=== PATIENT | male | born 1960 | race Caucasian/White ===

== ENCOUNTER 2017-04-22 18:32 | Inpatient (IN) | payer OTHER ==
[~2017-04-22] VITALS: Ht 170.2 cm; Wt 73.1 kg
[~2017-04-22 18:32] MED LIST: LORTA5 PO
[2017-04-22 18:34] VITALS: BP 228/113; PULSE 76; RESP 18; TEMP 97.9; O2SAT 98
[2017-04-22] MEDS ORDERED: ASPIRIN 325 MG TAB PO ONE (19:00)
[2017-04-22] MEDS ORDERED: NITROGLYCERIN 0.4 MG SL 25 TABS/BTL SL ONE (19:00)
[2017-04-22] MEDS ORDERED: MORPHINE SULFATE 4 MG/ML INJ IV PUSH ONE (19:00)
--- NOTE | 2017-04-22 19:55 | RADRPT ---
EXAM DATE/TIME: 04/22/2017 19:03 [facility] COMPARISON: No previous studies available for comparison. INDICATIONS : Chest pain. Short of breath. MEDICAL HISTORY : None. SURGICAL HISTORY : CABG. ENCOUNTER: Initial ACUITY: 2 months PAIN SCORE: 5/10 LOCATION: Bilateral chest FINDINGS: No infiltrate, effusion or pneumothorax. Heart size normal. Thoracic aorta is atherosclerotic. CONCLUSION: No evidence of acute cardiopulmonary disease. Nathan Dawkins MD on April 22, 2017 at 19:53 Board Certified Radiologist. This report was verified electronically.
[2017-04-22 20:06] LABS: AUTOMATED NEUTROPHIL # 4.6 TH/MM3 (1.8-7.7); BASOPHIL % 0.6 % (0.0-2.0); EOSINOPHIL # 0.1 TH/MM3 (0-0.4); EOSINOPHIL % 1.2 % (0.0-4.0); HEMATOCRIT 49.8 % (39.0-51.0); HEMO FLAGS DIFF FINAL; LYMPH % 24.8 % (9.0-44.0); LYMPHOCYTE # 1.7 TH/MM3 (1.0-4.8); MEAN CORPUSCULAR HEMOGLOBIN 30.6 PG (27.0-34.0); MEAN CORPUSCULAR HGB CONC 33.6 % (32.0-36.0); MONO % 7.9 % (0.0-8.0); NEUT % 65.5 % (16.0-70.0); PLATELET COUNT 152 TH/MM3 (150-450); RED BLOOD COUNT 5.47 MIL/MM3 (4.50-5.90); RED CELL DISTRIBUTION WIDTH 13.7 % (11.6-17.2); WHITE BLOOD COUNT 7.1 TH/MM3 (4.0-11.0)
[2017-04-22 20:11] LABS: APTT (PATIENT) 25.7 SEC (24.3-30.1); PROTHROMBIN TIME - PATIENT 11.2 SEC (9.8-11.6)
[2017-04-22 20:15] LABS: ALT (GPT) 37 U/L (12-78); ANION GAP 5 MEQ/L (5-15); AST (GOT) 24 U/L (15-37); BICARBONATE 27.1 MEQ/L (21.0-32.0); BLOOD UREA NITROGEN 13 MG/DL (7-18); CHLORIDE 107 MEQ/L (98-107); GLOMERULAR FILTRATION RATE 74 ML/MIN (>89); MAGNESIUM 1.9 MG/DL (1.5-2.5); POTASSIUM 4.7 MEQ/L (3.5-5.1); SODIUM (NA) 139 MEQ/L (136-145)
[2017-04-22] MEDS ORDERED: MORPHINE SULFATE 8 MG/ML INJ IV PUSH ONE (20:15)
[2017-04-22 20:25] LABS: ALKALINE PHOSPHATASE 58 U/L (45-117); TOTAL BILIRUBIN ADULT 0.4 MG/DL (0.2-1.0)
[2017-04-22 20:30] LABS: CREATINE KINASE 55 U/L (39-308)
--- NOTE | 2017-04-22 20:38 | RADRPT ---
EXAM DATE/TIME: 04/22/2017 20:25 [facility] COMPARISON: No previous studies available for comparison. INDICATIONS : Syncope two days ago. Dizziness and blurred vision. RADIATION DOSE: 35.65 CTDIvol (mGy) MEDICAL HISTORY : Cardiovascular disease. Hypertension. SURGICAL HISTORY : CABG ENCOUNTER: Initial ACUITY: 2 days PAIN SCALE: 2/10 LOCATION: cranial TECHNIQUE: Multiple contiguous axial images were obtained of the head. Using automated exposure control and adj ustment of the mA and/or kV according to patient size, radiation dose was kept as low as reasonably a chievable to obtain optimal diagnostic quality images. DICOM format image data is available electro nically for review and comparison. FINDINGS: CEREBRUM: The ventricles are normal for age. No evidence of midline shift, mass lesion, hemorrhage or acute in farction. No extra-axial fluid collections are seen. POSTERIOR FOSSA: The cerebellum and brainstem are intact. The 4th ventricle is midline. The cerebellopontine angle i s unremarkable. EXTRACRANIAL: The visualized portion of the orbits is intact. SKULL: The calvaria is intact. No evidence of skull fracture. CONCLUSION: Negative noncontrast head CT. Nathan Dawkins MD on April 22, 2017 at 20:36 Board Certified Radiologist. This report was verified electronically.
--- NOTE | 2017-04-22 20:50 | PD ---
HPI Chief Complaint: Syncope/Near-Syncope Time Seen by Provider: 20:43 Travel History International Travel<30 days: No Contact w/Intl Traveler<30days: No Traveled to known affect area: No History of Present Illness HPI 57-year-old male that presents to the ED for evaluation of syncopal episode 2 days ago. Per patient he has a history of cardiac disease including a cardiac bypass when he was in his 30s. Per patient she's been having on and off chest pain for a couple months and has not seen anybody for this. Per patient he wasn 't sure this is related to muscles or because of his previous stents. Per patient 2 days ago she was working inside and she lost consciousness. Per patient he did hit his head and does not remember what actually happened. Per patient he had no prodrome before this happened. Per patient he is never had anything this before. He does state that he continues to have the chest discomforts and have become more severe recently. He does not know this is related. He takes no medications but does tell me that he did took one Lortab today from a friend to help with the discomfort on the chest. Per patient he feels some numbness sensation in his right chest. He denies any back or neck pain. He denies any leg or arm pain. Per patient discomforts 5 out of 10. He has not seen anybody for this. Per patient this is worker's comp as this happened at work. PFSH Past Medical History Asthma: No Autoimmune Disease: No Blood Disorders: No Heart Rhythm Problems: Yes Cancer: No Cardiac Catheterization: Yes (1988) Cardiovascular Problems: Yes (DOUBLE BYPASS) High Cholesterol: No Chest Pain: Yes Congestive Heart Failure: No COPD: No Diminished Hearing: Yes (A LITTLE HARD OF HEARING AT TIMES) Genitourinary: No Hypertension: Yes Musculoskeletal: No Neurologic: No Psychiatric: No Reproductive: No Respiratory: No Myocardial Infarction: No Sleep Apnea: No Past Surgical History Abdominal Surgery: No Body Medical Devices: CARDIAC STENTS Cardiac Surgery: Yes (DOUBLE BYPASS DONE IN 1988) Coronary Artery Bypass Graft: Yes Coronary Stent: Yes Ear Surgery: No Endocrine Surgery: No Eye Surgery: No Genitourinary Surgery: No Gynecologic Surgery: No Oral Surgery: No Pacemaker: No Thoracic Surgery: No Other Surgery: Yes Social History Alcohol Use: Yes (OCCASSIONALLY) Tobacco Use: Yes (1/2 PPD) Substance Use: No Allergies-Medications (Allergen,Severity, Reaction): Coded Allergies: No Known Allergies (Verified Allergy, Severe, 04/29/08) Reported Meds & Prescriptions Reported Meds & Active Scripts Active No Active Prescriptions or Reported Medications Review of Systems Except as stated in HPI: all other systems reviewed are Neg Physical Exam Narrative GENERAL: SKIN: Warm and dry. Patient has a very superficial laceration to the right forehead HEAD: Atraumatic. Normocephalic. EYES: Pupils equal and round 4 mm reactive and accommodation. No scleral icterus. No injection or drainage. ENT: No nasal bleeding or discharge. Mucous membranes pink and moist. Tongue is midline. No uvula deviation. NECK: Trachea midline. No JVD. CARDIOVASCULAR: Regular rate and rhythm. No murmurs, S3, S4 patient does have a healing scar on the mid chest from previous bypass. RESPIRATORY: No accessory muscle use. Clear to auscultation. Breath sounds equal bilaterally. GASTROINTESTINAL: Abdomen soft, non-tender, nondistended. Hepatic and splenic margins not palpable. MUSCULOSKELETAL: Extremities without clubbing, cyanosis, or edema. No obvious deformities. Full range of motion of the upper and lower extremities bilaterally. 2+ pulses bilaterally. NEUROLOGICAL: Awake and alert. No obvious cranial nerve deficits. Motor grossly within normal limits. Five out of 5 muscle strength in the arms and legs. Normal speech. PSYCHIATRIC: Appropriate mood and affect; insight and judgment normal. Data Data Last Documented VS Vital Signs Date Time Temp Pulse Resp B/P Pulse Ox O2 Delivery O2 Flow Rate FiO2 04/22/17 20:17 88 99 Room Air 04/22/17 18:34 97.9 18 228/113 Orders Electrocardiogram (04/22/17 18:58) Complete Blood Count With Diff (04/22/17 18:58) Comprehensive Metabolic Panel (04/22/17 18:58) Ckmb (Isoenzyme) Profile (04/22/17 18:58) Troponin I (04/22/17 18:58) B-Type Natriuretic Peptide (04/22/17 18:58) Prothrombin Time / Inr (Pt) (04/22/17 18:58) Act Partial Throm Time (Ptt) (04/22/17 18:58) Lipase (04/22/17 18:58) Urinalysis - C+S If Indicated (04/22/17 18:58) Magnesium (Mg) (04/22/17 18:58) Thyroid Stimulating Hormone (04/22/17 18:58) Chest, Single Ap (04/22/17 18:58) Ct Brain W/O Iv Contrast(Rout) (04/22/17 18:58) Iv Access Insert/Monitor (04/22/17 18:58) Ecg Monitoring (04/22/17 18:58) Oximetry (04/22/17 18:58) Orthostatic Vital Signs (04/22/17 18:58) Aspirin (Aspirin) (04/22/17 19:00) Nitroglycerin Sl (Nitrostat Sl) (04/22/17 19:00) Morphine Inj (Morphine Inj) (04/22/17 19:00) Morphine Inj (Morphine Inj) (04/22/17 20:15) Admit Order (Ed Use Only) (04/22/17 20:57) Place In Observation (04/22/17 ) Vital Signs (Adult) Q4H (04/22/17 20:55) Activity Oob With Assistance (04/22/17 20:55) Shipping Track Supervisor / Telemetry .CONTINUOUS (04/22/17 20:55) Intake + Output SHANA.QSHIFT (04/22/17 20:55) Diet Heart Healthy (04/23/17 Breakfast) Sodium Chlor 0.9% 1000 Ml Inj (Ns 1000 M (04/22/17 20:55) Sodium Chloride 0.9% Flush (Ns Flush) (04/22/17 21:00) Sodium Chloride 0.9% Flush (Ns Flush) (04/22/17 21:00) Ondansetron Inj (Zofran Inj) (04/22/17 21:00) Comprehensive Metabolic Panel (04/23/17 06:00) Complete Blood Count With Diff (04/23/17 06:00) Troponin I (04/23/17 00:00) Troponin I (04/23/17 06:00) Labs Laboratory Tests Test 04/22/17 19:35 White Blood Count 7.1 TH/MM3 Red Blood Count 5.47 MIL/MM3 Hemoglobin 16.7 GM/DL Hematocrit 49.8 % Mean Corpuscular Volume 91.0 FL Mean Corpuscular Hemoglobin 30.6 PG Mean Corpuscular Hemoglobin 33.6 % Concent Red Cell Distribution Width 13.7 % Platelet Count 152 TH/MM3 Mean Platelet Volume 9.2 FL Neutrophils (%) (Auto) 65.5 % Lymphocytes (%) (Auto) 24.8 % Monocytes (%) (Auto) 7.9 % Eosinophils (%) (Auto) 1.2 % Basophils (%) (Auto) 0.6 % Neutrophils # (Auto) 4.6 TH/MM3 Lymphocytes # (Auto) 1.7 TH/MM3 Monocytes # (Auto) 0.6 TH/MM3 Eosinophils # (Auto) 0.1 TH/MM3 Basophils # (Auto) 0.0 TH/MM3 CBC Comment DIFF FINAL Differential Comment Prothrombin Time 11.2 SEC Prothromb Time International 1.0 RATIO Ratio Activated Partial 25.7 SEC Thromboplast Time Sodium Level 139 MEQ/L Potassium Level 4.7 MEQ/L Chloride Level 107 MEQ/L Carbon Dioxide Level 27.1 MEQ/L Anion Gap 5 MEQ/L Blood Urea Nitrogen 13 MG/DL Creatinine 1.03 MG/DL Estimat Glomerular Filtration 74 ML/MIN Rate Random Glucose 101 MG/DL Calcium Level 9.1 MG/DL Magnesium Level 1.9 MG/DL Total Bilirubin 0.4 MG/DL Aspartate Amino Transf 24 U/L (AST/SGOT) Alanine Aminotransferase 37 U/L (ALT/SGPT) Alkaline Phosphatase 58 U/L Total Creatine Kinase 55 U/L Troponin I LESS THAN 0.02 NG/ML B-Type Natriuretic Peptide 11 PG/ML Total Protein 7.6 GM/DL Albumin 3.9 GM/DL Lipase 157 U/L Thyroid Stimulating Hormone 1.130 uIU/ML 3rd Gen [facility] Medical Decision Making Medical Screen Exam Complete: Yes Emergency Medical Condition: Yes Medical Record Reviewed: Yes Interpretation(s) CBC & BMP Diagram 04/22/17 19:35 Last Impressions Chest X-Ray 04/22/17 [id number] Signed Impressions: Service Date/Time: Saturday, April 22, 2017 19:03 - CONCLUSION: No evidence of acute cardiopulmonary disease. Nathan Dawkins MD CT head negative EKG shows sinus rhythm with no sign of acute ischemia or arrhythmia read by me and attending. LFTS WNL coags WNL troponin and CKMB negative Differential Diagnosis Syncope versus a typical chest pain versus chest pain versus ACS versus head injury versus hypertensive urgency versus hypertensive emergency Narrative Course 57-year-old male that presents to the ED for evaluation of syncope and chest pain. Patient was properly examined and was found to have signs and symptoms of unclear etiology but definite concern for ACS as well as head injury. Labs and imaging were ordered. Patient was given aspirin as well as nitroglycerin and morphine. Patient did have some relief from this. Blood pressure was very high initially but has come down somewhat with the medications given. My attending Dr. Rasheed evaluated the patient with me and recommends admission for syncopal workup. Patient agrees with plan. Dr. Drake was contacted and agrees to admission. Procedures EKG Prior to Arrival: No Diagnosis Primary Impression: Syncope Qualified Code: R55 - Syncope, unspecified syncope type Additional Impression: Chest pain in adult Admitting Information Admitting Physician Requests: Observation Scripts No Active Prescriptions or Reported Meds Leandro Abrams Apr 22, 2017 20:50
[2017-04-22] MEDS ORDERED: MORPHINE SULFATE 4 MG/ML INJ IV PRN (21:00)
[2017-04-22] MEDS ORDERED: SODIUM CHLORIDE 0.9% FLUSH 10 ML FLUSH IV FLUSH PRN (21:00)
--- NOTE | 2017-04-22 21:01 | HHI.HP ---
[facility] Primary Care Physician Admission Diagnosis Syncope Diagnoses: (1) Syncope Diagnosis: Principal (2) Chest pain Diagnosis: Principal (3) HTN (hypertension) Diagnosis: Principal (4) Dehydration Diagnosis: Principal (5) Tobacco abuse Diagnosis: Principal Travel History International Travel<30 Days: No Contact w/Intl Traveler <30 Da: No Traveled to Known Affected Are: No History of Present Illness This is a 57-year-old male with a PMH of HTN, CAD s/p CABG and Tobacco Abuse who presented to the ER with complaints of chest pain and syncope 2 days ago. States he's had intermittent chest pain for the last 1-2 months, however has not sought medical attention until now. Reports being at work 2 days ago, had episode of dizziness and subsequent syncopal event, did not seek medical attention at that time. Denies fever, chills, cough, SOB or sick contacts. On arrival, BP 228/113, HR 76. Currently BP 170/78, HR 74. Chemistry essentially unremarkable except for GFR 74. Troponin negative. INR 1.0. CXR with no acute findings. CT Head negative. Review of Systems Except as stated in HPI: all other systems reviewed are Neg ROS: 14 point review of systems otherwise negative. Past Family Social History Past Medical History PMH: HTN, CAD s/p CABG and Tobacco Abuse Past Surgical History PAST SURGICAL HISTORY: CABG Allergies: Coded Allergies: No Known Allergies (Verified Allergy, Severe, 04/29/08) Family History PAST FAMILY HISTORY: Reviewed. No h/o DM or CAD Social History PAST SOCIAL HISTORY: Occasional alcohol. Smokes 1/2ppd. Negative for drugs. Physical Exam Vital Signs Vital Signs Date Time Temp Pulse Resp B/P Pulse Ox O2 Delivery O2 Flow Rate FiO2 04/22/17 20:17 88 99 Room Air 04/22/17 18:34 97.9 76 18 228/113 98 Room Air Physical Exam PE: GENERAL: Middle-aged white male in no acute distress. HEENT: PERRLA, EOMI. No scleral icterus or conjunctival pallor. No lid lag or facial droop. CARDIOVASCULAR: Regular rate and rhythm. No obvious murmurs to auscultation. No chest tenderness to palpation. RESPIRATORY: No obvious rhonchi or wheezing. Clear to auscultation. Breath sounds equal bilaterally. GASTROINTESTINAL: Abdomen soft, non-tender, nondistended. BS normal. MUSCULOSKELETAL: Extremities without clubbing, cyanosis, or edema. No obvious deformities. NEUROLOGICAL: Awake, alert and oriented x4. No focal neurologic deficits. Moving both upper and lower extremities spontaneously. Laboratory Laboratory Tests Test 04/22/17 19:35 White Blood Count 7.1 Red Blood Count 5.47 Hemoglobin 16.7 Hematocrit 49.8 Mean Corpuscular Volume 91.0 Mean Corpuscular Hemoglobin 30.6 Mean Corpuscular Hemoglobin 33.6 Concent Red Cell Distribution Width 13.7 Platelet Count 152 Mean Platelet Volume 9.2 Neutrophils (%) (Auto) 65.5 Lymphocytes (%) (Auto) 24.8 Monocytes (%) (Auto) 7.9 Eosinophils (%) (Auto) 1.2 Basophils (%) (Auto) 0.6 Neutrophils # (Auto) 4.6 Lymphocytes # (Auto) 1.7 Monocytes # (Auto) 0.6 Eosinophils # (Auto) 0.1 Basophils # (Auto) 0.0 CBC Comment DIFF FINAL Differential Comment Prothrombin Time 11.2 Prothromb Time International 1.0 Ratio Activated Partial 25.7 Thromboplast Time Sodium Level 139 Potassium Level 4.7 Chloride Level 107 Carbon Dioxide Level 27.1 Anion Gap 5 Blood Urea Nitrogen 13 Creatinine 1.03 Estimat Glomerular Filtration 74 Rate Random Glucose 101 Calcium Level 9.1 Magnesium Level 1.9 Total Bilirubin 0.4 Aspartate Amino Transf 24 (AST/SGOT) Alanine Aminotransferase 37 (ALT/SGPT) Alkaline Phosphatase 58 Total Creatine Kinase 55 Troponin I LESS THAN 0.02 B-Type Natriuretic Peptide 11 Total Protein 7.6 Albumin 3.9 Lipase 157 Thyroid Stimulating Hormone 1.130 3rd Gen Result Diagram: 04/22/17193404/22/171934 Assessment and Plan Problem List: (1) Syncope ICD Code: R55 Status: Acute (2) Chest pain ICD Code: R07.9 Status: Acute (3) Dehydration ICD Code: E86.0 Status: Acute (4) HTN (hypertension) ICD Code: I10 Status: Acute (5) Tobacco abuse ICD Code: Z72.0 Status: Acute Assessment and Plan A/P: 1. Syncope: acute episode of dizziness followed by syncopal event 2 days ago at work, no recurrence. CT Head w/ no acute findings, images reviewed by me. IVF for hydration, admit for Observation, check Echo, telemetry. 2. Chest Pain: h/o CAD s/p CABG at age 28yrs, initial trop negative, EKG w/ no acute ischemia, check serial cardiac enzymes. ASA, Statin, start B-Jovanni. Check Lipid Profile, Hgb A1c. 3. Dehydration: GFR 74, U/a negative, IVF for hydration, repeat labs in am. 4. HTN: Uncontrolled. BP 228/113, HR 76 on arrival, start Lopressor, BP currently 170/78, HR 74. Will monitor. 5. DVT Prophylaxis: SCD/Teds. 6. Social work for dc planning as needed. 7. Case discussed w/ ER physician at length Problem Qualifiers (1) Syncope: Qualified Code: R55 - Syncope, unspecified syncope type Mariana Drake MD Apr 22, 2017 21:01
--- NOTE | 2017-04-22 21:14 | PD ---
Physical Exam Narrative GENERAL: Well-nourished, well-developed patient. SKIN: Warm and dry. HEAD: Normocephalic and atraumatic. EYES: No injection or drainage. ENT: No nasal drainage noted. NECK: Supple, trachea midline. CARDIOVASCULAR: Regular rate and rhythm RESPIRATORY: Breath sounds equal bilaterally. No accessory muscle use. GASTROINTESTINAL: Abdomen soft, non-tender, nondistended. NEUROLOGICAL: Awake and alert. Motor and sensory grossly within normal limits. Normal speech. Data Data Last Documented VS Vital Signs Date Time Temp Pulse Resp B/P Pulse Ox O2 Delivery O2 Flow Rate FiO2 04/22/17 20:17 88 99 Room Air 04/22/17 18:34 97.9 18 228/113 Repeat blood pressure has improved on its own to a systolic in the 160s Orders Electrocardiogram (04/22/17 18:58) Complete Blood Count With Diff (04/22/17 18:58) Comprehensive Metabolic Panel (04/22/17 18:58) Ckmb (Isoenzyme) Profile (04/22/17 18:58) Troponin I (04/22/17 18:58) B-Type Natriuretic Peptide (04/22/17 18:58) Prothrombin Time / Inr (Pt) (04/22/17 18:58) Act Partial Throm Time (Ptt) (04/22/17 18:58) Lipase (04/22/17 18:58) Urinalysis - C+S If Indicated (04/22/17 18:58) Magnesium (Mg) (04/22/17 18:58) Thyroid Stimulating Hormone (04/22/17 18:58) Chest, Single Ap (04/22/17 18:58) Ct Brain W/O Iv Contrast(Rout) (04/22/17 18:58) Iv Access Insert/Monitor (04/22/17 18:58) Ecg Monitoring (04/22/17 18:58) Oximetry (04/22/17 18:58) Orthostatic Vital Signs (04/22/17 18:58) Aspirin (Aspirin) (04/22/17 19:00) Nitroglycerin Sl (Nitrostat Sl) (04/22/17 19:00) Morphine Inj (Morphine Inj) (04/22/17 19:00) Morphine Inj (Morphine Inj) (04/22/17 20:15) Admit Order (Ed Use Only) (04/22/17 20:57) Labs Laboratory Tests Test 04/22/17 19:35 White Blood Count 7.1 TH/MM3 Red Blood Count 5.47 MIL/MM3 Hemoglobin 16.7 GM/DL Hematocrit 49.8 % Mean Corpuscular Volume 91.0 FL Mean Corpuscular Hemoglobin 30.6 PG Mean Corpuscular Hemoglobin 33.6 % Concent Red Cell Distribution Width 13.7 % Platelet Count 152 TH/MM3 Mean Platelet Volume 9.2 FL Neutrophils (%) (Auto) 65.5 % Lymphocytes (%) (Auto) 24.8 % Monocytes (%) (Auto) 7.9 % Eosinophils (%) (Auto) 1.2 % Basophils (%) (Auto) 0.6 % Neutrophils # (Auto) 4.6 TH/MM3 Lymphocytes # (Auto) 1.7 TH/MM3 Monocytes # (Auto) 0.6 TH/MM3 Eosinophils # (Auto) 0.1 TH/MM3 Basophils # (Auto) 0.0 TH/MM3 CBC Comment DIFF FINAL Differential Comment Prothrombin Time 11.2 SEC Prothromb Time International 1.0 RATIO Ratio Activated Partial 25.7 SEC Thromboplast Time Sodium Level 139 MEQ/L Potassium Level 4.7 MEQ/L Chloride Level 107 MEQ/L Carbon Dioxide Level 27.1 MEQ/L Anion Gap 5 MEQ/L Blood Urea Nitrogen 13 MG/DL Creatinine 1.03 MG/DL Estimat Glomerular Filtration 74 ML/MIN Rate Random Glucose 101 MG/DL Calcium Level 9.1 MG/DL Magnesium Level 1.9 MG/DL Total Bilirubin 0.4 MG/DL Aspartate Amino Transf 24 U/L (AST/SGOT) Alanine Aminotransferase 37 U/L (ALT/SGPT) Alkaline Phosphatase 58 U/L Total Creatine Kinase 55 U/L Troponin I LESS THAN 0.02 NG/ML B-Type Natriuretic Peptide 11 PG/ML Total Protein 7.6 GM/DL Albumin 3.9 GM/DL Lipase 157 U/L Thyroid Stimulating Hormone 1.130 uIU/ML 3rd Gen MDM Supervised Visit with LALITA: Yes Interpretation(s) CBC & BMP Diagram 04/22/17 19:35 Last [address] 04/22/17 [id number] Signed Impressions: Service Date/Time: Saturday, April 22, 2017 20:25 - CONCLUSION: Negative noncontrast head CT. Nathan Dawkins MD Chest X-Ray 04/22/17 1858 Signed Impressions: Service Date/Time: Saturday, April 22, 2017 19:03 - CONCLUSION: No evidence of acute cardiopulmonary disease. Nathan Dawkins MD Narrative Course I, Dr. wagner, have reviewed the advance practice practitioner's documentation and am in agreement, met with the patient face to face, made the diagnosis, and the medical decision making was done by me. *My assessment and Findings: 57-year-old male presents after he had a syncopal event at work today. He has been having chest pain intermittently over the past couple months. Chest pain today resolved with nitroglycerin knee has a mild associated headache now from this. He denies any other concurrent complaints. He agrees to hospitalization for further workup Diagnosis Primary Impression: Syncope Qualified Code: R55 - Syncope, unspecified syncope type Additional Impression: Chest pain in adult Scripts No Active Prescriptions or Reported Meds Bertha Wagner MD Apr 22, 2017 21:14
[2017-04-22 21:15] VITALS: BP 176/74; PULSE 90; RESP 18; O2SAT 97
[2017-04-22] MEDS ORDERED: METOPROLOL TARTRATE 25 MG TAB PO SCH (22:00)
[2017-04-22] MEDS ORDERED: MAGNESIUM HYDROXIDE SUSP 30 ML CUP PO PRN (22:00)
[2017-04-22] MEDS ORDERED: BISACODYL 10 MG SUPP RECTAL PRN (22:00)
[2017-04-22] MEDS ORDERED: SENNOSIDES 8.6 MG TAB PO PRN (22:00)
[2017-04-22] MEDS ORDERED: LACTULOSE SYRUP 20 GM/30 ML CUP PO PRN (22:00)
[2017-04-22] MEDS ORDERED: ONDANSETRON HCL 4 MG/2 ML VIAL IVP PRN (22:00)
[2017-04-22] MEDS ORDERED: NITROGLYCERIN 2% OINT 1 GM PACKET TOPICAL PRN (22:00)
[2017-04-22] MEDS ORDERED: ACETAMINOPHEN 325 MG TAB PO PRN (22:00)
[2017-04-22 22:10] VITALS: BP 182/80; PULSE 82; RESP 14; O2SAT 100
[2017-04-22] MEDS: SODIUM CHLOR 0.9% 1000 ML INJ 1,000 ML IV SCH (22:16)
[2017-04-22] MEDS: SODIUM CHLORIDE 0.9% FLUSH 10 ML FLUSH IV FLUSH SCH (22:16)
[2017-04-22] MEDS: DOCUSATE SODIUM 50 MG/SENNA 8.6 MG TAB PO SCH (22:17)
[2017-04-22 23:00] VITALS: BP 174/82; PULSE 72; RESP 16; O2SAT 99
[2017-04-22 23:05] LABS: BLOOD, URINE NEG (NEG); COMMENT (UR) CULT NOT INDICATED; CULTURE IF INDICATED CULT NOT INDICATED; GLUCOSE,URINE NEG (NEG); HYALINE CAST, URINE 1 /lpf (RARE); KETONE, URINE NEG (NEG); MUCUS URINE MANY /lpf (OCC); NITRITE,URINE NEG (NEG); PH, URINE 5.5 (5.0-8.5); URINE COLOR YELLOW (YELLW/STRAW)
[2017-04-23] VITALS (14 sets, daily range): BP systolic 135–193; BP diastolic 66–88; PULSE 46–74; RESP 14–20; TEMP 97.8–98.8; O2SAT 93–100
[2017-04-23] MEDS: ACETAMINOPHEN/HYDROcodone 325 MG/5 MG TAB PO PRN ×2 (01:56→23:25)
[2017-04-23] MEDS: SODIUM CHLOR 0.9% 1000 ML INJ 1,000 ML IV SCH ×2 (06:30→21:38)
[2017-04-23] MEDS ORDERED: PILL SPLITTER OTHER PRN (07:45)
--- NOTE | 2017-04-23 08:02 | HHI.PR ---
Subjective Remarks Follow-up for chest pain and syncope. The patient has been having chest pain for the past few weeks. He denies any exacerbating factors including activity. The pain is usually relieved by rest. The pain is worse whenever he moves a certain way. He denies any chest trauma or recent excessive activity or heavy lifting. It is located on his anterior left chest and radiates up and down. The patient does have a history of CABG in 2007, but has not been on any medications or following with any doctors. He does continue to smoke. The patient states that he's been having multiple episodes of syncope lately. Syncope is not related to position changes or activity. He states that he is having episodes where he also and feels faint, loses consciousness for a few seconds, and then awakens with no issues. He has been having intermittent episodes of right-sided vision "like he is looking to a waterfall". Upon further questioning he is also been having intermittent episodes of right-sided numbness and weakness. He denies any right-sided symptoms at this time. Objective Vitals Vital Signs Date Time Temp Pulse Resp B/P Pulse Ox O2 Delivery O2 Flow Rate FiO2 04/23/17 03:51 46 04/23/17 03:26 98.5 48 18 160/72 94 04/23/17 01:43 98.5 52 18 193/88 97 04/23/17 01:14 72 18 168/74 100 Room Air 04/23/17 00:11 74 14 170/78 99 Room Air 04/22/17 23:00 72 16 174/82 99 Room Air 04/22/17 22:10 82 14 182/80 100 Room Air 04/22/17 21:15 90 18 176/74 97 Room Air 04/22/17 20:17 88 99 Room Air 04/22/17 18:34 97.9 76 18 228/113 98 Room Air I/O 04/22/17 04/22/17 04/22/17 04/23/17 04/23/17 04/23/17 07:00 15:00 23:00 07:00 15:00 23:00 Intake Total 725 ml Balance 725 ml Intake Oral 240 ml IV Total 485 ml # Voids 1 Result Diagram: 04/22/17193404/22/171934 Imaging Last Impressions Head CT 04/22/171857 Signed Impressions: Service Date/Time: Saturday, April 22, 2017 20:25 - CONCLUSION: Negative noncontrast head CT. Nathan Dawkins MD Chest X-Ray 04/22/171857 Signed Impressions: Service Date/Time: Saturday, April 22, 2017 19:03 - CONCLUSION: No evidence of acute cardiopulmonary disease. Nathan Dawkins MD Objective Remarks GENERAL: Well-developed well-nourished. In no acute distress. SKIN: Warm and dry. No lesions noted. HEENT: Normocephalic. Pupils equal and round. Mucous membranes pink and moist. CARDIOVASCULAR: Regular rate and rhythm. No murmur appreciated. Left anterior chest wall is tender to palpation. RESPIRATORY: No accessory muscle use. Clear to auscultation. Breath sounds equal bilaterally. GASTROINTESTINAL: Abdomen soft, non-tender, nondistended. Bowel sounds x4. MUSCULOSKELETAL: Pain with movement of the right shoulder and right hip. No clubbing or cyanosis. No edema. NEUROLOGICAL: Awake and alert. Moves upper and lower extremities spontaneously. Normal speech. Weakness on the right, although somewhat limited by musculoskeletal pain. However the patient has decreased sieve maker strength and dorsi/plantar flexion on the right. No facial asymmetry. PSYCHIATRIC: Appropriate mood and affect; insight and judgment normal. A/P Problem List: (1) Syncope ICD Code: R55 Status: Acute (2) Chest pain ICD Code: R07.9 Status: Acute (3) HTN (hypertension) ICD Code: I10 Status: Acute (4) Tobacco abuse ICD Code: Z72.0 Status: Chronic Assessment and Plan 57-year-old male with a PMH of HTN, CAD s/p CABG and Tobacco Abuse who presented to the ER with complaints of chest pain and syncope 2 days ago Atypical chest pain: Seems more musculoskeletal, likely from falls from syncope. Reviewed: EKG with occasional PACs, no ischemic changes. Troponin negative 2. -Rule out ACS per protocol -Plan for stress testing if ACS ruled out -Started on aspirin, statin, and Nitropaste Transient right-sided neurologic symptoms: Possible TIA/CVA Reviewed: Head CT negative. -Check brain MRI/MRA, carotid ultrasound -Permissive hypertension for now -IVF -Check lipid panel and hemoglobin A1c Syncope: Possibly secondary to cardiac or neurologic etiology as above. -Chest pain and TIA/CVA workup -Echocardiogram -PT eval -Monitor on telemetry Hypertension: Accelerated. Permissive hypertension for now. We'll start BP meds if CVA is ruled out. Tobacco abuse: Counseled on cessation. DVT prophylaxis: SCDs Discharge Planning Disposition pending results of above workup. Problem Qualifiers (1) Syncope: Qualified Code: R55 - Syncope, unspecified syncope type Kash Saenz Apr 23, 2017 08:02
[2017-04-23] MEDS: DOCUSATE SODIUM 50 MG/SENNA 8.6 MG TAB PO SCH ×2 (08:09→21:37)
[2017-04-23] MEDS: ASPIRIN EC 81 MG TABEC PO SCH (08:09)
[2017-04-23] MEDS: PRAVASTATIN SOD 40 MG TAB PO SCH (08:09)
[2017-04-23] MEDS: SODIUM CHLORIDE 0.9% FLUSH 10 ML FLUSH IV FLUSH SCH ×2 (08:10→21:37)
[2017-04-23 09:00] LABS: AUTOMATED NEUTROPHIL # 3.1 TH/MM3 (1.8-7.7); BASOPHIL % 0.7 % (0.0-2.0); EOSINOPHIL # 0.2 TH/MM3 (0-0.4); EOSINOPHIL % 3.5 % (0.0-4.0); HEMATOCRIT 47.1 % (39.0-51.0); HEMO FLAGS DIFF FINAL; LYMPH % 33.4 % (9.0-44.0); MEAN CELL VOLUME 90.5 FL (80.0-100.0); MEAN CORPUSCULAR HEMOGLOBIN 30.7 PG (27.0-34.0); MEAN CORPUSCULAR HGB CONC 33.9 % (32.0-36.0); MONO % 9.3 % (0.0-8.0); NEUT % 53.1 % (16.0-70.0); PLATELET COUNT 147 TH/MM3 (150-450); RED BLOOD COUNT 5.21 MIL/MM3 (4.50-5.90); RED CELL DISTRIBUTION WIDTH 13.7 % (11.6-17.2); WHITE BLOOD COUNT 5.9 TH/MM3 (4.0-11.0)
[2017-04-23] MEDS ORDERED: amLODIPine BESYLATE 5 MG TAB PO SCH (09:00)
[2017-04-23 09:33] LABS: ALT (GPT) 35 U/L (12-78); ANION GAP 7 MEQ/L (5-15); AST (GOT) 22 U/L (15-37); BICARBONATE 23.1 MEQ/L (21.0-32.0); BLOOD UREA NITROGEN 13 MG/DL (7-18); CHLORIDE 108 MEQ/L (98-107); GLOMERULAR FILTRATION RATE 91 ML/MIN (>89); SODIUM (NA) 138 MEQ/L (136-145)
[2017-04-23 09:37] LABS: ALKALINE PHOSPHATASE 55 U/L (45-117); HDL CHOLESTEROL 35.9 MG/DL (40.0-60.0); LDL CHOLESTEROL 163 MG/DL (0-99); TOTAL BILIRUBIN ADULT 0.6 MG/DL (0.2-1.0)
--- NOTE | 2017-04-23 11:32 | RADRPT ---
EXAM DATE/TIME: 04/23/2017 10:25 [facility] COMPARISON: MRI BRAIN W/O CONTRAST, April 23, 2017, 10:25. INDICATIONS : Right sided weakness. MEDICAL HISTORY : Hypertension. SURGICAL HISTORY : CABG Coronary artery stent. ENCOUNTER: Initial ACUITY: 1 day PAIN SCORE: 0/10 LOCATION: cranial Please note a normal MRA of the brain does not entirely exclude the possibility of a small aneurysm, nor the possibility of distal intracranial vessel disease. TECHNIQUE: 3D time of flight MRA was performed. Source images, multiplanar STS MIP, and 3D volume MIP reconstru ctions were reviewed. FINDINGS: There is excellent visualization of the major intracranial arteries out to the second-order branch ve ssels. Focal irregular narrowing is identified in the petrous segment of the left internal carotid artery. T he degree of stenosis is between 50 and 69%. Sagittal STS and source images suggest the presence of e ccentric filling defect. The middle cerebral artery circulation is otherwise well preserved and appea rs symmetric compared to the right. No additional filling defects or stenoses are noted. The right carotid siphon demonstrates mild irregularity but is otherwise widely patent. 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 Vertebral basilar circulation is unremarkable. CONCLUSION: 1. Irregular narrowing in the petrous segment of the left internal carotid artery which may be caused by eccentric thrombus. 2. 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 3. Mild luminal irregularity involving the right carotid siphon without significant stenosis. Baron Harrell MD on April 23, 2017 at 11:22 Board Certified Radiologist. This report was verified electronically.
--- NOTE | 2017-04-23 11:49 | RADRPT ---
EXAM DATE/TIME: 04/23/2017 10:25 [facility] COMPARISON: No previous studies available for comparison. INDICATIONS : Right sided weakness. MEDICAL HISTORY : Hypertension. SURGICAL HISTORY : CABG Coronary artery stent. ENCOUNTER: Initial ACUITY: 1 day PAIN SCORE: 0/10 LOCATION: cranial TECHNIQUE: Multiplanar, multisequence MRI of the brain was performed without contrast. FINDINGS: Small focal areas of restricted diffusion are noted. The most prominent is identified in the left fro ntoparietal deep white matter within the centrum semiovale. Very small focus of restricted diffusion is also seen in the right centrum semiovale. Mild cortical restricted diffusion is identified in the right posterior parietal lobe. Moderate T2 hyperintense changes are seen throughout the cerebral white matter. There are periventric ular, deep white matter and subcortical white matter hyperintensities. There is notice of mass effect, edema or acute hemorrhage. CONCLUSION: Bilateral foci of restricted diffusion consistent with acute infarcts. The largest is located in the left centrum semi-ovale. Bilaterality is suggestive of an embolic process. Moderate cerebral and matter disease characteristic of chronic microvascular ischemic changes. No evidence of acute hemorrhage, edema or significant mass effect. Baron Harrell MD on April 23, 2017 at 11:39 Board Certified Radiologist. This report was verified electronically.
--- NOTE | 2017-04-23 13:46 | RADRPT ---
EXAM DATE/TIME: 04/23/2017 13:03 [facility] COMPARISON: No previous studies available for comparison. INDICATIONS : Cerebrovascular accident. MEDICAL HISTORY : Hypertension. Hearing loss. Blood transfusion. SURGICAL HISTORY : Coronary artery stent. CABG. ENCOUNTER: Initial ACUITY: 1 day PAIN SCORE: 0/10 LOCATION: Bilateral neck PEAK SYSTOLIC VELOCITIES (cm/sec): ICA/CCA RATIO: Right: 1.3 Left: 5.5 ICA: Right: 108 Left: 438 CCA: Right: 82 Left: 79 ECA: Right: 134 Left: 118 VERTEBRAL: Right: 93 antegrade Left: 82 antegrade Elevated flow velocities and ICA/CCA ratios have been found to correlate with increased degrees of vessel stenosis, calculated as percentage of diameter relative to a normal segment of distal ICA/CCA FINDINGS: There is extensive atherosclerotic plaquing on the left and to a moderate degree on the right involvi ng the common carotid arteries and ICAs with significant stenosis on the left. CONCLUSION: High-grade stenosis involving the left ICA. Bennett Metcafl MD on April 23, 2017 at 13:43 Board Certified Radiologist. This report was verified electronically.
--- NOTE | 2017-04-23 13:47 | EKG ---
Date Performed: 04/23/2017 Time Performed: 01:07:44 PTAGE: 57 years EKG: SINUS BRADYCARDIA BORDERLINE ECG PREVIOUS TRACING : 04/22/2017 20.04 Since prior tracing, Sinus rhythm has slowed. DOCTOR: Ashutosh Corral Interpretating Date/Time 04/23/2017 13:46:34
--- NOTE | 2017-04-23 13:47 | EKG ---
Date Performed: 04/22/2017 Time Performed: 20:04:50 PTAGE: 57 years EKG: Sinus rhythm WITH OCCASIONAL SUPRAVENTRICULAR PREMATURE COMPLEXES BORDERLINE ECG PREVIOUS TRACING : 04/30/2008 01.22 No change from prior tracing. DOCTOR: Ashutosh Corral Interpretating Date/Time 04/23/2017 13:46:11
[2017-04-23] MEDS ORDERED: IOHEXOL 350 MG/ML 10 ML VIAL (for RAD DIAG) IV ONE (16:59)
[2017-04-23 17:22] LABS: AMPHETAMINE, URINE NEG (NEG); BARBITURATES, URINE NEG (NEG); COCAINE, URINE NEG (NEG)
--- NOTE | 2017-04-23 17:36 | RADRPT ---
EXAM DATE/TIME: 04/23/2017 16:43 [facility] COMPARISON: MRA BRAIN W/O CONTRAST, April 23, 2017, 10:25. MRI BRAIN W/O CONTRAST, April 23, 2017, 10:25. INDICATIONS : Syncope and right sided weakness. IV CONTRAST: 90 cc Omnipaque 350 (iohexol) IV ; Cumulative dose for multiple exams. RADIATION DOSE: 28.41 CTDIvol (mGy) ; Combined studies MEDICAL HISTORY : Hypertension. Cardiovascular disease SURGICAL HISTORY : CABG ENCOUNTER: Initial ACUITY: 1 day PAIN SCALE: 0/10 LOCATION: Bilateral head TECHNIQUE: Volumetric scanning was performed using a multi-row detector CT scanner. The data was post processed with a variety of visualization algorithms including full volume maximum intensity projection, multi -planar sliding thin slab reformation, curved planar reformation, and surface rendering techniques. Using automated exposure control and adjustment of the mA and/or kV according to patient size, radiat ion dose was kept as low as reasonably achievable to obtain optimal diagnostic quality images. DICO M format image data is available electronically for review and comparison. FINDINGS: Left A-1 is hypoplastic. There is approximate 50% stenosis involving the left ICA in the Jesus Manuel porti on with a separate area involving the carotid siphon on the left side is due to atherosclerotic disea se. There is no evidence for filling defects within the middle cerebral arteries on either side. The posterior circulation appears intact. There is no aneurysm or vascular malformation. CONCLUSION: Approximate 50% stenosis of the left ICA in the tedious portion and carotid siphon without evidence f or filling defects. Bennett Metcalf MD on April 23, 2017 at 17:29 Board Certified Radiologist. This report was verified electronically.
--- NOTE | 2017-04-23 18:08 | RADRPT ---
EXAM DATE/TIME: 04/23/2017 16:43 [facility] COMPARISON: No previous studies available for comparison. INDICATIONS : Syncope and right sided weakness. IV CONTRAST: 90 cc Omnipaque 350 (iohexol) IV RADIATION DOSE: 28.41 CTDIvol (mGy) ; Combined studies MEDICAL HISTORY : Hypertension. Cardiovascular disease SURGICAL HISTORY : CABG ENCOUNTER: Initial ACUITY: 1 day PAIN SCALE: 0/10 LOCATION: Bilateral neck Elevated flow velocities and ICA/CCA ratios have been found to correlate with increased degrees of vessel stenosis, calculated as percentage of diameter relative to a normal segment of distal ICA/CCA. TECHNIQUE: Volumetric scanning was performed using a multirow detector CT scanner. The data was post processed with a variety of visualization algorithms including full-volume maximum intensity projection, multip lanar sliding thin-slab reformation, curved-planar reformation, and surface-rendering techniques. Us ing automated exposure control and adjustment of the mA and/or kV according to patient size, radiatio n dose was kept as low as reasonably achievable to obtain optimal diagnostic quality images. DICOM f ormat image data is available electronically for review and comparison. FINDINGS: AORTIC ARCH: There is a three-vessel origin of the great vessels from the aorta. No evidence of ostial narrowing. RIGHT CAROTID: Eccentric calcified atherosclerotic plaque is seen involving the proximal ICA occurring approximately 1 cm cephalad to the origin. This generates a 40% stenosis utilizing NASCET criteria. No ulceration. The more cephalad portion of the extracranial ICA shows eccentric calcified plaque at the level of t he skull base without luminal narrowing. The ECA and CCA are patent. LEFT CAROTID: There is calcified and noncalcified atheromatous plaque involving the ICA origin and extending cephal ad for approximately 1.5 cm. This generates an 80% stenosis utilizing NASCET criteria within the most cephalad aspect of the plaque approximately 1.5 cm from the origin. No ulceration. The more cephalad portion of the extracranial ICA is patent. The ECA and CCA are patent. VERTEBRALS: Multiple moderate stenoses are seen scattered throughout the entire left vertebral artery including a calcified moderate to high grade stenosis involving the left vertebral artery at the level of the fo ramen magnum. The right vertebral artery shows a moderate stenosis at the level of the foramen magnum secondary to calcified plaque. Both contribute to the basilar artery. Calcified coronary artery atherosclerotic calcifications. There is a 1.4 x 1.3 cm soft tissue mass si tuated within the right lateral oropharynx approach in the area of the palatine tonsil. This does not generates obstruction. No adenopathy observed. CONCLUSION: 1. 80% stenosis of the left ICA and 40% stenosis of the right ICA. Details given above. 2. Multiple moderate stenoses scattered throughout the vertebral arteries more pronounced on the left . 3. 1.4 x 1.3 cm soft tissue mass associated with the right lateral oropharyngeal wall. Clinical corre lation is needed with direct visualization. Danish Truong Jr., MD on April 23, 2017 at 17:56 Board Certified Radiologist. This report was verified electronically.
[2017-04-23] MEDS ORDERED: DO NOT ADM ANY ANTICOAGULANT DRUGS OTHER PRN (18:30)
--- NOTE | 2017-04-23 19:07 | MB ---
cc: FRANCISCOBELLA DATE OF CONSULTATION 04/23/17 HISTORY OF PRESENT ILLNESS The patient is a 57-year-old right-handed man with a history of borderline diabetes, a CABG, a stent. He takes 325 aspirin a day and about 2 weeks he felt like he might pass out, sat down and did not and then of this week he was in his office without warning he suddenly passed out. He was out for about a minute or less. No incontinence or tongue biting, a little bit confused when he woke up but not severely. Realized where he was. No asymmetrical weakness or numbness but he noticed some clumsiness on the right arm and leg and stumbled over his right leg at one time. No vision change. For the last month he has had some mild headaches in the right side. He did hit his head on the right side when he passed out here. MRI has revealed bilateral infarcts just subcortically based, acute small. REVIEW OF SYSTEMS He denies any hypertension, hypercholesterolemia, known a-fib, Coumadin, renal, hepatic, pulmonary disease, thyroid disease, lupus, ulcer, cancer, seizure, stroke. Has not woken up and wet the bed. No odd smells, tastes or saravanan vu. SOCIAL HISTORY He still smokes half a pack a day and I have asked him to stop and he agrees to. He occasionally has a drink. Lives my himself. FAMILY HISTORY Negative for cancer, seizure, stroke. ALLERGIES NO KNOWN DRUG ALLERGIES. MEDICATIONS None except for he takes the aspirin everyday. PHYSICAL EXAMINATION VITAL SIGNS: On examination afebrile, 56, 18, 138/66. Been in sinus rhythm. NECK: No carotid bruits. HEART: Regular rhythm. I did not detect a murmur. NEURO: Pupils are equal. Visual lemus are full. Extraocular movements intact without nystagmus. Face is symmetric with normal station. Tongue was midline. There was no drift. He had normal strength in upper and lower extremities bilaterally. DTRs are 2/3 plus and symmetric throughout. Toes downgoing bilaterally. There is no ankle clonus. Tone is normal throughout. Pinprick is intact throughout. He is not ataxic on [id number]. Fast finger movements are normal as is rapid alternating movements of the hands. Speech is fluent. He is not aphasic. LABORATORY DATA CBC is normal. Urine drug screen positive for marijuana only. UA was negative. Basic metabolic profile normal. Troponin negative. LDL cholesterol 163, TSH normal. Lipase normal. CBC normal. IMAGING STUDIES He had a high-grade stenosis on the left internal carotid artery on ultrasound. MRI of the brain shows bilateral acute infarcts, a little more in the left than the right. No hemorrhages noted. MRA [place] possible left petrous carotid clot. He had a CTA of his neck and a CTA of the brain, 50% stenosis of the left ICA in the petrous portion and carotid siphon without evidence for filling defect. CTA of the neck is pending. RESULTS He does have some significant carotid stenosis on the left however. Although the right looks okay the left looks on the order of at least 80%, very tight. He has a lot of white matter changes bilaterally. Basilar artery looks fine on the CTA. His anterior cerebral arteries for the most part appear to fill mostly off of the right carotid system. IMPRESSION A left internal carotid artery stenosis but he has bilateral acute infarcts. He had a syncopal episode. I would be more worried at this point about possible intermittent a-fib or heart block. I would have cardiology see him and at this point I would recommend long-term anticoagulation with Coumadin with an outpatient loop recorder. As far as the left carotid goes that we will need to be fixed at some point and he is to be on a statin which has been started here. I am not sure I would fix the carotid right now as I am not sure he is symptomatic with the bilateral infarcts. We will see what the official report is on the CTA. Will get an echocardiogram and Holter, have cardiology see the patient. Check some additional blood work, also check a hyper coag screen on him. MD YUMI Kay/VANIA /6:17 PM /6:49 PM
[2017-04-23] MEDS ORDERED: MORPHINE SULFATE 8 MG/ML INJ IV PUSH PRN (19:15)
--- NOTE | 2017-04-23 20:13 | MG ---
cc: BELLA SINGH M.D. Lab No: [id number] Date: Age: Sex: M Race: HISTORY: A 57-year-old man with bilateral infarcts and syncope. HISTORY: A symmetric 9-10 Hz 60 microvolt posterior rhythm is noted. The recording overall is synchronous and symmetric. Some beta rhythms are noted diffusely. No hemisphere asymmetries are noted. No epileptiform or seizure activity is seen. Hyperventilation was performed without change in the background. Photic stimulation was performed without any posterior driving. IMPRESSION: A normal awake EEG. No evidence for a focal or diffuse abnormality. MD YUMI Kay/ZOFIA /7:56 PM /8:13 PM
[2017-04-23] MEDS: WARFARIN SOD 5 MG TAB PO SCH (20:21)
[2017-04-23] MEDS: HEPARIN SODIUM - SQ 10,000 UNITS/ML VIAL SQ SCH (21:37)
[2017-04-24] VITALS (9 sets, daily range): BP systolic 156–183; BP diastolic 65–90; PULSE 46–58; RESP 16–20; TEMP 97.8–98.4; O2SAT 92–97
--- NOTE | 2017-04-24 07:46 | PD.VS.CON ---
History of Present Illness Chief Complaint: possible stroke Consult Requested by: medical service History of Present Illness 57 yo male who had syncopal event at work - said he just "passed out". No recollection of event other than that. Denies head trauma. No prior such events. No personal history of CVA, TIA, or amaurosis Past/Family/Social History Past Medical History CAD s/p CABG at age 37 Tobacco abuse Past Surgical History CABG Social History smoker Family History NC Home Medications Discontinued Scripts Hydrocodone/Acetaminophen 5 mg/325 mg 1 Tab Tab1 Tab PO Q4 PRN (PAIN) #30 Prov:MANDY PEREZ M.D. 02/15/14 Coded Allergies: No Known Allergies (Verified Allergy, Severe, 04/29/08) Review of Systems Eyes: DENIES: Blurred vision, Vision loss Respiratory: COMPLAINS OF: Cough Cardiovascular: COMPLAINS OF: Syncope, DENIES: Chest pain Physical Exam Vitals/I&O Date Time Temp Pulse Resp B/P Pulse Ox O2 Delivery O2 Flow Rate FiO2 04/24/17 04:00 98.0 58 16 167/72 95 04/24/17 04:00 Room Air 04/24/17 00:00 98.4 53 18 183/81 97 04/24/17 00:00 Room Air 04/23/17 23:21 Room Air 04/23/17 22:22 52 04/23/17 22:10 98.3 50 18 191/84 97 04/23/17 20:12 18 04/23/17 19:48 97.8 63 17 169/77 94 04/23/17 15:18 98.7 56 18 138/66 96 04/23/17 12:59 98.8 53 18 135/68 96 04/23/17 12:00 52 04/23/17 09:21 93 21 04/23/17 08:05 46 04/23/17 07:45 98.4 48 20 168/74 94 Neuro: alert, oriented and no distress; no focal deficits HEENT: NC/AT; anicteric sclera Neck: no JVD Heart: reg rate, no M Lungs: clear B Abdomen: NT Vascular: palpable UE pulses Extremities: 5/5 strength Laboratory Tests Test 04/23/17 04/23/17 08:35 15:10 White Blood Count 5.9 Red Blood Count 5.21 Hemoglobin 16.0 Hematocrit 47.1 Mean Corpuscular Volume 90.5 Mean Corpuscular Hemoglobin 30.7 Mean Corpuscular Hemoglobin 33.9 Concent Red Cell Distribution Width 13.7 Platelet Count 147 Mean Platelet Volume 9.3 Neutrophils (%) (Auto) 53.1 Lymphocytes (%) (Auto) 33.4 Monocytes (%) (Auto) 9.3 Eosinophils (%) (Auto) 3.5 Basophils (%) (Auto) 0.7 Neutrophils # (Auto) 3.1 Lymphocytes # (Auto) 2.0 Monocytes # (Auto) 0.6 Eosinophils # (Auto) 0.2 Basophils # (Auto) 0.0 CBC Comment DIFF FINAL Differential Comment Sodium Level 138 Potassium Level 4.0 Chloride Level 108 Carbon Dioxide Level 23.1 Anion Gap 7 Blood Urea Nitrogen 13 Creatinine 0.86 Estimat Glomerular Filtration 91 Rate Random Glucose 90 Calcium Level 8.6 Total Bilirubin 0.6 Aspartate Amino Transf 22 (AST/SGOT) Alanine Aminotransferase 35 (ALT/SGPT) Alkaline Phosphatase 55 Troponin I LESS THAN 0.02 Total Protein 6.8 Albumin 3.4 Triglycerides Level 105 Cholesterol Level 220 LDL Cholesterol 163 HDL Cholesterol 35.9 Cholesterol/HDL Ratio 6.12 Urine Opiates Screen NEG Urine Barbiturates Screen NEG Urine Amphetamines Screen NEG Urine Benzodiazepines Screen NEG Urine Cocaine Screen NEG Urine Cannabinoids Screen POS Last 48 hours Impressions Neck CTA 04/23/17 1448 Signed Impressions: Service Date/Time: Sunday, April 23, 2017 16:43 - CONCLUSION: 1. 80%% stenosis of the left ICA and 40%% stenosis of the right ICA. Details given above. 2. Multiple moderate stenoses scattered throughout the vertebral arteries more pronounced on the left. 3. 1.4 x 1.3 cm soft tissue mass associated with the right lateral oropharyngeal wall. Clinical correlation is needed with direct visualization. Danish Truong Jr., MD Head CTA 04/23/17 1448 Signed Impressions: Service Date/Time: Sunday, April 23, 2017 16:43 - CONCLUSION: Approximate 50%% stenosis of the left ICA in the tedious portion and carotid siphon without evidence for filling defects. Bennett Metcalf MD Carotid Artery Ultrasound 04/23/17 1229 Signed Impressions: Service Date/Time: Sunday, April 23, 2017 13:03 - CONCLUSION: High-grade stenosis involving the left ICA. Bennett Metcalf MD Head Magnetic Resonance Angiography 04/23/17 0000 Signed Impressions: Service Date/Time: Sunday, April 23, 2017 10:25 - CONCLUSION: 1. Irregular narrowing in the petrous segment of the left internal carotid artery which may be caused by eccentric thrombus. 2. 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 3. Mild luminal irregularity involving the right carotid siphon without significant stenosis. Baron Harrell MD Brain MRI 04/23/17 0000 Signed Impressions: Service Date/Time: Sunday, April 23, 2017 10:25 - CONCLUSION: Bilateral foci of restricted diffusion consistent with acute infarcts. The largest is located in the left centrum semi-ovale. Bilaterality is suggestive of an embolic process. Moderate cerebral and matter disease characteristic of chronic microvascular ischemic changes. No evidence of acute hemorrhage, edema or significant mass effect. Baron Harrell MD Head CT 04/22/171857 Signed Impressions: Service Date/Time: Saturday, April 22, 2017 20:25 - CONCLUSION: Negative noncontrast head CT. Nathan Dawkins MD Chest X-Ray 04/22/171857 Signed Impressions: Service Date/Time: Saturday, April 22, 2017 19:03 - CONCLUSION: No evidence of acute cardiopulmonary disease. Nathan Dawkins MD Assessment and Plan Plan 1. Carotid stenosis. I think he is asymptomatic from MORGAN stand point as the syncopal event unlikely related to L ICA stenosis. Additionally, on MRI, he has bilateral findings. Given young age would be reasonable to offer elective CEA but needs medical optimization and more importantly, time to recover from syncopal event. I will arrange f/u in my clinic. 2. CV risk factor modification. I talked with the patient about the need for lifelong ASA and statin therapy. Additionally, I talked with him about smoking cessation. 3. Oral lesion - seen on CT. Certainly he has risk factors for H&N CA. Needs ENT c/s and likely endoscopy. Andrade Bertrand MD FACS VI bottom stainer [facility] - [facility] [phone] Discharge Planning per primary service Andrade Bertrand MD Apr 24, 2017 07:46
[2017-04-24] MEDS: ASPIRIN EC 81 MG TABEC PO SCH (09:24)
[2017-04-24] MEDS: HEPARIN SODIUM - SQ 10,000 UNITS/ML VIAL SQ SCH ×2 (09:24→21:31)
[2017-04-24] MEDS: DOCUSATE SODIUM 50 MG/SENNA 8.6 MG TAB PO SCH ×2 (09:24→21:31)
[2017-04-24] MEDS: PRAVASTATIN SOD 40 MG TAB PO SCH (09:24)
[2017-04-24] MEDS: SODIUM CHLORIDE 0.9% FLUSH 10 ML FLUSH IV FLUSH SCH ×2 (09:25→21:31)
[2017-04-24] MEDS ORDERED: PNEUMOCOCCAL POLYVALENT INJ 25 MCG/0.5 ML SYR IM ONE (10:00)
--- NOTE | 2017-04-24 10:49 | HHI.PR ---
Subjective Remarks sb 46 Objective Vital Signs Date Time Temp Pulse Resp B/P Pulse Ox O2 Delivery O2 Flow Rate FiO2 04/24/17 10:06 95 21 04/24/17 08:00 97.8 50 18 156/72 92 04/24/17 04:00 98.0 58 16 167/72 95 04/24/17 04:00 Room Air 04/24/17 00:00 98.4 53 18 183/81 97 04/24/17 00:00 Room Air 04/23/17 23:21 Room Air 04/23/17 22:22 52 04/23/17 22:10 98.3 50 18 191/84 97 04/23/17 20:12 18 04/23/17 19:48 97.8 63 17 169/77 94 04/23/17 15:18 98.7 56 18 138/66 96 04/23/17 12:59 98.8 53 18 135/68 96 04/23/17 12:00 52 I/O 04/23/17 04/23/17 04/23/17 04/24/17 04/24/17 04/24/17 07:00 15:00 23:00 07:00 15:00 23:00 Intake Total 725 ml 990 ml 200 ml 1599 ml Output Total 700 ml 400 ml Balance 725 ml 290 ml 200 ml 1199 ml Intake Oral 240 ml 480 ml 200 ml 240 ml IV Total 485 ml 510 ml 1359 ml Output Urine Total 700 ml 400 ml # Voids 1 1 # Bowel Movements 0 Result Diagram: 04/23/17 0835 04/23/17 0835 Objective Remarks awke alert moves all well no new co Assessment and Plan Assessment and Plan imp cta 80% left 50% r stable overnoc cards p[end echo and holter pend would like to get loop o/p inr pend vascular to fu o/p eeg nl on statin hyper labs pend on coumadin throat mass? defer to med team Abdoul Valentino MD Apr 24, 2017 10:49
[2017-04-24 10:55] LABS: PROTHROMBIN TIME - PATIENT 11.3 SEC (9.8-11.6)
[2017-04-24 11:50] LABS: FREE T4 1.41 NG/DL (0.76-1.46); HDL CHOLESTEROL 33.8 MG/DL (40.0-60.0)
[2017-04-24 12:34] LABS: HEMOGLOBIN A1a 1.3 %; HEMOGLOBIN A1b 1.6 %; HEMOGLOBIN Ao 85.4 %; HEMOGLOBIN LA1C 1.8 %; HEMOGLOBIN P3 3.6 %
[2017-04-24 12:52] LABS: HEMOGLOBIN A1a 1.3 %; HEMOGLOBIN A1b 1.6 %; HEMOGLOBIN Ao 85.6 %; HEMOGLOBIN LA1C 1.8 %; HEMOGLOBIN P3 3.5 %
--- NOTE | 2017-04-24 14:01 | HHI.PR ---
Subjective Remarks The patient said that he was still dizzy. He was experiencing numbness around his lips and around his fingertips. He complains of chest pain in the center of his chest that is stabbing in nature. He says it comes and goes. He was requesting pain medication for that. Objective Vitals Vital Signs Date Time Temp Pulse Resp B/P Pulse Ox O2 Delivery O2 Flow Rate FiO2 04/24/17 12:00 98.4 54 18 160/65 94 04/24/17 10:06 95 21 04/24/17 08:00 97.8 50 18 156/72 92 04/24/17 08:00 46 04/24/17 04:00 98.0 58 16 167/72 95 04/24/17 04:00 Room Air 04/24/17 00:00 98.4 53 18 183/81 97 04/24/17 00:00 Room Air 04/23/17 23:21 Room Air 04/23/17 22:22 52 04/23/17 22:10 98.3 50 18 191/84 97 04/23/17 20:12 18 04/23/17 19:48 97.8 63 17 169/77 94 04/23/17 15:18 98.7 56 18 138/66 96 I/O 04/23/17 04/23/17 04/23/17 04/24/17 04/24/17 04/24/17 06:59 14:59 22:59 06:59 14:59 22:59 Intake Total 725 ml 990 ml 200 ml 1599 ml Output Total 700 ml 400 ml Balance 725 ml 290 ml 200 ml 1199 ml Intake Oral 240 ml 480 ml 200 ml 240 ml IV Total 485 ml 510 ml 1359 ml Output Urine Total 700 ml 400 ml # Voids 1 1 # Bowel Movements 0 Result Diagram: 04/23/17 0835 04/23/17 0835 Imaging Last Impressions Neck CTA 04/23/17 1448 Signed Impressions: Service Date/Time: Sunday, April 23, 2017 16:43 - CONCLUSION: 1. 80%% stenosis of the left ICA and 40%% stenosis of the right ICA. Details given above. 2. Multiple moderate stenoses scattered throughout the vertebral arteries more pronounced on the left. 3. 1.4 x 1.3 cm soft tissue mass associated with the right lateral oropharyngeal wall. Clinical correlation is needed with direct visualization. Danish Truong Jr., MD Head CTA 04/23/17 1448 Signed Impressions: Service Date/Time: Sunday, April 23, 2017 16:43 - CONCLUSION: Approximate 50%% stenosis of the left ICA in the tedious portion and carotid siphon without evidence for filling defects. Bennett eMtcalf MD Carotid Artery Ultrasound 04/23/17 1229 Signed Impressions: Service Date/Time: Sunday, April 23, 2017 13:03 - CONCLUSION: High-grade stenosis involving the left ICA. Bennett Metcalf MD Head Magnetic Resonance Angiography 04/23/17 0000 Signed Impressions: Service Date/Time: Sunday, April 23, 2017 10:25 - CONCLUSION: 1. Irregular narrowing in the petrous segment of the left internal carotid artery which may be caused by eccentric thrombus. 2. 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 3. Mild luminal irregularity involving the right carotid siphon without significant stenosis. Baron Harrell MD Brain MRI 04/23/17 0000 Signed Impressions: Service Date/Time: Sunday, April 23, 2017 10:25 - CONCLUSION: Bilateral foci of restricted diffusion consistent with acute infarcts. The largest is located in the left centrum semi-ovale. Bilaterality is suggestive of an embolic process. Moderate cerebral and matter disease characteristic of chronic microvascular ischemic changes. No evidence of acute hemorrhage, edema or significant mass effect. Baron Harrell MD Head CT 04/22/171857 Signed Impressions: Service Date/Time: Saturday, April 22, 2017 20:25 - CONCLUSION: Negative noncontrast head CT. Nathan Dawkins MD Chest X-Ray 04/22/171857 Signed Impressions: Service Date/Time: Saturday, April 22, 2017 19:03 - CONCLUSION: No evidence of acute cardiopulmonary disease. Nathan Dawkins MD Objective Remarks GENERAL: Well-developed well-nourished. In no acute distress. SKIN: Warm and dry. No lesions noted. HEENT: Normocephalic. Pupils equal and round. Mucous membranes pink and moist. No mass appreciated in the oropharynx. CARDIOVASCULAR: Regular rate and rhythm. No murmur appreciated. Left anterior chest wall is tender to palpation. RESPIRATORY: No accessory muscle use. Clear to auscultation. Breath sounds equal bilaterally. GASTROINTESTINAL: Abdomen soft, non-tender, nondistended. Bowel sounds x4. MUSCULOSKELETAL: Pain with movement of the right shoulder and right hip. No clubbing or cyanosis. No edema. NEUROLOGICAL: Awake and alert. Moves upper and lower extremities spontaneously. Normal speech. 4 out of 5 strength in the lower extremities. 4 out of 5 strength in the right upper extremity. 5 out of 5 strength in the left upper extremity. PSYCHIATRIC: Appropriate mood and affect; insight and judgment normal. Medications and IVs Current Medications Medications (Trade) Dose Ordered Sig/Aria Route Start Time Stop Time Status Last Admin (NS 1000 ml Inj) 1,000 ml @ 70 mls/hr [id number] IV 04/22/17 20:55 04/23/17 21:38 (NS Flush) 2 ml UNSCH PRN IV FLUSH 04/22/17 21:00 (NS Flush) 2 ml BID IV FLUSH 04/22/17 21:00 04/24/17 09:25 (Zofran Inj) 4 mg Q6H PRN IVP 04/22/17 22:00 (Tylenol) 650 mg Q6H PRN PO 04/22/17 22:00 ([place] 5-325 Mg) 1 tab Q4H PRN PO 04/22/17 22:00 04/23/17 23:25 (Nadeen-Colace) 1 tab BID PO 04/22/17 22:00 04/24/17 09:24 (Milk Of Magnesia Liq) 30 ml Q12HR PRN PO 04/22/17 22:00 (Senokot) 17.2 mg Q12HR PRN PO 04/22/17 22:00 (Dulcolax Supp) 10 mg DAILY PRN RECTAL 04/22/17 22:00 (Lactulose Liq) 30 ml DAILY PRN PO 04/22/17 22:00 (Ecotrin Ec) 81 mg DAILY PO 04/23/17 09:00 04/24/17 09:24 (Pravachol) 40 mg DAILY PO 04/23/17 09:00 04/24/17 09:24 (Nitroglycerin 2% Oint) 0.5 inch Q6HR PRN TOPICAL 04/22/17 22:00 04/23/17 01:58 (Pill Splitter) 1 ea UNSCH PRN OTHER 04/23/17 07:45 (Vasotec Inj) 1.25 mg Q4H PRN IV 04/23/17 08:00 (Coumadin) 5 mg DAILY@1600 PO 04/23/17 18:17 04/23/17 20:21 (Heparin Inj) 5,000 units Q12HR SQ 04/23/17 21:00 04/24/17 09:24 Miscellaneous Information ALL NURSING DEPARTME... UNSCH PRN OTHER 04/23/17 18:30 04/24/17 18:29 (Morphine Inj) 2 mg Q3H PRN IV PUSH 04/23/17 19:15 04/23/17 19:11 A/P Problem List: (1) Syncope ICD Code: R55 Status: Acute (2) Chest pain ICD Code: R07.9 Status: Acute (3) HTN (hypertension) ICD Code: I10 Status: Acute (4) Tobacco abuse ICD Code: Z72.0 Status: Chronic Assessment and Plan Acute CVA Pt with transient right-sided neurologic symptoms. Reviewed: Head CT negative. MRI brain: Bilateral foci of restricted diffusion consistent with acute infarcts ; The largest is located in the left centrum semi-ovale; Bilaterality is suggestive of an embolic process. Imaging also revealed high grade carotid stenosis on the left. Neurology and vascular surgery consults appreciated. LDL elevated. A1c 5.9%. EEG normal. - Permissive hypertension for now. - IVFs. - PT/ OT/ ST. - follow up with neurology and vascular. Continue Coumadin. - Holter monitor. Atypical chest pain Seems more musculoskeletal, likely from falls from syncope. Reviewed: EKG with occasional PACs, no ischemic changes. Troponin negative. - Started on aspirin, statin, and Nitropaste. - cardiology consult pending. - Pain control with a bowel regimen. Syncope Possibly secondary to cardiac or neurologic etiology as above. - Chest pain and TIA/CVA workup. - Echocardiogram. - Monitor on telemetry. Hypertension Accelerated. - Permissive hypertension for now. Tobacco abuse He says smoking is the hardest thing to quit. - Counseled on cessation. Oropharyngeal mass Noted on CT. - ENT consult pending. DVT prophylaxis: SCDs Discharge Planning Awaiting further evaluation Problem Qualifiers (1) Syncope: Qualified Code: R55 - Syncope, unspecified syncope type Colton Alvares DO Apr 24, 2017 14:01
[2017-04-24] MEDS ORDERED: MORPHINE SULFATE 4 MG/ML INJ IV PUSH ONE (14:15)
[2017-04-24] MEDS: WARFARIN SOD 5 MG TAB PO SCH (15:10)
--- NOTE | 2017-04-24 17:11 | MB ---
cc: IDRIS LAGUERRE MD DATE OF CONSULTATION: 04/24/2017. REASON FOR CONSULTATION: Syncope, strokes, chest pain, coronary artery disease. 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 The patient says that over the last several months he has been having intermittent left chest discomfort. He also had an episode of syncope this past with an episode of near syncope about two weeks ago. He presented to the hospital and imaging studies found bilateral embolic CVAs so the concern was present for perhaps atrial fibrillation as a source of these symptoms. Currently the patient says he still has mild left-sided chest pain, which he says he has had essentially continuously over the last several months. No shortness of breath or current lightheadedness. PAST MEDICAL HISTORY: 1. Coronary artery disease status post CABG and stents. 2. Borderline diabetes. 3. Tobacco abuse. 4. Hypertension. CURRENT MEDICATIONS: 1. Subcutaneous heparin. 2. Warfarin. 3. Aspirin 81 milligrams daily. ALLERGIES: NO KNOWN DRUG ALLERGIES. PHYSICAL EXAMINATION: VITAL SIGNS: Afebrile, pulse 57, respiratory rate 20, blood pressure 159/90 and satting 97 on two liters. GENERAL: A pleasant gentleman in no distress. NECK: No jugular venous distention. LUNGS: Clear to auscultation bilaterally. CARDIOVASCULAR: Regular rate and rhythm. No murmurs appreciated. ABDOMEN: Benign. EXTREMITIES: No edema. LABORATORY DATA: Cardiac enzymes are negative. Sodium 138, potassium 4.0, chloride 108, bicarbonate 23.1, BUN 13, creatinine 0.86, glucose 90. Tox screen was positive for cannabinoids. INR is 1.0. White count 5.9, hematocrit is 47.1, platelets 147,000. RADIOLOGICAL STUDIES: Imaging studies are in the computer but most notable for: A brain MRI showing bilateral foci consistent with acute embolic infarcts. Neck CTA showing 80% left internal carotid artery stenosis and a 40% right internal carotid artery stenosis. Additionally there was a soft tissue mass noted on the right lateral oropharyngeal wall. IMPRESSION: 1. CVA. The patient had multiple embolic CVAs and atrial fibrillation would have to be high on the list of differential diagnoses. An echocardiogram is pending. He is already being anticoagulated. He is being monitored on telemetry and will require some form of outpatient monitor, perhaps even a loop recorder. In the short-term, since he is already going to be anticoagulated, presumptive heart rate control and anticoagulation will empirically treat any possible atrial fibrillation. For the moment, I will defer blood pressure control to his neurologist, but I would like him on a beta pepe or a calcium channel pepe prior to discharge. Additionally, he is on warfarin but not currently on IV heparin. I will defer anticoagulation decisions in the immediate term to his neurologist. I doubt his syncopal episode is due to his carotid disease, but more likely either orthostasis or an arrhythmia, which we will look for in the above studies as well. Thank you again for the opportunity to participate in this patient's care. MD KEENA Barraza/ZOFIA /4:58 PM /5:06 PM
--- NOTE | 2017-04-24 17:13 | MB ---
cc: IDRIS LAGUERRE MD DATE OF CONSULTATION: 04/24/2017. ADDENDUM ASSESSMENT: 2. Chest pain. The patient's chest pain is fairly atypical. His EKG is nonischemic and his troponins are negative. I will have him undergo a nuclear stress test tomorrow, presuming neurology clears him for this test. MD KEENA Barraza/ZOFIA /5:04 PM /5:16 PM
--- NOTE | 2017-04-24 18:51 | ECHRPT ---
Indication: Cardiomyopathy CONCLUSIONS Normal left ventricular size. Wall thickness is normal. The left ventricular systolic function is mildly reduced with an estimated ejection fraction in the range of 45- 50%. Mitral annular calcification is present. Trace mitral valve regurgitation. Trace aortic valve regurgitation. Aortic valve sclerosis is present. BP: 168 / 74 HR: 48 Rhythm: Sinus MEASUREMENTS (Male / Female) Normal Values Technical Quality:Good 2D ECHO LV Diastolic Diameter PLAX 5.3 cm 4.2 - 5.9 / 3.9 - 5.3 cm LV Systolic Diameter PLAX 4.2 cm IVS Diastolic Thickness 1.1 cm 0.6 - 1.0 / 0.6 - 0.9 cm LVPW Diastolic Thickness 0.8 cm 0.6 - 1.0 / 0.6 - 0.9 cm LV Relative Wall Thickness 0.4 LA Systolic Diameter LX 3.9 cm 3.0 - 4.0 / 2.7 - 3.8 cm M-MODE Aortic Root Diameter MM 3.0 cm AV Cusp Separation MM 2.1 cm DOPPLER AV Peak Velocity 166.0 cm/s AV Peak Gradient 11.0 mmHg LVOT Peak Velocity 95.3 cm/s LVOT Peak Gradient 3.6 mmHg Mitral E Point Velocity 64.2 cm/s Mitral A Point Velocity 59.7 cm/s Mitral E to A Ratio 1.1 TR Peak Velocity 121.0 cm/s TR Peak Gradient 5.9 mmHg FINDINGS LEFT VENTRICLE Normal left ventricular size. Wall thickness is normal. The left ventricular systolic function is mildly reduced with an estimated ejection fraction in the range of 45- 50%. RIGHT VENTRICLE Normal right ventricular size and systolic function. LEFT ATRIUM The left atrial size is normal. RIGHT ATRIUM The right atrial size is normal. ATRIAL SEPTUM Normal atrial septal thickness without atrial level shunting by limited color doppler interrogation. AORTA The aortic root and proximal ascending aorta are normal in size on limited imaging. MITRAL VALVE Mitral annular calcification is present. Trace mitral valve regurgitation. AORTIC VALVE Trace aortic valve regurgitation. Aortic valve sclerosis is present. TRICUSPID VALVE Structurally normal tricuspid valve. No tricuspid valve stenosis or regurgitation. PULMONARY VALVE The pulmonary valve is not well visualized. VESSELS The inferior vena cava is normal in size. PERICARDIUM No pericardial effusion. Ashutosh Corral MD (Electronically Signed) Final Date:24 April 2017 18:50
[2017-04-25] VITALS (7 sets, daily range): BP systolic 129–170; BP diastolic 61–81; PULSE 45–66; RESP 18–20; TEMP 97.9–98.5; O2SAT 95–98
--- NOTE | 2017-04-25 08:17 | MB ---
cc: HERNANDO CASTANO M.D. DATE OF CONSULTATION: 04/25/2017 CHIEF COMPLAINT Right oral cavity lesion. HISTORY OF PRESENT ILLNESS This is a 57-year-old male who was admitted with history of syncope. He is undergoing a workup for his cardiac status and neurologic status. In his evaluation he underwent a radiologic evaluation of the neck with a CTA that showed evidence of a 1.4 x 1.3 cm soft tissue mass associated with a right lateral oropharyngeal wall and clinical correlation was requested. The patient is completely asymptomatic in this area, has no complaints of pain, no complaints of bleeding and he was not aware of it. He does have a history of a tonsillectomy in the past. PAST MEDICAL HISTORY Past medical history for ENT is otherwise noncontributory. PHYSICAL EXAMINATION GENERAL: He is a well-developed, well-nourished male in no distress. HEENT: External ears are clear. The facial exam is symmetric. Facial nerve is intact. Nasal exam shows no anterior lesion, no bleeding. The lips, oral mucosa and oropharynx show no ulceration. There is evidence of slight asymmetry which appears to be more persistent tonsil tissue at the right oropharynx in the described area. There is no firm mass, no evidence of bleeding, no evidence of ulceration. The neck shows no other masses. ASSESSMENT Oral lesion appears to be more residual tonsil tissue or lymphoid type tissue, nothing to suggest malignancy on this mass. What I would recommend is followup as an outpatient for a full head and neck exam in the office setting with a fiberoptic evaluation. The patient was advised that the initial presentation appears to be benign, however, any changes would certainly need to be reevaluated. A malignant lesion can present small and very benign initially such that if he has growth, if he has pain, if he has bleeding, this could be a dangerous lesion. Most likely that is not the case, it appears benign and I would recommend he followup for a good head and neck exam in the office when he is discharged. MD EMILIANO An/KENZIE /7:43 AM /8:00 AM
--- NOTE | 2017-04-25 08:25 | HHI.PR ---
Subjective Remarks sb 46 sr Objective Vital Signs Date Time Temp Pulse Resp B/P Pulse Ox O2 Delivery O2 Flow Rate FiO2 04/25/17 04:00 98.1 50 18 129/61 98 04/25/17 04:00 Room Air 04/25/17 00:00 98.2 45 18 170/74 95 04/25/17 00:00 Room Air 04/24/17 20:23 48 04/24/17 20:00 98.0 46 20 169/78 96 04/24/17 20:00 Room Air 04/24/17 17:39 95 21 04/24/17 16:00 98.2 57 20 159/90 97 04/24/17 12:00 98.4 54 18 160/65 94 04/24/17 10:06 95 21 04/24/17 09:00 Room Air I/O 04/24/17 04/24/17 04/24/17 04/25/17 04/25/17 04/25/17 07:00 15:00 23:00 07:00 15:00 23:00 Intake Total 1599 ml 480 ml 784 ml 380 ml Output Total 400 ml 1000 ml 300 ml 400 ml Balance 1199 ml -520 ml 484 ml -20 ml Intake Oral 240 ml 480 ml IV Total 1359 ml 784 ml 380 ml Output Urine Total 400 ml 1000 ml 300 ml 400 ml # Bowel Movements 0 0 0 Result Diagram: 04/23/1735 04/23/17 0835 Objective Remarks awake alert moves all well no new co still Assessment and Plan Assessment and Plan imp cta 80% left 50% r stable overnoc cards on case for stress test and ?loop echo neg and holter pend would like to get loop o/p inr pend today vascular to fu o/p eeg nl on statin hyper labs pend on coumadin throat masscheck mri soft tissue Abdoul Valentino MD Apr 25, 2017 08:25
[2017-04-25 08:47] LABS: INTERNATIONAL NORMALIZED RATIO 1.2 RATIO; PROTHROMBIN TIME - PATIENT 12.9 SEC (9.8-11.6)
[2017-04-25] MEDS: HEPARIN SODIUM - SQ 10,000 UNITS/ML VIAL SQ SCH ×2 (08:59→22:01)
[2017-04-25] MEDS: ASPIRIN EC 81 MG TABEC PO SCH (08:59)
[2017-04-25] MEDS: DOCUSATE SODIUM 50 MG/SENNA 8.6 MG TAB PO SCH ×2 (08:59→22:01)
[2017-04-25] MEDS: PRAVASTATIN SOD 40 MG TAB PO SCH (08:59)
[2017-04-25] MEDS: SODIUM CHLORIDE 0.9% FLUSH 10 ML FLUSH IV FLUSH SCH ×2 (09:00→22:02)
--- NOTE | 2017-04-25 10:17 | PD.CARD.PN ---
Subjective Subjective Remarks Feeling well, no sx. Objective Medications Administered Medications Medications (Trade) Dose Ordered Sig/Aria Route PRN Reason Start Time Stop Time Status Last Admin Dose Admin Sodium Chloride (NS Flush) 2 ml BID IV FLUSH 04/22/17 21:00 04/24/17 21:31 Acetaminophen/ Hydrocodone Bitart ([place]ysart 5-325 Mg) 1 tab Q4H PRN PO PAIN SCALE 3 TO 5 04/22/17 22:00 04/23/17 23:25 Senna/Docusate Sodium (Nadeen-Colace) 1 tab BID PO 04/22/17 22:00 04/25/17 08:59 Aspirin (Ecotrin Ec) 81 mg DAILY PO 04/23/17 09:00 04/25/17 08:59 Pravastatin Sodium (Pravachol) 40 mg DAILY PO 04/23/17 09:00 04/25/17 08:59 Nitroglycerin (Nitroglycerin 2% Oint) 0.5 inch Q6HR PRN TOPICAL CHEST PAIN 04/22/17 22:00 04/23/17 01:58 Heparin Sodium (Porcine) (Heparin Inj) 5,000 units Q12HR SQ 04/23/17 21:00 04/25/17 08:59 Vital Signs / I&O Vital Signs Date Time Temp Pulse Resp B/P Pulse Ox O2 Delivery O2 Flow Rate FiO2 04/25/17 08:00 97.9 60 20 166/77 95 04/25/17 04:00 98.1 50 18 129/61 98 04/25/17 04:00 Room Air 04/25/17 00:00 98.2 45 18 170/74 95 04/25/17 00:00 Room Air 04/24/17 20:23 48 04/24/17 20:00 98.0 46 20 169/78 96 04/24/17 20:00 Room Air 04/24/17 17:39 95 21 04/24/17 16:00 98.2 57 20 159/90 97 04/24/17 12:00 98.4 54 18 160/65 94 I/O 04/24/17 04/24/17 04/24/17 04/25/17 04/25/17 04/25/17 07:00 15:00 23:00 07:00 15:00 23:00 Intake Total 1599 ml 480 ml 784 ml 380 ml Output Total 400 ml 1000 ml 300 ml 400 ml Balance 1199 ml -520 ml 484 ml -20 ml Intake Oral 240 ml 480 ml IV Total 1359 ml 784 ml 380 ml Output Urine Total 400 ml 1000 ml 300 ml 400 ml # Bowel Movements 0 0 0 Physical Exam GENERAL: This is a well-nourished, well-developed patient, in no apparent distress. CARDIOVASCULAR: Regular rate and rhythm without murmurs, gallops, or rubs. RESPIRATORY: Clear to auscultation. Breath sounds equal bilaterally. No wheezes , rales, or rhonchi. GASTROINTESTINAL: Abdomen soft, non-tender, nondistended. Normal active bowel sounds MUSCULOSKELETAL: Extremities without clubbing, cyanosis, or edema. NEURO: Alert & Oriented x4 to person, place, time, situation. Moves all ext x4 Laboratory Laboratory Tests Test 04/25/17 06:05 Prothrombin Time 12.9 SEC Prothromb Time International 1.2 RATIO Ratio Imaging Last Impressions Neck CTA 04/23/17 1448 Signed Impressions: Service Date/Time: Sunday, April 23, 2017 16:43 - CONCLUSION: 1. 80%% stenosis of the left ICA and 40%% stenosis of the right ICA. Details given above. 2. Multiple moderate stenoses scattered throughout the vertebral arteries more pronounced on the left. 3. 1.4 x 1.3 cm soft tissue mass associated with the right lateral oropharyngeal wall. Clinical correlation is needed with direct visualization. Danish Truong Jr., MD Head CTA 04/23/17 1448 Signed Impressions: Service Date/Time: Sunday, April 23, 2017 16:43 - CONCLUSION: Approximate 50%% stenosis of the left ICA in the tedious portion and carotid siphon without evidence for filling defects. Bennett Metcalf MD Carotid Artery Ultrasound 04/23/17 1229 Signed Impressions: Service Date/Time: Sunday, April 23, 2017 13:03 - CONCLUSION: High-grade stenosis involving the left ICA. Bennett Metcalf MD Head Magnetic Resonance Angiography 04/23/17 0000 Signed Impressions: Service Date/Time: Sunday, April 23, 2017 10:25 - CONCLUSION: 1. Irregular narrowing in the petrous segment of the left internal carotid artery which may be caused by eccentric thrombus. 2. 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 3. Mild luminal irregularity involving the right carotid siphon without significant stenosis. Baron Harrell MD Brain MRI 04/23/17 0000 Signed Impressions: Service Date/Time: Sunday, April 23, 2017 10:25 - CONCLUSION: Bilateral foci of restricted diffusion consistent with acute infarcts. The largest is located in the left centrum semi-ovale. Bilaterality is suggestive of an embolic process. Moderate cerebral and matter disease characteristic of chronic microvascular ischemic changes. No evidence of acute hemorrhage, edema or significant mass effect. Baron Harrell MD Head CT 04/22/171857 Signed Impressions: Service Date/Time: Saturday, April 22, 2017 20:25 - CONCLUSION: Negative noncontrast head CT. Nathan Dawkins MD Chest X-Ray 04/22/171857 Signed Impressions: Service Date/Time: Saturday, April 22, 2017 19:03 - CONCLUSION: No evidence of acute cardiopulmonary disease. Nathan Dawkins MD Assessment and Plan Problem List: (1) Cerebrovascular accident, embolic Assessment and Plan: will plan for MALIK to r/o PFO/ASD and loop recorder to r/o occult afib; NPO past midnight, will hold warfarin (2) Chest pain in adult Assessment and Plan: nuc stress today. Ashutosh Corral MD Apr 25, 2017 10:17
--- NOTE | 2017-04-25 10:32 | PD.VS.PN ---
Subjective Subjective/Hospital Course Pt in bed alert in NAD w/o complaints Objective Vitals/I&O Date Time Temp Pulse Resp B/P Pulse Ox O2 Delivery O2 Flow Rate FiO2 04/25/17 08:10 48 04/25/17 08:10 Room Air 04/25/17 08:00 97.9 60 20 166/77 95 04/25/17 04:00 98.1 50 18 129/61 98 04/25/17 04:00 Room Air 04/25/17 00:00 98.2 45 18 170/74 95 04/25/17 00:00 Room Air 04/24/17 20:23 48 04/24/17 20:00 98.0 46 20 169/78 96 04/24/17 20:00 Room Air 04/24/17 17:39 95 21 04/24/17 16:00 98.2 57 20 159/90 97 04/24/17 12:00 98.4 54 18 160/65 94 04/25/17 04/25/17 04/25/17 07:00 15:00 23:00 Intake Total 380 ml Output Total 400 ml Balance -20 ml Physical Exam GENERAL: A&OX3,NAD, GCS15 SKIN: Warm and dry. NECK: Supple, trachea midline. No JVD or lymphadenopathy. MUSCULOSKELETAL: No cyanosis, or edema. UE strength 5/5 LLE 5/5 RLE 4/5 Laboratory Laboratory Tests Test 04/25/17 06:05 Prothrombin Time 12.9 Prothromb Time International 1.2 Ratio Imaging Last 48 hours Impressions Neck CTA 04/23/17 1448 Signed Impressions: Service Date/Time: Sunday, April 23, 2017 16:43 - CONCLUSION: 1. 80%% stenosis of the left ICA and 40%% stenosis of the right ICA. Details given above. 2. Multiple moderate stenoses scattered throughout the vertebral arteries more pronounced on the left. 3. 1.4 x 1.3 cm soft tissue mass associated with the right lateral oropharyngeal wall. Clinical correlation is needed with direct visualization. Danish Truong Jr., MD Head CTA 04/23/17 9442 Signed Impressions: Service Date/Time: Sunday, April 23, 2017 16:43 - CONCLUSION: Approximate 50%% stenosis of the left ICA in the tedious portion and carotid siphon without evidence for filling defects. Bennett Metcalf MD Carotid Artery Ultrasound 7/15/17 1229 Signed Impressions: Service Date/Time: Sunday, April 23, 2017 13:03 - CONCLUSION: High-grade stenosis involving the left ICA. K. Jeb Metcalf MD Assessment and Plan Plan Plan Arranged for patient to follow up in 1M in our out patient clinic Appointment time and date was given to the patient Continue CV risk factor modification- ASA and statin therapy Nasrin SAUL [facility] [phone] Discharge Planning Arranged Out Patient Follow Up Nasrin Calles Apr 25, 2017 10:32
[2017-04-25 11:27] LABS: RAPID PLASMA REAGIN SCREEN NON-REACTIVE (NON-REACTVE)
[2017-04-25] MEDS ORDERED: REGADENOSON INJ 0.4 MG/5 ML SYR ONE (11:45)
--- NOTE | 2017-04-25 14:03 | RADRPT ---
EXAM DATE/TIME: 04/25/2017 11:20 [facility] COMPARISON: No previous studies available for comparison. INDICATIONS : Syncope and left sided chest pain without radiation. Angina. Coronary artery disease. DOSE: 27.2 mCi Tc99m Myoview at stress. 8.5 mCi Tc99m Myoview at rest. 0.4 mg Lexiscan STRESS SYMPTOMS: Dyspnea. EJECTION FRACTION: 43% MEDICAL HISTORY : Hypertension. SURGICAL HISTORY : CABG ENCOUNTER: Initial ACUITY: 2 weeks PAIN SCALE: 3/10 LOCATION: Left chest TECHNIQUE: The patient underwent pharmacologic stress with infusion of prescribed dose. Continuous ECG tracing was monitored during stress. Gated SPECT imaging was performed after stress and conventional SPECT i maging was performed at rest. The examination was performed on a SPECT/CT scanner, both attenuation and non-corrected datasets were reviewed. FINDINGS: DISTRIBUTION: The maximum perfused segment at stress is in the anterior septal> wall. PERFUSION STUDY: There is abnormal decreased perfusion to the lateral wall. It appears to be fixed at rest and stress . GATED STUDY: There is intact wall motion and thickening without dyskinetic segments. There is some septal hypokine sis possibly related to CABG CONCLUSION: Circumflex defect fixed at stress and rest suspicious for infarct. Decreased ejection fraction at 43% . RISK CATEGORY: Low (<1% Annual Mortality Rate) Erick Parmar MD on April 25, 2017 at 13:58 Board Certified Radiologist. This report was verified electronically.
[2017-04-25] MEDS ORDERED: GADODIAMIDE PF 287 MG/ML 5 ML VIAL (for RAD MRI) IV ONE (14:31)
[2017-04-25 14:46] LABS: ANA SCREEN NEG (NEG)
[2017-04-25] MEDS: ACETAMINOPHEN/HYDROcodone 325 MG/10 MG TAB PO PRN ×2 (15:01→22:02)
--- NOTE | 2017-04-25 15:07 | RADRPT ---
EXAM DATE/TIME: 04/25/2017 13:50 [facility] COMPARISON: No previous studies available for comparison. INDICATIONS : Mass, 1.4 x 1.3 cm soft tissue mass associated with the right lateral oropharyngeal wall CONTRAST: 14 cc Omniscan (gadodiamide) IV MEDICAL HISTORY : Hypertension. CVA SURGICAL HISTORY : CABG Coronary artery stent. ENCOUNTER: Initial ACUITY: 2 day PAIN SCORE: 4/10 LOCATION: Right neck region. TECHNIQUE: Multisequence, multiplanar MRI examination was performed. FINDINGS: NASOPHARYNX: The nasopharyngeal airway has a normal configuration. No mucosal thickening or mass is seen. OROPHARYX: The intrinsic muscles of the tongue are symmetric. The tonsillar pillars are intact. The prevertebr al soft tissues are not thickened. There some nodularity the soft tissues on the right side which cou ld be just an elongated uvula. LARYNX: The supraglottic, glottic, and infraglottic structures are intact. PARAPHARYNGEAL: The parapharyngeal space is intact. SALIVARY GLANDS: The parotid and submandibular glands are intact. LYMPH NODES: No enlarged or necrotic appearing nodes. THYROID: Homogeneous enhancement without evidence of nodule. BONES: Homogeneous signal in the marrow of the visualized osseous structures. POST CONTRAST: No abnormal areas of enhancement seen. CONCLUSION: Prominent sized uvula extending to the right of midline. I don't see any definite soft tissue polyp and there certainly no significant infiltrating mass. Direct visualization is recommended. Erick Parmar MD on April 25, 2017 at 15:03 Board Certified Radiologist. This report was verified electronically.
--- NOTE | 2017-04-25 15:18 | HHI.PR ---
Subjective Remarks Follow-up CVA. Patient complaining of sharp chest pain in the center of his chest that has been going on for the past 15 minutes. Nothing seems to make it better or worse. Objective Vitals Vital Signs Date Time Temp Pulse Resp B/P Pulse Ox O2 Delivery O2 Flow Rate FiO2 04/25/17 08:10 48 04/25/17 08:10 Room Air 04/25/17 08:00 97.9 60 20 166/77 95 04/25/17 04:00 98.1 50 18 129/61 98 04/25/17 04:00 Room Air 04/25/17 00:00 98.2 45 18 170/74 95 04/25/17 00:00 Room Air 04/24/17 20:23 48 04/24/17 20:00 98.0 46 20 169/78 96 04/24/17 20:00 Room Air 04/24/17 17:39 95 21 04/24/17 16:00 98.2 57 20 159/90 97 I/O 04/24/17 04/24/17 04/24/17 04/25/17 04/25/17 04/25/17 07:00 15:00 23:00 07:00 15:00 23:00 Intake Total 1599 ml 480 ml 784 ml 380 ml Output Total 400 ml 1000 ml 300 ml 400 ml Balance 1199 ml -520 ml 484 ml -20 ml Intake Oral 240 ml 480 ml IV Total 1359 ml 784 ml 380 ml Output Urine Total 400 ml 1000 ml 300 ml 400 ml # Bowel Movements 0 0 0 Result Diagram: 04/23/17 0835 04/23/17 0835 Imaging Last Impressions Myocardial Perfusion Scan Nuc Med 04/25/17 0000 Signed Impressions: Service Date/Time: Tuesday, April 25, 2017 11:20 - CONCLUSION: Circumflex defect fixed at stress and rest suspicious for infarct. Decreased ejection fraction at 43%%. RISK CATEGORY: Low (<1%% Annual Mortality Rate) Erick Parmar MD Neck CTA 04/23/17 1448 Signed Impressions: Service Date/Time: Sunday, April 23, 2017 16:43 - CONCLUSION: 1. 80%% stenosis of the left ICA and 40%% stenosis of the right ICA. Details given above. 2. Multiple moderate stenoses scattered throughout the vertebral arteries more pronounced on the left. 3. 1.4 x 1.3 cm soft tissue mass associated with the right lateral oropharyngeal wall. Clinical correlation is needed with direct visualization. Danish Truong Jr., MD Head CTA 04/23/17 1448 Signed Impressions: Service Date/Time: Sunday, April 23, 2017 16:43 - CONCLUSION: Approximate 50%% stenosis of the left ICA in the tedious portion and carotid siphon without evidence for filling defects. Bennett Metcalf MD Carotid Artery Ultrasound 04/23/17 1229 Signed Impressions: Service Date/Time: Sunday, April 23, 2017 13:03 - CONCLUSION: High-grade stenosis involving the left ICA. Bennett Metcalf MD Head Magnetic Resonance Angiography 04/23/17 0000 Signed Impressions: Service Date/Time: Sunday, April 23, 2017 10:25 - CONCLUSION: 1. Irregular narrowing in the petrous segment of the left internal carotid artery which may be caused by eccentric thrombus. 2. 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 3. Mild luminal irregularity involving the right carotid siphon without significant stenosis. Baron Harrell MD Brain MRI 04/23/17 0000 Signed Impressions: Service Date/Time: Sunday, April 23, 2017 10:25 - CONCLUSION: Bilateral foci of restricted diffusion consistent with acute infarcts. The largest is located in the left centrum semi-ovale. Bilaterality is suggestive of an embolic process. Moderate cerebral and matter disease characteristic of chronic microvascular ischemic changes. No evidence of acute hemorrhage, edema or significant mass effect. Baron Harrell MD Head CT 04/22/178 Signed Impressions: Service Date/Time: Saturday, April 22, 2017 20:25 - CONCLUSION: Negative noncontrast head CT. Nathan Dawkins MD Chest X-Ray 04/22/171857 Signed Impressions: Service Date/Time: Saturday, April 22, 2017 19:03 - CONCLUSION: No evidence of acute cardiopulmonary disease. Nathan Dawkins MD Objective Remarks General: No acute distress. Appears uncomfortable. Heart: Tachycardic. No murmur. Lungs: Clear to auscultation bilaterally. No wheezes, rales, or rhonchi. Breathing is nonlabored. Abdomen: Soft, nontender, nondistended. Extremities: No lower extremity edema. Psych: Alert and oriented. Urinary Catheter: No Vascular Central Line Catheter: No A/P Problem List: (1) Syncope ICD Code: R55 Status: Acute (2) Chest pain ICD Code: R07.9 Status: Acute (3) HTN (hypertension) ICD Code: I10 Status: Acute (4) Tobacco abuse ICD Code: Z72.0 Status: Chronic (5) Cerebrovascular accident, embolic ICD Code: I63.9 Status: Acute (6) Carotid stenosis ICD Code: I65.29 Status: Acute Assessment and Plan 1. Acute CVA: Patient had transient right-sided neurologic symptoms. Appreciate neurology recommendations. MRI shows acute infarcts. Continue permissive hypertension. PT/OT/ST. On Coumadin for anticoagulation, which is on hold for procedure. 2. Chest pain: Patient reporting acute sharp pain in the center of his chest this afternoon. Check stat cardiac enzymes and EKG. Notify cardiology. 3. Syncope: Possibly secondary to cardiac versus neurologic etiology. Appreciate cardiology recommendations. Echocardiogram with loop recorder insertion planned for tomorrow. Discussed with Dr. Corral. Continue telemetry monitoring. 4. Hypertension: Permissive hypertension at this time. 5. Tobacco abuse: Counseled quit smoking. 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 Follow-up as outpatient. 7. DVT prophylaxis: SCDs. Heparin. Problem Qualifiers (1) Syncope: Qualified Code: R55 - Syncope, unspecified syncope type Tiago Calderon MD Apr 25, 2017 15:18
[2017-04-25] MEDS: MORPHINE SULFATE 8 MG/ML INJ IV PUSH PRN (15:49)
[2017-04-25] MEDS ORDERED: WARFARIN SOD 7.5 MG TAB PO SCH (16:00)
[2017-04-25 17:00] LABS: CREATINE KINASE 52 U/L (39-308)
[2017-04-25 23:39] LABS: CREATINE KINASE 46 U/L (39-308)
[2017-04-26 01:02] VITALS: BP 148/70; PULSE 66; RESP 18; TEMP 97.9; O2SAT 96
[2017-04-26 05:00] VITALS: BP 167/72; PULSE 49; RESP 18; TEMP 98.2; O2SAT 97
[2017-04-26 06:59] LABS: INTERNATIONAL NORMALIZED RATIO 1.1 RATIO; PROTHROMBIN TIME - PATIENT 12.7 SEC (9.8-11.6)
[2017-04-26 07:18] LABS: CREATINE KINASE 44 U/L (39-308)
[2017-04-26 08:00] VITALS: BP 183/72; PULSE 45; RESP 20; TEMP 97.2; O2SAT 96
[2017-04-26] MEDS: SODIUM CHLORIDE 0.9% FLUSH 10 ML FLUSH IV FLUSH SCH ×2 (08:03→21:16)
[2017-04-26] MEDS: HEPARIN SODIUM - SQ 10,000 UNITS/ML VIAL SQ SCH ×2 (08:04→21:15)
[2017-04-26] MEDS: ASPIRIN EC 81 MG TABEC PO SCH (08:04)
[2017-04-26] MEDS: PRAVASTATIN SOD 40 MG TAB PO SCH (08:04)
[2017-04-26] MEDS: DOCUSATE SODIUM 50 MG/SENNA 8.6 MG TAB PO SCH ×2 (08:04→21:00)
[2017-04-26 11:21] VITALS: O2SAT 96
[2017-04-26] MEDS ORDERED: ceFAZolin INJ 1,000 MG VIAL ONE (11:36)
--- NOTE | 2017-04-26 12:38 | ECHRPT ---
Indication: CONCLUSIONS Technically difficult study, but no PFO seen by aggitated saline contrast. The left ventricular systolic function is grossly normal on limited imaging. BP: / HR: Rhythm: Technical Quality:Technically difficult study Medications Complications Proc. Components FINDINGS LEFT VENTRICLE The left ventricular systolic function is grossly normal on limited imaging. RIGHT VENTRICLE The right ventricle was not well visualized. LEFT ATRIUM No thrombus seen but not well visualized ATRIAL SEPTUM No atrial level shunt is observed with agitated saline contrast administration. MITRAL VALVE The mitral valve is not well visualized. AORTIC VALVE The aortic valve is not well visualized. TRICUSPID VALVE Not well visualized Ashutosh Corral MD (Electronically Signed) Final Date:26 April 2017 12:37
--- NOTE | 2017-04-26 12:45 | PD.CARD.PN ---
Subjective Subjective Remarks Doing well, no complaints. Tolerated MALIK/LOOP well Objective Medications Administered Medications Medications (Trade) Dose Ordered Sig/Aria Route PRN Reason Start Time Stop Time Status Last Admin Dose Admin Sodium Chloride (NS Flush) 2 ml BID IV FLUSH 04/22/17 21:00 04/25/17 22:02 Acetaminophen/ Hydrocodone Bitart ([place]ison 5-325 Mg) 1 tab Q4H PRN PO PAIN SCALE 3 TO 5 04/22/17 22:00 04/23/17 23:25 Senna/Docusate Sodium (Nadeen-Colace) 1 tab BID PO 04/22/17 22:00 04/25/17 22:01 Aspirin (Ecotrin Ec) 81 mg DAILY PO 04/23/17 09:00 04/25/17 08:59 Pravastatin Sodium (Pravachol) 40 mg DAILY PO 04/23/17 09:00 04/25/17 08:59 Nitroglycerin (Nitroglycerin 2% Oint) 0.5 inch Q6HR PRN TOPICAL CHEST PAIN 04/22/17 22:00 04/23/17 01:58 Heparin Sodium (Porcine) (Heparin Inj) 5,000 units Q12HR SQ 04/23/17 21:00 04/25/17 22:01 Morphine Sulfate (Morphine Inj) 2 mg Q4H PRN IV PUSH Breakthrough pain 04/24/17 17:15 04/25/17 15:49 Acetaminophen/ Hydrocodone Bitart ([place]ison 10-325 Mg) 1 tab Q4H PRN PO pain 6-10 04/24/17 14:15 04/25/17 22:02 Vital Signs / I&O Vital Signs Date Time Temp Pulse Resp B/P Pulse Ox O2 Delivery O2 Flow Rate FiO2 04/26/17 11:21 96 04/26/17 08:05 96 Room Air 04/26/17 08:00 97.2 45 20 183/72 96 04/26/17 05:00 98.2 49 18 167/72 97 04/26/17 04:00 Room Air 04/26/17 01:02 97.9 66 18 148/70 96 04/26/17 00:00 Room Air 04/25/17 20:28 98.5 62 18 154/64 96 04/25/17 20:00 Room Air 04/25/17 20:00 66 04/25/17 16:00 98.5 59 20 169/81 95 I/O 04/25/17 04/25/17 04/25/17 04/26/17 04/26/17 04/26/17 07:00 15:00 23:00 07:00 15:00 23:00 Intake Total 380 ml 0 ml 551 ml 859 ml Output Total 400 ml 700 ml 825 ml Balance -20 ml -700 ml 551 ml 34 ml Intake Oral 0 ml 480 ml IV Total 380 ml 551 ml 379 ml Output Urine Total 400 ml 700 ml 825 ml # Bowel Movements 0 1 Physical Exam GENERAL: This is a well-nourished, well-developed patient, in no apparent distress. CARDIOVASCULAR: Regular rate and rhythm without murmurs, gallops, or rubs. RESPIRATORY: Clear to auscultation. Breath sounds equal bilaterally. No wheezes , rales, or rhonchi. GASTROINTESTINAL: Abdomen soft, non-tender, nondistended. Normal active bowel sounds MUSCULOSKELETAL: Extremities without clubbing, cyanosis, or edema. NEURO: Alert & Oriented x4 to person, place, time, situation. Moves all ext x4 Laboratory Laboratory Tests Test 04/25/17 04/25/17 04/26/17 16:26 22:36 05:42 Total Creatine Kinase 52 U/L 46 U/L 44 U/L Troponin I LESS THAN 0.02 LESS THAN 0.02 LESS THAN 0.02 NG/ML NG/ML NG/ML Prothrombin Time 12.7 SEC Prothromb Time International 1.1 RATIO Ratio Imaging Last Impressions Soft Tissue MRI 04/25/17 0000 Signed Impressions: Service Date/Time: Tuesday, April 25, 2017 13:50 - CONCLUSION: Prominent sized uvula extending to the right of midline. I don't see any definite soft tissue polyp and there certainly no significant infiltrating mass. Direct visualization is recommended. Erick Parmar MD Myocardial Perfusion Scan Nuc Med 04/25/17 0000 Signed Impressions: Service Date/Time: Tuesday, April 25, 2017 11:20 - CONCLUSION: Circumflex defect fixed at stress and rest suspicious for infarct. Decreased ejection fraction at 43%%. RISK CATEGORY: Low (<1%% Annual Mortality Rate) Erick Parmar MD Neck CTA 04/23/17 1448 Signed Impressions: Service Date/Time: Sunday, April 23, 2017 16:43 - CONCLUSION: 1. 80%% stenosis of the left ICA and 40%% stenosis of the right ICA. Details given above. 2. Multiple moderate stenoses scattered throughout the vertebral arteries more pronounced on the left. 3. 1.4 x 1.3 cm soft tissue mass associated with the right lateral oropharyngeal wall. Clinical correlation is needed with direct visualization. Danish Truong Jr., MD Head CTA 04/23/17 1448 Signed Impressions: Service Date/Time: Sunday, April 23, 2017 16:43 - CONCLUSION: Approximate 50%% stenosis of the left ICA in the tedious portion and carotid siphon without evidence for filling defects. Bennett Metcalf MD Carotid Artery Ultrasound 04/23/17 1229 Signed Impressions: Service Date/Time: Sunday, April 23, 2017 13:03 - CONCLUSION: High-grade stenosis involving the left ICA. Bennett Metcalf MD Head Magnetic Resonance Angiography 04/23/17 0000 Signed Impressions: Service Date/Time: Sunday, April 23, 2017 10:25 - CONCLUSION: 1. Irregular narrowing in the petrous segment of the left internal carotid artery which may be caused by eccentric thrombus. 2. 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 3. Mild luminal irregularity involving the right carotid siphon without significant stenosis. Baron Harrell MD Brain MRI 04/23/17 0000 Signed Impressions: Service Date/Time: Sunday, April 23, 2017 10:25 - CONCLUSION: Bilateral foci of restricted diffusion consistent with acute infarcts. The largest is located in the left centrum semi-ovale. Bilaterality is suggestive of an embolic process. Moderate cerebral and matter disease characteristic of chronic microvascular ischemic changes. No evidence of acute hemorrhage, edema or significant mass effect. Baron Harrell MD Head CT 04/22/178 Signed Impressions: Service Date/Time: Saturday, April 22, 2017 20:25 - CONCLUSION: Negative noncontrast head CT. Nathan Dawkins MD Chest X-Ray 04/22/178 Signed Impressions: Service Date/Time: Saturday, April 22, 2017 19:03 - CONCLUSION: No evidence of acute cardiopulmonary disease. Nathan Dawkins MD Assessment and Plan Problem List: (1) Cerebrovascular accident, embolic Assessment and Plan: Loop in place to exclude afib; MALIK showed no PFO, will resume warfarin. (2) Chest pain in adult Assessment and Plan: Non-ischemic nuc stress Assessment and Plan will sign off and see him back in my office in 1-2 weeks. Ashutosh Corral MD Apr 26, 2017 12:45
--- NOTE | 2017-04-26 12:51 | MA ---
cc: ASHUTOSH CORRAL MD DATE 04/26/2017 PROCEDURE PERFORMED A loop recorder insertion. INDICATION CVA PERFORMING PHYSICIAN Ashutosh Corral MD PROCEDURE PERFORMED Loop recorder insertion. DESCRIPTION OF PROCEDURE The patient was brought to the DOC unit in the postabsorptive state. Following a transesophageal echocardiogram (see separate dictation). The patient remained sedated via anesthesia. His left chest was prepped and draped in the usual sterile fashion. Using the standard sterile technique, a Known LINQ loop recorder was inserted subcutaneously in the left chest. The patient tolerated the procedure well without any apparent complications. The initial R-wave was 0.72 millivolt. Tachybrady pause and atrial fibrillation detection was enabled. The serial number was [id number]. MD KEENA Barraza/ANNALISE /12:49 PM /12:51 PM
--- NOTE | 2017-04-26 13:55 | HM ---
Date Performed: 04/23/2017 Time Performed: 18:51:00 HOOKUP DATE: 04/23/17 06:51:00 PM Sat ANALYSIS START TIME: 04/23/2017 6:56:00 PM ANALYSIS END TIME: 04/24/2017 5:55:19 PM PATIENT AGE: 57 PATIENT HEIGHT PATIENT WEIGHT DRUG LIST PATIENT DIAGNOSIS TEST NARRATIVE: The patient's average heart rate was 53 BPM. No episodes of tachycardia wer e noted. Heart rates less than 50 BPM were noted 60% of the time. No pauses exceeding 2.0 second s were noted. 51 ventricular ectopics, which represented < 1% of the total beat count, were noted . The highest ventricular ectopic frequency occurred from 11:00 AM to 12:00 PM Sun. During this cassie e 9 VE(s) occurred. Ventricular ectopics were observed as 51 isolated beat(s) only. No couplets or runs were noted. 2264 supraventricular ectopics, which represented 3% of the total beat count, we re noted. The highest supraventricular ectopic frequency occurred from 11:00 AM to 12:00 PM Sun. Du ring this time 206 SVE(s) occurred. No episodes of ST depression (defined as -1.0 mm or more) wer e noted in channel 1. No episodes of ST depression (defined as -1.0 mm or more) were noted in channe l 2. No episodes of ST depression (defined as -1.0 mm or more) were noted in channel 3. TEST INTERPRETATION: Underlying rhythm is normal Sinus rhythm . There are occasional PACs and occasional PVCS. CONCLUSION: PACs and PVCs. No evidence of significa nt colin or tachy arrhythmia. Overall benign Holter. Signed by : Veronica Ward
[2017-04-26] MEDS: ACETAMINOPHEN/HYDROcodone 325 MG/5 MG TAB PO PRN (15:04)
[2017-04-26 16:00] VITALS: BP 161/70; PULSE 55; RESP 18; TEMP 98.3; O2SAT 96
[2017-04-26] MEDS ORDERED: WARFARIN SOD 7.5 MG TAB PO ONE (16:00)
--- NOTE | 2017-04-26 16:20 | HHI.PR ---
Subjective Remarks Follow up CVA, chest pain. Patient states that the chest pain he was having yesterday resolved. Now he has discomfort at the site of the loop recorder insertion. Denies dyspnea. Objective Vitals Vital Signs Date Time Temp Pulse Resp B/P Pulse Ox O2 Delivery O2 Flow Rate FiO2 04/26/17 11:21 96 04/26/17 08:05 96 Room Air 04/26/17 08:00 97.2 45 20 183/72 96 04/26/17 05:00 98.2 49 18 167/72 97 04/26/17 04:00 Room Air 04/26/17 01:02 97.9 66 18 148/70 96 04/26/17 00:00 Room Air 04/25/17 20:28 98.5 62 18 154/64 96 04/25/17 20:00 Room Air 04/25/17 20:00 66 I/O 04/25/17 04/25/17 04/25/17 04/26/17 04/26/17 04/26/17 07:00 15:00 23:00 07:00 15:00 23:00 Intake Total 380 ml 0 ml 551 ml 859 ml Output Total 400 ml 700 ml 825 ml Balance -20 ml -700 ml 551 ml 34 ml Intake Oral 0 ml 480 ml IV Total 380 ml 551 ml 379 ml Output Urine Total 400 ml 700 ml 825 ml # Bowel Movements 0 1 Result Diagram: 04/23/17 0835 04/23/17 0835 Imaging Last Impressions Soft Tissue MRI 04/25/17 0000 Signed Impressions: Service Date/Time: Tuesday, April 25, 2017 13:50 - CONCLUSION: Prominent sized uvula extending to the right of midline. I don't see any definite soft tissue polyp and there certainly no significant infiltrating mass. Direct visualization is recommended. Erick Parmar MD Myocardial Perfusion Scan Nuc Med 04/25/17 0000 Signed Impressions: Service Date/Time: Tuesday, April 25, 2017 11:20 - CONCLUSION: Circumflex defect fixed at stress and rest suspicious for infarct. Decreased ejection fraction at 43%%. RISK CATEGORY: Low (<1%% Annual Mortality Rate) Erick Parmar MD Neck CTA 04/23/17 1448 Signed Impressions: Service Date/Time: Saturday, April 23, 2017 16:43 - CONCLUSION: 1. 80%% stenosis of the left ICA and 40%% stenosis of the right ICA. Details given above. 2. Multiple moderate stenoses scattered throughout the vertebral arteries more pronounced on the left. 3. 1.4 x 1.3 cm soft tissue mass associated with the right lateral oropharyngeal wall. Clinical correlation is needed with direct visualization. Danish Truong Jr., MD Head CTA 04/23/17 1448 Signed Impressions: Service Date/Time: Sunday, April 23, 2017 16:43 - CONCLUSION: Approximate 50%% stenosis of the left ICA in the tedious portion and carotid siphon without evidence for filling defects. Bennett Metcalf MD Carotid Artery Ultrasound 04/23/17 1229 Signed Impressions: Service Date/Time: Sunday, April 23, 2017 13:03 - CONCLUSION: High-grade stenosis involving the left ICA. Bennett Metcalf MD Head Magnetic Resonance Angiography 04/23/17 0000 Signed Impressions: Service Date/Time: Sunday, April 23, 2017 10:25 - CONCLUSION: 1. Irregular narrowing in the petrous segment of the left internal carotid artery which may be caused by eccentric thrombus. 2. 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 3. Mild luminal irregularity involving the right carotid siphon without significant stenosis. Baron Harrell MD Brain MRI 04/23/17 0000 Signed Impressions: Service Date/Time: Sunday, April 23, 2017 10:25 - CONCLUSION: Bilateral foci of restricted diffusion consistent with acute infarcts. The largest is located in the left centrum semi-ovale. Bilaterality is suggestive of an embolic process. Moderate cerebral and matter disease characteristic of chronic microvascular ischemic changes. No evidence of acute hemorrhage, edema or significant mass effect. Baron Harrell MD Head CT 04/22/171857 Signed Impressions: Service Date/Time: Saturday, April 22, 2017 20:25 - CONCLUSION: Negative noncontrast head CT. Nathan Dawkins MD Chest X-Ray 04/22/171857 Signed Impressions: Service Date/Time: Saturday, April 22, 2017 19:03 - CONCLUSION: No evidence of acute cardiopulmonary disease. Nathan Dawkins MD Objective Remarks General: No acute distress. Heart: Tachycardic. No murmur. Lungs: Clear to auscultation bilaterally. No wheezes, rales, or rhonchi. Breathing is nonlabored. Abdomen: Soft, nontender, nondistended. Extremities: No lower extremity edema. Psych: Alert and oriented. Procedures 04/26/17 MALIK, cardiac loop recorder insertion Urinary Catheter: No Vascular Central Line Catheter: No A/P Problem List: (1) Syncope ICD Code: R55 Status: Acute (2) Chest pain ICD Code: R07.9 Status: Acute (3) HTN (hypertension) ICD Code: I10 Status: Acute (4) Tobacco abuse ICD Code: Z72.0 Status: Chronic (5) Cerebrovascular accident, embolic ICD Code: I63.9 Status: Acute (6) Carotid stenosis ICD Code: I65.29 Status: Acute Assessment and Plan 1. Acute CVA: Patient had transient right-sided neurologic symptoms. Appreciate neurology recommendations. MRI shows acute infarcts. Continue permissive hypertension. PT/OT/ST. Coumadin restarted. 2. Chest pain: Resolved. 3. Syncope: Possibly secondary to cardiac versus neurologic etiology. Appreciate cardiology recommendations. Status post MALIK with loop recorder insertion. Cardiology has signed off. 4. Hypertension: Permissive hypertension at this time. 5. Tobacco abuse: Counseled quit smoking. 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 Follow-up as outpatient. 7. DVT prophylaxis: SCDs. Heparin. Discharge Planning Possible discharge home next 1-2 days if cleared by neurology. Problem Qualifiers (1) Syncope: Qualified Code: R55 - Syncope, unspecified syncope type Tiago Calderon MD Apr 26, 2017 16:20
--- NOTE | 2017-04-26 18:32 | EKG ---
Date Performed: 04/26/2017 Time Performed: 03:00:08 PTAGE: 57 years EKG: Sinus bradycardia with PAC(s) Lateral T wave changes are nonspecific Borderline ECG PREVIOUS TRACING : 04/25/2017 21.15 Compared to prior tracing no significant change DOCTOR: Vinnie Curran Interpretating Date/Time 04/26/2017 18:32:19
--- NOTE | 2017-04-26 18:48 | EKG ---
Date Performed: 04/25/2017 Time Performed: 21:15:27 PTAGE: 57 years EKG: SINUS BRADYCARDIA WITH OCCASIONAL SUPRAVENTRICULAR PREMATURE COMPLEXES NONSPECIFIC T-WAVE A BNORMALITY BORDERLINE ECG PREVIOUS TRACING : 04/23/2017 01.07 Compared to prior tracing no significant change DOCTOR: Vinnie Curran Interpretating Date/Time 04/26/2017 18:47:35
[2017-04-26 20:00] VITALS: BP 158/96; PULSE 50; PULSE 51; RESP 18; TEMP 97.8; O2SAT 97
[2017-04-26] MEDS: ACETAMINOPHEN/HYDROcodone 325 MG/10 MG TAB PO PRN (21:16)
[2017-04-27] VITALS (11 sets, daily range): BP systolic 155–186; BP diastolic 66–82; PULSE 45–55; RESP 13–21; TEMP 97.8–98.5; O2SAT 93–98
[2017-04-27] MEDS: ACETAMINOPHEN/HYDROcodone 325 MG/10 MG TAB PO PRN (05:32)
[2017-04-27 07:02] LABS: INTERNATIONAL NORMALIZED RATIO 1.2 RATIO; PROTHROMBIN TIME - PATIENT 13.9 SEC (9.8-11.6)
[2017-04-27] MEDS: PRAVASTATIN SOD 40 MG TAB PO SCH (08:39)
[2017-04-27] MEDS: DOCUSATE SODIUM 50 MG/SENNA 8.6 MG TAB PO SCH ×2 (08:39→20:51)
[2017-04-27] MEDS: ASPIRIN EC 81 MG TABEC PO SCH ×2 (08:39→09:00)
[2017-04-27] MEDS: HEPARIN SODIUM - SQ 10,000 UNITS/ML VIAL SQ SCH ×3 (08:40→20:51)
[2017-04-27] MEDS: MORPHINE SULFATE 8 MG/ML INJ IV PUSH PRN (08:44)
[2017-04-27] MEDS: ENALAPRILAT 1.25 MG/ML VIAL IV PRN (09:25)
[2017-04-27 10:11] LABS: BLOOD GAS BASE EXCESS -0.4 mmol/L (-2-2); BLOOD GAS CARBOXYHEMOGLOBIN 1.1 % (0-4); BLOOD GAS HCO3 24 mmol/L (22-26); BLOOD GAS METHEMOGLOBIN 0.7 % (0-2); BLOOD GAS O2 HGB SATURATION 96 % (90-100); BLOOD GAS OXYGEN CONTENT 21.6 Vol % (12.0-20.0); BLOOD GAS PCO2 37 mmHg (38-42); BLOOD GAS PO2 108 mmHg (61-120); BLOOD GAS TOTAL HGB 15.9 G/DL (12.0-16.0); CRITICAL VALUE NO; DRAW SITE LT BRACHIAL; LITER FLOW 3 L/M; NUMBER OF ARTERIAL PUNCTURES 1; OXYGEN DEVICE NASAL CANNULA; STAT NO; TEMP CORR TO 98.6; ULNAR PULSE PRESENT
--- NOTE | 2017-04-27 10:16 | HHI.PR ---
Subjective Remarks I was called by the patient's nurse to inform me that patient was complaining of left arm pain which progressed to numbness. On my arrival to the floor, the patient denies chest pain or dyspnea. He does report numbness "all over". He states "I can't move". Objective Vitals Vital Signs Date Time Temp Pulse Resp B/P Pulse Ox O2 Delivery O2 Flow Rate FiO2 04/27/17 08:01 98.3 45 16 174/80 96 04/27/17 05:46 97.8 49 18 184/80 97 04/27/17 00:00 98.1 48 18 186/82 97 04/27/17 00:00 Room Air 04/26/17 20:00 97.8 51 18 158/96 97 04/26/17 20:00 Room Air 04/26/17 20:00 50 04/26/17 16:00 98.3 55 18 161/70 96 04/26/17 11:21 96 I/O 04/26/17 04/26/17 04/26/17 04/27/17 04/27/17 04/27/17 07:00 15:00 23:00 07:00 15:00 23:00 Intake Total 859 ml 480 ml 240 ml Output Total 825 ml 400 ml 400 ml Balance 34 ml 80 ml -160 ml Intake Oral 480 ml 480 ml 240 ml IV Total 379 ml Output Urine Total 825 ml 400 ml 400 ml # Voids 1 2 2 # Bowel Movements 2 1 1 Result Diagram: 04/23/17 0835 04/23/17 0835 Imaging Last Impressions Soft Tissue MRI 04/25/17 0000 Signed Impressions: Service Date/Time: Tuesday, April 25, 2017 13:50 - CONCLUSION: Prominent sized uvula extending to the right of midline. I don't see any definite soft tissue polyp and there certainly no significant infiltrating mass. Direct visualization is recommended. Erick Parmar MD Myocardial Perfusion Scan Nuc Med 04/25/17 0000 Signed Impressions: Service Date/Time: Tuesday, April 25, 2017 11:20 - CONCLUSION: Circumflex defect fixed at stress and rest suspicious for infarct. Decreased ejection fraction at 43%%. RISK CATEGORY: Low (<1%% Annual Mortality Rate) Erick Parmar MD Neck CTA 04/23/17 1448 Signed Impressions: Service Date/Time: Sunday, April 23, 2017 16:43 - CONCLUSION: 1. 80%% stenosis of the left ICA and 40%% stenosis of the right ICA. Details given above. 2. Multiple moderate stenoses scattered throughout the vertebral arteries more pronounced on the left. 3. 1.4 x 1.3 cm soft tissue mass associated with the right lateral oropharyngeal wall. Clinical correlation is needed with direct visualization. Danish Truong Jr., MD Head CTA 04/23/17 1448 Signed Impressions: Service Date/Time: Sunday, April 23, 2017 16:43 - CONCLUSION: Approximate 50%% stenosis of the left ICA in the tedious portion and carotid siphon without evidence for filling defects. Bennett Metcalf MD Carotid Artery Ultrasound 04/23/17 1229 Signed Impressions: Service Date/Time: Sunday, April 23, 2017 13:03 - CONCLUSION: High-grade stenosis involving the left ICA. Bennett Metcalf MD Head Magnetic Resonance Angiography 04/23/17 0000 Signed Impressions: Service Date/Time: Sunday, April 23, 2017 10:25 - CONCLUSION: 1. Irregular narrowing in the petrous segment of the left internal carotid artery which may be caused by eccentric thrombus. 2. 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 3. Mild luminal irregularity involving the right carotid siphon without significant stenosis. Baron Harrell MD Brain MRI 04/23/17 0000 Signed Impressions: Service Date/Time: Sunday, April 23, 2017 10:25 - CONCLUSION: Bilateral foci of restricted diffusion consistent with acute infarcts. The largest is located in the left centrum semi-ovale. Bilaterality is suggestive of an embolic process. Moderate cerebral and matter disease characteristic of chronic microvascular ischemic changes. No evidence of acute hemorrhage, edema or significant mass effect. Baron Harrell MD Head CT 04/22/171857 Signed Impressions: Service Date/Time: Saturday, April 22, 2017 20:25 - CONCLUSION: Negative noncontrast head CT. Nathan Dawkins MD Chest X-Ray 04/22/171857 Signed Impressions: Service Date/Time: Saturday, April 22, 2017 19:03 - CONCLUSION: No evidence of acute cardiopulmonary disease. Nathan Dawkins MD Objective Remarks General: The patient appears uncomfortable. Heart: Tachycardic. No murmur. Lungs: Clear to auscultation bilaterally. No wheezes, rales, or rhonchi. Breathing is nonlabored. Abdomen: Soft, nontender, nondistended. Extremities: No lower extremity edema. Psych: Alert and oriented. Neuro: Cranial nerves II through XII are grossly intact. Patient has weakness in all 4 extremities 3/5. Procedures 04/26/17 MALIK, cardiac loop recorder insertion Urinary Catheter: No Vascular Central Line Catheter: No A/P Problem List: (1) Syncope ICD Code: R55 Status: Acute (2) Chest pain ICD Code: R07.9 Status: Acute (3) HTN (hypertension) ICD Code: I10 Status: Acute (4) Tobacco abuse ICD Code: Z72.0 Status: Chronic (5) Cerebrovascular accident, embolic ICD Code: I63.9 Status: Acute (6) Carotid stenosis ICD Code: I65.29 Status: Acute Assessment and Plan 1. Acute CVA: Patient had transient right-sided neurologic symptoms. Appreciate neurology recommendations. MRI shows acute infarcts. Continue permissive hypertension. PT/OT/ST. Coumadin restarted. Continue aspirin. 2. Chest pain: Resolved. 3. Syncope: Possibly secondary to cardiac versus neurologic etiology. Appreciate cardiology recommendations. Status post MALIK with loop recorder insertion. Cardiology has signed off. 4. Hypertension: Permissive hypertension at this time. 5. Tobacco abuse: Counseled quit smoking. 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 Follow-up as outpatient. 7. DVT prophylaxis: SCDs. Heparin, Coumadin. The patient developed left arm pain, which progressed to numbness and weakness. He also reports weakness in all [address] Valentino, neurology, was contacted. Stroke alert was called. Stat CT of the head, MRI of the brain, and CTA of the ambler of [place] were ordered. Stat cardiac enzymes were ordered. EKG showed sinus bradycardia. The patient will be transferred to the intensive care unit. Critical care time 40 minutes. Discharge Planning Transfer to ICU. Problem Qualifiers (1) Syncope: Qualified Code: R55 - Syncope, unspecified syncope type Tiago Calderon MD Apr 27, 2017 10:16
[2017-04-27 10:30] LABS: BASOPHIL % 0.7 % (0.0-2.0); EOSINOPHIL # 0.3 TH/MM3 (0-0.4); HEMATOCRIT 46.7 % (39.0-51.0); HEMO FLAGS DIFF FINAL; LYMPH % 25.5 % (9.0-44.0); LYMPHOCYTE # 1.7 TH/MM3 (1.0-4.8); MEAN CELL VOLUME 91.1 FL (80.0-100.0); MEAN CORPUSCULAR HEMOGLOBIN 30.4 PG (27.0-34.0); MEAN CORPUSCULAR HGB CONC 33.3 % (32.0-36.0); MONO % 10.1 % (0.0-8.0); NEUT % 59.7 % (16.0-70.0); PLATELET COUNT 149 TH/MM3 (150-450); RED BLOOD COUNT 5.13 MIL/MM3 (4.50-5.90); RED CELL DISTRIBUTION WIDTH 13.6 % (11.6-17.2); WHITE BLOOD COUNT 6.7 TH/MM3 (4.0-11.0)
[2017-04-27] MEDS: SODIUM CHLOR 0.9% 1000 ML INJ 1,000 ML IV SCH ×2 (10:30→23:20)
--- NOTE | 2017-04-27 10:33 | RADRPT ---
EXAM DATE/TIME: 04/27/2017 10:18 [facility] COMPARISON: No previous studies available for comparison. INDICATIONS : Stroke alert, left side weakness. RADIATION DOSE: 56.35 CTDIvol (mGy) This report was called by <Agata> to Max at <1031am>> MEDICAL HISTORY : Non-responsive. SURGICAL HISTORY : Non-responsive. ENCOUNTER: Initial ACUITY: 1 day PAIN SCALE: Non-responsive LOCATION: cranial TECHNIQUE: Multiple contiguous axial images were obtained of the head. Using automated exposure control and adj ustment of the mA and/or kV according to patient size, radiation dose was kept as low as reasonably a chievable to obtain optimal diagnostic quality images. DICOM format image data is available electro nically for review and comparison. FINDINGS: CEREBRUM: The ventricles are normal for age. No evidence of midline shift, mass lesion, hemorrhage or acute in farction. No extra-axial fluid collections are seen. POSTERIOR FOSSA: The cerebellum and brainstem are intact. The 4th ventricle is midline. The cerebellopontine angle i s unremarkable. EXTRACRANIAL: The visualized portion of the orbits is intact. SKULL: The calvaria is intact. No evidence of skull fracture. CONCLUSION: Normal examination. Erick Parmar MD on April 27, 2017 at 10:31 Board Certified Radiologist. This report was verified electronically.
[2017-04-27 10:34] LABS: I-STAT POTASSIUM 6.3 MMOL/L (3.5-4.9); I-STAT SODIUM 138 MMOL/L (138-146)
[2017-04-27] MEDS ORDERED: IOHEXOL 350 MG/ML 10 ML VIAL (for RAD DIAG) IV ONE (10:37)
[2017-04-27 10:40] LABS: APTT (PATIENT) 28.1 SEC (24.3-30.1); INTERNATIONAL NORMALIZED RATIO 1.4 RATIO; PROTHROMBIN TIME - PATIENT 15.7 SEC (9.8-11.6)
--- NOTE | 2017-04-27 11:09 | EKG ---
Date Performed: 04/27/2017 Time Performed: 08:55:50 PTAGE: 57 years EKG: Sinus bradycardia. Lateral T wave changes are nonspecific Borderline ECG PREVIOUS TRACING : 04/26/2017 03.00 DOCTOR: Erick Iqbal Interpretating Date/Time 04/27/2017 11:08:59
[2017-04-27] MEDS: SODIUM CHLORIDE 0.9% FLUSH 10 ML FLUSH IV FLUSH SCH ×2 (11:15→21:00)
--- NOTE | 2017-04-27 12:01 | RADRPT ---
EXAM DATE/TIME: 04/27/2017 10:18 [facility] COMPARISON: No previous studies available for comparison. INDICATIONS : Stroke. IV CONTRAST: 65 cc Omnipaque 350 (iohexol) IV ; Cumulative dose for multiple exams. RADIATION DOSE: 15.38 CTDIvol (mGy) ; Combined studies MEDICAL HISTORY : Non-responsive. SURGICAL HISTORY : Non-responsive. ENCOUNTER: Initial ACUITY: 1 day PAIN SCALE: Non-responsive LOCATION: Cranial TECHNIQUE: Volumetric scanning was performed using a multi-row detector CT scanner. The data was post processed with a variety of visualization algorithms including full volume maximum intensity projection, multi -planar sliding thin slab reformation, curved planar reformation, and surface rendering techniques. Using automated exposure control and adjustment of the mA and/or kV according to patient size, radiat ion dose was kept as low as reasonably achievable to obtain optimal diagnostic quality images. DICO M format image data is available electronically for review and comparison. FINDINGS: CTA of the brain was performed. The intracavernous portion of the left internal carotid artery is na rrowed by at least 50-70%. Its bifurcation is unremarkable although the left A1 segment is small. T he left middle cerebral circulation is unremarkable. The basilar system is unremarkable. The right internal carotid bifurcation is unremarkable. The anterior and middle cerebral vessels on the right side are unremarkable. There has been no change since the previous study. CONCLUSION: Continued atherosclerotic disease of left internal carotid artery distally. There is also some narro wing at the left internal carotid artery which is quite significant. The right side which is the mor e concerning side based on the patient's symptoms is unremarkable and unchanged. Erick Parmar MD on April 27, 2017 at 11:49 Board Certified Radiologist. This report was verified electronically.
[2017-04-27 12:24] LABS: CREATINE KINASE 42 U/L (39-308)
--- NOTE | 2017-04-27 12:29 | RADRPT ---
EXAM DATE/TIME: 04/27/2017 11:50 [facility] COMPARISON: MRI BRAIN W/O CONTRAST, April 23, 2017, 10:25. INDICATIONS : CVA. Stroke alert. MEDICAL HISTORY : Stroke Hypertension. SURGICAL HISTORY : CABG Coronary artery stent. ENCOUNTER: Initial ACUITY: 1 day PAIN SCORE: 0/10 LOCATION: head TECHNIQUE: Multiplanar, multisequence MRI of the brain was performed without contrast. FINDINGS: CEREBRUM: The ventricles are normal for age. No evidence of midline shift, mass lesion, hemorrhage or acute in farction. No extraaxial fluid collections are seen. The pituitary gland and suprasellar cistern are normal in configuration. WHITE MATTER: Multifocal areas of high flair significant signal abnormalities are seen in the white matter. POSTERIOR FOSSA: Tiny lacune in right cerebellum could be old lacunar infarct. Old cerebellar are infarcts. The 4th ve ntricle is midline. The cerebellopontine angle is unremarkable. The cerebellar tonsils are normal in position. DIFFUSION IMAGING: Small areas of restricted diffusion are seen in the parietal lobes, unchanged. EXTRACRANIAL: The visualized portions of the orbits and paranasal sinuses are unremarkable. CONCLUSION: 1. Small acute infarcts seen in the parietal lobes on previous study are unchanged. No new areas are identified. 2. Prominent areas of chronic ischemic small vessel vasculopathy. 1. Caleb Healy MD on April 27, 2017 at 12:23 Board Certified Radiologist. This report was verified electronically.
--- NOTE | 2017-04-27 12:49 | RADRPT ---
EXAM DATE/TIME: 04/27/2017 10:18 [facility] COMPARISON: CTA CAROTID ARTERIES W 3D RECON, April 23, 2017, 16:43. INDICATIONS : Stroke alert, left side weakness. IV CONTRAST: 65 cc Omnipaque 350 (iohexol) IV ; Cumulative dose for multiple exams. RADIATION DOSE: 15.38 CTDIvol (mGy) ; Combined studies MEDICAL HISTORY : Non-responsive. SURGICAL HISTORY : Non-responsive. ENCOUNTER: Initial ACUITY: 1 day PAIN SCALE: Non-responsive LOCATION: neck Elevated flow velocities and ICA/CCA ratios have been found to correlate with increased degrees of vessel stenosis, calculated as percentage of diameter relative to a normal segment of distal ICA/CCA. TECHNIQUE: Volumetric scanning was performed using a multirow detector CT scanner. The data was post processed with a variety of visualization algorithms including full-volume maximum intensity projection, multip lanar sliding thin-slab reformation, curved-planar reformation, and surface-rendering techniques. Us ing automated exposure control and adjustment of the mA and/or kV according to patient size, radiatio n dose was kept as low as reasonably achievable to obtain optimal diagnostic quality images. DICOM f ormat image data is available electronically for review and comparison. FINDINGS: AORTIC ARCH: There is 3 vessel anatomy. The origin of the arch vessels are patent. RIGHT CAROTID: Common carotid artery is patent. Eccentric bulky calcified plaque extending from the right carotid to the origin of the internal carotid artery with resultant approximate 40-50% stenosis. Next artery is patent. LEFT CAROTID: Left common carotid artery is patent. Eccentric mixed plaque in the carotid bulb extending to the reg ion of the internal carotid artery. There is resultant severe, approximately 80% stenosis, utilizing NASCET criteria in the internal carotid artery origin. Most cephalad aspect of the stenosis is approx imately 1.5 cm above the origin. External carotid artery is patent. VERTEBRALS: Flow is demonstrated in both vertebral arteries which are fairly symmetrical. There are scattered nakia cified plaque throughout the left vertebral artery similar to prior exam with resultant cyds-vt-qtreu ate stenoses. The is likely moderate to severe stenosis of the left and right vertebral arteries dist ally at the level of the foramen magnum similar to prior exam. Redemonstration of a hypodense mass in the right lateral oropharynx near the pontine tonsil measuring 1.3 x 1.1 cm which appears slightly smaller in comparison to prior exam. No significant associated a denopathy in the cervical soft tissues. Subcentimeter left thyroid lobe nodule measuring approximatel y 4 mm. Visualized lung apices are clear. CONCLUSION: 1. Redemonstration of 80% left ICA stenosis and 40-50% right ICA stenosis, as above. 2. Redemonstration of bilateral vertebral artery stenoses, or prominent on the left. 3. Minimally smaller soft tissue mass associated with the right lateral oropharynx, as above. Clinica l correlation with direct visualization is recommended if previously not performed. Harjinder Luque MD on April 27, 2017 at 12:20 Board Certified Radiologist. This report was verified electronically.
[2017-04-27] MEDS ORDERED: WARFARIN SOD 7.5 MG TAB PO SCH (16:00)
[2017-04-27] MEDS ORDERED: WARFARIN SOD 5 MG TAB PO SCH (16:00)
--- NOTE | 2017-04-27 17:14 | HHI.PR ---
Subjective Remarks sb 44 sr still Objective Vital Signs Date Time Temp Pulse Resp B/P Pulse Ox O2 Delivery O2 Flow Rate FiO2 04/27/17 16:00 98.3 55 19 170/72 97 04/27/17 15:00 48 04/27/17 13:00 96 Nasal Cannula 2.00 04/27/17 12:00 98.1 52 21 169/71 98 04/27/17 11:00 96 Nasal Cannula 2.00 04/27/17 08:01 98.3 45 16 174/80 96 04/27/17 08:00 49 04/27/17 08:00 96 Room Air 21 04/27/17 05:46 97.8 49 18 184/80 97 04/27/17 00:00 98.1 48 18 186/82 97 04/27/17 00:00 Room Air 04/26/17 20:00 97.8 51 18 158/96 97 04/26/17 20:00 Room Air 04/26/17 20:00 50 I/O 04/26/17 04/26/17 04/26/17 04/27/17 04/27/17 04/27/17 07:00 15:00 23:00 07:00 15:00 23:00 Intake Total 859 ml 480 ml 240 ml 367 ml Output Total 825 ml 400 ml 400 ml 500 ml Balance 34 ml 80 ml -160 ml -133 ml Intake Oral 480 ml 480 ml 240 ml 0 ml IV Total 379 ml 367 ml Output Urine Total 825 ml 400 ml 400 ml 500 ml # Voids 1 2 2 0 # Bowel Movements 2 1 1 Result Diagram: 04/27/17 1005 04/23/17 0835 Objective Remarks awake alert moves all well face sym 5/5 bue and ble tricep finger ext ffm ip ta all nl callum no new co still vff pin nl all 4 ext and bilat face nl speech Assessment and Plan Assessment and Plan imp cta 80% left 50% r stable overnoc cards on case for stress test and ?loop echo neg and holter pend would like to get loop o/p inr pend today vascular to fu o/p eeg nl on statin hyper labs pend on coumadin throat masscheck mri soft tissue 04/27/17 he looks back to nl now cva alert called earlier and i suspect all this was a pain issue and not paralysis started with lue pain this am better now mri brain ctax2 no change check mr c spine iv hep and coumadin labs neg and some pend mireya neg Abdoul Valentino MD Apr 27, 2017 17:14
--- NOTE | 2017-04-27 19:06 | RADRPT ---
EXAM DATE/TIME: 04/27/2017 18:00 CORRECTION Corrected on: April 27, 2017; [facility] COMPARISON: MRI SOFT TISSUE NECK W & W/O CONTRAST, April 25, 2017, 13:50. MRI CERVICAL SPINE W/O CONTRAST, April 092016, 18:00. INDICATIONS : Myelopathy. Back pain. MEDICAL HISTORY : Hypertension. Cerebrovascular disease. SURGICAL HISTORY : CABG Loop recorder. ENCOUNTER: Subsequent ACUITY: 2 day PAIN SCORE: 0/10 LOCATION: back. TECHNIQUE: Multiplanar multisequence MRI of the thoracic spine was performed. FINDINGS: Normal alignment. Scattered Schmorl nodes. Diffuse disc desiccation and mild disc space narrowing wit h mild multilevel osteophyte formation. There is minimal discogenic edema along the endplates at T5 t hrough T11. The conus is unremarkable. Seen best on sagittal images 5 and 6 of series 6 is focal high signal within the spinal cord posterior to the T7 vertebral body, and focal concavity at the dorsal aspect of the cord at this level. The cord abuts the lower half of T7 at this level with no interveni ng CSF signal between the cord and vertebral body. Expansion of the dorsal subarachnoid space with no evidence of extradural mass or definite cyst identified. There is no spinal stenosis. An obvious mas s within the spinal canal posterior to the abnormal cord is not seen. There is pulsation artifact lorraine ntified posterior to this cord abnormality. T1-T2: Normal. T2-T3: The thecal sac has a normal diameter. No evidence of disc bulge or protrusion. T3-T4: The thecal sac has a normal diameter. No evidence of disc bulge or protrusion. T4-T5: The thecal sac has a normal diameter. No evidence of disc bulge or protrusion. T5-T6: The thecal sac has a normal diameter. No evidence of disc bulge or protrusion. T6-T7: The thecal sac has a normal diameter. No evidence of disc bulge or protrusion. T7-T8: The thecal sac has a normal diameter. No evidence of disc bulge or protrusion. T8-T9: The thecal sac has a normal diameter. No evidence of disc bulge or protrusion. T9-T10: The thecal sac has a normal diameter. No evidence of disc bulge or protrusion. T10-T11: The thecal sac has a normal diameter. No evidence of disc bulge or protrusion. T11-T12: The thecal sac has a normal diameter. No evidence of disc bulge or protrusion. T12-L1: The thecal sac has a normal diameter. No evidence of disc bulge or protrusion. CONCLUSION: 1. There is focal narrowing of the spinal cord diameter in the AP projection with associated increase d T2 signal posterior to the T7 vertebral body. An obvious mass in the spinal canal is not seen and there does appear to be pulsation artifact in the CSF posterior to the abnormal cord at this level. T herefore an arachnoid cyst or other T2 hyperintense mass at this level is felt considerably less like ly. More likely it is related to anterior herniation of the spinal cord at this level. 2. Mild degenerative changes of the spine. Michael Altamirano MD on April 27, 2017 at 18:52 Board Certified Radiologist. This report was verified electronically. Michael Altamirano MD on April 27, 2017 at 19:09 Board Certified Radiologist. This report was verified electronically.
--- NOTE | 2017-04-27 19:14 | RADRPT ---
EXAM DATE/TIME: 04/27/2017 18:00 [facility] COMPARISON: MRI THORACIC SPINE W/O CONTRAST, April 27, 2017, 18:00. INDICATIONS : Myelopathy. Neck pain. MEDICAL HISTORY : Hypertension. Cerebrovascular disease. SURGICAL HISTORY : CABG Loop recorder. ENCOUNTER: Subsequent ACUITY: 2 day PAIN SCORE: 0/10 LOCATION: pain. TECHNIQUE: Multiplanar, multisequence MRI examination of the cervical spine was performed. FINDINGS: VERTEBRAE: Normal vertebral body height. Homogeneous marrow signal. Mild anterior osteophyte formation is prese nt. There is moderate disc space narrowing at C3-4. ALIGNMENT: No evidence of subluxation. CORD: Normal configuration and signal. POST FOSSA: The cerebellar tonsils are normal in position. C2-C3: Broad-based protrusion greater centrally abuts the cord without significant canal or foraminal narrow ing. C3-C4: Broad-based protrusion and osteophytic ridging with mass effect on the cord and moderate canal stenos is. Uncovertebral hypertrophy and facet hypertrophy with severe bilateral foraminal narrowing suspect ed. C4-C5: Mild left foraminal narrowing secondary to facet and uncovertebral hypertrophy. Tiny central disc bul ge. C5-C6: The thecal sac has a normal configuration. There is no evidence of disc herniation or spinal canal s tenosis. The neural foramina are patent bilaterally. C6-C7: Diffuse disc osteophyte complex and facet hypertrophy without significant canal or foraminal narrowin g. C7-T1: Facet and uncovertebral hypertrophy with a left foraminal and lateral protrusion suspected with mass effect on the exiting nerve roots. CONCLUSION: Multilevel degenerative changes are noted as above. Michael Altamirano MD on April 27, 2017 at 19:10 Board Certified Radiologist. This report was verified electronically.
--- NOTE | 2017-04-27 19:17 | RADRPT ---
EXAM DATE/TIME: 04/27/2017 18:00 [facility] COMPARISON: MRI THORACIC SPINE W/O CONTRAST, April 27, 2017, 18:00. INDICATIONS : Myelopathy. Back pain. MEDICAL HISTORY : Cerebrovascular disease. Hypertension. SURGICAL HISTORY : CABG Loop recorder. ENCOUNTER: Subsequent ACUITY: 2 day PAIN SCORE: 0/10 LOCATION: back. TECHNIQUE: Multiplanar multisequence MRI of the lumbar spine was performed without contrast. FINDINGS: The most caudal appearing lumbar vertebra is numbered as L6 as measured from the top of the cervical spine. VERTEBRAE: Homogeneous signal. Normal alignment. CONUS: Normal level and configuration. T12-L1: The thecal sac has a normal diameter. No evidence of disc bulge or protrusion. The neural foramina are patent bilaterally. L1-L2: The thecal sac has a normal diameter. No evidence of disc bulge or protrusion. The neural foramina are patent bilaterally. L2-L3: The thecal sac has a normal diameter. No evidence of disc bulge or protrusion. The neural foramina are patent bilaterally. L3-L4: Minimal diffuse disc bulge with abutment of the L3 nerves no canal or foraminal narrowing. Mild facet and ligamentum flavum hypertrophy. L4-L5: A diffuse disc bulge with broad-based left foraminal protrusion abutting the L5 nerve roots but not d isplacing them. There is also mild mass effect on the left L4 exiting nerve. Mild facet and ligamentu m flavum hypertrophy. Mild left foraminal narrowing. The L5-L6: Mild diffuse disc bulge and mild facet hypertrophy. Abutment of the L5 exiting nerves. No canal or si gnificant foraminal narrowing. L6-S1: No canal or foraminal narrowing. CONCLUSION: 1. Degenerative changes are noted as above. There is no spinal stenosis. Michael Altamirano MD on April 27, 2017 at 19:13 Board Certified Radiologist. This report was verified electronically.
[2017-04-27 21:01] LABS: BICARBONATE 24.8 MEQ/L (21.0-32.0); POTASSIUM 3.9 MEQ/L (3.5-5.1)
[2017-04-28] VITALS (9 sets, daily range): BP systolic 136–176; BP diastolic 61–91; PULSE 44–68; RESP 16–27; TEMP 98.2–98.6; O2SAT 92–98
[2017-04-28 03:50] LABS: THROMBIN TIME FOR LA ND sec (13-19)
[2017-04-28 04:51] LABS: INTERNATIONAL NORMALIZED RATIO 1.8 RATIO; PROTHROMBIN TIME - PATIENT 20.8 SEC (9.8-11.6)
--- NOTE | 2017-04-28 07:59 | HHI.PR ---
Subjective Remarks sb 46 sr still Objective Vital Signs Date Time Temp Pulse Resp B/P Pulse Ox O2 Delivery O2 Flow Rate FiO2 04/28/17 04:00 98.3 44 16 172/74 94 04/28/17 00:00 98.5 48 16 154/66 95 04/27/17 23:00 55 04/27/17 20:00 98.5 52 13 155/66 94 04/27/17 19:49 93 21 04/27/17 19:00 94 04/27/17 16:00 98.3 55 19 170/72 97 04/27/17 15:00 48 04/27/17 13:00 96 Nasal Cannula 2.00 04/27/17 12:00 98.1 52 21 169/71 98 04/27/17 11:00 96 Nasal Cannula 2.00 04/27/17 08:01 98.3 45 16 174/80 96 04/27/17 08:00 49 04/27/17 08:00 96 Room Air 21 I/O 04/27/17 04/27/17 04/27/17 04/28/17 04/28/17 04/28/17 06:59 14:59 22:59 06:59 14:59 22:59 Intake Total 240 ml 367 ml 796 ml 856 ml Output Total 400 ml 500 ml 775 ml 750 ml Balance -160 ml -133 ml 21 ml 106 ml Intake Oral 240 ml 0 ml 350 ml 350 ml IV Total 367 ml 446 ml 506 ml Output Urine Total 400 ml 500 ml 775 ml 750 ml # Voids 2 0 # Bowel Movements 1 0 1 Result Diagram: 04/27/17 1005 04/27/172026 Objective Remarks nl speech 5/5 left ricep fing ext ip and ta Assessment and Plan Assessment and Plan imp cta 80% left 50% r stable overnoc cards on case for stress test and ?loop echo neg and holter pend would like to get loop o/p inr pend today vascular to fu o/p eeg nl on statin hyper labs pend on coumadin throat masscheck mri soft tissue 04/27/17 he looks back to nl now cva alert called earlier and i suspect all this was a pain issue and not paralysis started with lue pain this am better now mri brain ctax2 no change check mr c spine iv hep and coumadin labs neg and some pend mireya neg 04/28/17 no left weakness i think yest episode just a pain issue that was interpreted by staff as weakness no new cva 80% left ica vasc fu o/p mri c spine mild stenosis and t spine some odd appearance of cord and will have nusu weigh in inr 1.8 oob may be able dc soon ok by me to tele floor Abdoul Valentino MD Apr 28, 2017 07:59
[2017-04-28] MEDS: DOCUSATE SODIUM 50 MG/SENNA 8.6 MG TAB PO SCH ×2 (09:00→21:00)
[2017-04-28] MEDS: PRAVASTATIN SOD 40 MG TAB PO SCH (09:43)
[2017-04-28] MEDS: ASPIRIN EC 81 MG TABEC PO SCH (09:44)
[2017-04-28] MEDS: SODIUM CHLORIDE 0.9% FLUSH 10 ML FLUSH IV FLUSH SCH ×2 (09:51→21:26)
[2017-04-28] MEDS: HEPARIN SODIUM - SQ 10,000 UNITS/ML VIAL SQ SCH ×2 (09:51→21:26)
--- NOTE | 2017-04-28 09:59 | HHI.PR ---
Subjective Remarks Follow up weakness, extremity pain. Patient feels much better today. Denies pain currently. Still feels weak overall, but better than yesterday. Denies chest pain, dyspnea. Objective Vitals Vital Signs Date Time Temp Pulse Resp B/P Pulse Ox O2 Delivery O2 Flow Rate FiO2 04/28/17 09:44 98 04/28/17 08:00 50 04/28/17 07:00 Room Air 04/28/17 04:00 98.3 44 16 172/74 94 04/28/17 00:00 98.5 48 16 154/66 95 04/27/17 23:00 55 04/27/17 20:00 98.5 52 13 155/66 94 04/27/17 19:49 93 21 04/27/17 19:00 94 04/27/17 16:00 98.3 55 19 170/72 97 04/27/17 15:00 48 04/27/17 13:00 96 Nasal Cannula 2.00 04/27/17 12:00 98.1 52 21 169/71 98 04/27/17 11:00 96 Nasal Cannula 2.00 I/O 04/27/17 04/27/17 04/27/17 04/28/17 04/28/17 04/28/17 07:00 15:00 23:00 07:00 15:00 23:00 Intake Total 240 ml 367 ml 796 ml 856 ml Output Total 400 ml 500 ml 775 ml 750 ml Balance -160 ml -133 ml 21 ml 106 ml Intake Oral 240 ml 0 ml 350 ml 350 ml IV Total 367 ml 446 ml 506 ml Output Urine Total 400 ml 500 ml 775 ml 750 ml # Voids 2 0 # Bowel Movements 1 0 1 Result Diagram: 04/27/17 1005 04/27/172026 Imaging Last Impressions Neck CTA 04/27/17 1019 Signed Impressions: Service Date/Time: Thursday, April 27, 2017 10:18 - CONCLUSION: 1. Redemonstration of 80%% left ICA stenosis and 40-50%% right ICA stenosis, as above. 2. Redemonstration of bilateral vertebral artery stenoses, or prominent on the left. 3. Minimally smaller soft tissue mass associated with the right lateral oropharynx, as above. Clinical correlation with direct visualization is recommended if previously not performed. Harjinder Luque MD Brain MRI 04/27/17 0949 Signed Impressions: Service Date/Time: Thursday, April 27, 2017 11:50 - CONCLUSION: 1. Small acute infarcts seen in the parietal lobes on previous study are unchanged. No new areas are identified. 2. Prominent areas of chronic ischemic small vessel vasculopathy. 1. Caleb Healy MD Thoracic Spine MRI 04/27/17 Signed Impressions: Service Date/Time: Thursday, April 27, 2017 18:00 - CONCLUSION: 1. There is focal narrowing of the spinal cord diameter in the AP projection with associated increased T2 signal posterior to the T7 vertebral body. An obvious mass in the spinal canal is not seen and there does appear to be pulsation artifact in the CSF posterior to the abnormal cord at this level. Therefore an arachnoid cyst or other T2 hyperintense mass at this level is felt considerably less likely. More likely it is related to anterior herniation of the spinal cord at this level. 2. Mild degenerative changes of the spine. Michael Altamirano MD Lumbar Spine MRI 04/27/17 Signed Impressions: Service Date/Time: Thursday, April 27, 2017 18:00 - CONCLUSION: 1. Degenerative changes are noted as above. There is no spinal stenosis. Michael Altamirano MD Head CTA 04/27/17 Signed Impressions: Service Date/Time: Thursday, April 27, 2017 10:18 - CONCLUSION: Continued atherosclerotic disease of left internal carotid artery distally. There is also some narrowing at the left internal carotid artery which is quite significant. The right side which is the more concerning side based on the patient's symptoms is unremarkable and unchanged. Erick Parmar MD Head CT 04/27/17 Signed Impressions: Service Date/Time: Thursday, April 27, 2017 10:18 - CONCLUSION: Normal examination. Erick Parmar MD Cervical Spine MRI 04/27/17 Signed Impressions: Service Date/Time: Thursday, April 27, 2017 18:00 - CONCLUSION: Multilevel degenerative changes are noted as above. Michael Altamirano MD Soft Tissue MRI 04/25/17 0000 Signed Impressions: Service Date/Time: Tuesday, April 25, 2017 13:50 - CONCLUSION: Prominent sized uvula extending to the right of midline. I don't see any definite soft tissue polyp and there certainly no significant infiltrating mass. Direct visualization is recommended. Erick Parmar MD Myocardial Perfusion Scan Nuc Med 04/25/17 0000 Signed Impressions: Service Date/Time: Tuesday, April 25, 2017 11:20 - CONCLUSION: Circumflex defect fixed at stress and rest suspicious for infarct. Decreased ejection fraction at 43%%. RISK CATEGORY: Low (<1%% Annual Mortality Rate) Erick Parmar MD Carotid Artery Ultrasound 04/23/17 1229 Signed Impressions: Service Date/Time: Sunday, April 23, 2017 13:03 - CONCLUSION: High-grade stenosis involving the left ICA. KEliseo Metcalf MD Head Magnetic Resonance Angiography 04/23/17 0000 Signed Impressions: Service Date/Time: Sunday, April 23, 2017 10:25 - CONCLUSION: 1. Irregular narrowing in the petrous segment of the left internal carotid artery which may be caused by eccentric thrombus. 2. 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 3. Mild luminal irregularity involving the right carotid siphon without significant stenosis. Baron Harrell MD Chest X-Ray 04/22/17 1858 Signed Impressions: Service Date/Time: Saturday, April 22, 2017 19:03 - CONCLUSION: No evidence of acute cardiopulmonary disease. Nathan Dawkins MD Objective Remarks General: No acute distress. Heart: Regular rate and rhythm. No murmur. Lungs: Clear to auscultation bilaterally. No wheezes, rales, or rhonchi. Breathing is nonlabored. Abdomen: Soft, nontender, nondistended. Extremities: No lower extremity edema. Psych: Alert and oriented. Neuro: Cranial nerves II through XII are grossly intact. Strength improved in all 4 extremities. Procedures 04/26/17 MALIK, cardiac loop recorder insertion Urinary Catheter: No Vascular Central Line Catheter: No A/P Problem List: (1) Syncope ICD Code: R55 Status: Acute (2) Chest pain ICD Code: R07.9 Status: Acute (3) HTN (hypertension) ICD Code: I10 Status: Acute (4) Tobacco abuse ICD Code: Z72.0 Status: Chronic (5) Cerebrovascular accident, embolic ICD Code: I63.9 Status: Acute (6) Carotid stenosis ICD Code: I65.29 Status: Acute Assessment and Plan 1. Acute CVA: Patient had transient right-sided neurologic symptoms. Appreciate neurology recommendations. MRI shows acute infarcts. Continue permissive hypertension. PT/OT/ST. Coumadin restarted. Continue aspirin. 2. Chest pain: Resolved. 3. Syncope: Possibly secondary to cardiac versus neurologic etiology. Appreciate cardiology recommendations. Status post MALIK with loop recorder insertion. Cardiology has signed off. 4. Hypertension: Permissive hypertension at this time. 5. Tobacco abuse: Counseled quit smoking. 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 Follow-up as outpatient. 7. Carotid artery stenosis: Follow up as outpatient with vascular surgery. 8. DVT prophylaxis: SCDs. Heparin, Coumadin. INR 1.8. Discharge Planning Transfer to med/surg floor with telemetry. Problem Qualifiers (1) Syncope: Qualified Code: R55 - Syncope, unspecified syncope type Tiago Calderon MD Apr 28, 2017 09:59
[2017-04-28] MEDS: SODIUM CHLOR 0.9% 1000 ML INJ 1,000 ML IV SCH (12:33)
[2017-04-28] MEDS: ACETAMINOPHEN/HYDROcodone 325 MG/5 MG TAB PO PRN ×2 (15:48→21:27)
[2017-04-28] MEDS ORDERED: WARFARIN SOD 3 MG TAB PO SCH (16:00)
--- NOTE | 2017-04-28 22:52 | MB ---
cc: RAFAEL DICKINSON M.D., DAVID J. M.D. FEEZOR, ROBERT J. MD HORENSTEIN, JOSHUA A. 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 HISTORY OF PRESENT ILLNESS This is a 57-year-old gentleman who was admitted to the hospital on 04/22/2017 after he presented to the emergency room with syncopal episode 2 days prior to his presentation. He does have a history of coronary artery disease with coronary artery bypass grafting when he was in his 30s and has been experiencing intermittent chest pain for the last several months. He also complains of right-sided weakness more on the arm than the leg on presentation which has improved. He has undergone extensive workup by neurology and cardiology and also seen vascular surgery for his peripheral vascular disease as well as for his bilateral carotid stenosis and strokes along with a coronary artery disease and bradycardia. Myocardial perfusion scan reveals a decreased ejection fraction 43% with a circumflex fixed defect stress and very suspicious for infarct. He has also had a loop recorder insertion by cardiology. Workup by neurology included brain MRI scan which reveals bilateral foci of acute infarcts in the subcortical white matters, suggestive of embolic strokes. He has also undergone a complete spine MRI scan without contrast and on the cervical spine MRI scan from 04/27/2017. He has moderate C3-4 spinal stenosis with disk osteophyte complex. No Chiari malformation is noted or any syrinx. On the thoracic MRI scan he has a dorsal intradural cystic mass compressing on the spinal cord at the T7-T8 level that also extends up to the T6 and T9 levels with some myelomalacia, intrinsic cord changes at the T7 level. On the lumbar spine MRI scan the conus ends around the L2 level, although no filum terminale lipomas are seen. He is also found to have an 80% carotid artery stenosis in the left ICA and 40% stenosis on the right ICA along with moderate stenosis scattered in the vertebral arteries, more pronounced on the left side. There is also right lateral oropharyngeal mass noted. PAST MEDICAL HISTORY Diabetes mellitus, hypertension, coronary artery disease status post coronary bypass grafting as well as coronary stent placement, syncopal episodes, stroke, high grade left carotid artery stenosis and moderate right carotid artery stenosis. CURRENT MEDICATIONS Include: 1. Coumadin 3 milligram daily. 2. Morphine p.r.n. 3. Westhoff 10/325 p.r.n. 4. Heparin 5000 units q.12 hours, subcu. 5. Aspirin 81 milligrams daily. 6. Pravastatin 40 milligrams daily. 7. Nitroglycerin ointment topical ointment for chest pain p.r.n. ALLERGIES NO KNOWN DRUG ALLERGIES. SOCIAL HISTORY He is . He smokes half-a-pack of cigarettes a day. Admits to marijuana use and drinks alcohol on occasional basis. LABORATORY FINDINGS White blood cell count 6.7, hemoglobin 15.6, platelet count 149, PT 20.8, INR 1.8, sodium 138, potassium 3.9, BUN 10, creatinine 0.87, glucose is 176. PHYSICAL EXAMINATION VITAL SIGNS: Temperature 98.2, pulse is 50, respiratory rate 24, blood pressure 140/66, oxygen saturation 92% on room air. HEAD: Normocephalic, atraumatic. NECK: Supple. CHEST: Clear bilaterally. HEART: Bradycardia. Normal S1-S2. ABDOMEN: Soft, nontender. Positive bowel sounds. EXTREMITIES: No cyanosis or edema. NEUROLOGIC: He is awake, alert. Pupils are equal and reactive. Extraocular muscles intact. Face symmetric. He moves all four extremities with good strength. Negative Babinski. Negative Kev's, although, he does have two to three beat clonus bilaterally. He denies any incontinence and appreciates light touch sensation bilaterally in the upper and lower extremities. IMPRESSION 1. 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 His neurologic presentation is not consistent with this abnormality, although, he does appear to have a component of thoracic myelopathy. He also has C3-4 cervical spinal stenosis which is moderate. 2. Bilateral embolic strokes and current symptomatology, this is likely related to either a TIA or a stroke. 3. Bilateral carotid artery stenosis. 4. Coronary artery disease with a history of coronary artery bypass grafting and stenting. 5. Bradycardia. 6. Diabetes mellitus. 7. Hypertension. PLAN I have recommended an MRI scan with contrast of the thoracic spine to rule out any neoplasm. At this point, given his recent stroke along with extensive associated comorbidities and bradycardia I think these need to be addressed and medically stabilized before any consideration for this intradural cystic abnormality in the thoracic spine. Recommend increase activity and rehabilitation as tolerated. Will review the MRI scan of the thoracic spine with contrast once undertaken. I have discussed this with the patient who at this point also agrees with observation and conservative management. MD KELSEA Hinds/VANIA /5:49 PM /10:19 PM
[2017-04-29] VITALS (7 sets, daily range): BP systolic 119–198; BP diastolic 56–83; PULSE 49–58; RESP 18–20; TEMP 97–98.6; O2SAT 95–99
[2017-04-29] MEDS: MORPHINE SULFATE 8 MG/ML INJ IV PUSH PRN (00:05)
[2017-04-29] MEDS: SODIUM CHLOR 0.9% 1000 ML INJ 1,000 ML IV SCH ×2 (05:06→15:12)
[2017-04-29] MEDS: ACETAMINOPHEN/HYDROcodone 325 MG/10 MG TAB PO PRN ×4 (05:06→21:28)
[2017-04-29] MEDS: ENALAPRILAT 1.25 MG/ML VIAL IV PRN (05:06)
[2017-04-29 07:50] LABS: INTERNATIONAL NORMALIZED RATIO 1.8 RATIO; PROTHROMBIN TIME - PATIENT 20.4 SEC (9.8-11.6)
[2017-04-29 08:20] LABS: BICARBONATE 24.6 MEQ/L (21.0-32.0); POTASSIUM 3.7 MEQ/L (3.5-5.1)
[2017-04-29] MEDS: PRAVASTATIN SOD 40 MG TAB PO SCH (08:48)
[2017-04-29] MEDS: ASPIRIN EC 81 MG TABEC PO SCH (08:48)
[2017-04-29] MEDS: DOCUSATE SODIUM 50 MG/SENNA 8.6 MG TAB PO SCH ×2 (08:48→21:00)
[2017-04-29] MEDS: HEPARIN SODIUM - SQ 10,000 UNITS/ML VIAL SQ SCH (08:49)
[2017-04-29] MEDS: SODIUM CHLORIDE 0.9% FLUSH 10 ML FLUSH IV FLUSH SCH ×2 (08:58→21:27)
--- NOTE | 2017-04-29 09:08 | HHI.PR ---
Subjective Remarks sb 46 sr still Objective Vital Signs Date Time Temp Pulse Resp B/P Pulse Ox O2 Delivery O2 Flow Rate FiO2 04/29/17 08:00 97.9 52 20 170/72 97 04/29/17 06:40 98.6 53 18 198/ 95 04/29/17 00:00 98.5 51 18 169/83 96 04/28/17 20:00 50 04/28/17 20:00 96 Room Air 04/28/17 20:00 98.4 50 18 171/91 98 04/28/17 16:00 60 04/28/17 16:00 98.6 60 27 176/80 97 04/28/17 12:00 52 04/28/17 12:00 98.2 50 24 140/66 92 04/28/17 10:00 68 04/28/17 09:44 98 I/O 04/28/17 04/28/17 04/28/17 04/29/17 04/29/17 04/29/17 07:00 15:00 23:00 07:00 15:00 23:00 Intake Total 856 ml 948 ml Output Total 750 ml Balance 106 ml 948 ml Intake Oral 350 ml 350 ml IV Total 506 ml 598 ml Output Urine Total 750 ml # Voids 2 2 # Bowel Movements 1 1 Result Diagram: 04/27/17 1005 04/29/17 0645 Objective Remarks nl speech 5/5 left ricep fing ext ip and ta walks well he tells me Assessment and Plan Assessment and Plan imp cta 80% left 50% r stable overnoc cards on case for stress test and ?loop echo neg and holter pend would like to get loop o/p inr pend today vascular to fu o/p eeg nl on statin hyper labs pend on coumadin throat masscheck mri soft tissue 04/27/17 he looks back to nl now cva alert called earlier and i suspect all this was a pain issue and not paralysis started with lue pain this am better now mri brain ctax2 no change check mr c spine iv hep and coumadin labs neg and some pend mireya neg 04/28/17 no left weakness i think yest episode just a pain issue that was interpreted by staff as weakness no new cva 80% left ica vasc fu o/p mri c spine mild stenosis and t spine some odd appearance of cord and will have andie weigh in inr 1.8 oob may be able dc soon ok by me to tele floor 04/29/17 neuro arvizu doing well andie l;ooking into thoracic cord ab mri w contrast pend ionr 1.8 give 4 mg a day he could dc if cleared by andie and needs vacular surgery fu i would not give him narcotics Abdoul Valentino MD Apr 29, 2017 09:07
[2017-04-29] MEDS ORDERED: GADODIAMIDE PF 287 MG/ML 5 ML VIAL (for RAD MRI) IV ONE (13:37)
[2017-04-29] MEDS ORDERED: HYDR-3516 PO (13:38)
[2017-04-29] MEDS ORDERED: COUM4TAB PO (13:38)
[2017-04-29] MEDS ORDERED: ASPI-99 PO (13:38)
[2017-04-29] MEDS ORDERED: PRAV40TA PO (13:38)
--- NOTE | 2017-04-29 13:42 | HHI.PR ---
Subjective Remarks Follow up CVA, weakness. Patient states that he feels much better today. He is still having some low back pain and abdominal pain on the right. No chest pain or dyspnea. No nausea or vomiting. Objective Vitals Vital Signs Date Time Temp Pulse Resp B/P Pulse Ox O2 Delivery O2 Flow Rate FiO2 04/29/17 12:00 97.0 58 20 119/56 98 04/29/17 10:19 96 Room Air 04/29/17 10:17 49 04/29/17 08:00 97.9 52 20 170/72 97 04/29/17 06:40 98.6 53 18 198/ 95 04/29/17 00:00 98.5 51 18 169/83 96 04/28/17 20:00 50 04/28/17 20:00 96 Room Air 04/28/17 20:00 98.4 50 18 171/91 98 04/28/17 16:00 60 04/28/17 16:00 98.6 60 27 176/80 97 I/O 04/28/17 04/28/17 04/28/17 04/29/17 04/29/17 04/29/17 07:00 15:00 23:00 07:00 15:00 23:00 Intake Total 856 ml 948 ml Output Total 750 ml Balance 106 ml 948 ml Intake Oral 350 ml 350 ml IV Total 506 ml 598 ml Output Urine Total 750 ml # Voids 2 2 # Bowel Movements 1 1 Result Diagram: 04/27/17 1005 04/29/17 0645 Imaging Last Impressions Neck CTA 04/27/17 1019 Signed Impressions: Service Date/Time: Thursday, April 27, 2017 10:18 - CONCLUSION: 1. Redemonstration of 80%% left ICA stenosis and 40-50%% right ICA stenosis, as above. 2. Redemonstration of bilateral vertebral artery stenoses, or prominent on the left. 3. Minimally smaller soft tissue mass associated with the right lateral oropharynx, as above. Clinical correlation with direct visualization is recommended if previously not performed. Harjinder Luque MD Brain MRI 04/27/17 0949 Signed Impressions: Service Date/Time: Thursday, April 27, 2017 11:50 - CONCLUSION: 1. Small acute infarcts seen in the parietal lobes on previous study are unchanged. No new areas are identified. 2. Prominent areas of chronic ischemic small vessel vasculopathy. 1. Caleb Healy MD Thoracic Spine MRI 04/27/17 Signed Impressions: Service Date/Time: Thursday, April 27, 2017 18:00 - CONCLUSION: 1. There is focal narrowing of the spinal cord diameter in the AP projection with associated increased T2 signal posterior to the T7 vertebral body. An obvious mass in the spinal canal is not seen and there does appear to be pulsation artifact in the CSF posterior to the abnormal cord at this level. Therefore an arachnoid cyst or other T2 hyperintense mass at this level is felt considerably less likely. More likely it is related to anterior herniation of the spinal cord at this level. 2. Mild degenerative changes of the spine. Michael Altamirano MD Lumbar Spine MRI 04/27/17 Signed Impressions: Service Date/Time: Thursday, April 27, 2017 18:00 - CONCLUSION: 1. Degenerative changes are noted as above. There is no spinal stenosis. Michael Altamirano MD Head CTA 04/27/17 Signed Impressions: Service Date/Time: Thursday, April 27, 2017 10:18 - CONCLUSION: Continued atherosclerotic disease of left internal carotid artery distally. There is also some narrowing at the left internal carotid artery which is quite significant. The right side which is the more concerning side based on the patient's symptoms is unremarkable and unchanged. Erick Parmar MD Head CT 04/27/17 Signed Impressions: Service Date/Time: Thursday, April 27, 2017 10:18 - CONCLUSION: Normal examination. Erick Parmar MD Cervical Spine MRI 04/27/17 0000 Signed Impressions: Service Date/Time: Thursday, April 27, 2017 18:00 - CONCLUSION: Multilevel degenerative changes are noted as above. Michael Altamirano MD Soft Tissue MRI 04/25/17 0000 Signed Impressions: Service Date/Time: Tuesday, April 25, 2017 13:50 - CONCLUSION: Prominent sized uvula extending to the right of midline. I don't see any definite soft tissue polyp and there certainly no significant infiltrating mass. Direct visualization is recommended. Erick Parmar MD Myocardial Perfusion Scan Nuc Med 04/25/17 0000 Signed Impressions: Service Date/Time: Tuesday, April 25, 2017 11:20 - CONCLUSION: Circumflex defect fixed at stress and rest suspicious for infarct. Decreased ejection fraction at 43%%. RISK CATEGORY: Low (<1%% Annual Mortality Rate) Erick Parmar MD Carotid Artery Ultrasound 04/23/17 1229 Signed Impressions: Service Date/Time: Sunday, April 23, 2017 13:03 - CONCLUSION: High-grade stenosis involving the left ICA. Bennett Metcalf MD Head Magnetic Resonance Angiography 04/23/17 0000 Signed Impressions: Service Date/Time: Sunday, April 23, 2017 10:25 - CONCLUSION: 1. Irregular narrowing in the petrous segment of the left internal carotid artery which may be caused by eccentric thrombus. 2. 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 3. Mild luminal irregularity involving the right carotid siphon without significant stenosis. Baron Harrell MD Chest X-Ray 04/22/17 1858 Signed Impressions: Service Date/Time: Saturday, April 22, 2017 19:03 - CONCLUSION: No evidence of acute cardiopulmonary disease. Nathan Dawkins MD Objective Remarks General: No acute distress. Sitting up in a chair. Heart: Regular rate and rhythm. No murmur. Lungs: Clear to auscultation bilaterally. No wheezes, rales, or rhonchi. Breathing is nonlabored. Abdomen: Soft, nontender, nondistended. Extremities: No lower extremity edema. Psych: Alert and oriented. Neuro: Strength improved in all 4 extremities. Procedures 04/26/17 MALIK, cardiac loop recorder insertion Urinary Catheter: No Vascular Central Line Catheter: No A/P Problem List: (1) Syncope ICD Code: R55 Status: Acute (2) Chest pain ICD Code: R07.9 Status: Acute (3) HTN (hypertension) ICD Code: I10 Status: Acute (4) Tobacco abuse ICD Code: Z72.0 Status: Chronic (5) Cerebrovascular accident, embolic ICD Code: I63.9 Status: Acute (6) Carotid stenosis ICD Code: I65.29 Status: Acute Assessment and Plan 1. Acute CVA: Patient had transient right-sided neurologic symptoms. Appreciate neurology recommendations. MRI shows acute infarcts. Continue permissive hypertension. PT/OT/ST. Coumadin restarted. Continue aspirin. Cleared for discharge home by neurology. 2. Chest pain: Resolved. 3. Syncope: Possibly secondary to cardiac versus neurologic etiology. Appreciate cardiology recommendations. Status post MALIK with loop recorder insertion. Cardiology has signed off. 4. Hypertension: Permissive hypertension at this time. 5. Tobacco abuse: Counseled quit smoking. 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 Follow-up as outpatient. 7. Carotid artery stenosis: Follow up as outpatient with vascular surgery. 8. DVT prophylaxis: SCDs. Heparin, Coumadin. INR 1.8. 9. Abnormal thoracic spine MRI: Neurosurgery consultation appreciated. Repeat MRI of the thoracic spine with contrast is pending. Discharge Planning Possible discharge home later today or tomorrow pending thoracic spine MRI results and clearance from neurosurgery. Problem Qualifiers (1) Syncope: Qualified Code: R55 - Syncope, unspecified syncope type Tiago Calderon MD Apr 29, 2017 13:41
--- NOTE | 2017-04-29 14:04 | RADRPT ---
EXAM DATE/TIME: 04/29/2017 11:39 [facility] COMPARISON: MRI THORACIC SPINE W/O CONTRAST, April 27, 2017, 18:00. INDICATIONS : Mass. CONTRAST: 15 cc Omniscan (gadodiamide) IV MEDICAL HISTORY : Stroke Hypertension. SURGICAL HISTORY : CABG Coronary artery stent. ENCOUNTER: Initial ACUITY: 3 day PAIN SCORE: 4/10 LOCATION: back TECHNIQUE: Multiplanar multisequence MRI of the thoracic spine was performed. FINDINGS: Since the recent previous noncontrast MRI study of April 27, there has been substantial interval progr ession of abnormal signal within the substance of the thoracic cord at the T6-7 disc space level and dorsal to the T7 vertebral body level. There is substantial abnormal T2 signal within the substance o f the cord centrally in a fusiform configuration, however not having the appearance of a central cord syrinx. There is persistence of anterior displacement and flattening of the cord at the low T7 and T 7-8 disc space level. Some signal heterogeneity in the posterior CSF space without evidence of any ab normal cord enhancement or extra medullary enhancement to specifically suggest presence of a neoplasm or vascular malformation. The remainder of the thoracic cord and the remainder of the study and gene ral are otherwise stable. CONCLUSION: Progressive abnormal signal change within the substance of the cord associated with anterior displace ment and flattening of the cord as described. The appearance is again felt most likely to reflect jon tral cord herniation with signal changes indicating either vascular compromise or mechanical injury. Expanding dorsal arachnoid cyst or arachnoid webs felt to be additional less likely diagnostic possib ilities. I have a call in to Dr. Perdue at the time of the dictation Nathan Almeida MD on April 29, 2017 at 13:36 Board Certified Radiologist. This report was verified electronically.
--- NOTE | 2017-04-29 18:02 | HHI.NSPN ---
(Caleb Person) History Chief Complaint: low back pain. (Caleb Person) Interval History This is a 57-year-old gentleman who was admitted to the hospital on 04/22/2017 after he presented to the emergency room with syncopal episode 2 days prior to his presentation. He does have a history of coronary artery disease with coronary artery bypass grafting when he was in his 30s and has been experiencing intermittent chest pain for the last several months. He also complains of right-sided weakness more on the arm than the leg on presentation which has improved. He has undergone extensive workup by neurology and cardiology and also seen vascular surgery for his peripheral vascular disease as well as for his bilateral carotid stenosis and strokes along with a coronary artery disease and bradycardia. Myocardial perfusion scan reveals a decreased ejection fraction 43% with a circumflex fixed defect stress and very suspicious for infarct. He has also had a loop recorder insertion by cardiology. Workup by neurology included brain MRI scan which reveals bilateral foci of acute infarcts in the subcortical white matters, suggestive of embolic strokes. He has also undergone a complete spine MRI scan without contrast and on the cervical spine MRI scan from 04/27/2017. He has moderate C3-4 spinal stenosis with disk osteophyte complex. No Chiari malformation is noted or any syrinx. On the thoracic MRI scan he has a dorsal intradural cystic mass compressing on the spinal cord at the T7-T8 level that also extends up to the T6 and T9 levels with some myelomalacia, intrinsic cord changes at the T7 level. On the lumbar spine MRI scan the conus ends around the L2 level, although no filum terminale lipomas are seen. He is also found to have an 80% carotid artery stenosis in the left ICA and 40% stenosis on the right ICA along with moderate stenosis scattered in the vertebral arteries, more pronounced on the left side. There is also right lateral oropharyngeal mass noted. 04/29/17: Pt awake and alert. Mild low back pain currently resting in bed. He states he has ambulated. (Caleb Person) Review of Systems General: Negative for: fever, chills, insomnia Respiratory: Negative for: shortness of breath, cough, sputum Cardiovascular: Negative for: chest pain Gastrointestinal: Negative for: nausea, vomitting, diarrhea, constipation ( Caleb Person) Exam Results Vital Signs Date Time Temp Pulse Resp B/P Pulse Ox O2 Delivery O2 Flow Rate FiO2 04/29/17 16:00 98.5 58 20 145/65 97 04/29/17 10:19 Room Air 04/27/17 19:49 21 04/27/17 13:00 2.00 Intake and Output 04/28/17 04/28/17 04/29/17 08:00 16:00 00:00 Intake Total 856 ml 948 ml Output Total 750 ml Balance 106 ml 948 ml (Caleb Person) Physical Examination Resp: CTA bilaterally Heart: NSR no murmurs Abd: Soft positive bs skin: No cyanosis or erythema Muscle: Moves LEs with 5/5 strength in LEs. Pt states he is ambulating well. Neuro: Pt awake and alert. Speech clear and appropriate. Follows commands well. Positive clonus LEs. (Caleb Person) Lab, Micro, Other Results Last Impressions Thoracic Spine MRI 04/29/17 0600 Signed Impressions: Service Date/Time: Saturday, April 29, 2017 11:39 - CONCLUSION: Progressive abnormal signal change within the substance of the cord associated with anterior displacement and flattening of the cord as described. The appearance is again felt most likely to reflect ventral cord herniation with signal changes indicating either vascular compromise or mechanical injury. Expanding dorsal arachnoid cyst or arachnoid webs felt to be additional less likely diagnostic possibilities. I have a call in to Dr. Perdue at the time of the dictation Nathan Almeida MD Neck CTA 04/27/17 1019 Signed Impressions: Service Date/Time: Thursday, April 27, 2017 10:18 - CONCLUSION: 1. Redemonstration of 80%% left ICA stenosis and 40-50%% right ICA stenosis, as above. 2. Redemonstration of bilateral vertebral artery stenoses, or prominent on the left. 3. Minimally smaller soft tissue mass associated with the right lateral oropharynx, as above. Clinical correlation with direct visualization is recommended if previously not performed. Harjinder Luque MD Brain MRI 04/27/17 0949 Signed Impressions: Service Date/Time: Thursday, April 27, 2017 11:50 - CONCLUSION: 1. Small acute infarcts seen in the parietal lobes on previous study are unchanged. No new areas are identified. 2. Prominent areas of chronic ischemic small vessel vasculopathy. 1. Caleb Healy MD Lumbar Spine MRI 04/27/17 0000 Signed Impressions: Service Date/Time: Thursday, April 27, 2017 18:00 - CONCLUSION: 1. Degenerative changes are noted as above. There is no spinal stenosis. Michael Altamirano MD Head CTA 04/27/17 Signed Impressions: Service Date/Time: Thursday, April 27, 2017 10:18 - CONCLUSION: Continued atherosclerotic disease of left internal carotid artery distally. There is also some narrowing at the left internal carotid artery which is quite significant. The right side which is the more concerning side based on the patient's symptoms is unremarkable and unchanged. Erick Parmar MD Head CT 04/27/17 Signed Impressions: Service Date/Time: Thursday, April 27, 2017 10:18 - CONCLUSION: Normal examination. Erick Parmar MD Cervical Spine MRI 04/27/17 Signed Impressions: Service Date/Time: Thursday, April 27, 2017 18:00 - CONCLUSION: Multilevel degenerative changes are noted as above. Michael Altamirano MD Soft Tissue MRI 04/25/17 Signed Impressions: Service Date/Time: Tuesday, April 25, 2017 13:50 - CONCLUSION: Prominent sized uvula extending to the right of midline. I don't see any definite soft tissue polyp and there certainly no significant infiltrating mass. Direct visualization is recommended. Erick Parmar MD Myocardial Perfusion Scan Nuc Med 04/25/17 Signed Impressions: Service Date/Time: Tuesday, April 25, 2017 11:20 - CONCLUSION: Circumflex defect fixed at stress and rest suspicious for infarct. Decreased ejection fraction at 43%%. RISK CATEGORY: Low (<1%% Annual Mortality Rate) Erick Parmar MD Carotid Artery Ultrasound 04/23/17 1229 Signed Impressions: Service Date/Time: Sunday, April 23, 2017 13:03 - CONCLUSION: High-grade stenosis involving the left ICA. Bennett Metcalf MD Head Magnetic Resonance Angiography 04/23/17 0000 Signed Impressions: Service Date/Time: Sunday, April 23, 2017 10:25 - CONCLUSION: 1. Irregular narrowing in the petrous segment of the left internal carotid artery which may be caused by eccentric thrombus. 2. 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 3. Mild luminal irregularity involving the right carotid siphon without significant stenosis. Baron Harrell MD Chest X-Ray 04/22/17 0878 Signed Impressions: Service Date/Time: Saturday, April 22, 2017 19:03 - CONCLUSION: No evidence of acute cardiopulmonary disease. Nathan Dawkins MD Laboratory Tests Test 04/29/17 06:45 Prothrombin Time 20.4 SEC Prothromb Time International 1.8 RATIO Ratio Sodium Level 140 MEQ/L Potassium Level 3.7 MEQ/L Chloride Level 107 MEQ/L Carbon Dioxide Level 24.6 MEQ/L Anion Gap 8 MEQ/L Blood Urea Nitrogen 9 MG/DL Creatinine 0.81 MG/DL Estimat Glomerular Filtration 98 ML/MIN Rate Random Glucose 79 MG/DL Calcium Level 8.4 MG/DL 04/28/17 04/28/17 04/29/17 15:00 23:00 07:00 Intake Total 948 ml Balance 948 ml Intake Oral 350 ml IV Total 598 ml # Voids 2 2 # Bowel Movements 1 (Caleb Person) Medical Decision Making Impression and Plan 1. 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 His neurologic presentation is not consistent with this abnormality, although, he does appear to have a component of thoracic myelopathy. He also has C3-4 cervical spinal stenosis which is moderate. 2. Bilateral embolic strokes and current symptomatology, this is likely related to either a TIA or a stroke. 3. Bilateral carotid artery stenosis. 4. Coronary artery disease with a history of coronary artery bypass grafting and stenting. 5. Bradycardia. 6. Diabetes mellitus. 7. Hypertension. PLAN Pt evaluated in conjunction with Dr. Perdue. MRI thoracic spine reveals a cyst. Recommended pt follow up in 2 months once he has recuperated from his stroke and other medical conditions. If he develops weakness in the LEs or bowel or bladder incontinence he will inform us urgently or go to ER if we are not available. Pt is neurosurgically stable for discharge. Pt agrees with the treatment plan. (Caleb Person) Attending Statement The exam, history, and the medical decision-making described in the above note were completed with the assistance of the mid-level provider. I reviewed and agree with the findings presented. I attest that I had a [id number] encounter with the patient on the same day, and personally performed and documented my assessment and findings in the medical record. (Robin Perdue MD) Caleb Person Apr 29, 2017 18:02 Robin Perdue MD Apr 29, 2017 18:58
[2017-04-29] MEDS: WARFARIN SOD 4 MG TAB PO SCH (18:35)
[2017-04-30] VITALS: BP 178/77; PULSE 50; RESP 18; TEMP 98.6; O2SAT 99
[2017-04-30 04:00] VITALS: BP 159/66; PULSE 55; RESP 18; TEMP 99; O2SAT 97
[2017-04-30] MEDS: SODIUM CHLOR 0.9% 1000 ML INJ 1,000 ML IV SCH (06:00)
[2017-04-30] MEDS: ACETAMINOPHEN/HYDROcodone 325 MG/10 MG TAB PO PRN (06:02)
--- NOTE | 2017-04-30 07:49 | HHI.PR ---
Subjective Remarks Patient seen and examined this am. Vitals are stable and he is afebrile. Ambulatory without issues. Tolerating diet. Denies CP or SOB. Anxious to go home. Objective Vital Signs Date Time Temp Pulse Resp B/P Pulse Ox O2 Delivery O2 Flow Rate FiO2 04/30/17 04:00 99.0 55 18 159/66 97 04/30/17 00:00 98.6 50 18 178/77 99 04/29/17 20:00 52 04/29/17 20:00 97.7 52 18 151/62 99 04/29/17 19:00 99 Room Air 04/29/17 16:00 98.5 58 20 145/65 97 04/29/17 12:00 97.0 58 20 119/56 98 04/29/17 10:19 96 Room Air 04/29/17 10:17 49 04/29/17 08:00 97.9 52 20 170/72 97 I/O 04/29/17 04/29/17 04/29/17 04/30/17 04/30/17 04/30/17 07:00 15:00 23:00 07:00 15:00 23:00 Intake Total 600 ml 1984 ml Output Total 440 ml Balance 160 ml 1984 ml Intake Oral 600 ml 480 ml IV Total 1504 ml Output Urine Total 440 ml # Voids 2 3 3 Result Diagram: 04/27/17 1005 04/29/17 0645 Imaging Last Impressions Thoracic Spine MRI 04/29/17 0600 Signed Impressions: Service Date/Time: Saturday, April 29, 2017 11:39 - CONCLUSION: Progressive abnormal signal change within the substance of the cord associated with anterior displacement and flattening of the cord as described. The appearance is again felt most likely to reflect ventral cord herniation with signal changes indicating either vascular compromise or mechanical injury. Expanding dorsal arachnoid cyst or arachnoid webs felt to be additional less likely diagnostic possibilities. I have a call in to Dr. Perdue at the time of the dictation Nathan Almeida MD Neck CTA 04/27/17 1019 Signed Impressions: Service Date/Time: Thursday, April 27, 2017 10:18 - CONCLUSION: 1. Redemonstration of 80%% left ICA stenosis and 40-50%% right ICA stenosis, as above. 2. Redemonstration of bilateral vertebral artery stenoses, or prominent on the left. 3. Minimally smaller soft tissue mass associated with the right lateral oropharynx, as above. Clinical correlation with direct visualization is recommended if previously not performed. Harjinder Luque MD Brain MRI 04/27/17 0949 Signed Impressions: Service Date/Time: Thursday, April 27, 2017 11:50 - CONCLUSION: 1. Small acute infarcts seen in the parietal lobes on previous study are unchanged. No new areas are identified. 2. Prominent areas of chronic ischemic small vessel vasculopathy. 1. Caleb Healy MD Lumbar Spine MRI 04/27/17 Signed Impressions: Service Date/Time: Thursday, April 27, 2017 18:00 - CONCLUSION: 1. Degenerative changes are noted as above. There is no spinal stenosis. Michael Altamirano MD Head CTA 04/27/17 Signed Impressions: Service Date/Time: Thursday, April 27, 2017 10:18 - CONCLUSION: Continued atherosclerotic disease of left internal carotid artery distally. There is also some narrowing at the left internal carotid artery which is quite significant. The right side which is the more concerning side based on the patient's symptoms is unremarkable and unchanged. Erick Parmar MD Head CT 04/27/17 Signed Impressions: Service Date/Time: Thursday, April 27, 2017 10:18 - CONCLUSION: Normal examination. Erick Parmar MD Cervical Spine MRI 04/27/17 Signed Impressions: Service Date/Time: Thursday, April 27, 2017 18:00 - CONCLUSION: Multilevel degenerative changes are noted as above. Michael Altamirano MD Soft Tissue MRI 04/25/17 Signed Impressions: Service Date/Time: Tuesday, April 25, 2017 13:50 - CONCLUSION: Prominent sized uvula extending to the right of midline. I don't see any definite soft tissue polyp and there certainly no significant infiltrating mass. Direct visualization is recommended. Erick Parmar MD Myocardial Perfusion Scan Nuc Med 04/25/17 Signed Impressions: Service Date/Time: Tuesday, April 25, 2017 11:20 - CONCLUSION: Circumflex defect fixed at stress and rest suspicious for infarct. Decreased ejection fraction at 43%%. RISK CATEGORY: Low (<1%% Annual Mortality Rate) Erick Parmar MD Carotid Artery Ultrasound 04/23/17 1229 Signed Impressions: Service Date/Time: Sunday, April 23, 2017 13:03 - CONCLUSION: High-grade stenosis involving the left ICA. Bennett Metcalf MD Head Magnetic Resonance Angiography 04/23/17 0000 Signed Impressions: Service Date/Time: Tuesday, April 23, 2017 10:25 - CONCLUSION: 1. Irregular narrowing in the petrous segment of the left internal carotid artery which may be caused by eccentric thrombus. 2. 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 3. Mild luminal irregularity involving the right carotid siphon without significant stenosis. Baron Harrell MD Chest X-Ray 04/22/17 1858 Signed Impressions: Service Date/Time: Saturday, April 22, 2017 19:03 - CONCLUSION: No evidence of acute cardiopulmonary disease. Nathan Dawkins MD Objective Remarks General: No acute distress. Sitting in bed eating. Heart: Regular rate and rhythm. No murmur. Lungs: Clear to auscultation bilaterally. No wheezes, rales, or rhonchi. Breathing is nonlabored. Abdomen: Soft, nontender, nondistended. Extremities: No lower extremity edema. Psych: Alert and oriented. Neuro: Strength improved in all 4 extremities A/P Problem List: (1) Syncope ICD Code: R55 (2) Chest pain ICD Code: R07.9 (3) HTN (hypertension) ICD Code: I10 (4) Tobacco abuse ICD Code: Z72.0 (5) Cerebrovascular accident, embolic ICD Code: I63.9 Assessment and Plan 1. Acute CVA: Patient had transient right-sided neurologic symptoms. Appreciate neurology recommendations. MRI shows acute infarcts. Continue permissive hypertension. PT/OT/ST. Coumadin restarted. Continue aspirin. Cleared for discharge home by neurology. 2. Chest pain: Resolved. 3. Syncope: Possibly secondary to cardiac versus neurologic etiology. Appreciate cardiology recommendations. Status post MALIK with loop recorder insertion. Cardiology has signed off. 4. Hypertension: Permissive hypertension at this time. 5. Tobacco abuse: Counseled quit smoking. 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 Follow-up as outpatient. 7. Carotid artery stenosis: Follow up as outpatient with vascular surgery. 8. DVT prophylaxis: SCDs. Heparin, Coumadin. INR 1.8. 9. Abnormal thoracic spine MRI: Neurosurgery consultation appreciated. See repeat MRI above. Per Dr. Martinez recommended patient follow-up in 2 months after he is recuperated from his stroke. If he develops weakness in lower extremities , bowel or bladder incontinence, he is to inform them urgently or go to the ER. He's been cleared from a neurosurgical standpoint for discharge. Discharge Planning Cleared for discharge home today. Problem Qualifiers (1) Syncope: Qualified Code: R55 - Syncope, unspecified syncope type Lucia Brown MD Apr 30, 2017 07:49
[2017-04-30 08:00] VITALS: PULSE 73
[2017-04-30 08:32] LABS: INTERNATIONAL NORMALIZED RATIO 1.5 RATIO; PROTHROMBIN TIME - PATIENT 17.2 SEC (9.8-11.6)
[2017-04-30] MEDS: PRAVASTATIN SOD 40 MG TAB PO SCH (08:39)
[2017-04-30 08:40] VITALS: BP 157/74; PULSE 63; RESP 18; TEMP 98.6; O2SAT 97
[2017-04-30] MEDS: DOCUSATE SODIUM 50 MG/SENNA 8.6 MG TAB PO SCH (08:40)
[2017-04-30] MEDS: ASPIRIN EC 81 MG TABEC PO SCH (08:40)
[2017-04-30] MEDS: MORPHINE SULFATE 8 MG/ML INJ IV PUSH PRN (08:44)
[2017-04-30] MEDS: SODIUM CHLORIDE 0.9% FLUSH 10 ML FLUSH IV FLUSH SCH (09:00)
[2017-04-30 12:10] VITALS: BP 144/65; PULSE 56; RESP 17; TEMP 98; O2SAT 97
[2017-04-30 12:24] VITALS: O2SAT 95
--- NOTE | 2017-04-30 14:05 | HHI.DCPOC ---
Discharge Care Plan Diagnosis: (1) Syncope (2) HTN (hypertension) (3) Carotid stenosis (4) Cerebrovascular accident, embolic Goals to Promote Your Health * To prevent worsening of your condition and complications * To maintain your health at the optimal level Directions to Meet Your Goals Take your medications as prescribed Follow your dietary instruction Follow activity as directed Keep your appointments as scheduled Take your immunizations and boosters as scheduled If your symptoms worsen call your PCP, if no PCP go to Urgent Care Center or Emergency Room Smoking is Dangerous to Your Health. Avoid second hand smoke Call the 24-hour hour crisis hotline for domestic abuse at Lucia Brown MD Apr 30, 2017 14:05
[2017-04-30] MEDS: WARFARIN SOD 4 MG TAB PO SCH (15:05)
[2017-04-30] MEDS ORDERED: WARFARIN SOD 4 MG TAB PO ONE (16:00)
--- NOTE | 2017-04-30 17:24 | HHI.DS ---
Discharge Summary Admission Date Apr 23, 2017 at 12:09 Discharge Date: Apr 30, 2017 Admitting Diagnosis S[facility]ope [facility] Neuro Cardiology CBC/BMP: 04/27/17 1005 04/29/17 0645 Significant Findings Laboratory Tests Test 04/27/17 04/28/17 04/29/17 04/30/17 20:27 04:11 06:45 07:24 Random Glucose 176 MG/DL (74-106) Calcium Level 8.4 MG/DL 8.4 MG/DL (8.5-10.1) (8.5-10.1) Prothrombin Time 20.8 SEC 20.4 SEC 17.2 SEC (9.8-11.6) (9.8-11.6) (9.8-11.6) Imaging Last Impressions Thoracic Spine MRI 04/29/17 0600 Signed Impressions: Service Date/Time: Saturday, April 29, 2017 11:39 - CONCLUSION: Progressive abnormal signal change within the substance of the cord associated with anterior displacement and flattening of the cord as described. The appearance is again felt most likely to reflect ventral cord herniation with signal changes indicating either vascular compromise or mechanical injury. Expanding dorsal arachnoid cyst or arachnoid webs felt to be additional less likely diagnostic possibilities. I have a call in to Dr. Perdue at the time of the dictation Nathan Almeida MD Neck CTA 04/27/17 1019 Signed Impressions: Service Date/Time: Thursday, April 27, 2017 10:18 - CONCLUSION: 1. Redemonstration of 80%% left ICA stenosis and 40-50%% right ICA stenosis, as above. 2. Redemonstration of bilateral vertebral artery stenoses, or prominent on the left. 3. Minimally smaller soft tissue mass associated with the right lateral oropharynx, as above. Clinical correlation with direct visualization is recommended if previously not performed. Harjinder Luque MD Brain MRI 04/27/17 0949 Signed Impressions: Service Date/Time: Thursday, April 27, 2017 11:50 - CONCLUSION: 1. Small acute infarcts seen in the parietal lobes on previous study are unchanged. No new areas are identified. 2. Prominent areas of chronic ischemic small vessel vasculopathy. 1. Caleb Healy MD Lumbar Spine MRI 04/27/17 0000 Signed Impressions: Service Date/Time: Thursday, April 27, 2017 18:00 - CONCLUSION: 1. Degenerative changes are noted as above. There is no spinal stenosis. Michael Altamirano MD Head CTA 04/27/17 Signed Impressions: Service Date/Time: Thursday, April 27, 2017 10:18 - CONCLUSION: Continued atherosclerotic disease of left internal carotid artery distally. There is also some narrowing at the left internal carotid artery which is quite significant. The right side which is the more concerning side based on the patient's symptoms is unremarkable and unchanged. Erick Parmar MD Head CT 04/27/17 Signed Impressions: Service Date/Time: Thursday, April 27, 2017 10:18 - CONCLUSION: Normal examination. Erick Parmar MD Cervical Spine MRI 04/27/17 Signed Impressions: Service Date/Time: Thursday, April 27, 2017 18:00 - CONCLUSION: Multilevel degenerative changes are noted as above. Michael Altamirano MD Soft Tissue MRI 04/25/17 Signed Impressions: Service Date/Time: Tuesday, April 25, 2017 13:50 - CONCLUSION: Prominent sized uvula extending to the right of midline. I don't see any definite soft tissue polyp and there certainly no significant infiltrating mass. Direct visualization is recommended. Erick Parmar MD Myocardial Perfusion Scan Nuc Med 04/25/17 Signed Impressions: Service Date/Time: Tuesday, April 25, 2017 11:20 - CONCLUSION: Circumflex defect fixed at stress and rest suspicious for infarct. Decreased ejection fraction at 43%%. RISK CATEGORY: Low (<1%% Annual Mortality Rate) Erick Parmar MD Carotid Artery Ultrasound 04/23/17 1229 Signed Impressions: Service Date/Time: Sunday, April 23, 2017 13:03 - CONCLUSION: High-grade stenosis involving the left ICA. Bennett Metcalf MD Head Magnetic Resonance Angiography 04/23/17 Signed Impressions: Service Date/Time: Sunday, April 23, 2017 10:25 - CONCLUSION: 1. Irregular narrowing in the petrous segment of the left internal carotid artery which may be caused by eccentric thrombus. 2. 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 3. Mild luminal irregularity involving the right carotid siphon without significant stenosis. Baron Harrell MD Chest X-Ray 04/22/17 1858 Signed Impressions: Service Date/Time: Saturday, April 22, 2017 19:03 - CONCLUSION: No evidence of acute cardiopulmonary disease. Nathan Dawkins MD Hospital Course 1. Acute CVA: Patient had transient right-sided neurologic symptoms. Appreciate neurology recommendations. MRI shows acute infarcts. Continue permissive hypertension. PT/OT/ST. Coumadin restarted. Continue aspirin. Cleared for discharge home by neurology. 2. Chest pain: Resolved. 3. Syncope: Possibly secondary to cardiac versus neurologic etiology. Appreciate cardiology recommendations. Status post MALIK with loop recorder insertion. Cardiology has signed off. 4. Hypertension: Permissive hypertension at this time. 5. Tobacco abuse: Counseled quit smoking. 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 Follow-up as outpatient. 7. Carotid artery stenosis: Follow up as outpatient with vascular surgery. 8. DVT prophylaxis: SCDs. Heparin, Coumadin. INR 1.8. 9. Abnormal thoracic spine MRI: Neurosurgery consultation appreciated. See repeat MRI above. Per Dr. Martinez recommended patient follow-up in 2 months after he is recuperated from his stroke. If he develops weakness in lower extremities , bowel or bladder incontinence, he is to inform them urgently or go to the ER. He's been cleared from a neurosurgical standpoint for discharge. Pt Condition on Discharge: Stable Discharge Disposition: Discharge Home Discharge Instructions DIET: Follow Instructions for: Heart Healthy Diet Activities you can perform: Weight Bearing as [place] New Orders: PT/INR - Next Day New Medications: Aspirin DR (Adult Aspirin EC Low Strength) 81 Mg Tabec 81 MG PO DAILY Stroke Prevention #30 Ref 0 TAB Hydrocodone-Acetaminophen (Hydrocodone-Acetaminophen) 5-325 mg Tab 1 TAB PO Q4H PRN PAIN SCALE 1 TO 10 #20 Ref 0 TAB Pravastatin (Pravachol) 40 Mg Tab 40 MG PO DAILY Cholesterol Management #30 Ref 0 TAB Warfarin (Coumadin) 4 Mg Tab 4 MG PO DAILY@16 Stroke Prevention #30 Ref 0 TAB Lucia Brown MD Apr 30, 2017 17:24
== END 2017-04-30 16:56 | disposition home or self-care (01) | DRG 41 ==
LOC: NEPC 18:32 → NEDA 20:58 → NEPHCDU 04-23 01:29 → OBSVTOIN 04-23 12:09 → N04B 04-23 22:10 → N03A 04-27 10:34 → N05B 04-28 17:45
PROVIDERS: ADMIT Family Medicine; ATTEND Family Medicine
PROC: 0JH632Z Insertion of Monitoring Device into Chest Subcutaneous Tissue and Fascia, Percutaneous Approach (ICD-10-PCS; principal; 2017-04-26)
PROC: B246ZZ4 Ultrasonography of Right and Left Heart, Transesophageal (ICD-10-PCS; 2017-04-26)
DX: I63.40 Cerebral infarction due to embolism of unspecified cerebral artery (principal); G95.89 Other specified diseases of spinal cord; M48.02 Spinal stenosis, cervical region; G95.29 Other cord compression; G96.19 Other disorders of meninges, not elsewhere classified; I65.23 Occlusion and stenosis of bilateral carotid arteries; E86.0 Dehydration; I10 Essential (primary) hypertension; R00.1 Bradycardia, unspecified; I25.10 Atherosclerotic heart disease of native coronary artery without angina pectoris; F17.210 Nicotine dependence, cigarettes, uncomplicated; K13.70 Unspecified lesions of oral mucosa; I73.9 Peripheral vascular disease, unspecified; M25.78 Osteophyte, vertebrae; H91.90 Unspecified hearing loss, unspecified ear; R07.89 Other chest pain; R29.706 NIHSS score 6; Z23 Encounter for immunization; Z95.1 Presence of aortocoronary bypass graft; Z95.5 Presence of coronary angioplasty implant and graft
CPT/HCPCS: 33282; 36600; 70450; 70496; 70498; 70543; 70544; 70551; 71010; 72141; 72146; 72148; 72157; 78452; 80048; 80053; 80061; 80307; 81001; 81240; 81241; 82435; 82550; 82565; 82607; 82746; 82805; 82947; 83036; 83690; 83735; 83880; 83921; 84132; 84295; 84425; 84439; 84443; 84484; 84520; 85025; 85240; 85300; 85303; 85306; 85384; 85610; 85613; 85652; 85730; 86038; 86147; 86592; 86850; 86900; 86901; 90732; 93005; 93017; 93225; 93226; 93306; 93312; 93320; 93325; 93880; 95819; 96374; A9502; A9579; C1764; G0378; G8987-GP; G8988-GP; J0690; J1644; J2270; J2785; J7030; Q9967

== ENCOUNTER 2017-05-10 15:15 | Emergency (ER) | payer SELFPAY ==
[~2017-05-10] VITALS: Ht 170.2 cm; Wt 80.0 kg
[~2017-05-10 15:15] MED LIST changes: +ASPI-99 PO; +COUM4TAB PO; +HYDR-3516 PO; -LORTA5 PO; +PRAV40TA PO
[2017-05-10 15:16] VITALS: BP 182/97; PULSE 90; RESP 20; TEMP 98.3; O2SAT 98
[2017-05-10] MEDS ORDERED: SODIUM CHLORIDE 0.9% FLUSH 10 ML FLUSH IVF PRN (16:30)
[2017-05-10 16:39] VITALS: O2SAT 100
[2017-05-10] MEDS ORDERED: KETOROLAC TROMETHAMINE 30 MG/ML (IVP) VIAL IV PUSH ONE (16:45)
--- NOTE | 2017-05-10 16:57 | PD ---
HPI Chief Complaint: Syncope/Near-Syncope Time Seen by Provider: 16:16 Travel History International Travel<30 days: No Contact w/Intl Traveler<30days: No Traveled to known affect area: No History of Present Illness HPI Patient is a pleasant 57-year-old male with history of recent stroke on the left side of his brain presents emergency Department with multiple complaints. He states that he was going up the stairs to his apartment on the third floor was feeling weak and almost like he was going to pass out. He is concerned that if he passed out on the stairs he might hurt himself. Of note the patient was recently released from the hospital for staple episode and left-sided stroke. The patient states she's had some weakness on his right side of recent stroke happened. He states that if there were any concerns that he was instructed to come back to the emergency department. His concerns are mostly he is afraid that he might get hurt if he has a event on the staircase. Denies any chest pain denies any shortness of breath denies any new weakness. PFSH Past Medical History Asthma: No Autoimmune Disease: No Blood Disorders: No Heart Rhythm Problems: No Cancer: No Cardiac Catheterization: Yes (1988) Cardiovascular Problems: Yes High Cholesterol: No Chest Pain: Yes Congestive Heart Failure: No COPD: No Cerebrovascular Accident: Yes Diminished Hearing: Yes (A LITTLE HARD OF HEARING AT TIMES) Genitourinary: No Hypertension: Yes Immune Disorder: No Musculoskeletal: No Neurologic: Yes Psychiatric: No Reproductive: No Respiratory: No Myocardial Infarction: No Sleep Apnea: No Influenza Vaccination: Yes Past Surgical History Abdominal Surgery: No Body Medical Devices: Cardiac stents Cardiac Surgery: Yes (DOUBLE BYPASS DONE IN 1988) Coronary Artery Bypass Graft: Yes Coronary Stent: Yes Ear Surgery: No Endocrine Surgery: No Eye Surgery: No Genitourinary Surgery: No Gynecologic Surgery: No Oral Surgery: No Pacemaker: No Thoracic Surgery: No Other Surgery: Yes (CABG) Social History Alcohol Use: No Tobacco Use: Yes (/2 PPD) Substance Use: Yes (marijuana) Allergies-Medications (Allergen,Severity, Reaction): Coded Allergies: No Known Allergies (Verified Allergy, Severe, 04/29/08) Reported Meds & Prescriptions Reported Meds & Active Scripts Active Coumadin (Warfarin) 4 Mg Tab 4 Mg PO DAILY@16 Pravachol (Pravastatin) 40 Mg Tab 40 Mg PO DAILY Hydrocodone-Acetaminophen 5-325 mg Tab 1 Tab PO Q4H PRN Adult Aspirin EC Low Strength (Aspirin) 81 Mg Tabec 81 Mg PO DAILY Review of Systems Except as stated in HPI: all other systems reviewed are Neg Physical Exam Narrative GENERAL: Well-developed well-nourished no obvious distress. SKIN: Focused skin assessment warm/dry. HEAD: Atraumatic. Normocephalic. EYES: Pupils equal and round. No scleral icterus. No injection or drainage. ENT: No nasal bleeding or discharge. Mucous membranes pink and moist. NECK: Trachea midline. No JVD. CARDIOVASCULAR: Regular rate and rhythm. No murmur appreciated. 2+ bilateral equal pulses in all 4 extremity's. RESPIRATORY: No accessory muscle use. Clear to auscultation. Breath sounds equal bilaterally. GASTROINTESTINAL: Abdomen soft, non-tender, nondistended. Hepatic and splenic margins not palpable. MUSCULOSKELETAL: No obvious deformities. No clubbing. No cyanosis. No edema. NEUROLOGICAL: Awake and alert. Cranial nerves II through XII are grossly intact , 5 out of 5 strength in all 4 extremities for me. Cerebellar testing normal. PSYCHIATRIC: Appropriate mood and affect; insight and judgment normal. Data Data Last Documented VS Vital Signs Date Time Temp Pulse Resp B/P Pulse Ox O2 Delivery O2 Flow Rate FiO2 05/10/17 17:55 76 19 130/72 97 Nasal Cannula 2 05/10/17 15:16 98.3 Orders Electrocardiogram (05/10/17 16:16) B-Type Natriuretic Peptide (05/10/17 16:16) Ckmb (Isoenzyme) Profile (05/10/17 16:16) Complete Blood Count With Diff (05/10/17 16:16) Comprehensive Metabolic Panel (05/10/17 16:16) Magnesium (Mg) (05/10/17 16:16) Prothrombin Time / Inr (Pt) (05/10/17 16:16) Act Partial Throm Time (Ptt) (05/10/17 16:16) Troponin I (05/10/17 16:16) Chest, Single Ap (05/10/17 16:16) Ecg Monitoring (05/10/17 16:16) Iv Access Insert/Monitor (05/10/17 16:16) Oximetry (05/10/17 16:16) Oxygen Administration (05/10/17 16:16) Sodium Chloride 0.9% Flush (Ns Flush) (05/10/17 16:30) Ketorolac Inj (Toradol Inj) (05/10/17 16:45) Labs Laboratory Tests Test 05/10/17 16:33 White Blood Count 9.6 TH/MM3 Red Blood Count 5.26 MIL/MM3 Hemoglobin 16.2 GM/DL Hematocrit 46.0 % Mean Corpuscular Volume 87.5 FL Mean Corpuscular Hemoglobin 30.8 PG Mean Corpuscular Hemoglobin 35.2 % Concent Red Cell Distribution Width 13.4 % Platelet Count 174 TH/MM3 Mean Platelet Volume 9.9 FL Neutrophils (%) (Auto) 68.3 % Lymphocytes (%) (Auto) 20.6 % Monocytes (%) (Auto) 9.2 % Eosinophils (%) (Auto) 1.1 % Basophils (%) (Auto) 0.8 % Neutrophils # (Auto) 6.5 TH/MM3 Lymphocytes # (Auto) 2.0 TH/MM3 Monocytes # (Auto) 0.9 TH/MM3 Eosinophils # (Auto) 0.1 TH/MM3 Basophils # (Auto) 0.1 TH/MM3 CBC Comment DIFF FINAL Differential Comment Prothrombin Time 11.0 SEC Prothromb Time International 1.0 RATIO Ratio Activated Partial 26.6 SEC Thromboplast Time Sodium Level 137 MEQ/L Potassium Level 3.9 MEQ/L Chloride Level 103 MEQ/L Carbon Dioxide Level 22.3 MEQ/L Anion Gap 12 MEQ/L Blood Urea Nitrogen 13 MG/DL Creatinine 0.88 MG/DL Estimat Glomerular Filtration 89 ML/MIN Rate Random Glucose 103 MG/DL Calcium Level 9.4 MG/DL Magnesium Level 2.1 MG/DL Total Bilirubin 0.6 MG/DL Aspartate Amino Transf 17 U/L (AST/SGOT) Alanine Aminotransferase 31 U/L (ALT/SGPT) Alkaline Phosphatase 62 U/L Total Creatine Kinase 45 U/L Troponin I 0.03 NG/ML B-Type Natriuretic Peptide 13 PG/ML Total Protein 8.3 GM/DL Albumin 3.7 GM/DL [facility] Medical Decision Making Medical Screen Exam Complete: Yes Emergency Medical Condition: Yes Differential Diagnosis Presyncope, cardiogenic syncope, difficulty with ambulation, poor social circumstance. Narrative Course Patient with near syncopal episode today. He has been recently admitted and had complete cardio/cerebrovascular/neuro workup. Patient with some right side weakness ever since his stroke last month. No medical reason for readmission. I broached the subject of care home with him and he is not interested. He is stable for discharge to follow up with multiple consultants as discussed with him at last discharge. Diagnosis Primary Impression: Syncope Referrals: Daphney Guevara MD Disposition: 01 DISCHARGE HOME Condition: Stable Andrade Rodriguez MD May 10, 2017 16:56
--- NOTE | 2017-05-10 17:17 | RADRPT ---
EXAM DATE/TIME: 05/10/2017 16:42 [facility] COMPARISON: CHEST SINGLE AP, April 22, 2017, 19:03. INDICATIONS : Syncopal episode today. MEDICAL HISTORY : Stroke. Hypertension. SURGICAL HISTORY : CABG. Coronary artery stent. ENCOUNTER: Initial ACUITY: 1 day PAIN SCORE: 2/10 LOCATION: Bilateral chest FINDINGS: A single view of the chest demonstrates the lungs to be symmetrically aerated without evidence of mas s, infiltrate or effusion. The cardiomediastinal contours are unremarkable. Osseous structures are intact. CONCLUSION: 1. No acute cardiopulmonary disease. Harjinder Luque MD on May 10, 2017 at 17:15 Board Certified Radiologist. This report was verified electronically.
[2017-05-10 17:23] LABS: AUTOMATED NEUTROPHIL # 6.5 TH/MM3 (1.8-7.7); BASOPHIL # 0.1 TH/MM3 (0-0.2); BASOPHIL % 0.8 % (0.0-2.0); EOSINOPHIL # 0.1 TH/MM3 (0-0.4); EOSINOPHIL % 1.1 % (0.0-4.0); HEMO FLAGS DIFF FINAL; LYMPH % 20.6 % (9.0-44.0); MEAN CELL VOLUME 87.5 FL (80.0-100.0); MEAN CORPUSCULAR HEMOGLOBIN 30.8 PG (27.0-34.0); MEAN CORPUSCULAR HGB CONC 35.2 % (32.0-36.0); MONO % 9.2 % (0.0-8.0); NEUT % 68.3 % (16.0-70.0); PLATELET COUNT 174 TH/MM3 (150-450); RED BLOOD COUNT 5.26 MIL/MM3 (4.50-5.90); RED CELL DISTRIBUTION WIDTH 13.4 % (11.6-17.2); WHITE BLOOD COUNT 9.6 TH/MM3 (4.0-11.0)
[2017-05-10 17:35] LABS: APTT (PATIENT) 26.6 SEC (24.3-30.1)
[2017-05-10 17:44] LABS: ANION GAP 12 MEQ/L (5-15); AST (GOT) 17 U/L (15-37); BICARBONATE 22.3 MEQ/L (21.0-32.0); BLOOD UREA NITROGEN 13 MG/DL (7-18); CHLORIDE 103 MEQ/L (98-107); GLOMERULAR FILTRATION RATE 89 ML/MIN (>89); MAGNESIUM 2.1 MG/DL (1.5-2.5); POTASSIUM 3.9 MEQ/L (3.5-5.1); SODIUM (NA) 137 MEQ/L (136-145)
[2017-05-10 17:49] LABS: ALKALINE PHOSPHATASE 62 U/L (45-117); ALT (GPT) 31 U/L (12-78); TOTAL BILIRUBIN ADULT 0.6 MG/DL (0.2-1.0)
[2017-05-10 17:51] LABS: CREATINE KINASE 45 U/L (39-308)
[2017-05-10 17:55] VITALS: BP 130/72; PULSE 76; RESP 19; O2SAT 97
--- NOTE | 2017-05-11 10:44 | EKG ---
Date Performed: 05/10/2017 Time Performed: 15:49:44 PTAGE: 57 years EKG: Sinus rhythm WITH FREQUENT SUPRAVENTRICULAR PREMATURE COMPLEXES INDETERMINATE AXIS ABNORMAL RHYTHM ECG PREVIOUS TRACING : 04/27/2017 08.55 DOCTOR: Erick Iqbal Interpretating Date/Time 05/11/2017 10:42:36
== END 2017-05-10 19:03 | disposition home or self-care (01) ==
LOC: NEPC 15:15
DX: R55 Syncope and collapse (principal); I10 Essential (primary) hypertension; F17.200 Nicotine dependence, unspecified, uncomplicated; Z79.01 Long term (current) use of anticoagulants; Z95.1 Presence of aortocoronary bypass graft
CPT/HCPCS: 71010; 80053; 82550; 83735; 83880; 84484; 85025; 85610; 85730; 93005; 96374; 99285; J1885

== ENCOUNTER 2017-09-16 20:37 | Inpatient (IN) | payer SELFPAY ==
[~2017-09-16] VITALS: Ht 170.2 cm; Wt 79.2 kg
[2017-09-16 20:35] VITALS: O2SAT 99
[~2017-09-16 20:37] MED LIST changes: -ASPI-99 PO; +ASPI1TAB56 PO
[2017-09-16 20:40] VITALS: BP 147/72; PULSE 90; RESP 16; TEMP 98.6; O2SAT 99
[2017-09-16] MEDS ORDERED: SODIUM CHLORIDE 0.9% FLUSH 10 ML FLUSH IVF PRN (20:45)
[2017-09-16 20:51] VITALS: BP 147/72; PULSE 87; RESP 16; TEMP 98.6; O2SAT 98
[2017-09-16 20:58] LABS: I-STAT POTASSIUM 6.1 MMOL/L (3.5-4.9); I-STAT SODIUM 136 MMOL/L (138-146)
[2017-09-16 20:59] LABS: BASOPHIL # 0.1 TH/MM3 (0-0.2); BASOPHIL % 0.8 % (0.0-2.0); EOSINOPHIL # 0.1 TH/MM3 (0-0.4); EOSINOPHIL % 1.5 % (0.0-4.0); HEMATOCRIT 50.2 % (39.0-51.0); HEMO FLAGS DIFF FINAL; LYMPH % 22.8 % (9.0-44.0); LYMPHOCYTE # 2.1 TH/MM3 (1.0-4.8); MEAN CELL VOLUME 91.6 FL (80.0-100.0); MEAN CORPUSCULAR HGB CONC 33.8 % (32.0-36.0); MONO % 8.3 % (0.0-8.0); NEUT % 66.6 % (16.0-70.0); PLATELET COUNT 174 TH/MM3 (150-450); RED BLOOD COUNT 5.48 MIL/MM3 (4.50-5.90); RED CELL DISTRIBUTION WIDTH 14.2 % (11.6-17.2)
--- NOTE | 2017-09-16 21:01 | RADRPT ---
EXAM DATE/TIME: 09/16/2017 20:48 [facility] COMPARISON: CT BRAIN W/O CONTRAST, April 27, 2017, 10:18. INDICATIONS : Stroke alert; left sided weakness. RADIATION DOSE: 36.27 CTDIvol (mGy) This report was called by Dr. Milligan to Dr. Rutledge at 9 PM on 09/16/17. MEDICAL HISTORY : Non-responsive. SURGICAL HISTORY : Non-responsive. ENCOUNTER: Initial ACUITY: 1 day PAIN SCALE: Non-responsive LOCATION: cranial TECHNIQUE: Multiple contiguous axial images were obtained of the head. Using automated exposure control and adj ustment of the mA and/or kV according to patient size, radiation dose was kept as low as reasonably a chievable to obtain optimal diagnostic quality images. DICOM format image data is available electro nically for review and comparison. FINDINGS: CEREBRUM: The ventricles are normal for age. No evidence of midline shift, mass lesion, hemorrhage or acute in farction. No extra-axial fluid collections are seen. Minimal scattered periventricular and subcortic al white matter small vessel ischemic changes are noted bilaterally. POSTERIOR FOSSA: The cerebellum and brainstem are intact. The 4th ventricle is midline. The cerebellopontine angle i s unremarkable. EXTRACRANIAL: The visualized portion of the orbits is intact. SKULL: The calvaria is intact. No evidence of skull fracture. CONCLUSION: 1. No acute infarct, acute hemorrhage, mass effect or extra-axial fluid collections. 2. Minimal scattered periventricular and subcortical white matter small vessel ischemic changes karlos flanagan. Andrade Milligan MD on September 16, 2017 at 20:56 Board Certified Radiologist. This report was verified electronically.
[2017-09-16 21:11] LABS: APTT (PATIENT) 21.9 SEC (24.3-30.1); PROTHROMBIN TIME - PATIENT 10.6 SEC (9.8-11.6)
[2017-09-16 21:12] LABS: ALT (GPT) 39 U/L (12-78)
[2017-09-16 21:15] LABS: ALKALINE PHOSPHATASE 59 U/L (45-117); TOTAL BILIRUBIN ADULT 0.2 MG/DL (0.2-1.0)
[2017-09-16] MEDS ORDERED: ASPIRIN 325 MG TAB PO ONE (21:15)
[2017-09-16] MEDS ORDERED: SODIUM CHLOR 0.9% 1000 ML INJ 1,000 ML IV ONE (21:45)
--- NOTE | 2017-09-16 21:45 | PD ---
HPI Chief Complaint: Stroke Alert Time Seen by Provider: 20:44 Travel History International Travel<30 days: No Contact w/Intl Traveler<30days: No Traveled to known affect area: No History of Present Illness HPI Patient is a 57-year-old male who was out [place] his own yard and having a campfire apparently friends saw him suddenly fall weakness of the left arm left leg and paresthesias. Reports that he cannot feel his sensation in his left arm and his left leg he reports having had prior strokes in the past. Patient apparently was hypertensive at the scene 200 systolic according to paramedics patient on arrival to the ER has full strength in his arm and his leg mild symmetric immediate evaluation for a stroke alert I feel that his symptoms are resolving and he has full strength 5 out of 5 arm and leg and his sensation deficit is resolving as well. His eyes crossed midline and there equal reactive all muscle strength 5 out of 5 equal symmetric throughout the entire body. However he reports sensation decreases in the left arm and the left leg however when I pinch and solidly in the left tibial area he reacts and says I feel that. I call neurology CAT scan is ordered labs are sent stroke protocol however this is not a stroke notification due to his symptoms resolved. CT read by me appears to be normal with no signs of any ischemia or watershed areas. I am called by the radiologist Dr. Payne who agrees that CAT scan is appears normal without any prior old stroke signs. Patient is given aspirin admitted for TIA workup carotids echo [facility] Past Medical History Asthma: No Autoimmune Disease: No Blood Disorders: No Heart Rhythm Problems: No Cancer: No Cardiac Catheterization: Yes (1988) Cardiovascular Problems: Yes High Cholesterol: No Chest Pain: Yes Congestive Heart Failure: No COPD: No Cerebrovascular Accident: Yes Diminished Hearing: Yes (A LITTLE HARD OF HEARING AT TIMES) Genitourinary: No Hypertension: Yes Immune Disorder: No Implanted Vascular Access Dvce: Yes Musculoskeletal: No Neurologic: Yes Psychiatric: No Reproductive: No Respiratory: No Immunizations Current: No Myocardial Infarction: No Sleep Apnea: No Past Surgical History Abdominal Surgery: No Body Medical Devices: Cardiac stents Cardiac Surgery: Yes (DOUBLE BYPASS DONE IN 1988) Coronary Artery Bypass Graft: Yes Coronary Stent: Yes Ear Surgery: No Endocrine Surgery: No Eye Surgery: No Genitourinary Surgery: No Gynecologic Surgery: No Oral Surgery: No Pacemaker: No Thoracic Surgery: No Other Surgery: Yes (CABG) Social History Alcohol Use: No Tobacco Use: Yes (1/2 PPD) Substance Use: Yes (marijuana) Allergies-Medications (Allergen,Severity, Reaction): Coded Allergies: No Known Allergies (Verified Allergy, Severe, 04/29/08) Reported Meds & Prescriptions Reported Meds & Active Scripts Active Coumadin (Warfarin) 4 Mg Tab 4 Mg PO DAILY@16 Pravachol (Pravastatin) 40 Mg Tab 40 Mg PO DAILY Hydrocodone-Acetaminophen 5-325 mg Tab 1 Tab PO Q4H PRN Adult Aspirin EC Low Strength (Aspirin) 81 Mg Tabec 81 Mg PO DAILY Review of Systems Except as stated in HPI: all other systems reviewed are Neg Neurologic: Positive: Weakness, Paresthesia (arm weakness left leg weakness and sensation decrease left arm and left leg) Physical Exam Narrative GENERAL: Patient is awake alert talking in full sentences there is no sign of focal deficit or droop to the face smile symmetric awake alert able to talk pulses. SKIN: Warm and dry. HEAD: Atraumatic. Normocephalic. EYES: Pupils equal and round. No scleral icterus. No injection or drainage. Full range of motion crosses midline to the left and the right ENT: No nasal bleeding or discharge. Mucous membranes pink and moist. NECK: Trachea midline. No JVD. CARDIOVASCULAR: Regular rate and rhythm. Blood pressure is 150/70 RESPIRATORY: No accessory muscle use. Clear to auscultation. Breath sounds equal bilaterally. GASTROINTESTINAL: Abdomen soft, non-tender, nondistended. Hepatic and splenic margins not palpable. MUSCULOSKELETAL: Extremities extremities are 5 out of 5 strength in all of his arm and leg area her seizure and not able to feel touch on his left arm and his left leg however with a strong 10 she feels it on the left leg. Without clubbing, cyanosis, or edema. No obvious deformities. NEUROLOGICAL: Awake and alert. No obvious cranial nerve deficits. Motor grossly within normal limits. Five out of 5 muscle strength in the arms and legs. Normal speech. The only deficit would be sensory. Other areas there is no deficit PSYCHIATRIC: Appropriate mood and affect; insight and judgment normal. Data Data Last Documented VS Vital Signs Date Time Temp Pulse Resp B/P (MAP) Pulse Ox O2 Delivery O2 Flow Rate FiO2 09/16/17 20:51 98.6 87 16 147/72 (97) 98 Room Air 09/16/17 20:35 21 Orders Orders Prothrombin Time / Inr (Pt) (09/16/17 20:44) Act Partial Throm Time (Ptt) (09/16/17 20:44) Comprehensive Metabolic Panel (09/16/17 20:44) Urinalysis - C+S If Indicated (09/16/17 20:44) Ua Includes Microscopic (09/16/17 20:44) Ct Brain W/O Iv Contrast(Rout) (09/16/17 20:44) Ecg Monitoring (09/16/17 20:44) Iv Access Insert/Monitor (09/16/17 20:44) Oximetry (09/16/17 20:44) Sodium Chloride 0.9% Flush (Ns Flush) (09/16/17 20:45) Complete Blood Count With Diff (09/16/17 20:44) I-Stat Creatinine (09/16/17 20:44) I-Stat Profile (09/16/17 20:44) Aspirin (Aspirin) (09/16/17 21:15) Sodium Chlor 0.9% 1000 Ml Inj (Ns 1000 M (09/16/17 21:45) Admit Order (Ed Use Only) (09/16/17 21:57) Labs Laboratory Tests Test 09/16/17 20:40 09/16/17 21:50 White Blood Count 9.0 TH/MM3 Red Blood Count 5.48 MIL/MM3 Hemoglobin 17.0 GM/DL Hematocrit 50.2 % Mean Corpuscular Volume 91.6 FL Mean Corpuscular Hemoglobin 31.0 PG Mean Corpuscular Hemoglobin Concent 33.8 % Red Cell Distribution Width 14.2 % Platelet Count 174 TH/MM3 Mean Platelet Volume 10.4 FL Neutrophils (%) (Auto) 66.6 % Lymphocytes (%) (Auto) 22.8 % Monocytes (%) (Auto) 8.3 % Eosinophils (%) (Auto) 1.5 % Basophils (%) (Auto) 0.8 % Neutrophils # (Auto) 6.0 TH/MM3 Lymphocytes # (Auto) 2.1 TH/MM3 Monocytes # (Auto) 0.7 TH/MM3 Eosinophils # (Auto) 0.1 TH/MM3 Basophils # (Auto) 0.1 TH/MM3 CBC Comment DIFF FINAL Differential Comment Prothrombin Time 10.6 SEC Prothromb Time International Ratio 1.0 RATIO Activated Partial Thromboplast Time 21.9 SEC Bedside Hemoglobin 17.0 G/DL Bedside Hematocrit 50.0 % Bedside Sodium 136 MMOL/L Blood Urea Nitrogen 13 MG/DL Creatinine 0.93 MG/DL Random Glucose 103 MG/DL Total Protein 8.1 GM/DL Albumin 3.7 GM/DL Calcium Level 8.3 MG/DL Alkaline Phosphatase 59 U/L Aspartate Amino Transf (AST/SGOT) 24 U/L Alanine Aminotransferase (ALT/SGPT) 39 U/L Total Bilirubin 0.2 MG/DL Sodium Level 138 MEQ/L Potassium Level 3.5 MEQ/L Chloride Level 107 MEQ/L Carbon Dioxide Level 22.4 MEQ/L Bedside Potassium 6.1 MMOL/L Bedside Chloride 104 MMOL/L Anion Gap 9 MEQ/L Bedside Blood Urea Nitrogen 21 MG/DL Bedside Creatinine 1.1 MG/DL Estimat Glomerular Filtration Rate 83 ML/MIN Bedside Glucose 147 MG/DL MDM Medical Decision Making Medical Screen Exam Complete: Yes Emergency Medical Condition: Yes Medical Record Reviewed: Yes Interpretation(s) EKG Normal sinus rhythm rate of [address] head shows no acute infarct or old infarcts Differential Diagnosis TIA versus neurological deficit versus CVA patient has no symptoms at this time on arrival possibly Wellington's paralysis that resolved versus TIA versus chemical imbalance collectively imbalance Narrative Course Physical exam on arrival does not indicate there is any motor deficit that warrants TPA he has 5 out of 5 arm strength bilaterally on and lower legs he has full leg lift on the left side as well he has some paresthesias in the left arm but feels be pinching him on the left leg I called neurology I speak with the neurologist who says aspirin and then admit her today with ultrasound of his carotids as well as an echo patient is stable however during his time in the ER his pressure goes up to 218 systolic I give him 10 of labetalol which helped lower his pressure 90 give him 100 mg by mouth labetalol and admitted to [facility] Critical Care Narrative Stroke critical care rule out management of blood pressure hypertensive urgency. 30 minutes critical care time Diagnosis Primary Impression: Paresthesias Additional Impression: Hypertensive urgency Admitting Information Admitting Physician Requests: Observation Nilton Rutledge MD Sep 16, 2017 21:45
[2017-09-16] MEDS ORDERED: SODIUM CHLORIDE 0.9% FLUSH 10 ML FLUSH IV FLUSH PRN (22:15)
[2017-09-16] MEDS ORDERED: DEXTROSE 50% IN WATER 50 ML VIAL(D50) IV PUSH PRN (22:15)
[2017-09-16] MEDS ORDERED: GLUCAGON 1 MG/ML VIAL OTHER PRN (22:15)
[2017-09-16 22:38] LABS: ANION GAP 9 MEQ/L (5-15); AST (GOT) 24 U/L (15-37); BICARBONATE 22.4 MEQ/L (21.0-32.0); BLOOD UREA NITROGEN 13 MG/DL (7-18); CHLORIDE 107 MEQ/L (98-107); GLOMERULAR FILTRATION RATE 83 ML/MIN (>89); POTASSIUM 3.5 MEQ/L (3.5-5.1); SODIUM (NA) 138 MEQ/L (136-145)
[2017-09-16] MEDS: SODIUM CHLOR 0.9% 1000 ML INJ 1,000 ML IV SCH (22:53)
[2017-09-16] MEDS: HEPARIN SODIUM - SQ 10,000 UNITS/ML VIAL SQ SCH (22:54)
[2017-09-16] MEDS ORDERED: LABETALOL HCL 100 MG/20 ML VIAL IV PUSH ONE (23:45)
[2017-09-17] VITALS (10 sets, daily range): BP systolic 148–217; BP diastolic 69–108; PULSE 55–90; RESP 17–20; TEMP 97.4–100.1; O2SAT 94–97
[2017-09-17] MEDS ORDERED: LABETALOL HCL 100 MG TAB PO ONE
--- NOTE | 2017-09-17 02:57 | HHI.HP ---
[facility] Primary Care Physician Unknown Admission Diagnosis TIA Diagnoses: Travel History International Travel<30 Days: No Contact w/Intl Traveler <30 Da: No Traveled to Known Affected Are: No History of Present Illness 57-year-old male with a past medical history significant for hypertension, CAD status post CABG and CVA on 04/30/17 presents to the emergency department with acute onset of left sided numbness and weakness. Patient states he had sudden onset of heaviness, decreased motor coordination and tingling in his left upper and lower extremity and the bottom half of the left side of his face. He states his symptoms have improved but he has not returned to baseline. During his last hospitalization the patient was found to have 80% left ICA stenosis and 40-50% right ICA stenosis. He was instructed to follow-up with vascular surgery. He also had an abnormal thoracic spine MRI significant for progressive abnormal signal change within the substance of the cord associated with anterior displacement of flattening of the cord, reflecting central cord herniation. The patient was instructed to follow-up with neurosurgery in 2 months as an outpatient. At his last hospitalization, the patient was restarted on Coumadin which he is not currently taking. Head CT showed no acute intracranial abnormalities. Review of Systems Denies fever or chills Denies blurry vision, otorrhea, rhinorrhea Denies sore throat and cough No chest pain, palpitations, shortness of breath No abdominal pain Denies constipation/diarrhea/nausea/vomiting Denies muscle pain/ positive left sided weakness No rashes Past Family Social History Past Medical History Hypertension CAD status post CABG History of CVA 04/30/17 Past Surgical History CABG 2 at age 37 Reported Medications Reported Meds & Active Scripts Active Coumadin (Warfarin) 4 Mg Tab 4 Mg PO DAILY@16 Pravachol (Pravastatin) 40 Mg Tab 40 Mg PO DAILY Hydrocodone-Acetaminophen 5-325 mg Tab 1 Tab PO Q4H PRN Adult Aspirin EC Low Strength (Aspirin) 81 Mg Tabec 81 Mg PO DAILY Allergies: Coded Allergies: No Known Allergies (Verified Allergy, Severe, 04/29/08) Family History Both parents with coronary artery disease Social History Smokes a half a pack per day 20 years. Occasional alcohol. Marijuana 2 times per week. Denies other illicit drugs. Physical Exam Vital Signs Vital Signs Date Time Temp Pulse Resp B/P (MAP) Pulse Ox O2 Delivery O2 Flow Rate FiO2 09/17/17 02:29 98.2 64 17 148/69 (95) 97 09/17/17 00:19 65 16 163/74 (103) 97 09/16/17 20:51 98.6 87 16 147/72 (97) 98 Room Air 09/16/17 20:40 98.6 90 16 147/72 (97) 99 09/16/17 20:35 99 21 Physical Exam GENERAL: male lying in bed SKIN: No rashes, ecchymoses or lesions. Cool and dry. HEAD: Atraumatic. Normocephalic. No temporal or scalp tenderness. EYES: Pupils equal round and reactive. Extraocular motions intact. No scleral icterus. No injection or drainage. ENT: Nose without bleeding, purulent drainage or septal hematoma. Throat without erythema, tonsillar hypertrophy or exudate. Uvula midline. Airway patent. NECK: Trachea midline. No JVD or lymphadenopathy. Supple, nontender, no meningeal signs. CARDIOVASCULAR: Regular rate and rhythm without murmurs, gallops, or rubs. RESPIRATORY: Clear to auscultation. Breath sounds equal bilaterally. No wheezes , rales, or rhonchi. GASTROINTESTINAL: Abdomen soft, non-tender, nondistended. No hepato-splenomegaly , or palpable masses. No guarding. MUSCULOSKELETAL: Extremities without clubbing, cyanosis, or edema. No joint tenderness, effusion, or edema noted. No calf tenderness. Negative Homans sign bilaterally. NEUROLOGICAL: Awake and alert. Cranial nerves II through XII intact. Normal speech. 5/5 strength in the upper and lower extremities. 3/5 handgrip strength. No facial droop. Patient reports tingling in his left hand. Laboratory Laboratory Tests Test 09/16/17 20:40 09/16/17 21:50 White Blood Count 9.0 Red Blood Count 5.48 Hemoglobin 17.0 Hematocrit 50.2 Mean Corpuscular Volume 91.6 Mean Corpuscular Hemoglobin 31.0 Mean Corpuscular Hemoglobin Concent 33.8 Red Cell Distribution Width 14.2 Platelet Count 174 Mean Platelet Volume 10.4 Neutrophils (%) (Auto) 66.6 Lymphocytes (%) (Auto) 22.8 Monocytes (%) (Auto) 8.3 Eosinophils (%) (Auto) 1.5 Basophils (%) (Auto) 0.8 Neutrophils # (Auto) 6.0 Lymphocytes # (Auto) 2.1 Monocytes # (Auto) 0.7 Eosinophils # (Auto) 0.1 Basophils # (Auto) 0.1 CBC Comment DIFF FINAL Differential Comment Prothrombin Time 10.6 Prothromb Time International Ratio 1.0 Activated Partial Thromboplast Time 21.9 Bedside Hemoglobin 17.0 Bedside Hematocrit 50.0 Bedside Sodium 136 Blood Urea Nitrogen 13 Creatinine 0.93 Random Glucose 103 Total Protein 8.1 Albumin 3.7 Calcium Level 8.3 Alkaline Phosphatase 59 Aspartate Amino Transf (AST/SGOT) 24 Alanine Aminotransferase (ALT/SGPT) 39 Total Bilirubin 0.2 Sodium Level 138 Potassium Level 3.5 Chloride Level 107 Carbon Dioxide Level 22.4 Bedside Potassium 6.1 Bedside Chloride 104 Anion Gap 9 Bedside Blood Urea Nitrogen 21 Bedside Creatinine 1.1 Estimat Glomerular Filtration Rate 83 Bedside Glucose 147 Result Diagram: 09/16/17203909/16/172149 Caprini VTE Risk Assessment Caprini VTE Risk Assessment: Mod/High Risk (score >= 2) Caprini Risk Assessment Model Point Value = 1 Point Value = 2 Point Value = 3 Point Value = 5 Age 41-60 Minor surgery BMI > 25 kg/m2 Swollen legs Varicose veins or History of unexplained or recurrent spontaneous Oral contraceptives or hormone replacement Sepsis (< 1 month) Serious lung disease, including pneumonia (< 1 month) Abnormal pulmonary function Acute myocardial infarction Congestive heart failure (< 1 month) History of inflammatory bowel disease Medical patient at bed rest Age 61-74 Arthroscopic surgery Major open surgery (> 45 min) Laparoscopic surgery (> 45 min) Malignancy Confined to bed (> 72 hours) Immobilizing plaster cast Central venous access Age >= 75 History of VTE Family history of VTE Factor V Leiden Prothrombin [id number] Lupus anticoagulant Anticardiolipin antibodies Elevated serum homocysteine Heparin-induced thrombocytopenia Other congenital or acquired thrombophilia Stroke (< 1 month) Elective arthroplasty Hip, pelvis, or leg fracture Acute spinal cord injury (< 1 month) Prophylaxis Regimen Total Risk Factor Score Risk Level Prophylaxis Regimen 0-1 Low Early ambulation 2 Moderate Order ONE of the following: *Sequential Compression Device (SCD) *Heparin 5000 units SQ BID 3-4 Higher Order ONE of the following medications: *Heparin 5000 units SQ TID *Enoxaparin/Lovenox 40 mg SQ daily (WT < 150 kg, CrCl > 30 mL/min) *Enoxaparin/Lovenox 30 mg SQ daily (WT < 150 kg, CrCl > 10-29 mL/min) *Enoxaparin/Lovenox 30 mg SQ BID (WT < 150 kg, CrCl > 30 mL/min) AND/OR *Sequential Compression Device (SCD) 5 or more Highest Order ONE of the following medications: *Heparin 5000 units SQ TID (Preferred with Epidurals) *Enoxaparin/Lovenox 40 mg SQ daily (WT < 150 kg, CrCl > 30 mL/min) *Enoxaparin/Lovenox 30 mg SQ daily (WT < 150 kg, CrCl > 10-29 mL/min) *Enoxaparin/Lovenox 30 mg SQ BID (WT < 150 kg, CrCl > 30 mL/min) AND *Sequential Compression Device (SCD) Assessment and Plan Assessment and Plan Assessment/plan: 1. TIA/CVA Head CT with no acute intracranial abnormality MRA/MRI/carotid ultrasound pending Neurology consulted, appreciate recommendations Restarted patient's Coumadin and aspirin Case management consulted as patient will need assistance obtaining his prescriptions and with follow-up 2. 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 Carotid artery stenosis Neck CTA from 04/27/17 showed 80% left ICA stenosis and 40-50% right ICA stenosis with bilateral vertebral artery stenosis Patient will need to follow-up with vascular surgery as an outpatient 4. Hypertension Permissive hypertension at this time FEN NPO NS at 70 cc/hr Electrolytes: monitor and replete prn Heparin and Coumadin Case discussed with ER physician at length Funmilayo Disla MD Sep 17, 2017 02:57
[2017-09-17 06:09] LABS: AUTOMATED NEUTROPHIL # 3.8 TH/MM3 (1.8-7.7); BASOPHIL % 0.5 % (0.0-2.0); EOSINOPHIL # 0.2 TH/MM3 (0-0.4); EOSINOPHIL % 2.6 % (0.0-4.0); HEMATOCRIT 45.9 % (39.0-51.0); HEMO FLAGS DIFF FINAL; LYMPH % 32.7 % (9.0-44.0); LYMPHOCYTE # 2.2 TH/MM3 (1.0-4.8); MEAN CELL VOLUME 90.6 FL (80.0-100.0); MEAN CORPUSCULAR HGB CONC 34.2 % (32.0-36.0); MONO % 8.6 % (0.0-8.0); NEUT % 55.6 % (16.0-70.0); PLATELET COUNT 127 TH/MM3 (150-450); RED BLOOD COUNT 5.07 MIL/MM3 (4.50-5.90); RED CELL DISTRIBUTION WIDTH 13.8 % (11.6-17.2); WHITE BLOOD COUNT 6.8 TH/MM3 (4.0-11.0)
[2017-09-17 06:40] LABS: ANION GAP 7 MEQ/L (5-15); BICARBONATE 24.8 MEQ/L (21.0-32.0); BLOOD UREA NITROGEN 11 MG/DL (7-18); CHLORIDE 108 MEQ/L (98-107); GLOMERULAR FILTRATION RATE 94 ML/MIN (>89); POTASSIUM 4.1 MEQ/L (3.5-5.1); SODIUM (NA) 140 MEQ/L (136-145)
[2017-09-17 06:43] LABS: HDL CHOLESTEROL 39.9 MG/DL (40.0-60.0); LDL CHOLESTEROL 128 MG/DL (0-99)
[2017-09-17] MEDS: SODIUM CHLOR 0.9% 1000 ML INJ 1,000 ML IV SCH ×2 (07:00→13:45)
[2017-09-17] MEDS: INSULIN ASPART SUPPLEMENTAL SCALE SQ SCH ×4 (08:00→21:00)
[2017-09-17] MEDS: PRAVASTATIN SOD 40 MG TAB PO SCH (08:48)
[2017-09-17] MEDS: SODIUM CHLORIDE 0.9% FLUSH 10 ML FLUSH IV FLUSH SCH ×2 (08:49→21:28)
[2017-09-17] MEDS ORDERED: ASPIRIN EC 81 MG TABEC PO SCH (09:00)
[2017-09-17] MEDS ORDERED: PNEUMOCOCCAL POLYVALENT INJ 25 MCG/0.5 ML SYR IM ONE (09:00)
[2017-09-17] MEDS: HEPARIN SODIUM - SQ 10,000 UNITS/ML VIAL SQ SCH (10:46)
--- NOTE | 2017-09-17 11:54 | RADRPT ---
EXAM DATE/TIME: 09/17/2017 10:50 [facility] COMPARISON: US CAROTID ARTERIES, April 23, 2017, 13:03. INDICATIONS : Transient ischemic attack. MEDICAL HISTORY : Hypertension. Hearing loss. Syncope. Cerebrovascular accident. Measles. SURGICAL HISTORY : CABG. Coronary artery stent. ENCOUNTER: Initial ACUITY: 2 days PAIN SCORE: 5/10 LOCATION: Bilateral neck PEAK SYSTOLIC VELOCITIES (cm/sec): ICA/CCA RATIO: Right: 1.1 Left: 4.6 ICA: Right: 94 Left: 408 CCA: Right: 85 Left: 88 ECA: Right: 134 Left: 165 VERTEBRAL: Right: 80 antegrade Left: 93 antegrade Elevated flow velocities and ICA/CCA ratios have been found to correlate with increased degrees of vessel stenosis, calculated as percentage of diameter relative to a normal segment of distal ICA/CCA FINDINGS: RIGHT CAROTID: Calcified plaque in the carotid bulb with resultant mild, less than 50%, stenosis. The waveforms are within normal limits. LEFT CAROTID: Progression of calcified plaque in the bulb extending to the origin of the ICA with resultant moderat e stenosis on grayscale imaging. However, velocities are consistent with severe, greater than 70%, st enosis. VERTEBRAL ARTERIES: Antegrade flow is seen in both vertebral arteries. MISCELLANEOUS: None. CONCLUSION: 1. Interval progression of calcified plaque in the left carotid bulb extending to the origin of the I CA with resultant severe, greater than 70%, stenosis based on velocity criteria. Grayscale imaging is somewhat discordant and is more consistent with moderate, 50-69%, stenosis. Consider MRA examination for better evaluation as clinically warranted. Harjinder Luque MD on September 17, 2017 at 11:41 Board Certified Radiologist. This report was verified electronically.
--- NOTE | 2017-09-17 12:52 | RADRPT ---
EXAM DATE/TIME: 09/17/2017 11:57 [facility] COMPARISON: MRI BRAIN W/O CONTRAST, April 27, 2017, 11:50. INDICATIONS : TIA. MEDICAL HISTORY : Hypertension. Cardiovascular disease Cerebrovascular disease. SURGICAL HISTORY : CABG ENCOUNTER: Initial ACUITY: 1 day PAIN SCORE: 0/10 LOCATION: cranial TECHNIQUE: Multiplanar, multisequence MRI of the brain was performed without contrast. FINDINGS: CEREBRUM: The ventricles are normal for age. No evidence of midline shift, mass lesion, hemorrhage or acute in farction. No extraaxial fluid collections are seen. The pituitary gland and suprasellar cistern are normal in configuration. WHITE MATTER: Extensive periventricular and deep white matter T2 prolongation consistent with ischemic white matter demyelination. POSTERIOR FOSSA: Cerebellum is intact. There is likely a small old infarct in the left lacho. The 4th ventricle is midl ine. The cerebellopontine angle is unremarkable. The cerebellar tonsils are normal in position. DIFFUSION IMAGING: Small areas of restricted diffusion seen in the left parietal and medial occipital high convexities. More subtle areas of restricted diffusion in the right parietal high convexities as well as the right occipital mid convexities. EXTRACRANIAL: The visualized portions of the orbits and paranasal sinuses are unremarkable. CONCLUSION: 1. Multiple focal acute infarcts in the parietal and occipital lobes bilaterally. 2. Prominent areas of chronic ischemic small vessel vasculopathy, as above. Harjinder Luque MD on September 17, 2017 at 12:44 Board Certified Radiologist. This report was verified electronically.
--- NOTE | 2017-09-17 12:58 | RADRPT ---
EXAM DATE/TIME: 09/17/2017 11:57 [facility] COMPARISON: MRA BRAIN W/O CONTRAST, April 23, 2017, 10:25. INDICATIONS : TIA. MEDICAL HISTORY : Hypertension. Cardiovascular disease Cerebrovascular disease. SURGICAL HISTORY : CABG ENCOUNTER: Initial ACUITY: 1 day PAIN SCORE: 0/10 LOCATION: cranial Please note a normal MRA of the brain does not entirely exclude the possibility of a small aneurysm, nor the possibility of distal intracranial vessel disease. TECHNIQUE: 3D time of flight MRA was performed. Source images, multiplanar STS MIP, and 3D volume MIP reconstru ctions were reviewed. FINDINGS: Anterior circulation: Redemonstration of irregular mild narrowing in the Jesus Manuel segment of the left internal carotid artery which overall is minimally improved in comparison to prior exam. Redemonstration of mild irregularit y of the right carotid siphon. Left A1 segment is again not visualized and may be aplastic. There is no evidence for aneurysm, vessel truncation or stenosis, and no evidence for vascular malformation. Posterior circulation: Symmetric distal vertebral arteries with flow extending to basilar artery. There is no evidence for aneurysm, vessel truncation or stenosis, and no evidence for vascular malformation. CONCLUSION: 1. Redemonstration of irregular narrowing in the Jesus Manuel segment of the left internal carotid artery w ith findings suggestive of eccentric chronic thrombus. This is minimally improved since prior exam. 2. 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 3. No new focal flow-limiting stenosis or large vessel occlusion. Harjinder Luque MD on September 17, 2017 at 12:51 Board Certified Radiologist. This report was verified electronically.
[2017-09-17 13:12] LABS: HEMOGLOBIN A1a 1.2 %; HEMOGLOBIN A1b 1.7 %; HEMOGLOBIN Ao 85.5 %; HEMOGLOBIN P3 3.5 %
[2017-09-17] MEDS ORDERED: LABETALOL HCL 100 MG/20 ML VIAL IV PUSH PRN (14:00)
--- NOTE | 2017-09-17 14:09 | EKG ---
Date Performed: 09/16/2017 Time Performed: 20:58:14 PTAGE: 57 years EKG: Sinus rhythm WITH FREQUENT SUPRAVENTRICULAR PREMATURE COMPLEXES INDETERMINATE AXIS ABNORMAL RHYTHM ECG PREVIOUS TRACING : 05/10/2017 15.49 Since previous tracing, no significant change. DOCTOR: Clemente Valdivia Interpretating Date/Time 09/17/2017 14:07:52
--- NOTE | 2017-09-17 14:20 | RADRPT ---
EXAM DATE/TIME: 09/17/2017 13:47 [facility] COMPARISON: No previous studies available for comparison. INDICATIONS : Patient complains of left hand pain after a fall at home. Swelling to 4th PIPJ and 3rd MCPJ. MEDICAL HISTORY : None. SURGICAL HISTORY : None. ENCOUNTER: Initial ACUITY: 2 days PAIN SCORE: 5/10 LOCATION: Left Hand FINDINGS: Three view examination of the left hand demonstrates no soft tissue swelling, dislocation, or fractur e. The carpal bones appear intact. The interphalangeal and metacarpophalangeal joints are intact. Bony mineralization is normal. CONCLUSION: No acute fracture or joint dislocation. Alex Gregory MD on September 17, 2017 at 14:17 Board Certified Radiologist. This report was verified electronically.
--- NOTE | 2017-09-17 14:40 | ECHRPT ---
Indication: CVA/TIA CONCLUSIONS The left ventricular systolic function is low normal with an estimated ejection fraction in the rang e of 50- 55%. Normal left ventricular size. Wall thickness is measured at the upper limits of normal. No regional wall motion abnormalities are present. Trace mitral valve regurgitation. Pulmonary arterial systolic pressure could not be estimated due to an insufficient tricuspid valve regurgitation doppler jet for measurement. BP: / HR: Rhythm: Sinus MEASUREMENTS (Male / Female) Normal Values Technical Quality:Good 2D ECHO LV Diastolic Diameter PLAX 5.3 cm 4.2 - 5.9 / 3.9 - 5.3 cm LV Systolic Diameter PLAX 3.9 cm IVS Diastolic Thickness 1.2 cm 0.6 - 1.0 / 0.6 - 0.9 cm LVPW Diastolic Thickness 1.2 cm 0.6 - 1.0 / 0.6 - 0.9 cm LV Relative Wall Thickness 0.4 RV Internal Dim ED PLAX 2.9 cm LVOT Diameter 2.2 cm LA Systolic Diameter LX 3.9 cm 3.0 - 4.0 / 2.7 - 3.8 cm LV Ejection Fraction MOD 4C 50.8 % LV Ejection Fraction 4C AL 54.0 % M-MODE Aortic Root Diameter MM 3.1 cm AV Cusp Separation MM 1.7 cm DOPPLER AV Peak Velocity 194.0 cm/s AV Peak Gradient 15.1 mmHg LVOT Peak Velocity 116.0 cm/s LVOT Peak Gradient 5.4 mmHg AV Area Cont Eq pk 2.3 cm MV Peak Velocity 108.0 cm/s MV Peak Gradient 4.7 mmHg MV Mean Velocity 50.9 cm/s MV Mean Gradient 1.0 mmHg MV Area PHT 2.7 cm Mitral E Point Velocity 69.1 cm/s Mitral A Point Velocity 56.3 cm/s Mitral E to A Ratio 1.2 LV E' Lateral Velocity 9.4 cm/s Mitral E to LV E' Lateral Ratio 7.4 LV E' Septal Velocity 6.8 cm/s Mitral E to LV E' Septal Ratio 10.1 PV Peak Velocity 125.0 cm/s PV Peak Gradient 6.3 mmHg FINDINGS LEFT VENTRICLE The left ventricular systolic function is low normal with an estimated ejection fraction in the rang e of 50- 55%. Normal left ventricular size. Wall thickness is measured at the upper limits of normal. No regional wall motion abnormalities are present. RIGHT VENTRICLE Normal right ventricular size and systolic function. LEFT ATRIUM The left atrial size is normal. RIGHT ATRIUM The right atrial size is normal. ATRIAL SEPTUM Normal atrial septal thickness without atrial level shunting by limited color doppler interrogation. AORTA The aortic root and proximal ascending aorta are normal in size on limited imaging. MITRAL VALVE Structurally normal mitral valve. Trace mitral valve regurgitation. AORTIC VALVE Trileaflet aortic valve. No aortic valve stenosis or regurgitation. TRICUSPID VALVE Structurally normal tricuspid valve. No tricuspid valve stenosis or regurgitation. Pulmonary arterial systolic pressure could not be estimated due to an insufficient tricuspid valve regurgitation doppler jet for measurement. PULMONARY VALVE The pulmonary valve is not well visualized. VESSELS The inferior vena cava is normal in size. PERICARDIUM No pericardial effusion. Erick Iqbal MD, FACC (Electronically Signed) Final Date:17 September 2017 14:38
[2017-09-17 15:44] LABS: INTERNATIONAL NORMALIZED RATIO 1.1 RATIO
[2017-09-17] MEDS ORDERED: WARFARIN SOD 4 MG TAB PO SCH (16:00)
--- NOTE | 2017-09-17 16:49 | MB ---
cc: JANINE ANGULO MD DATE OF CONSULTATION 09/17/17 REASON FOR CONSULTATION Stroke alert HISTORY OF PRESENT ILLNESS Mr. Barajas is a 57-year-old male with a past medical history significant for hypertension, coronary artery disease status post coronary artery bypass graft, stroke in April 2017 and extensive bilateral carotid artery disease who was not on antiplatelets or anticoagulation because of insurance issues as he states and no surgical intervention has been done to the carotids due to insurance issues as he states as well. He was started on Coumadin after his April stroke, but he could not afford it as he states and did not follow with vascular surgery for the same reason. He presented to [facility] because of left upper and lower limb weakness that started while he was with his friends at a cookout. He felt numb and weak over the entire left side of his body with some weakness. Denies headache, double vision, blurred vision, speech difficulty, convulsions. He was transferred to the [facility] emergency room. Upon presentation, his vitals were within normal and his symptoms started to resolve. I discussed the case with the attending ER physician and head CT scan was unremarkable and, given his resolution of symptoms and a low NIH stroke scale below four, the patient was not deemed a candidate for IV TPA and he was admitted for TIA/stroke workup and received full dose of aspirin. Of note that after the stroke that he had in April where he has had bilateral infarct and subcortical infarct. There was no residual deficit. REVIEW OF SYSTEMS A 12-point review of systems is negative except for what is stated in the HPI. PAST MEDICAL HISTORY 1. Hypertension, 2. Coronary artery disease status post coronary artery bypass graft. 3. History of stroke April 2017, bilateral subcortical stroke. 4. Extensive bilateral artery stenosis. PAST SURGICAL HISTORY Coronary artery bypass graft twice at age 37. MEDICATIONS 1. Hydrocodone 2. Acetaminophen 3. Aspirin. 4. Coumadin. 4. Pravastatin. The last three medication, he is not taking as he states because of his insurance and he cannot of afford taking the antiplatelets and anticoagulation as per his own words. ALLERGIES No known allergies. FAMILY HISTORY Both parents have extensive coronary artery disease. SOCIAL HISTORY Still smokes half pack a day for 20 years. Occasional alcohol, marijuana twice per week. PHYSICAL EXAMINATION GENERAL: Awake, alert, disheveled, good historian. HEENT: Atraumatic, normocephalic. Intact hearing. Intact vision. NECK: Trachea in the midline. No signs of meningeal irritation. CARDIOVASCULAR: Regular rate and rhythm. RESPIRATORY: Clear to auscultation. No wheezes. GASTROINTESTINAL: Soft abdomen, nontender. MUSCULOSKELETAL: No clubbing, cyanosis or edema. NEUROLOGIC: Awake, alert, oriented, no dysarthria, no dysphasia. No facial asymmetry. No nystagmus. No ptosis. Pupils 3 mm bilateral equally reacting to light. Right upper and lower extremity 5/5. No abnormal movement, normal tone. Left upper extremity - inconsistent numbness, unable to accurately assess the muscle strength because of fracture on the left hand status post recent fall. Left lower extremity unable to accurately assess because of give- away due to pain and lack of cooperation. Reflexes 2+ bilateral symmetrical. Plantars bilaterally downgoing. PSYCHIATRIC: Cooperative, nrmal mood and behavior, no hallucinations LABORATORY DATA White blood cells nine, hemoglobin 17, platelet count 174. BUN 13, creatinine 0.93, sodium 136, protein 8.1, albumin 3.7, calcium 8.3. IMAGING STUDIES - Head CT scan without contrast was unremarkable. - MRI brain without contrast revealed multiple acute infarctions in the parietal and occipital lobes. - Carotid ultrasound revealed left ICA greater than 70% stenosis, right ICA greater than 50% stenosis. DIAGNOSTIC IMPRESSION 1. Acute ischemic stroke bilateral likely athero-thrombotic. 2. History of extensive carotid artery disease. 3. Hypertension. PLAN - Neuro checks q. four hourly - Allow permissive hypertension for 24 hours after the onset of symptoms and treat for blood pressure greater than 220/120. - Aspirin 325 mg daily. - Consult vascular surgery, recommendations are appreciated. - DVT prophylaxis. - PT OT recommendations are appreciated. - Speech therapy recommendations are appreciated. Thank you for the opportunity to participate in the care of the patient. MD NANDINI Tubbs/ /3:55 PM /4:28 PM [email or web address]
[2017-09-17] MEDS ORDERED: HEPARIN-D5W 25,000 U/250 ML 250 ML IV PRN (17:00)
[2017-09-17 17:25] LABS: APTT (PATIENT) 24.7 SEC (24.3-30.1)
[2017-09-17] MEDS ORDERED: ASPIRIN EC 81 MG TABEC PO ONE ×2 (17:45)
[2017-09-17] MEDS ORDERED: ASPIRIN 325 MG TAB PO ONE (17:45)
--- NOTE | 2017-09-17 18:03 | HHI.PR ---
Subjective Remarks Follow-up on patient with TIA/CVA. Patient seen and examined. Patient complaining of left hand pain and decreased range of motion. Patient states he fell on the left hand yesterday. Patient complains of headache. Patient with hx of CVA with transient right sided neuro sxs 04/2017. States he is not taking any of his medications since his discharge in April due to financial constraints. He has continued to smoke. He denies any alcohol since his discharge in April of this year. He has not had any follow-up since his discharge. He denies any difficulty swallowing. Reports weakness has improved in the left upper and lower extremity. Objective Vitals Vital Signs Date Time Temp Pulse Resp B/P (MAP) Pulse Ox O2 Delivery O2 Flow Rate FiO2 09/17/17 16:15 98.2 55 18 173/70 (104) 96 09/17/17 14:04 62 18 202/90 (127) 96 09/17/17 13:46 18 09/17/17 13:25 98.2 90 20 205/86 (125) 96 09/17/17 08:19 98.2 63 20 174/73 (106) 96 09/17/17 08:00 61 09/17/17 02:29 98.2 64 17 148/69 (95) 97 09/17/17 00:19 65 16 163/74 (103) 97 09/16/17 20:51 98.6 87 16 147/72 (97) 98 Room Air 09/16/17 20:40 98.6 90 16 147/72 (97) 99 09/16/17 20:35 99 21 I/O 09/16/17 09/16/17 09/16/17 09/17/17 09/17/17 09/17/17 07:00 15:00 23:00 07:00 15:00 23:00 Intake Total 2000 ml 455 ml Output Total 700 ml Balance 2000 ml -245 ml Intake IV Total 2000 ml 455 ml Output Urine Total 700 ml Result Diagram: 09/17/17 0515 09/17/17 0515 Imaging Last Impressions Head Magnetic Resonance Angiography 09/17/17 0000 Signed Impressions: Service Date/Time: Sunday, September 17, 2017 11:57 - CONCLUSION: 1. Redemonstration of irregular narrowing in the Jesus Manuel segment of the left internal carotid artery with findings suggestive of eccentric chronic thrombus. This is minimally improved since prior exam. 2. 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 3. No new focal flow-limiting stenosis or large vessel occlusion. Harjinder Luque MD Hand X-Ray 09/17/17 0000 Signed Impressions: Service Date/Time: Sunday, September 17, 2017 13:47 - CONCLUSION: No acute fracture or joint dislocation. Alex Gregory MD Carotid Artery Ultrasound 09/17/17 0000 Signed Impressions: Service Date/Time: Sunday, September 17, 2017 10:50 - CONCLUSION: 1. Interval progression of calcified plaque in the left carotid bulb extending to the origin of the ICA with resultant severe, greater than 70%%, stenosis based on velocity criteria. Grayscale imaging is somewhat discordant and is more consistent with moderate, 50-69%%, stenosis. Consider MRA examination for better evaluation as clinically warranted. Harjinder Luque MD Brain MRI 09/17/17 0000 Signed Impressions: Service Date/Time: Sunday, September 17, 2017 11:57 - CONCLUSION: 1. Multiple focal acute infarcts in the parietal and occipital lobes bilaterally. 2. Prominent areas of chronic ischemic small vessel vasculopathy, as above. Harjinder Luque MD Head CT [id number]/16/[id number] Signed Impressions: Service Date/Time: Saturday, September 16, 2017 20:48 - CONCLUSION: 1. No acute infarct, acute hemorrhage, mass effect or extra-axial fluid collections. 2. Minimal scattered periventricular and subcortical white matter small vessel ischemic changes bilaterally. Andrade Milligan MD Objective Remarks GENERAL: Well-developed well-nourished male, in no acute distress. Awake and alert. SKIN: Warm and dry. HEAD: Atraumatic. Slight left sided facial droop appreciated. EYES: Extraocular motions intact. No scleral icterus. No injection or drainage. ENT: Nose without bleeding or purulent drainage. Tongue midline. Airway patent. NECK: Trachea midline. Tenderness to palpation over left sided cervical paraspinous muscles. CARDIOVASCULAR: Regular rate and rhythm without murmurs, gallops, or rubs. RESPIRATORY: Coarse breath sounds throughout. GASTROINTESTINAL: Abdomen soft, non-tender, nondistended. No hepato-splenomegaly , or palpable masses. No guarding. MUSCULOSKELETAL: Extremities without clubbing, cyanosis, or edema. No calf tenderness. (+)obvious swelling over left MCPs. Tender to palpation. Decreased ROM left hand. NEUROLOGICAL: Awake and alert. Cranial nerves II through XII grossly intact. Normal speech. 5/5 strength in the upper and lower extremities. Unable to test left hand dental surgeon strength secondary to pain. Medications and IVs Current Medications Medications (Trade) Dose Ordered Sig/Aria Route Start Time Stop Time Status Last Admin (NS Flush) 2 ml BID IV FLUSH 09/17/17 09:00 09/17/17 08:49 (NS Flush) 2 ml UNSCH PRN IV FLUSH 09/16/17 22:15 Sodium Chloride 1,000 ml @ 70 mls/hr [id number] IV 09/16/17 22:02 09/17/17 07:00 (NovoLOG SUPPLEMENTAL SCALE) 1 ACHS SQ 09/17/17 08:00 (D50w (Vial) Inj) 50 ml UNSCH PRN IV PUSH 09/16/17 22:15 (Glucagon Inj) 1 mg UNSCH PRN OTHER 09/16/17 22:15 (Ecotrin Ec) 81 mg DAILY PO 09/17/17 09:00 09/17/17 08:48 (Pravachol) 40 mg DAILY PO 09/17/17 09:00 09/17/17 08:48 (Coumadin) 4 mg DAILY@16 PO 09/17/17 16:00 Pharmacy Profile Note 0 ml @ 0 mls/hr UNSCH OTHER 09/17/17 10:45 (Roxicodone) 5 mg Q4H PRN PO 09/17/17 12:15 09/17/17 12:46 (Trandate Inj) 10 mg Q2H PRN IV PUSH 09/17/17 14:00 Heparin Sodium/ Dextrose 250 ml @ 9 mls/hr TITRATE PRN IV 09/17/17 17:00 A/P Assessment and Plan 1. Acute ischemic CVA History of carotid artery disease, lost to follow-up Head CT with no acute intracranial abnormality MRI brain without contrast revealed multiple acute infarctions in the parietal and occipital lobes. Obtain echocardiogram. Interrogate loop recorder. Carotid ultrasound revealed left ICA greater than 70% stenosis, right ICA greater than 50% stenosis. Consult Vascular surgery, appreciate assistance. Neurology consulted, appreciate recommendations. ASA 325mg daily. Allow permissive hypertension 24 hours, treat for SBP greater than 220. IV Labetalol prn with parameters. HgbA1c 5.6, LDL 128. Pravastatin daily. Patient passed bedside swallow eval PT/OT/ST HOB flat Seizure precautions Rehab consult Continue on Coumadin. INR subtherapeutic,medication noncompliant. Continue to monitor INR. Consult pharmacy to dose. 2. Left hand pain s/p fall Xray left hand obtained revealing no acute fracture 3. 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 CAD s/p CABG Hypertension, not controlled secondary to medication noncompliance Patient has no cardiac complaints at present Permissive hypertension at this time ASA daily 5. Tobacco use Patient counseled on the importance of cessation. FEN NS at 70 cc/hr Electrolytes: monitor and replete prn Heparin and Coumadin Discussed with patient, nursing staff and Radha Britt Sep 17, 2017 18:03
[2017-09-18 00:16] VITALS: BP 200/89; PULSE 64; RESP 19; TEMP 101.9; O2SAT 95
[2017-09-18 01:09] LABS: APTT (PATIENT) 30.9 SEC (24.3-30.1)
[2017-09-18 05:21] VITALS: BP 163/56; PULSE 89; RESP 19; TEMP 101.3; O2SAT 92
[2017-09-18 08:00] VITALS: BP 166/74; PULSE 65; RESP 16; TEMP 99.8; O2SAT 93
[2017-09-18] MEDS: INSULIN ASPART SUPPLEMENTAL SCALE SQ SCH ×4 (08:00→22:55)
[2017-09-18] MEDS: SODIUM CHLORIDE 0.9% FLUSH 10 ML FLUSH IV FLUSH SCH ×2 (09:00→22:49)
[2017-09-18] MEDS ORDERED: ASPIRIN 325 MG TAB PO SCH (09:00)
[2017-09-18] MEDS: PRAVASTATIN SOD 40 MG TAB PO SCH (09:12)
--- NOTE | 2017-09-18 09:46 | HHI.PR ---
Subjective Remarks Follow-up on patient with TIA/CVA. Patient reports that he is not very comfortable. He complains of neck stiffness, headache. He also has fever. His fever ranged from 99.8 to 101.9F. Denies any chest pain, shortness of breath, cough. Denies any changes in bowel or bladder habits. Objective Vitals Vital Signs Date Time Temp Pulse Resp B/P (MAP) Pulse Ox O2 Delivery O2 Flow Rate FiO2 09/18/17 08:00 99.8 65 16 166/74 (104) 93 09/18/17 05:21 101.3 89 19 163/56 (91) 92 09/18/17 00:35 18 09/18/17 00:16 101.9 64 19 200/89 (126) 95 09/17/17 22:09 100.1 62 20 148/86 (106) 96 09/17/17 19:51 202/108 (139) 09/17/17 19:38 97.4 68 18 217/106 (143) 94 09/17/17 16:15 98.2 55 18 173/70 (104) 96 09/17/17 14:04 62 18 202/90 (127) 96 09/17/17 13:25 98.2 90 20 205/86 (125) 96 I/O 09/17/17 09/17/17 09/17/17 09/18/17 09/18/17 09/18/17 07:00 15:00 23:00 07:00 15:00 23:00 Intake Total 2000 ml 420 ml 599 ml 624 ml Output Total 700 ml 650 ml Balance 2000 ml -280 ml 599 ml -26 ml Intake Oral 240 ml IV Total 2000 ml 420 ml 359 ml 624 ml Output Urine Total 700 ml 650 ml Result Diagram: 09/17/17 0515 09/17/17 0515 Imaging Last Impressions Chest X-Ray 09/18/17 1238 Signed Impressions: Service Date/Time: Monday, September 18, 2017 12:46 - CONCLUSION: No evidence of acute cardiopulmonary disease. Nathan Dawkins MD Neck CTA 09/18/17 0000 Signed Impressions: Service Date/Time: Monday, September 18, 2017 11:26 - CONCLUSION: 1. There continues to be a focal high-grade stenosis involving the proximal segment of the left internal carotid artery of approximately 80-90%% 2. There continues to be some mild to moderate focal stenosis involving the proximal segment of the right internal carotid artery of approximately 40-50%%. 3. There is atherosclerotic plaquing at both carotid bifurcations. 4. Compared to the prior examination, no significant changes are demonstrated. Alex Gregory MD Head Magnetic Resonance Angiography 09/17/17 0000 Signed Impressions: Service Date/Time: Sunday, September 17, 2017 11:57 - CONCLUSION: 1. Redemonstration of irregular narrowing in the Jesus Manuel segment of the left internal carotid artery with findings suggestive of eccentric chronic thrombus. This is minimally improved since prior exam. 2. 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 3. No new focal flow-limiting stenosis or large vessel occlusion. Harjinder Luque MD Hand X-Ray 09/17/17 0000 Signed Impressions: Service Date/Time: Sunday, September 17, 2017 13:47 - CONCLUSION: No acute fracture or joint dislocation. Alex Gregory MD Carotid Artery Ultrasound 09/17/17 0000 Signed Impressions: Service Date/Time: Sunday, September 17, 2017 10:50 - CONCLUSION: 1. Interval progression of calcified plaque in the left carotid bulb extending to the origin of the ICA with resultant severe, greater than 70%%, stenosis based on velocity criteria. Grayscale imaging is somewhat discordant and is more consistent with moderate, 50-69%%, stenosis. Consider MRA examination for better evaluation as clinically warranted. Harjinder Luque MD Brain MRI 09/17/17 0000 Signed Impressions: Service Date/Time: Sunday, September 17, 2017 11:57 - CONCLUSION: 1. Multiple focal acute infarcts in the parietal and occipital lobes bilaterally. 2. Prominent areas of chronic ischemic small vessel vasculopathy, as above. Harjinder Luque MD Head CT 09/16/[id number] Signed Impressions: Service Date/Time: Saturday, September 16, 2017 20:48 - CONCLUSION: 1. No acute infarct, acute hemorrhage, mass effect or extra-axial fluid collections. 2. Minimal scattered periventricular and subcortical white matter small vessel ischemic changes bilaterally. Andrade Milligan MD Objective Remarks GENERAL: Alert, Appears uncomfortable, in mild distress due to neck stiffness. SKIN: Warm and dry. HEAD: Normocephalic. Pain on movement of his head. EYES: No scleral icterus. No injection or drainage. NECK: Trachea midline. No JVD or lymphadenopathy. Neck feels stiff on anterior- posterior movement as well as lateral movements. CARDIOVASCULAR: Regular rate and rhythm without murmurs, gallops, or rubs. RESPIRATORY: Breath sounds equal bilaterally. No accessory muscle use. GASTROINTESTINAL: Abdomen soft, non-tender, nondistended. MUSCULOSKELETAL: No cyanosis, or edema. BACK: Nontender without obvious deformity. No CVA tenderness. Procedures Echo 09/17/2017. The left ventricular systolic function is low normal with an estimated ejection fraction in the range of 50- 55%. Normal left ventricular size. Wall thickness is measured at the upper limits of normal. No regional wall motion abnormalities are present. Trace mitral valve regurgitation. Pulmonary arterial systolic pressure could not be estimated due to an insufficient tricuspid valve regurgitation doppler jet for measurement. A/P Problem List: (1) Carotid stenosis, bilateral ICD Code: I65.23 - Occlusion and stenosis of bilateral carotid arteries (2) Cerebrovascular accident, embolic ICD Code: I63.9 - Cerebral infarction, unspecified Status: Acute Assessment and Plan Mr. Barajas is a 57 year old male with a history of hypertension, coronary artery disease a status post CABG, stroke who presented to the emergency department due to left upper and lower extremity weakness. Neurology consulted. Patient did not receive TPA. Further workup including MRI shows bilateral infarctions, likely embolic in nature. - Probable Acute bacterial meningitis - Patient has headache, fever, neck stiffness. He also looks uncomfortable. - Patient's symptoms indicated possible bacterial meningitis. We would like to start empirical treatment. - Will start patient on 1) Dexamethasone 10mg Q6hrs 2) Rocephin 2g Q12hrs 3) Vancomycin 2g now and subsequent dosing per pharmacy. 4) Ampicillin 2g Q4hrs 5) Acyclovir 785mg. - Will get LP study. Hold warfarin. Continue Heparin - can be stopped prior to LP. - Discussed at length with ID. - Per ID, we will also get Hepatitis, HIV screening. - Acute bilateral stroke, likely embolic. - Neurology following. Patient is currently on Aspirin 325mg Qday. - Continue Pravastatin 40mg QHS. - Coronary artery disease s/p CABG. - Continue Aspirin, statin. Will consider switching Pravastatin to Lipitor. - Tobacco abuse - patient has been counselled on tobacco cessation. Full code. Heparin Drip. Discussed with RN, ID. Total critical care time spent more than 60 minutes. Dian Guerrero DO Sep 18, 2017 09:46
--- NOTE | 2017-09-18 10:01 | PD.VS.CON ---
History of Present Illness Chief Complaint: CVA Consult Requested by: Medical service History of Present Illness 57 yo male who was having a cook-out on Tuesday (2d ago) and the LEFT side of his body went weak. Lasted all day according to the patient. Slowly getting better but not normal at present. Also notes that his RIGHT side is now numb. He is also c/o headaches. He was hospitalized in April for "passing out" but was without focal deficit at that time and on imaging studies, was found then to have B hemispheric acute events. Carotid imaging at that time showed 80% LEFT and 50% RIGHT stenosis. Given bilaterality of his symptoms then, he was offered medical management and given a clinic appointment for May 27, but he never showed. MRI on this admission again shows bilateral hemispheric infarcts felt to be consistent with embolic events. Past/Family/Social History Past Medical History HTN CAD CVOD tobacco abuse Past Surgical History CABG at age 37 Social History + Tobacco Family History NC Home Medications Active Scripts Warfarin (Coumadin) 4 Mg Tab, 4 MG PO DAILY@16 for Stroke Prevention, #30 TAB 0 Refills Prov:Tiago Calderon MD 04/29/17 Pravastatin (Pravachol) 40 Mg Tab, 40 MG PO DAILY for Cholesterol Management, # 30 TAB 0 Refills Prov:Tiago Calderon MD 04/29/17 Hydrocodone-Acetaminophen (Hydrocodone-Acetaminophen) 5-325 mg Tab, 1 TAB PO Q4H Y for PAIN SCALE 1 TO 10, #20 TAB 0 Refills Prov:Tiago Calderon MD 04/29/[address] (Adult Aspirin EC Low Strength) 81 Mg Tabec, 81 MG PO DAILY for Stroke Prevention, #30 TAB 0 Refills Prov:Tiago Calderon MD 04/29/17 Coded Allergies: No Known Allergies (Verified Allergy, Severe, 04/29/08) Review of Systems Eyes: DENIES: Diplopia, Vision loss Cardiovascular: DENIES: Chest pain Neurologic: COMPLAINS OF: Headache, Localized weakness, Paresthesias Physical Exam Vitals/I&O Date Time Temp Pulse Resp B/P (MAP) Pulse Ox O2 Delivery O2 Flow Rate FiO2 09/18/17 08:00 99.8 65 16 166/74 (104) 93 09/18/17 05:21 101.3 89 19 163/56 (91) 92 09/18/17 00:35 18 09/18/17 00:16 101.9 64 19 200/89 (126) 95 09/17/17 22:09 100.1 62 20 148/86 (106) 96 09/17/17 19:51 202/108 (139) 09/17/17 19:38 97.4 68 18 217/106 (143) 94 09/17/17 16:15 98.2 55 18 173/70 (104) 96 09/17/17 14:04 62 18 202/90 (127) 96 09/17/17 13:25 98.2 90 20 205/86 (125) 96 09/18/17 09/18/17 09/18/17 07:00 15:00 23:00 Intake Total 624 ml Output Total 650 ml Balance -26 ml Neuro: no distress; LEFT side weaker than RIGHT UE and LE HEENT: NC/AT; anicteric sclera Neck: no JVD Heart: reg rate, no M; healed sternotomy Lungs: clear B Abdomen: NT Vascular: palpable UE pulses Extremities: 4+ L UE and L LE strength 5 R UE and R LE strength Laboratory Tests Test 09/17/17 15:25 09/18/17 00:50 Prothrombin Time 11.0 Prothromb Time International Ratio 1.1 Activated Partial Thromboplast Time 24.7 30.9 Last 48 hours Impressions Head Magnetic Resonance Angiography 09/17/17 0000 Signed Impressions: Service Date/Time: Sunday, September 17, 2017 11:57 - CONCLUSION: 1. Redemonstration of irregular narrowing in the Jesus Manuel segment of the left internal carotid artery with findings suggestive of eccentric chronic thrombus. This is minimally improved since prior exam. 2. 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 3. No new focal flow-limiting stenosis or large vessel occlusion. Harjinder Luque MD Hand X-Ray 09/17/17 0000 Signed Impressions: Service Date/Time: Sunday, September 17, 2017 13:47 - CONCLUSION: No acute fracture or joint dislocation. Alex Gregory MD Carotid Artery Ultrasound 09/17/17 0000 Signed Impressions: Service Date/Time: Sunday, September 17, 2017 10:50 - CONCLUSION: 1. Interval progression of calcified plaque in the left carotid bulb extending to the origin of the ICA with resultant severe, greater than 70%%, stenosis based on velocity criteria. Grayscale imaging is somewhat discordant and is more consistent with moderate, 50-69%%, stenosis. Consider MRA examination for better evaluation as clinically warranted. Harjinder Luque MD Brain MRI 09/17/17 0000 Signed Impressions: Service Date/Time: Sunday, September 17, 2017 11:57 - CONCLUSION: 1. Multiple focal acute infarcts in the parietal and occipital lobes bilaterally. 2. Prominent areas of chronic ischemic small vessel vasculopathy, as above. Harjinder Luque MD Head CT [id number] Signed Impressions: Service Date/Time: Saturday, September 16, 2017 20:48 - CONCLUSION: 1. No acute infarct, acute hemorrhage, mass effect or extra-axial fluid collections. 2. Minimal scattered periventricular and subcortical white matter small vessel ischemic changes bilaterally. Andrade Milligan MD Assessment and Plan Plan Pt with CVOD and bilateral potentially embolic events by MR but clearly RIGHT brain more affected clinically (LEFT body). 1. Certainly needs aggressive medical management including antiplatelet and statin. 2. Repeated neuro checks 3. CTA of the neck. 4. May benefit from carotid intervention but bilaterality confuses the picture. Previously the LEFT was 80%. Clinically, the RIGHT is more worrisome. 5. Smoking cessation. Will follow closely Andrade Bertrand MD FACS [employer] income tax preparer [facility] [phone] Andrade Bertrand MD Sep 18, 2017 10:01
[2017-09-18] MEDS ORDERED: Vancomycin Consult Pharmacy 1 EA OTHER SCH (10:30)
[2017-09-18 10:42] LABS: AUTOMATED NEUTROPHIL # 9.8 TH/MM3 (1.8-7.7); BASOPHIL % 0.3 % (0.0-2.0); EOSINOPHIL % 0.2 % (0.0-4.0); HEMATOCRIT 44.8 % (39.0-51.0); HEMO FLAGS DIFF FINAL; LYMPH % 12.2 % (9.0-44.0); LYMPHOCYTE # 1.5 TH/MM3 (1.0-4.8); MEAN CELL VOLUME 90.1 FL (80.0-100.0); MEAN CORPUSCULAR HEMOGLOBIN 31.1 PG (27.0-34.0); MEAN CORPUSCULAR HGB CONC 34.5 % (32.0-36.0); MONO % 9.6 % (0.0-8.0); NEUT % 77.7 % (16.0-70.0); PLATELET COUNT 115 TH/MM3 (150-450); RED BLOOD COUNT 4.97 MIL/MM3 (4.50-5.90); RED CELL DISTRIBUTION WIDTH 13.5 % (11.6-17.2); WHITE BLOOD COUNT 12.6 TH/MM3 (4.0-11.0)
[2017-09-18 10:46] LABS: INTERNATIONAL NORMALIZED RATIO 1.1 RATIO; PROTHROMBIN TIME - PATIENT 11.5 SEC (9.8-11.6)
[2017-09-18 10:48] LABS: APTT (PATIENT) 32.2 SEC (24.3-30.1)
[2017-09-18] MEDS: ACETAMINOPHEN 325 MG TAB PO PRN ×2 (10:48→14:06)
[2017-09-18] MEDS ORDERED: IOHEXOL 350 MG/ML 10 ML VIAL (for RAD DIAG) IVCONTRAST ONE (11:28)
[2017-09-18 12:00] VITALS: BP 156/73; PULSE 60; RESP 16; TEMP 98.3; O2SAT 93
[2017-09-18] MEDS ORDERED: VANCOMYCIN INJ 2,000 MG in SODIUM CHLORID 0.9% 500 ML INJ 500 ML IV ONE (12:00)
--- NOTE | 2017-09-18 12:07 | RADRPT ---
EXAM DATE/TIME: 09/18/2017 11:26 [facility] COMPARISON: CTA CAROTID ARTERIES W 3D RECON, April 27, 2017, 10:18. INDICATIONS : TIA, post stroke alert. IV CONTRAST: 86 cc Omnipaque 350 (iohexol) IV RADIATION DOSE: 28.52 CTDIvol (mGy) MEDICAL HISTORY : Cerebrovascular disease. Cardiovascular disease Hypertension.Diabetes. SURGICAL HISTORY : None. ENCOUNTER: Subsequent ACUITY: 2 days PAIN SCALE: 5/10 LOCATION: Left neck Elevated flow velocities and ICA/CCA ratios have been found to correlate with increased degrees of vessel stenosis, calculated as percentage of diameter relative to a normal segment of distal ICA/CCA. TECHNIQUE: Volumetric scanning was performed using a multirow detector CT scanner. The data was post processed with a variety of visualization algorithms including full-volume maximum intensity projection, multip lanar sliding thin-slab reformation, curved-planar reformation, and surface-rendering techniques. Us ing automated exposure control and adjustment of the mA and/or kV according to patient size, radiatio n dose was kept as low as reasonably achievable to obtain optimal diagnostic quality images. DICOM f ormat image data is available electronically for review and comparison. FINDINGS: AORTIC ARCH: There is a three-vessel origin of the great vessels from the aorta. No evidence of ostial narrowing. There is atherosclerotic plaquing on the thoracic aortic arch. No new or significant changes compare d to the prior examination. RIGHT CAROTID: The common carotid artery is intact. The carotid bifurcation is patent. There is a calcified plaque a long the proximal portion of the right internal carotid artery. This is causing approximately 40-50% narrowing. This is stable compared to the prior study.. The external carotid artery is intact. No si gnificant changes compared to the prior examination. LEFT CAROTID: The common carotid artery is intact. There continues to be atherosclerotic plaquing at involving the proximal segment of the left internal carotid artery. Approximately 1.5 cm above the origin there is a focal high-grade stenosis of approximately 80-90%. This is not significant change compared to the p rior examination. The external carotid artery remains patent and unchanged.. VERTEBRALS: The vertebral arteries are patent bilaterally. There is some atherosclerotic plaquing along both the vertebral arteries, left greater than right.. No new or significant changes are seen compared to the prior examination. There continues to be a soft tissue type mass in the oropharynx which may be associated with the uvul a. This mass continues to measure approximately 1.2 x 1.0 cm. CONCLUSION: 1. There continues to be a focal high-grade stenosis involving the proximal segment of the left inter nal carotid artery of approximately 80-90% 2. There continues to be some mild to moderate focal stenosis involving the proximal segment of the r ight internal carotid artery of approximately 40-50%. 3. There is atherosclerotic plaquing at both carotid bifurcations. 4. Compared to the prior examination, no significant changes are demonstrated. Alex Gregory MD on September 18, 2017 at 11:55 Board Certified Radiologist. This report was verified electronically.
[2017-09-18] MEDS ORDERED: ACYCLOVIR IV SCH (13:00)
[2017-09-18] MEDS ORDERED: SODIUM CHLORIDE 0.9% IV SCH (13:00)
[2017-09-18] MEDS ORDERED: VANCOMYCIN INJ 1,250 MG in SODIUM CHLOR 0.9% 250 ML INJ 250 ML IV ONE (13:00)
--- NOTE | 2017-09-18 13:03 | RADRPT ---
EXAM DATE/TIME: 09/18/2017 12:46 [facility] COMPARISON: CHEST SINGLE AP, May 10, 2017, 16:42. INDICATIONS : Fever since this morning. MEDICAL HISTORY : Hypertension. Hearing loss. Syncope. Cerebrovascular accident. Measles. SURGICAL HISTORY : CABG. Coronary artery stent. ENCOUNTER: Subsequent ACUITY: 2 days PAIN SCORE: 0/10 LOCATION: Bilateral chest FINDINGS: A single view of the chest demonstrates the lungs to be symmetrically aerated without evidence of mas s, infiltrate or effusion. The cardiomediastinal contours are unremarkable. Osseous structures are intact. CONCLUSION: No evidence of acute cardiopulmonary disease. Nathan Dawkins MD on September 18, 2017 at 13:01 Board Certified Radiologist. This report was verified electronically.
[2017-09-18] MEDS: cefTRIAXone INJ 2,000 MG in SODIUM CHLORIDE 0.9% INJ 100 ML IV SCH (13:33)
[2017-09-18] MEDS: DEXAMETHASONE SOD PHOS 20 MG/5 ML VIAL IV PUSH SCH ×3 (13:35→22:49)
--- NOTE | 2017-09-18 13:44 | PD.ID.CON ---
History of Present Illness Service ID Consult Requested By Reason for Consult Evaluation and Mment of fever in a patient with neurological symptoms ? meningoencephalitis. Primary Care Physician Unknown Diagnoses: History of Present Illness is a 57 y/o male with past medical history significant for hypertension, coronary artery disease status post coronary artery bypass, cerebrovascular accident in March 2017. Patient reports that he's had prior stroke or TIAs at least 2 times in the past. Patient now presents to the emergency department acute onset of left-sided numbness and weakness. Patient reports that he was at home with his friends partying when he suddenly noticed that his left side upper extremity was heavy, and he had to lift his arm and was unable to perform activities of the left side. He also noticed tingling in his left upper extremity as well as lower extremity as well as on the bottom half of his left face. He reports that his symptoms improved but he did not return to his baseline even today when I see him. During his last hospitalization he was found to have 80% left ICA stenosis and 40-50% right ICA stenosis. He was instructed to follow-up with vascular surgery. He also had an abnormal thoracic MRI. Patient was supposed to follow up with neurosurgery as outpatient. Patient was started on Coumadin during his last hospitalization but he has not been taking. Upon admission he had a stroke workup and was seen by Dr. Quiles and ruled in for stroke. Upon initial presentation patient did not have any fever or chills. There was no history of preceding fever chills or night sweats. There were no preceding symptoms of infection. Neuro imaging in the form of CT and MRI not diagnostic of any acute infectious etiology like encephalitis or abscess. Denies fever or chills Denies blurry vision, otorrhea, rhinorrhea Denies sore throat and cough No chest pain, palpitations, shortness of breath No abdominal pain Denies constipation/diarrhea/nausea/vomiting Denies muscle pain/ positive left sided weakness No rashes Patient started developing fever after admission and infectious disease is now consulted for fever in a patient with neurological symptoms to rule out meningoencephalitis. At the time of my evaluation patient is currently on the floor sitting up in bed he does report having fevers with sweats at the present time he also reports some neck pain as well as stiffness which is new since coming into the hospital he did not have this prior to his stroke symptoms. Review of Systems ROS Limitations: Poor Historian Past Family Social History Allergies: Coded Allergies: No Known Allergies (Verified Allergy, Severe, 04/29/08) Past Medical History Hypertension CAD status post CABG History of CVA 04/30/17 Past Surgical History CABG 2 at age 37 Reported Medications Reported Meds & Active Scripts Active Coumadin (Warfarin) 4 Mg Tab 4 Mg PO DAILY@16 Pravachol (Pravastatin) 40 Mg Tab 40 Mg PO DAILY Hydrocodone-Acetaminophen 5-325 mg Tab 1 Tab PO Q4H PRN Adult Aspirin EC Low Strength (Aspirin) 81 Mg Tabec 81 Mg PO DAILY Active Ordered Medications Current Medications Medications (Trade) Dose Ordered Sig/Aria Route Start Time Stop Time Status Last Admin (NS Flush) 2 ml BID IV FLUSH 09/17/17 09:00 09/18/17 09:00 (NS Flush) 2 ml UNSCH PRN IV FLUSH 09/16/17 22:15 Sodium Chloride 1,000 ml @ 70 mls/hr [id number] IV 09/16/17 22:02 09/17/17 07:00 (NovoLOG SUPPLEMENTAL SCALE) 1 ACHS SQ 09/17/17 08:00 (D50w (Vial) Inj) 50 ml UNSCH PRN IV PUSH 09/16/17 22:15 (Glucagon Inj) 1 mg UNSCH PRN OTHER 09/16/17 22:15 (Pravachol) 40 mg DAILY PO 09/17/17 09:00 09/18/17 09:12 (Coumadin) 4 mg DAILY@16 PO 09/17/17 16:00 Future Hold 09/17/17 17:34 Pharmacy Profile Note 0 ml @ 0 mls/hr UNSCH OTHER 09/17/17 10:45 (Roxicodone) 5 mg Q4H PRN PO 09/17/17 12:15 09/18/17 09:10 (Trandate Inj) 10 mg Q2H PRN IV PUSH 09/17/17 14:00 Heparin Sodium/ Dextrose 250 ml @ 9 mls/hr TITRATE PRN IV 09/17/17 17:00 09/17/17 17:41 (Aspirin) 325 mg DAILY PO 09/18/17 09:00 09/18/17 09:12 (Tylenol) 650 mg Q4H PRN PO 09/18/17 10:15 09/18/17 10:48 (Decadron Inj) 10 mg Q6H IV PUSH 09/18/17 11:00 09/22/17 05:01 Ceftriaxone Sodium 2000 mg/ Sodium Chloride 100 ml @ 200 mls/hr Q12H IV 09/18/17 12:00 Pharmacy Profile Note 0 ml @ 0 mls/hr UNSCH OTHER 09/18/17 10:30 Ampicillin Sodium 2000 mg/Sodium Chloride 100 ml @ 300 mls/hr Q4H IV 09/18/17 11:00 Vancomycin HCl 2000 mg/Sodium Chloride 520 ml @ 250 mls/hr ONCE ONCE IV 09/18/17 12:00 09/18/17 14:04 Miscellaneous Information SPECIFIC LAB TO BE DRAWN:VANCO DATE TO... ONCE ONCE .XX 09/20/17 03:45 09/20/17 03:46 Vancomycin HCl 1250 mg/Sodium Chloride 262.5 ml @ 250 mls/hr Q12H IV 09/19/17 04:00 Acyclovir Sodium 785 mg/Sodium Chloride 150 ml @ 150 mls/hr Q8H IV 09/18/17 14:00 Family History reviewed and NC to current ID problems. Social History reports smoking 1 ppd for many years. Wishes to quit hopefully soon. Denies alcohol. Denies IVDA but admits to cocaine. Single, lives alone. Physical Exam Vital Signs Vital Signs Date Time Temp Pulse Resp B/P (MAP) Pulse Ox O2 Delivery O2 Flow Rate FiO2 09/18/17 12:00 98.3 60 16 156/73 (100) 93 09/18/17 08:00 99.8 65 16 166/74 (104) 93 09/18/17 05:21 101.3 89 19 163/56 (91) 92 09/18/17 00:35 18 09/18/17 00:16 101.9 64 19 200/89 (126) 95 09/17/17 22:09 100.1 62 20 148/86 (106) 96 09/17/17 19:51 202/108 (139) 09/17/17 19:38 97.4 68 18 217/106 (143) 94 09/17/17 16:15 98.2 55 18 173/70 (104) 96 09/17/17 14:04 62 18 202/90 (127) 96 Physical Exam GENERAL: This is a well-nourished, well-developed patient, in no apparent distress. SKIN: No rashes, ecchymoses or lesions. Cool and dry. HEAD: Atraumatic. Normocephalic. No temporal or scalp tenderness. EYES: Pupils equal round and reactive. Extraocular motions intact. No scleral icterus. No injection or drainage. ENT: Nose without bleeding, purulent drainage or septal hematoma. Throat without erythema, tonsillar hypertrophy or exudate. Uvula midline. Airway patent. NECK: Trachea midline. Supple, nontender, no meningeal signs. CARDIOVASCULAR: HS audible. RESPIRATORY: Clear to auscultation. Breath sounds equal bilaterally. No wheezes , rales, or rhonchi. GASTROINTESTINAL: Abdomen soft, non-tender, nondistended. MUSCULOSKELETAL: Extremities without clubbing, cyanosis, or edema. Pain in left elbow, no s/o infection. NEUROLOGICAL: Awake and alert. Normal speech. Left side power 3+/5. Pain in left elbow unable to do coordination tests. LE power normal. Psych cooperative IV line sites with no e.o infection. Laboratory Laboratory Tests Test 09/17/17 15:25 09/18/17 00:50 09/18/17 08:24 Prothrombin Time 11.0 11.5 Prothromb Time International Ratio 1.1 1.1 Activated Partial Thromboplast Time 24.7 30.9 32.2 White Blood Count 12.6 Red Blood Count 4.97 Hemoglobin 15.4 Hematocrit 44.8 Mean Corpuscular Volume 90.1 Mean Corpuscular Hemoglobin 31.1 Mean Corpuscular Hemoglobin Concent 34.5 Red Cell Distribution Width 13.5 Platelet Count 115 Mean Platelet Volume 11.0 Neutrophils (%) (Auto) 77.7 Lymphocytes (%) (Auto) 12.2 Monocytes (%) (Auto) 9.6 Eosinophils (%) (Auto) 0.2 Basophils (%) (Auto) 0.3 Neutrophils # (Auto) 9.8 Lymphocytes # (Auto) 1.5 Monocytes # (Auto) 1.2 Eosinophils # (Auto) 0.0 Basophils # (Auto) 0.0 CBC Comment DIFF FINAL Differential Comment Date/Time Source Procedure Growth Status 09/18/17 12:24 Blood Peripheral Aerobic Blood Culture Pending Received 09/18/17 12:24 Blood Peripheral Anaerobic Blood Culture Pending Received Result Diagram: 09/18/17 0824 09/17/17 0515 Imaging Last Impressions Chest X-Ray 09/18/17 1238 Signed Impressions: Service Date/Time: Monday, September 18, 2017 12:46 - CONCLUSION: No evidence of acute cardiopulmonary disease. Nathan Dawkins MD Neck CTA 09/18/17 0000 Signed Impressions: Service Date/Time: Monday, September 18, 2017 11:26 - CONCLUSION: 1. There continues to be a focal high-grade stenosis involving the proximal segment of the left internal carotid artery of approximately 80-90%% 2. There continues to be some mild to moderate focal stenosis involving the proximal segment of the right internal carotid artery of approximately 40-50%%. 3. There is atherosclerotic plaquing at both carotid bifurcations. 4. Compared to the prior examination, no significant changes are demonstrated. Alex Gregory MD Head Magnetic Resonance Angiography 09/17/17 0000 Signed Impressions: Service Date/Time: Sunday, September 17, 2017 11:57 - CONCLUSION: 1. Redemonstration of irregular narrowing in the Jesus Manuel segment of the left internal carotid artery with findings suggestive of eccentric chronic thrombus. This is minimally improved since prior exam. 2. 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 3. No new focal flow-limiting stenosis or large vessel occlusion. Harjinder Luque MD Hand X-Ray 09/17/17 0000 Signed Impressions: Service Date/Time: Sunday, September 17, 2017 13:47 - CONCLUSION: No acute fracture or joint dislocation. Alex Gregory MD Carotid Artery Ultrasound 09/17/17 0000 Signed Impressions: Service Date/Time: Sunday, September 17, 2017 10:50 - CONCLUSION: 1. Interval progression of calcified plaque in the left carotid bulb extending to the origin of the ICA with resultant severe, greater than 70%%, stenosis based on velocity criteria. Grayscale imaging is somewhat discordant and is more consistent with moderate, 50-69%%, stenosis. Consider MRA examination for better evaluation as clinically warranted. Harjinder Luque MD Brain MRI 09/17/17 0000 Signed Impressions: Service Date/Time: Sunday, September 17, 2017 11:57 - CONCLUSION: 1. Multiple focal acute infarcts in the parietal and occipital lobes bilaterally. 2. Prominent areas of chronic ischemic small vessel vasculopathy, as above. Harjinder Luque MD Head CT [id number] Signed Impressions: Service Date/Time: Saturday, September 16, 2017 20:48 - CONCLUSION: 1. No acute infarct, acute hemorrhage, mass effect or extra-axial fluid collections. 2. Minimal scattered periventricular and subcortical white matter small vessel ischemic changes bilaterally. Andrade Milligan MD Assessment and Plan Assessment and Plan Fever in a neurological illness/stroke patient ? meningoencephalitis. Other DDx: new infection, Post stroke, underlying HIV etc. Stroke with left UE neuro deficit. ICA thrombus noted. ECHO no vegetations. Blood cultures pending. CAD s/p CABG x 3 Chronic smoker counseled 10 mins. Will think about it. Humaira Calderon: follow up visit with would like his input about need for LP. Hold coumadin for now. Start Ceftriaxone 2 gm IV 24hrs Start Vanco IV (target trough 15-20) Start Ampicillin (HIV status pending) Start Acyclovir. Follow blood cultures Follow CSF studies if done. RPR, GC and Chlamydia, HIV antibody screen, Hepatitis Panel to be checked. If RPR positive add CSF VDRL to tests. If HIV positive add CSF DANAY virus to tests. I will be OOT from 09/19/17 to 10/16/2017. Other ID MDs covering for me please ask Call center. Sara Eng MD Sep 18, 2017 13:44
[2017-09-18 14:12] LABS: BLOOD, URINE NEG (NEG); GLUCOSE,URINE NEG (NEG); KETONE, URINE NEG (NEG); NITRITE,URINE NEG (NEG); PH, URINE 6.5 (5.0-8.5); URINE COLOR YELLOW (YELLW/STRAW)
[2017-09-18 14:13] LABS: COMMENT (UR) CULT NOT INDICATED; CULTURE IF INDICATED CULT NOT INDICATED
[2017-09-18] MEDS: AMPICILLIN INJ 2,000 MG in SODIUM CHLORIDE 0.9% INJ 100 ML IV SCH ×4 (15:00→22:54)
[2017-09-18 16:00] VITALS: BP 182/78; PULSE 60; RESP 16; TEMP 98.3; O2SAT 96
[2017-09-18 16:31] LABS: CHLAMYDIA PCR NOT DETECTED (NOT DETECT); NEISSERIA PCR NOT DETECTED (NOT DETECT)
[2017-09-18] MEDS: SODIUM CHLOR 0.9% 1000 ML INJ 1,000 ML IV SCH (16:56)
[2017-09-18] MEDS: ACYCLOVIR IV SCH ×2 (19:40→22:48)
[2017-09-18] MEDS: SODIUM CHLORIDE 0.9% IV SCH ×2 (19:40→22:48)
[2017-09-18 21:19] LABS: APTT (PATIENT) 31.3 SEC (24.3-30.1)
[2017-09-19] VITALS (7 sets, daily range): BP systolic 159–205; BP diastolic 71–88; PULSE 54–79; RESP 18–20; TEMP 97.5–98.2; O2SAT 94–98
[2017-09-19] MEDS: cefTRIAXone INJ 2,000 MG in SODIUM CHLORIDE 0.9% INJ 100 ML IV SCH ×2 (00:35→11:59)
[2017-09-19] MEDS: AMPICILLIN INJ 2,000 MG in SODIUM CHLORIDE 0.9% INJ 100 ML IV SCH ×4 (02:54→15:00)
[2017-09-19] MEDS: VANCOMYCIN INJ 1,250 MG in SODIUM CHLOR 0.9% 250 ML INJ 250 ML IV SCH ×2 (03:33→17:10)
[2017-09-19] MEDS: SODIUM CHLORIDE 0.9% IV SCH ×3 (05:43→22:21)
[2017-09-19] MEDS: ACYCLOVIR IV SCH ×3 (05:43→22:21)
[2017-09-19] MEDS: DEXAMETHASONE SOD PHOS 20 MG/5 ML VIAL IV PUSH SCH ×4 (05:43→22:20)
[2017-09-19] MEDS: SODIUM CHLOR 0.9% 1000 ML INJ 1,000 ML IV SCH ×2 (06:26→21:32)
[2017-09-19 06:56] LABS: APTT (PATIENT) 41.4 SEC (24.3-30.1); INTERNATIONAL NORMALIZED RATIO 1.1 RATIO; PROTHROMBIN TIME - PATIENT 11.6 SEC (9.8-11.6)
--- NOTE | 2017-09-19 07:46 | HHI.PR ---
Subjective Remarks Follow-up on patient with TIA/CVA and possible bacterial meningitis. Patient is currently doing well. He feels more comfortable. He does, however, report persistent neck pain. He has been afebrile. Objective Vitals Vital Signs Date Time Temp Pulse Resp B/P (MAP) Pulse Ox O2 Delivery O2 Flow Rate FiO2 09/19/17 04:48 97.7 54 20 165/71 (102) 94 09/19/17 02:23 79 09/19/17 01:15 98.1 63 20 205/88 (127) 94 09/19/17 00:12 18 09/18/17 16:00 98.3 60 16 182/78 (112) 96 09/18/17 12:00 98.3 60 16 156/73 (100) 93 09/18/17 08:00 99.8 65 16 166/74 (104) 93 I/O 09/18/17 09/18/17 09/18/17 09/19/17 09/19/17 09/19/17 07:00 15:00 23:00 07:00 15:00 23:00 Intake Total 624 ml 1265 ml 1125 ml 389 ml 13 ml Output Total 650 ml 550 ml 1600 ml Balance -26 ml 1265 ml 575 ml -1211 ml 13 ml Intake Oral 480 ml IV Total 624 ml 1265 ml 645 ml 389 ml 13 ml Output Urine Total 650 ml 550 ml 1600 ml # Bowel Movements 0 Result Diagram: 09/18/17 0824 09/17/17 0515 Imaging Last Impressions Lumbar Puncture Fluoroscopy 09/19/17 0000 Signed Impressions: Service Date/Time: Tuesday, September 19, 2017 15:20 - CONCLUSION: Uncomplicated fluoroscopically guided lumbar puncture with pressures as above. Jorge Durbin MD Chest X-Ray 09/18/17 1238 Signed Impressions: Service Date/Time: Monday, September 18, 2017 12:46 - CONCLUSION: No evidence of acute cardiopulmonary disease. Nathan Dawkins MD Neck CTA 09/18/17 0000 Signed Impressions: Service Date/Time: Monday, September 18, 2017 11:26 - CONCLUSION: 1. There continues to be a focal high-grade stenosis involving the proximal segment of the left internal carotid artery of approximately 80-90%% 2. There continues to be some mild to moderate focal stenosis involving the proximal segment of the right internal carotid artery of approximately 40-50%%. 3. There is atherosclerotic plaquing at both carotid bifurcations. 4. Compared to the prior examination, no significant changes are demonstrated. Alex Gregory MD Head Magnetic Resonance Angiography 09/17/17 0000 Signed Impressions: Service Date/Time: Sunday, September 17, 2017 11:57 - CONCLUSION: 1. Redemonstration of irregular narrowing in the Jesus Manuel segment of the left internal carotid artery with findings suggestive of eccentric chronic thrombus. This is minimally improved since prior exam. 2. 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 3. No new focal flow-limiting stenosis or large vessel occlusion. Harjinder Luque MD Hand X-Ray 09/17/17 Signed Impressions: Service Date/Time: Sunday, September 17, 2017 13:47 - CONCLUSION: No acute fracture or joint dislocation. Alex Gregory MD Carotid Artery Ultrasound 09/17/17 Signed Impressions: Service Date/Time: Sunday, September 17, 2017 10:50 - CONCLUSION: 1. Interval progression of calcified plaque in the left carotid bulb extending to the origin of the ICA with resultant severe, greater than 70%%, stenosis based on velocity criteria. Grayscale imaging is somewhat discordant and is more consistent with moderate, 50-69%%, stenosis. Consider MRA examination for better evaluation as clinically warranted. Harjinder Luque MD Brain MRI 09/17/17 Signed Impressions: Service Date/Time: Sunday, September 17, 2017 11:57 - CONCLUSION: 1. Multiple focal acute infarcts in the parietal and occipital lobes bilaterally. 2. Prominent areas of chronic ischemic small vessel vasculopathy, as above. Harjinder Luque MD Head CT [id number] Signed Impressions: Service Date/Time: Saturday, September 16, 2017 20:48 - CONCLUSION: 1. No acute infarct, acute hemorrhage, mass effect or extra-axial fluid collections. 2. Minimal scattered periventricular and subcortical white matter small vessel ischemic changes bilaterally. Andrade Milligan MD Objective Remarks GENERAL: Alert, Appears uncomfortable, in mild distress due to neck stiffness. SKIN: Warm and dry. HEAD: Normocephalic. Pain on movement of his head. EYES: No scleral icterus. No injection or drainage. NECK: Trachea midline. No JVD or lymphadenopathy. Neck feels stiff on anterior- posterior movement as well as lateral movements. CARDIOVASCULAR: Regular rate and rhythm without murmurs, gallops, or rubs. RESPIRATORY: Breath sounds equal bilaterally. No accessory muscle use. GASTROINTESTINAL: Abdomen soft, non-tender, nondistended. MUSCULOSKELETAL: No cyanosis, or edema. BACK: Nontender without obvious deformity. No CVA tenderness. Procedures Echo 09/17/2017. The left ventricular systolic function is low normal with an estimated ejection fraction in the range of 50- 55%. Normal left ventricular size. Wall thickness is measured at the upper limits of normal. No regional wall motion abnormalities are present. Trace mitral valve regurgitation. Pulmonary arterial systolic pressure could not be estimated due to an insufficient tricuspid valve regurgitation doppler jet for measurement. A/P Problem List: (1) Carotid stenosis, bilateral ICD Code: I65.23 - Occlusion and stenosis of bilateral carotid arteries (2) Cerebrovascular accident, embolic ICD Code: I63.9 - Cerebral infarction, unspecified Status: Acute Assessment and Plan Mr. Barajas is a 57 year old male with a history of hypertension, coronary artery disease a status post CABG, stroke who presented to the emergency department due to left upper and lower extremity weakness. Neurology consulted. Patient did not receive TPA. Further workup including MRI shows bilateral infarctions, likely embolic in nature. - Probable Acute bacterial meningitis - Patient has headache, fever, neck stiffness. He also looks uncomfortable. - Patient's symptoms indicated possible bacterial meningitis. We started empiric treatments. - Continue patient on 1) Dexamethasone 10mg Q6hrs 2) Rocephin 2g Q12hrs 3) Vancomycin 2g now and subsequent dosing per pharmacy. 4) Ampicillin 2g Q4hrs 5) Acyclovir 785mg. - LP study pending. Hold warfarin. INR today 1.1 Continue Heparin - can be stopped prior to LP. - Chlamydia,N. Gonorrhoeae PCR negative. Hepatitic C reactive. - HIV negative. - Acute bilateral stroke, likely embolic. - Neurology following. Patient is currently on Aspirin 325mg Qday (on hold now) - Continue Pravastatin 40mg QHS. - Coronary artery disease s/p CABG. - Continue Aspirin, statin. Will consider switching Pravastatin to Lipitor. - Tobacco abuse - patient has been counselled on tobacco cessation. Full code. Hold Aspirin, warfarin, Heparin drip for 24 hours post LP procedure. Dian Guerrero DO Sep 19, 2017 07:46
[2017-09-19] MEDS: INSULIN ASPART SUPPLEMENTAL SCALE SQ SCH ×4 (08:00→22:20)
[2017-09-19] MEDS: PRAVASTATIN SOD 40 MG TAB PO SCH (08:53)
[2017-09-19] MEDS: SODIUM CHLORIDE 0.9% FLUSH 10 ML FLUSH IV FLUSH SCH ×2 (08:58→21:00)
--- NOTE | 2017-09-19 14:35 | PD.RAD ---
Post Procedure Progress Note Pre Procedure Diagnosis: (1) Syncope Post Procedure Diagnosis: (1) Syncope Procedure Date: Sep 19, 2017 Supervising Radiologist: Jorge Durbin Anesthesia: Local Plan of Activity Patient to Unit: Nursing Unit Patient Condition: Fair Additional Comments: LP completed without difficulty. opening pressure 17 19cc of clear csf removed. Full dictated report to follow. See PACS Report for procedural detail/treatment Jorge Durbin MD Sep 19, 2017 14:35
--- NOTE | 2017-09-19 15:33 | HHI.PR ---
Review/Management Diagnosis 1. Acute ischemic stroke bilateral parietal and occipital likely athero- thrombotic. 2. History of extensive carotid artery disease, left ICA 80-90%, right 40-50%. 3. Hypertension. Plan - Neuro checks q. 1 hourly - Goal BP 135-140/75-80 - Aspirin 81mg daily. - Plavix 75mg daily - DVT prophylaxis. - PT OT recommendations are appreciated. - GI prophylaxis - Discussed case with attending physician - Please call for questions Diagnosis/Plan: Subjective Subjective Comments Patient is seen s/p LP Reported fever Complains of generalized weakness, still some left sided weakness CTA neck with evidence of 80-90% left ICA stenosis, 40-50% right ICA Active Medications Current Medications Medications (Trade) Dose Ordered Sig/Aria Route Start Time Stop Time Status Last Admin (NS Flush) 2 ml BID IV FLUSH 09/17/17 09:00 09/19/17 08:58 (NS Flush) 2 ml UNSCH PRN IV FLUSH 09/16/17 22:15 Sodium Chloride 1,000 ml @ 70 mls/hr [id number] IV 09/16/17 22:02 09/19/17 06:26 (NovoLOG SUPPLEMENTAL SCALE) 1 ACHS SQ 09/17/17 08:00 09/18/17 22:55 (D50w (Vial) Inj) 50 ml UNSCH PRN IV PUSH 09/16/17 22:15 (Glucagon Inj) 1 mg UNSCH PRN OTHER 09/16/17 22:15 (Pravachol) 40 mg DAILY PO 09/17/17 09:00 09/19/17 08:53 (Coumadin) 4 mg DAILY@16 PO 09/17/17 16:00 Future Hold 09/17/17 17:34 Pharmacy Profile Note 0 ml @ 0 mls/hr UNSCH OTHER 09/17/17 10:45 (Roxicodone) 5 mg Q4H PRN PO 09/17/17 12:15 09/19/17 12:00 (Trandate Inj) 10 mg Q2H PRN IV PUSH 09/17/17 14:00 Heparin Sodium/ Dextrose 250 ml @ 9 mls/hr TITRATE PRN IV 09/17/17 17:00 Future Hold 09/17/17 17:41 (Aspirin) 325 mg DAILY PO 09/18/17 09:00 Future Hold 09/18/17 09:12 (Tylenol) 650 mg Q4H PRN PO 09/18/17 10:15 09/18/17 14:06 (Decadron Inj) 10 mg Q6H IV PUSH 09/18/17 11:00 09/22/17 05:01 09/19/17 11:56 Ceftriaxone Sodium 2000 mg/ Sodium Chloride 100 ml @ 200 mls/hr Q12H IV 09/18/17 12:00 09/19/17 11:59 Pharmacy Profile Note 0 ml @ 0 mls/hr UNSCH OTHER 09/18/17 10:30 Ampicillin Sodium 2000 mg/Sodium Chloride 100 ml @ 300 mls/hr Q4H IV 09/18/17 11:00 09/19/17 11:00 Miscellaneous Information SPECIFIC LAB TO BE DRAWN:[facility]ANCO DATE TO... ONCE ONCE .XX 09/20/17 03:45 09/20/17 03:46 Vancomycin HCl 1250 mg/Sodium Chloride 262.5 ml @ 250 mls/hr Q12H IV 09/19/17 04:00 09/19/17 03:33 Acyclovir Sodium 785 mg/Sodium Chloride 150 ml @ 150 mls/hr Q8H IV 09/18/17 14:00 09/19/17 05:43 Allergies Allergies Coded Allergies No Known Allergies (Verified Allergy, Severe, 04/29/08) Review of Systems All other ROS: ROS reviewed as documented in chart Exam I&O / VS 09/19/17 09/19/17 09/20/17 15:00 23:00 07:00 Intake Total 13 ml Balance 13 ml IV Total 13 ml Vital Signs Date Time Temp Pulse Resp B/P (MAP) Pulse Ox O2 Delivery O2 Flow Rate FiO2 09/19/17 12:00 98.2 73 18 187/80 (115) 96 09/19/17 08:00 97.5 55 18 182/80 (114) 97 09/19/17 04:48 97.7 54 20 165/71 (102) 94 09/19/17 02:23 79 09/19/17 01:15 98.1 63 20 205/88 (127) 94 09/19/17 00:12 18 09/18/17 16:00 98.3 60 16 182/78 (112) 96 Exam Comments GENERAL: Awake, alert, not in distress HEENT: Atraumatic, normocephalic. Intact hearing. Intact vision. NECK: Trachea in the midline. No signs of meningeal irritation. CARDIOVASCULAR: Regular rate and rhythm. RESPIRATORY: Clear to auscultation. No wheezes. GASTROINTESTINAL: Soft abdomen, nontender. MUSCULOSKELETAL: No clubbing, cyanosis or edema. NEUROLOGIC: Awake, alert, oriented, no dysarthria, no dysphasia. No facial asymmetry. No nystagmus. No ptosis. Pupils 3 mm bilateral equally reacting to light. Right upper and lower extremity 5/5. No abnormal movement, normal tone. Left upper extremity unable to accurately assess the muscle strength because of fracture on the left hand status post recent fall. Left lower extremity unable to accurately assess because of give-away due to pain and lack of cooperation. Reflexes 2+ bilateral symmetrical. Plantars bilaterally downgoing. PSYCHIATRIC: Cooperative, normal mood and behavior, no hallucinations Objective Radiology Results Last 72 hours Impressions Chest X-Ray 09/18/17 1238 Signed Impressions: Service Date/Time: Monday, September 18, 2017 12:46 - CONCLUSION: No evidence of acute cardiopulmonary disease. Nathan Dawkins MD Neck CTA 09/18/17 0000 Signed Impressions: Service Date/Time: Monday, September 18, 2017 11:26 - CONCLUSION: 1. There continues to be a focal high-grade stenosis involving the proximal segment of the left internal carotid artery of approximately 80-90%% 2. There continues to be some mild to moderate focal stenosis involving the proximal segment of the right internal carotid artery of approximately 40-50%%. 3. There is atherosclerotic plaquing at both carotid bifurcations. 4. Compared to the prior examination, no significant changes are demonstrated. Alex Gregory MD Head Magnetic Resonance Angiography 09/17/17 0000 Signed Impressions: Service Date/Time: Sunday, September 17, 2017 11:57 - CONCLUSION: 1. Redemonstration of irregular narrowing in the Jesus Manuel segment of the left internal carotid artery with findings suggestive of eccentric chronic thrombus. This is minimally improved since prior exam. 2. 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 3. No new focal flow-limiting stenosis or large vessel occlusion. Harjinder Luque MD Hand X-Ray 09/17/17 0000 Signed Impressions: Service Date/Time: Sunday, September 17, 2017 13:47 - CONCLUSION: No acute fracture or joint dislocation. Alex Gregory MD Carotid Artery Ultrasound 09/17/17 0000 Signed Impressions: Service Date/Time: Sunday, September 17, 2017 10:50 - CONCLUSION: 1. Interval progression of calcified plaque in the left carotid bulb extending to the origin of the ICA with resultant severe, greater than 70%%, stenosis based on velocity criteria. Grayscale imaging is somewhat discordant and is more consistent with moderate, 50-69%%, stenosis. Consider MRA examination for better evaluation as clinically warranted. Harjinder Luque MD Brain MRI 09/17/17 0000 Signed Impressions: Service Date/Time: Sunday, September 17, 2017 11:57 - CONCLUSION: 1. Multiple focal acute infarcts in the parietal and occipital lobes bilaterally. 2. Prominent areas of chronic ischemic small vessel vasculopathy, as above. Harjinder Luque MD Head CT [id number]/[id number] Signed Impressions: Service Date/Time: Saturday, September 16, 2017 20:48 - CONCLUSION: 1. No acute infarct, acute hemorrhage, mass effect or extra-axial fluid collections. 2. Minimal scattered periventricular and subcortical white matter small vessel ischemic changes bilaterally. Andrade Milligan MD Micro and Labs Laboratory Tests Test 09/18/17 20:08 09/19/17 06:27 09/19/17 14:25 Activated Partial Thromboplast Time 31.3 41.4 HIV (1&2) Antibody NEGATIVE Prothrombin Time 11.6 Prothromb Time International Ratio 1.1 CSF Glucose 81 CSF Total Protein 73.0 Date/Time Source Procedure Growth Status 09/18/17 12:24 Blood Peripheral Aerobic Blood Culture - Preliminary NO GROWTH IN 1 DAY Resulted 09/18/17 12:24 Blood Peripheral Anaerobic Blood Culture - Preliminary NO GROWTH IN 1 DAY Resulted 09/19/17 14:25 Cerebral Spinal Fluid Lumbar Puncture Gram Stain Pending Received 09/19/17 14:25 Cerebral Spinal Fluid Lumbar Puncture CSF Culture Pending Received Rolando Quiles MD Sep 19, 2017 15:33
[2017-09-19 16:11] LABS: CSF LYMPHOCYTES 82 %; CSF MONOCYTES 17 %; CSF NEUTROPHILS 1 %
[2017-09-19 16:12] LABS: GROSS BLOOD TUBE #1 0 (0); GROSS BLOOD TUBE #2 0 (0); GROSS BLOOD TUBE #3 0 (0); SUPERNATE COLOR TUBE #1 CLEAR (CLEAR); SUPERNATE COLOR TUBE #2 CLEAR (CLEAR); SUPERNATE COLOR TUBE #3 CLEAR (CLEAR); SUPERNATE COLOR TUBE #4 CLEAR (CLEAR); VOLUME TUBE # 3 4.5 ML; WBC TUBE #4 13 /MM3 (0-10)
--- NOTE | 2017-09-19 16:19 | RADRPT ---
EXAM DATE/TIME: 09/19/2017 15:20 [facility] COMPARISON: No previous studies available for comparison. INDICATIONS : Patient with a history of headaches needs lumbar puncture. MEDICAL HISTORY : HTN CAD CVA SURGICAL HISTORY : CABG ENCOUNTER: Initial ACUITY: 3 days PAIN SCORE: 5/10 LOCATION: neck LUMBAR PUNCTURE TIME: 1425 hours FLUORO TIME: 1.2 minutes 1 ACCESS LEVEL: L3-4 OPENING PRESSURE: 17 cm of water CLOSING PRESSURE: Not requested. FLUID: 19 cc of clear CSF was collected and sent to the laboratory for analysis. PROCEDURE : 1. Fluoroscopic guided lumbar puncture. 2. Recording of opening pressure. The risks, benefits and alternatives to the procedure were explained and verbal and written consent w as obtained. The site was prepped in sterile fashion. Full sterile technique was used, including ca p, mask, sterile gloves and gown and a large sterile sheet. Hand hygiene and 2% chlorhexidine and/or betadine/alcohol prep was utilized per protocol for cutaneous antisepsis. The skin and subcutaneous tissues were infiltrated with local anesthetic solution. With fluoroscopic guidance the lumbar thecal sac was punctured at the above level described above and the opening pressure was recorded. The above described fluid was removed without difficulty. The patient tolerated the procedure well and there were no complications. CONCLUSION: Uncomplicated fluoroscopically guided lumbar puncture with pressures as above. Jorge Durbin MD on September 19, 2017 at 16:17 Board Certified Radiologist. This report was verified electronically.
--- NOTE | 2017-09-19 17:53 | HHI.IDPN ---
Note Infectious Disease Note ID coverage Delayed entry. Patient seen at 11:00A is a 57 y/o male with past medical history significant for hypertension, coronary artery disease status post coronary artery bypass, cerebrovascular accident in March 2017. Patient reports that he's had prior stroke or TIAs at least 2 times in the past. Patient now presents to the emergency department acute onset of left-sided numbness and weakness. Patient reports that he was at home with his friends partying when he suddenly noticed that his left side upper extremity was heavy, and he had to lift his arm and was unable to perform activities of the left side. He also noticed tingling in his left upper extremity as well as lower extremity as well as on the bottom half of his left face. He reports that his symptoms improved but he did not return to his baseline even today when I see him. During his last hospitalization he was found to have 80% left ICA stenosis and 40-50% right ICA stenosis. He was instructed to follow-up with vascular surgery. He also had an abnormal thoracic MRI. Patient was supposed to follow up with neurosurgery as outpatient. Patient was started on Coumadin during his last hospitalization but he has not been taking. Upon admission he had a stroke workup and was seen by Dr. Quiles and ruled in for stroke. Upon initial presentation patient did not have any fever or chills. There was no history of preceding fever chills or night sweats. There were no preceding symptoms of infection. Neuro imaging in the form of CT and MRI not diagnostic of any acute infectious etiology like encephalitis or abscess. Patient awake and denied TONG, nausea, SOB. Afebrile. CSF = 13 WBC, 82% lymphocytes. Patient started developing fever after admission and infectious disease is now consulted for fever in a patient with neurological symptoms to rule out meningoencephalitis. Past Family Social History Allergies: Coded Allergies: No Known Allergies (Verified Allergy, Severe, 04/29/08) Past Medical History Hypertension CAD status post CABG History of CVA 04/30/17 Past Surgical History CABG 2 at age 37 Family History reviewed and NC to current ID problems. Social History reports smoking 1 ppd for many years. Wishes to quit hopefully soon. Denies alcohol. Denies IVDA but admits to cocaine. Single, lives alone. Physical Exam Physical Exam Vital Signs Date Time Temp Pulse Resp B/P (MAP) Pulse Ox O2 Delivery O2 Flow Rate FiO2 09/19/17 16:00 98.0 75 18 163/79 (107) 98 09/19/17 12:00 98.2 73 18 187/80 (115) 96 09/19/17 08:00 97.5 55 18 182/80 (114) 97 09/19/17 04:48 97.7 54 20 165/71 (102) 94 09/19/17 02:23 79 09/19/17 01:15 98.1 63 20 205/88 (127) 94 09/19/17 00:12 18 Laboratory Tests Test 09/18/17 08:24 White Blood Count 12.6 TH/MM3 Red Blood Count 4.97 MIL/MM3 Hemoglobin 15.4 GM/DL Hematocrit 44.8 % Mean Corpuscular Volume 90.1 FL Mean Corpuscular Hemoglobin 31.1 PG Mean Corpuscular Hemoglobin Concent 34.5 % Red Cell Distribution Width 13.5 % Platelet Count 115 TH/MM3 Mean Platelet Volume 11.0 FL Neutrophils (%) (Auto) 77.7 % Lymphocytes (%) (Auto) 12.2 % Monocytes (%) (Auto) 9.6 % Eosinophils (%) (Auto) 0.2 % Basophils (%) (Auto) 0.3 % Neutrophils # (Auto) 9.8 TH/MM3 Lymphocytes # (Auto) 1.5 TH/MM3 Monocytes # (Auto) 1.2 TH/MM3 Eosinophils # (Auto) 0.0 TH/MM3 Basophils # (Auto) 0.0 TH/MM3 CBC Comment DIFF FINAL Differential Comment Laboratory Tests Test 09/18/17 20:08 09/19/17 06:27 09/19/17 14:25 Activated Partial Thromboplast Time 31.3 SEC 41.4 SEC HIV (1&2) Antibody NEGATIVE Prothrombin Time 11.6 SEC Prothromb Time International Ratio 1.1 RATIO CSF Volume (Tube 1) 4.0 ML CSF Supernatant Color (tube 1) CLEAR CSF Gross Blood (Tube 1) 0 CSF Volume (Tube 2) 5.0 ML CSF Supernatant Color (tube 2) CLEAR CSF Gross Blood (Tube 2) 0 CSF Volume (Tube 3) 4.5 ML CSF Supernatant Color (tube 3) CLEAR CSF Gross Blood (Tube 3) 0 CSF Volume (Tube 4) 5.0 ML CSF Supernatant Color (tube 4) CLEAR CSF WBC (Tube 4) 13 /MM3 CSF RBC (Tube 4) 5 /MM3 CSF Neutrophils 1 % CSF Lymphocytes 82 % CSF Monocytes 17 % CSF Glucose 81 MG/DL CSF Total Protein 73.0 MG/DL IMAGING: Lumbar Puncture Fluoroscopy 09/19/17 0000 Signed Impressions: Service Date/Time: Tuesday, September 19, 2017 15:20 - CONCLUSION: Uncomplicated fluoroscopically guided lumbar puncture with pressures as above. Jorge Durbin MD Chest X-Ray 09/18/17 1238 Signed Impressions: Service Date/Time: Monday, September 18, 2017 12:46 - CONCLUSION: No evidence of acute cardiopulmonary disease. Nathan Dawkins MD Neck CTA 09/18/17 0000 Signed Impressions: Service Date/Time: Monday, September 18, 2017 11:26 - CONCLUSION: 1. There continues to be a focal high-grade stenosis involving the proximal segment of the left internal carotid artery of approximately 80-90%% 2. There continues to be some mild to moderate focal stenosis involving the proximal segment of the right internal carotid artery of approximately 40-50%%. 3. There is atherosclerotic plaquing at both carotid bifurcations. 4. Compared to the prior examination, no significant changes are demonstrated. Alex Gregory MD Head Magnetic Resonance Angiography 09/17/17 0000 Signed Impressions: Service Date/Time: Sunday, September 17, 2017 11:57 - CONCLUSION: 1. Redemonstration of irregular narrowing in the Jesus Manuel segment of the left internal carotid artery with findings suggestive of eccentric chronic thrombus. This is minimally improved since prior exam. 2. 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 3. No new focal flow-limiting stenosis or large vessel occlusion. Harjinder Luque MD Hand X-Ray 09/17/17 0000 Signed Impressions: Service Date/Time: Sunday, September 17, 2017 13:47 - CONCLUSION: No acute fracture or joint dislocation. Alex Gregory MD Carotid Artery Ultrasound 09/17/17 0000 Signed Impressions: Service Date/Time: Sunday, September 17, 2017 10:50 - CONCLUSION: 1. Interval progression of calcified plaque in the left carotid bulb extending to the origin of the ICA with resultant severe, greater than 70%%, stenosis based on velocity criteria. Grayscale imaging is somewhat discordant and is more consistent with moderate, 50-69%%, stenosis. Consider MRA examination for better evaluation as clinically warranted. Harjinder Luque MD Brain MRI 09/17/17 0000 Signed Impressions: Service Date/Time: Sunday, September 17, 2017 11:57 - CONCLUSION: 1. Multiple focal acute infarcts in the parietal and occipital lobes bilaterally. 2. Prominent areas of chronic ischemic small vessel vasculopathy, as above. Harjinder Luque MD Head CT 09/16/174 Signed Impressions: Service Date/Time: Saturday, September 16, 2017 20:48 - CONCLUSION: 1. No acute infarct, acute hemorrhage, mass effect or extra-axial fluid collections. 2. Minimal scattered periventricular and subcortical white matter small vessel ischemic changes bilaterally. Andrade Milligan MD Physical Exam GENERAL: Patient is in no acute distress. HEENT: Head atraumatic. EOMI, No icterus. NECK: Mild rigidity at the left neck. No adenopathy. LUNGS: Clear breath sounds. CARDIAC: Regular rate and rhythm, No murmurs. ABDOMEN: Soft, non tender, (+) BS. EXTREMITIES: No CCE. NEURO: Weakness at the left upper ext. SKIN: No rash. Assessment and Plan Assessment and Plan Fever in a neurosurgical patient ? meningoencephalitis. HIV negative. ? etiology. Probably stroke related. LP not remarkable for meningitis. Stroke with left UE neuro deficit. ICA thrombus noted. ECHO no vegetations. Blood cultures pending. CAD s/p CABG x 3 Recs Continue Ceftriaxone 2 gm IV 24hrs Stop Vanco IV (target trough 15-20) Stop Ampicillin. Continue Acyclovir. Follow blood cultures Follow CSF studies. Luc Douglass MD Sep 19, 2017 17:53
[2017-09-19] MEDS: ATORVASTATIN 40 MG TAB PO SCH (22:21)
[2017-09-20] MEDS: cefTRIAXone INJ 2,000 MG in SODIUM CHLORIDE 0.9% INJ 100 ML IV SCH ×2
[2017-09-20 01:18] VITALS: BP 167/77; PULSE 57; RESP 16; TEMP 97.4; O2SAT 97
[2017-09-20] MEDS ORDERED: PHARMACY ORDERED LAB ONE (03:45)
[2017-09-20 04:00] VITALS: BP 163/70; PULSE 63; RESP 18; TEMP 97.5; O2SAT 95
[2017-09-20] MEDS: DEXAMETHASONE SOD PHOS 20 MG/5 ML VIAL IV PUSH SCH (06:56)
[2017-09-20] MEDS: SODIUM CHLORIDE 0.9% IV SCH ×3 (06:56→23:16)
[2017-09-20] MEDS: ACYCLOVIR IV SCH ×3 (06:56→23:16)
[2017-09-20 08:00] VITALS: BP 162/78; PULSE 72; RESP 18; TEMP 97.4; O2SAT 97
[2017-09-20] MEDS: INSULIN ASPART SUPPLEMENTAL SCALE SQ SCH ×4 (08:00→19:29)
[2017-09-20] MEDS: SODIUM CHLORIDE 0.9% FLUSH 10 ML FLUSH IV FLUSH SCH ×2 (09:00→21:00)
--- NOTE | 2017-09-20 09:41 | HHI.PR ---
Subjective Remarks Follow-up on patient with TIA/CVA and possible bacterial meningitis. Patient is doing better. However he feels his left side is still weak. No fever or chills. Tolerating diet well. Objective Vitals Vital Signs Date Time Temp Pulse Resp B/P (MAP) Pulse Ox O2 Delivery O2 Flow Rate FiO2 09/20/17 08:00 97.4 72 18 162/78 (106) 97 09/20/17 04:00 97.5 63 18 163/70 (101) 95 09/20/17 01:18 97.4 57 16 167/77 (107) 97 09/19/17 20:00 98.2 73 18 159/72 (101) 95 09/19/17 16:00 98.0 75 18 163/79 (107) 98 09/19/17 12:00 98.2 73 18 187/80 (115) 96 I/O 09/19/17 09/19/17 09/19/17 09/20/17 09/20/17 09/20/17 07:00 15:00 23:00 07:00 15:00 23:00 Intake Total 389 ml 13 ml 2200 ml Output Total 1600 ml 0 ml 1450 ml Balance -1211 ml 13 ml 750 ml IV Total 389 ml 13 ml 2200 ml Output Urine Total 1600 ml 1450 ml Stool Total 0 ml # Voids 4 Result Diagram: 09/18/17 0824 09/17/17 0515 Imaging Last Impressions Lumbar Puncture Fluoroscopy 09/19/17 0000 Signed Impressions: Service Date/Time: Tuesday, September 19, 2017 15:20 - CONCLUSION: Uncomplicated fluoroscopically guided lumbar puncture with pressures as above. Jorge Durbin MD Chest X-Ray 09/18/17 1238 Signed Impressions: Service Date/Time: Monday, September 18, 2017 12:46 - CONCLUSION: No evidence of acute cardiopulmonary disease. Nathan Dawkins MD Neck CTA 09/18/17 0000 Signed Impressions: Service Date/Time: Monday, September 18, 2017 11:26 - CONCLUSION: 1. There continues to be a focal high-grade stenosis involving the proximal segment of the left internal carotid artery of approximately 80-90%% 2. There continues to be some mild to moderate focal stenosis involving the proximal segment of the right internal carotid artery of approximately 40-50%%. 3. There is atherosclerotic plaquing at both carotid bifurcations. 4. Compared to the prior examination, no significant changes are demonstrated. Alex Gregory MD Head Magnetic Resonance Angiography 09/17/17 Signed Impressions: Service Date/Time: Sunday, September 17, 2017 11:57 - CONCLUSION: 1. Redemonstration of irregular narrowing in the Jesus Manuel segment of the left internal carotid artery with findings suggestive of eccentric chronic thrombus. This is minimally improved since prior exam. 2. 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 3. No new focal flow-limiting stenosis or large vessel occlusion. Harjinder Luque MD Hand X-Ray 09/17/17 Signed Impressions: Service Date/Time: Sunday, September 17, 2017 13:47 - CONCLUSION: No acute fracture or joint dislocation. Alex Gregory MD Carotid Artery Ultrasound 09/17/17 Signed Impressions: Service Date/Time: Sunday, September 17, 2017 10:50 - CONCLUSION: 1. Interval progression of calcified plaque in the left carotid bulb extending to the origin of the ICA with resultant severe, greater than 70%%, stenosis based on velocity criteria. Grayscale imaging is somewhat discordant and is more consistent with moderate, 50-69%%, stenosis. Consider MRA examination for better evaluation as clinically warranted. Harjinder Luque MD Brain MRI 09/17/17 Signed Impressions: Service Date/Time: Sunday, September 17, 2017 11:57 - CONCLUSION: 1. Multiple focal acute infarcts in the parietal and occipital lobes bilaterally. 2. Prominent areas of chronic ischemic small vessel vasculopathy, as above. Harjinder Luque MD Head CT 09/16/[id number] Signed Impressions: Service Date/Time: Saturday, September 16, 2017 20:48 - CONCLUSION: 1. No acute infarct, acute hemorrhage, mass effect or extra-axial fluid collections. 2. Minimal scattered periventricular and subcortical white matter small vessel ischemic changes bilaterally. Andrade Milligan MD Objective Remarks GENERAL: Alert, Appears uncomfortable, in mild distress due to neck stiffness. SKIN: Warm and dry. HEAD: Normocephalic. Pain on movement of his head. EYES: No scleral icterus. No injection or drainage. NECK: Trachea midline. No JVD or lymphadenopathy. Neck feels stiff on anterior- posterior movement as well as lateral movements. CARDIOVASCULAR: Regular rate and rhythm without murmurs, gallops, or rubs. RESPIRATORY: Breath sounds equal bilaterally. No accessory muscle use. GASTROINTESTINAL: Abdomen soft, non-tender, nondistended. MUSCULOSKELETAL: No cyanosis, or edema. BACK: Nontender without obvious deformity. No CVA tenderness. Procedures Echo 09/17/2017. The left ventricular systolic function is low normal with an estimated ejection fraction in the range of 50- 55%. Normal left ventricular size. Wall thickness is measured at the upper limits of normal. No regional wall motion abnormalities are present. Trace mitral valve regurgitation. Pulmonary arterial systolic pressure could not be estimated due to an insufficient tricuspid valve regurgitation doppler jet for measurement. A/P Problem List: (1) Carotid stenosis, bilateral ICD Code: I65.23 - Occlusion and stenosis of bilateral carotid arteries (2) Cerebrovascular accident, embolic ICD Code: I63.9 - Cerebral infarction, unspecified Status: Acute Assessment and Plan Mr. Barajas is a 57 year old male with a history of hypertension, coronary artery disease a status post CABG, stroke who presented to the emergency department due to left upper and lower extremity weakness. Neurology consulted. Patient did not receive TPA. Further workup including MRI shows bilateral infarctions, likely embolic in nature. - Probable Acute bacterial meningitis - Patient has headache, fever, neck stiffness. He also looks uncomfortable. - Patient's symptoms indicated possible bacterial meningitis. We started empiric treatments. - patient was on 1) Dexamethasone 10mg Q6hrs 2) Rocephin 2g Q12hrs 3) Vancomycin 2g now and subsequent dosing per pharmacy. 4) Ampicillin 2g Q4hrs 5) Acyclovir 785mg. - LP study does not indicate bacterial meningitis. Infectious disease discontinued vancomycin and ampicillin. - Continue Rocephin 2 g every 24 hours and acyclovir. We'll discontinue dexamethasone as well. - Chlamydia,N. Gonorrhoeae PCR negative. Hepatitic C reactive. - HIV negative. - Acute bilateral stroke, likely embolic. - Bilateral carotid artery stenosis - Discussed at length with neurology and vascular surgery. We'll put patient on aspirin 81 mg and Plavix 75 mg daily. - No immediate plan to do any surgical intervention per vascular surgery. Vascular surgery will follow-up in the outpatient setting. - Continue Pravastatin 40mg QHS. - Coronary artery disease s/p CABG. - Continue Aspirin, Lipitor - Tobacco abuse - patient has been counselled on tobacco cessation. Full code. Lovenox. Discussed with neurology and has close surgery. Dian Guerrero DO Sep 20, 2017 9:40 am
[2017-09-20] MEDS ORDERED: ASPIRIN 81 MG CHEW TAB CHEW SCH (09:45)
[2017-09-20] MEDS ORDERED: CLOPIDOGREL 75 MG TAB PO SCH (09:45)
[2017-09-20] MEDS ORDERED: cefTRIAXone INJ 2,000 MG in SODIUM CHLORIDE 0.9% INJ 100 ML IV SCH (11:00)
--- NOTE | 2017-09-20 11:00 | HHI.IDPN ---
Note Infectious Disease Note ID coverage is a 57 y/o male with past medical history significant for hypertension, coronary artery disease status post coronary artery bypass, cerebrovascular accident in March 2017. Patient reports that he's had prior stroke or TIAs at least 2 times in the past. Patient now presents to the emergency department acute onset of left-sided numbness and weakness. Patient reports that he was at home with his friends partying when he suddenly noticed that his left side upper extremity was heavy, and he had to lift his arm and was unable to perform activities of the left side. He also noticed tingling in his left upper extremity as well as lower extremity as well as on the bottom half of his left face. He reports that his symptoms improved but he did not return to his baseline even today when I see him. During his last hospitalization he was found to have 80% left ICA stenosis and 40-50% right ICA stenosis. He was instructed to follow-up with vascular surgery. He also had an abnormal thoracic MRI. Patient was supposed to follow up with neurosurgery as outpatient. Patient was started on Coumadin during his last hospitalization but he has not been taking. Upon admission he had a stroke workup and was seen by Dr. Quiles and ruled in for stroke. Upon initial presentation patient did not have any fever or chills. There was no history of preceding fever chills or night sweats. There were no preceding symptoms of infection. Neuro imaging in the form of CT and MRI not diagnostic of any acute infectious etiology like encephalitis or abscess. Patient awake. Denies TONG, nausea, SOB. Sitting in bedside stretcher. Notes tremors at the hands. Notes mild pain at the left neck. Moving all extremities without difficulty. Afebrile. CSF = 13 WBC, 82% lymphocytes. CSF culture has no growth. Patient started developing fever after admission and infectious disease was consulted for fever in a patient with neurological symptoms to rule out meningoencephalitis. Past Family Social History Allergies: Coded Allergies: No Known Allergies (Verified Allergy, Severe, 04/29/08) Past Medical History Hypertension CAD status post CABG History of CVA 04/30/17 Past Surgical History CABG 2 at age 37 Family History reviewed and NC to current ID problems. Social History reports smoking 1 ppd for many years. Wishes to quit hopefully soon. Denies alcohol. Denies IVDA but admits to cocaine. Single, lives alone. Physical Exam Physical Exam Vital Signs Date Time Temp Pulse Resp B/P (MAP) Pulse Ox O2 Delivery O2 Flow Rate FiO2 09/19/17 16:00 98.0 75 18 163/79 (107) 98 09/19/17 12:00 98.2 73 18 187/80 (115) 96 09/19/17 08:00 97.5 55 18 182/80 (114) 97 09/19/17 04:48 97.7 54 20 165/71 (102) 94 09/19/17 02:23 79 09/19/17 01:15 98.1 63 20 205/88 (127) 94 09/19/17 00:12 18 Microbiology Date/Time Source Procedure Growth Status 09/18/17 12:24 Blood Peripheral Aerobic Blood Culture - Preliminary NO GROWTH IN 1 DAY Resulted 09/18/17 12:24 Blood Peripheral Anaerobic Blood Culture - Preliminary NO GROWTH IN 1 DAY Resulted 09/18/17 12:15 Blood Peripheral Aerobic Blood Culture - Preliminary NO GROWTH IN 1 DAY Resulted 09/18/17 12:15 Blood Peripheral Anaerobic Blood Culture - Preliminary NO GROWTH IN 1 DAY Resulted 09/19/17 14:25 Cerebral Spinal Fluid Lumbar Puncture Gram Stain - Final Resulted 09/19/17 14:25 Cerebral Spinal Fluid Lumbar Puncture CSF Culture - Preliminary NO GROWTH IN 24 HOURS. Resulted Laboratory Tests Test 09/18/17 20:08 09/19/17 06:27 09/19/17 14:25 Activated Partial Thromboplast Time 31.3 SEC 41.4 SEC HIV (1&2) Antibody NEGATIVE Prothrombin Time 11.6 SEC Prothromb Time International Ratio 1.1 RATIO CSF Volume (Tube 1) 4.0 ML CSF Supernatant Color (tube 1) CLEAR CSF Gross Blood (Tube 1) 0 CSF Volume (Tube 2) 5.0 ML CSF Supernatant Color (tube 2) CLEAR CSF Gross Blood (Tube 2) 0 CSF Volume (Tube 3) 4.5 ML CSF Supernatant Color (tube 3) CLEAR CSF Gross Blood (Tube 3) 0 CSF Volume (Tube 4) 5.0 ML CSF Supernatant Color (tube 4) CLEAR CSF WBC (Tube 4) 13 /MM3 CSF RBC (Tube 4) 5 /MM3 CSF Neutrophils 1 % CSF Lymphocytes 82 % CSF Monocytes 17 % CSF Glucose 81 MG/DL CSF Total Protein 73.0 MG/DL IMAGING: Lumbar Puncture Fluoroscopy 09/19/17 0000 Signed Impressions: Service Date/Time: Tuesday, September 19, 2017 15:20 - CONCLUSION: Uncomplicated fluoroscopically guided lumbar puncture with pressures as above. Jorge Durbin MD Chest X-Ray 09/18/17 1238 Signed Impressions: Service Date/Time: Monday, September 18, 2017 12:46 - CONCLUSION: No evidence of acute cardiopulmonary disease. Nathan Dawkins MD Neck CTA 09/18/17 0000 Signed Impressions: Service Date/Time: Monday, September 18, 2017 11:26 - CONCLUSION: 1. There continues to be a focal high-grade stenosis involving the proximal segment of the left internal carotid artery of approximately 80-90%% 2. There continues to be some mild to moderate focal stenosis involving the proximal segment of the right internal carotid artery of approximately 40-50%%. 3. There is atherosclerotic plaquing at both carotid bifurcations. 4. Compared to the prior examination, no significant changes are demonstrated. Alex Gregory MD Head Magnetic Resonance Angiography 09/17/17 0000 Signed Impressions: Service Date/Time: Sunday, September 17, 2017 11:57 - CONCLUSION: 1. Redemonstration of irregular narrowing in the Jesus Manuel segment of the left internal carotid artery with findings suggestive of eccentric chronic thrombus. This is minimally improved since prior exam. 2. 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 3. No new focal flow-limiting stenosis or large vessel occlusion. Harjinder Luque MD Hand X-Ray 09/17/17 0000 Signed Impressions: Service Date/Time: Sunday, September 17, 2017 13:47 - CONCLUSION: No acute fracture or joint dislocation. Alex Gregory MD Carotid Artery Ultrasound 09/17/17 0000 Signed Impressions: Service Date/Time: Sunday, September 17, 2017 10:50 - CONCLUSION: 1. Interval progression of calcified plaque in the left carotid bulb extending to the origin of the ICA with resultant severe, greater than 70%%, stenosis based on velocity criteria. Grayscale imaging is somewhat discordant and is more consistent with moderate, 50-69%%, stenosis. Consider MRA examination for better evaluation as clinically warranted. Harjinder Luque MD Brain MRI 09/17/17 0000 Signed Impressions: Service Date/Time: Sunday, September 17, 2017 11:57 - CONCLUSION: 1. Multiple focal acute infarcts in the parietal and occipital lobes bilaterally. 2. Prominent areas of chronic ischemic small vessel vasculopathy, as above. Harjinder Luque MD Head CT [id number] Signed Impressions: Service Date/Time: Saturday, September 16, 2017 20:48 - CONCLUSION: 1. No acute infarct, acute hemorrhage, mass effect or extra-axial fluid collections. 2. Minimal scattered periventricular and subcortical white matter small vessel ischemic changes bilaterally. Andrade Milligan MD Physical Exam GENERAL: Patient is in no acute distress. HEENT: Head atraumatic. EOMI, No icterus. NECK: Mild rigidity at the left neck. No adenopathy. LUNGS: Clear breath sounds. CARDIAC: Regular rate and rhythm, No murmurs. No rubs, no gallops. ABDOMEN: Soft, non tender, (+) BS. EXTREMITIES: No CCE. NEURO: Weakness at the left upper ext. SKIN: No rash. Assessment and Plan Assessment and Plan Fever. ? meningoencephalitis. HIV negative. ? etiology. Temp lower. Probably stroke related. LP not remarkable for meningitis. Culture - no growth 24 hours. Stroke with left UE neuro deficit. ICA thrombus noted. ECHO no vegetations. Blood cultures pending. Patient has carotid artery disease. CAD s/p CABG x 3 Recs Continue Ceftriaxone 2 gm IV 24hrs Continue Acyclovir. Added HSV to the CSF. It was not added to the studies. Follow blood cultures Follow CSF studies. Temperature was transient and has improved. Plan on stopping antibiotics if cultures are negative. Luc Douglass MD Sep 20, 2017 11:00
[2017-09-20 12:00] VITALS: BP 198/84; PULSE 62; RESP 18; TEMP 98.1; O2SAT 92
[2017-09-20] MEDS: ASPIRIN 81 MG CHEW TAB CHEW SCH (12:26)
[2017-09-20] MEDS: CLOPIDOGREL 75 MG TAB PO SCH (12:26)
[2017-09-20] MEDS ORDERED: CYCLOBENZAPRINE HCL 10 MG TAB PO PRN (13:00)
[2017-09-20] MEDS ORDERED: ENOXAPARIN SODIUM 40 MG/0.4 ML SYRINGE SQ SCH (14:00)
[2017-09-20] MEDS ORDERED: amLODIPine BESYLATE 5 MG TAB PO ONE (14:15)
[2017-09-20 16:00] VITALS: BP 156/70; PULSE 58; RESP 18; TEMP 97.5; O2SAT 96
[2017-09-20 16:19] LABS: HEMATOCRIT 41.3 % (39.0-51.0); MEAN CELL VOLUME 90.4 FL (80.0-100.0); MEAN CORPUSCULAR HEMOGLOBIN 30.8 PG (27.0-34.0); PLATELET COUNT 133 TH/MM3 (150-450); RED BLOOD COUNT 4.57 MIL/MM3 (4.50-5.90); RED CELL DISTRIBUTION WIDTH 13.5 % (11.6-17.2); REVIEW FLAG FINAL; WHITE BLOOD COUNT 12.9 TH/MM3 (4.0-11.0)
[2017-09-20 16:27] LABS: INTERNATIONAL NORMALIZED RATIO 1.1 RATIO; PROTHROMBIN TIME - PATIENT 10.9 SEC (9.8-11.6)
[2017-09-20 20:00] VITALS: BP 154/64; PULSE 55; RESP 18; TEMP 98.2; O2SAT 96
[2017-09-20] MEDS: ATORVASTATIN 40 MG TAB PO SCH (21:09)
[2017-09-21] VITALS: BP 147/63; PULSE 57; RESP 18; TEMP 98.1; O2SAT 97
[2017-09-21] MEDS ORDERED: diphenhydrAMINE HCL 25 MG CAP PO ONE (01:30)
[2017-09-21 04:00] VITALS: BP 134/61; PULSE 54; RESP 18; TEMP 98.1; O2SAT 99
[2017-09-21] MEDS: ACYCLOVIR IV SCH (07:06)
[2017-09-21] MEDS: SODIUM CHLORIDE 0.9% IV SCH (07:06)
[2017-09-21 08:00] VITALS: BP 137/73; PULSE 59; RESP 18; TEMP 97.4; O2SAT 98
[2017-09-21] MEDS ORDERED: amLODIPine BESYLATE 5 MG TAB PO SCH (09:00)
[2017-09-21] MEDS: CLOPIDOGREL 75 MG TAB PO SCH (09:34)
[2017-09-21] MEDS: ASPIRIN 81 MG CHEW TAB CHEW SCH (09:34)
[2017-09-21] MEDS ORDERED: AMLO5 PO (10:17)
[2017-09-21] MEDS ORDERED: PLAV75TA29 PO (10:17)
[2017-09-21] MEDS ORDERED: CYCL10TA PO (10:17)
[2017-09-21] MEDS ORDERED: AMOX875T2 PO (10:17)
[2017-09-21] MEDS ORDERED: ATOR40TA16 PO (10:17)
--- NOTE | 2017-09-21 10:19 | HHI.DS ---
Discharge Summary Admission Date Sep 17, 2017 at 1:47 pm Discharge Date: Sep 21, 2017 Admitting Diagnosis TIA (1) Carotid stenosis, bilateral ICD Code: I65.23 - Occlusion and stenosis of bilateral carotid arteries Diagnosis: Principal (2) Cerebrovascular accident, embolic ICD Code: I63.9 - Cerebral infarction, unspecified Diagnosis: Principal Status: Acute (3) Uvulitis ICD Code: K12.2 - Cellulitis and abscess of mouth Procedures Echo 09/17/2017. The left ventricular systolic function is low normal with an estimated ejection fraction in the range of 50- 55%. Normal left ventricular size. Wall thickness is measured at the upper limits of normal. No regional wall motion abnormalities are present. Trace mitral valve regurgitation. Pulmonary arterial systolic pressure could not be estimated due to an insufficient tricuspid valve regurgitation doppler jet for measurement. Brief History - From Admission 57-year-old male with a past medical history significant for hypertension, CAD status post CABG and CVA on 04/30/17 presents to the emergency department with acute onset of left sided numbness and weakness. Patient states he had sudden onset of heaviness, decreased motor coordination and tingling in his left upper and lower extremity and the bottom half of the left side of his face. He states his symptoms have improved but he has not returned to baseline. During his last hospitalization the patient was found to have 80% left ICA stenosis and 40-50% right ICA stenosis. He was instructed to follow-up with vascular surgery. He also had an abnormal thoracic spine MRI significant for progressive abnormal signal change within the substance of the cord associated with anterior displacement of flattening of the cord, reflecting central cord herniation. The patient was instructed to follow-up with neurosurgery in 2 months as an outpatient. At his last hospitalization, the patient was restarted on Coumadin which he is not currently taking. Head CT showed no acute intracranial abnormalities. CBC/BMP: 09/20/17 1524 09/17/17 0515 Significant Findings Laboratory Tests Test 09/18/17 14:00 09/18/17 15:17 09/18/17 20:08 09/19/17 06:27 Urine Specific [place] GREATER THAN 1.050 Hepatitis C Antibody REACTIVE (NEGATIVE) Activated Partial Thromboplast Time 31.3 SEC (24.3-30.1) 41.4 SEC (24.3-30.1) Test 09/19/17 14:25 09/20/17 15:24 CSF WBC (Tube 4) 13 /MM3 (0-10) CSF RBC (Tube 4) 5 /MM3 (NONE) CSF Glucose 81 MG/DL (40-80) CSF Total Protein 73.0 MG/DL (15.0-45.0) White Blood Count 12.9 TH/MM3 (4.0-11.0) Platelet Count 133 TH/MM3 (150-450) Mean Platelet Volume 11.2 FL (7.0-11.0) Imaging Last Impressions Lumbar Puncture Fluoroscopy 09/19/17 0000 Signed Impressions: Service Date/Time: Tuesday, September 19, 2017 15:20 - CONCLUSION: Uncomplicated fluoroscopically guided lumbar puncture with pressures as above. Jorge Durbin MD Chest X-Ray 09/18/17 1238 Signed Impressions: Service Date/Time: Monday, September 18, 2017 12:46 - CONCLUSION: No evidence of acute cardiopulmonary disease. Nathan Dawkins MD Neck CTA 09/18/17 0000 Signed Impressions: Service Date/Time: Monday, September 18, 2017 11:26 - CONCLUSION: 1. There continues to be a focal high-grade stenosis involving the proximal segment of the left internal carotid artery of approximately 80-90%% 2. There continues to be some mild to moderate focal stenosis involving the proximal segment of the right internal carotid artery of approximately 40-50%%. 3. There is atherosclerotic plaquing at both carotid bifurcations. 4. Compared to the prior examination, no significant changes are demonstrated. Alex Gregory MD Head Magnetic Resonance Angiography 09/17/17 0000 Signed Impressions: Service Date/Time: Sunday, September 17, 2017 11:57 - CONCLUSION: 1. Redemonstration of irregular narrowing in the Jesus Manuel segment of the left internal carotid artery with findings suggestive of eccentric chronic thrombus. This is minimally improved since prior exam. 2. 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 3. No new focal flow-limiting stenosis or large vessel occlusion. Harjinder Luque MD Hand X-Ray 09/17/17 0000 Signed Impressions: Service Date/Time: Sunday, September 17, 2017 13:47 - CONCLUSION: No acute fracture or joint dislocation. Alex Gregory MD Carotid Artery Ultrasound 09/17/17 0000 Signed Impressions: Service Date/Time: Sunday, September 17, 2017 10:50 - CONCLUSION: 1. Interval progression of calcified plaque in the left carotid bulb extending to the origin of the ICA with resultant severe, greater than 70%%, stenosis based on velocity criteria. Grayscale imaging is somewhat discordant and is more consistent with moderate, 50-69%%, stenosis. Consider MRA examination for better evaluation as clinically warranted. Harjinder Luque MD Brain MRI 09/17/17 0000 Signed Impressions: Service Date/Time: Sunday, September 17, 2017 11:57 - CONCLUSION: 1. Multiple focal acute infarcts in the parietal and occipital lobes bilaterally. 2. Prominent areas of chronic ischemic small vessel vasculopathy, as above. Harjinder Luque MD Head CT [id number] Signed Impressions: Service Date/Time: Saturday, September 16, 2017 20:48 - CONCLUSION: 1. No acute infarct, acute hemorrhage, mass effect or extra-axial fluid collections. 2. Minimal scattered periventricular and subcortical white matter small vessel ischemic changes bilaterally. Andrade Milligan MD PE at Discharge GENERAL: Alert, Appears uncomfortable, in mild distress due to neck stiffness. SKIN: Warm and dry. HEAD: Normocephalic. Pain on movement of his head. EYES: No scleral icterus. No injection or drainage. NECK: Trachea midline. No JVD or lymphadenopathy. Neck feels stiff on anterior- posterior movement as well as lateral movements. CARDIOVASCULAR: Regular rate and rhythm without murmurs, gallops, or rubs. RESPIRATORY: Breath sounds equal bilaterally. No accessory muscle use. GASTROINTESTINAL: Abdomen soft, non-tender, nondistended. MUSCULOSKELETAL: No cyanosis, or edema. BACK: Nontender without obvious deformity. No CVA tenderness. Pt update on day of discharge Patient is currently doing well. No acute concerns. Ambulating well. Denies any chest pain, shortness of breath, fever or chills. Hospital Course Mr. Barajas is a 57 year old male with a history of hypertension, coronary artery disease a status post CABG, stroke who presented to the emergency department due to left upper and lower extremity weakness. Neurology consulted. Patient did not receive TPA. Further workup including MRI shows bilateral infarctions, likely embolic in nature. - Probable Acute bacterial meningitis - Patient has headache, fever, neck stiffness. He also looks uncomfortable. - Patient's symptoms indicated possible bacterial meningitis. We started empiric treatments. - patient was on 1) Dexamethasone 10mg Q6hrs 2) Rocephin 2g Q12hrs 3) Vancomycin 2g now and subsequent dosing per pharmacy. 4) Ampicillin 2g Q4hrs 5) Acyclovir 785mg. - LP study does not indicate bacterial meningitis. Infectious disease discontinued vancomycin and ampicillin. - We continued Rocephin 2 g every 24 hours and acyclovir. We discontinued Acyclovir and Rocephin - After discussing with ID and ENT, we discharged patient on Augmentin and steroid dosepak. - Chlamydia,N. Gonorrhoeae PCR negative. Hepatitic C reactive. - HIV negative. - Probable Uvulitis - CTA neck shows 1.16 X 1.0 cm. We will treat this with Augmentin first. Also , a medrol dosepak given. - Patient is advised to follow up with PCP and possibly ENT as well. - If the mass still present, he would need a biopsy. - Acute bilateral stroke, likely embolic. - Bilateral carotid artery stenosis - Discussed at length with neurology and vascular surgery. We'll put patient on aspirin 81 mg and Plavix 75 mg daily. - No immediate plan to do any surgical intervention per vascular surgery. Vascular surgery will follow-up in the outpatient setting. - Continue Lipitor 40mg QHS. - Coronary artery disease s/p CABG. - Continue Aspirin, Lipitor - Tobacco abuse - patient has been counselled on tobacco cessation. Full code. Lovenox. Pt Condition on Discharge: Good Discharge Disposition: Discharge Home Discharge Time: > 30 minutes Discharge Instructions DIET: Follow Instructions for: Heart Healthy Diet Speech Therapy-Diet Recommends: Regular Activities you can perform: Regular-No Restrictions Follow up Referrals: Appointment for Follow Up Ear Nose Throat - 3 Weeks with Dar Enriquez MD Vascular Surgery @ Vascular Surgery with Andrade Bertrand MD Vascular Surgery New Medications: Methylprednisolone Dosepak (Medrol Dosepak) 4 Mg Dspk 4 MG PO DIRECTED, #1 DSPK 0 Refills Per Pharmacist direction Oxycodone (Oxycodone) 5 Mg Cap 5 MG PO Q6H PRN for PAIN, #20 CAP 0 Refills Walker with Front Wheels (Walker with Front Wheels) 1 Mis Mis EA .ROUTE DIRECTED, #1 0 Refills Amlodipine (Norvasc) 5 Mg Tab 5 MG PO DAILY for Blood Pressure Management, #90 TAB 3 Refills Amoxicillin-Clavulanate (Amoxicillin-Clavulanate) 875-125 mg Tab 875 MG PO Q12H for Infection, #28 TAB not for use in CrCl <30 mL/minute Atorvastatin (Atorvastatin) 40 Mg Tab 40 MG PO HS for Cholesterol Management, #90 TAB 3 Refills Clopidogrel (Plavix) 75 Mg Tab 75 MG PO DAILY for Blood Clot Prevention, #30 TAB 3 Refills Cyclobenzaprine (Flexeril) 10 Mg Tab 5 MG PO Q8H PRN for MUSCLE SPASM, #20 TAB Continued Medications: Aspirin DR (Adult Aspirin EC Low Strength) 81 Mg Tabec 81 MG PO DAILY for Stroke Prevention, #30 TAB 0 Refills Discontinued Medications: Hydrocodone-Acetaminophen (Hydrocodone-Acetaminophen) 5-325 mg Tab 1 TAB PO Q4H PRN for PAIN SCALE 1 TO 10, #20 TAB 0 Refills Pravastatin (Pravachol) 40 Mg Tab 40 MG PO DAILY for Cholesterol Management, #30 TAB 0 Refills Warfarin (Coumadin) 4 Mg Tab 4 MG PO DAILY@16 for Stroke Prevention, #30 TAB 0 Refills Dian Guerrero DO Sep 21, 2017 10:19 am
[2017-09-21] MEDS ORDERED: MEDR4PAK PO (10:31)
[2017-09-21] MEDS ORDERED: OXYC1CAP PO (10:31)
[2017-09-21 10:42] LABS: HSV 1,PCR Negative (Negative)
[2017-09-21] MEDS ORDERED: AMOXICILLIN/CLAVULANATE K 875 MG TAB PO SCH (11:00)
[2017-09-21] MEDS ORDERED: WALKER WHEELS/F1 MIS (11:05)
[2017-09-21 11:17] LABS: INTERNATIONAL NORMALIZED RATIO 1.1 RATIO
== END 2017-09-21 14:16 | disposition home or self-care (01) | DRG 65 ==
LOC: NEPE 20:37 → NEDA 21:59 → NEPFCDU 09-17 00:43 → OBSVTOIN 09-17 13:47 → N05A 09-17 21:49
PROVIDERS: ADMIT Hospitalist; ATTEND Hospitalist
PROC: 009U3ZX Drainage of Spinal Canal, Percutaneous Approach, Diagnostic (ICD-10-PCS; principal; 2017-09-19)
PROC: B01B1ZZ Fluoroscopy of Spinal Cord using Low Osmolar Contrast (ICD-10-PCS; 2017-09-19)
DX: I63.032 Cerebral infarction due to thrombosis of left carotid artery (principal); G95.20 Unspecified cord compression; M50.01 Cervical disc disorder with myelopathy, high cervical region; G81.94 Hemiplegia, unspecified affecting left nondominant side; I07.1 Rheumatic tricuspid insufficiency; I10 Essential (primary) hypertension; K12.2 Cellulitis and abscess of mouth; I16.0 Hypertensive urgency; I25.10 Atherosclerotic heart disease of native coronary artery without angina pectoris; M51.34 Other intervertebral disc degeneration, thoracic region; M79.642 Pain in left hand; H91.90 Unspecified hearing loss, unspecified ear; F10.10 Alcohol abuse, uncomplicated; F12.10 Cannabis abuse, uncomplicated; F17.210 Nicotine dependence, cigarettes, uncomplicated; Z23 Encounter for immunization; Z79.01 Long term (current) use of anticoagulants; Z82.49 Family history of ischemic heart disease and other diseases of the circulatory system; Z86.73 Personal history of transient ischemic attack (TIA), and cerebral infarction without residual deficits; Z91.14 Patient's other noncompliance with medication regimen; Z95.1 Presence of aortocoronary bypass graft
CPT/HCPCS: 62270; 70450; 70498; 70544; 70551; 71010; 73130; 77003; 80048; 80053; 80061; 80074; 81001; 82435; 82565; 82945; 82947; 82948; 83036; 84132; 84157; 84295; 84520; 85025; 85027; 85610; 85730; 86703; 87040; 87070; 87205; 87491; 87529; 87591; 89051; 90732; 93005; 93306; 93880; G8987-GP; G8988-GP; J0133; J0290; J0696; J1100; J1644; J1815; J3370; J7030; J7040; J7050; Q9967

== ENCOUNTER 2017-10-14 20:14 | Inpatient (IN) | payer SELFPAY ==
[2017-10-14] VITALS (9 sets, daily range): BP systolic 134–186; BP diastolic 67–86; PULSE 61–110; RESP 16–20; TEMP 97.8; O2SAT 98–100
[~2017-10-14 20:14] MED LIST changes: +AMLO5 PO; +AMOX875T2 PO; +ATOR40TA16 PO; -COUM4TAB PO; +CYCL10TA PO; -HYDR-3516 PO; +MEDR4PAK PO; +OXYC1CAP PO; +PLAV75TA29 PO; -PRAV40TA PO; +WALKER WHEELS/F1 MIS
--- NOTE | 2017-10-14 20:28 | PD ---
HPI Chief Complaint: Stroke Alert Time Seen by Provider: 20:22 Travel History International Travel<30 days: No Contact w/Intl Traveler<30days: No Traveled to known affect area: No History of Present Illness HPI Patient is a 57-year-old male who was outside with his friends suddenly fell to the ground paramedics were called .. He was found to have a left arm and left shoulder weakness however otherwise no focal findings , patient had recently been here with a similar finding was admitted had ultrasounds carotid stenosis 80% specific follow-up with vascular surgery which he did not follow through with.. he was supposed to be on Coumadin which he is not taking . and He is now back with the same symptoms which started 30 minutes [employer]BUR[employer] .. onset left hand 1 out of 5 otherwise neuro exam is normal.. he is not neglecting the left side his gaze crosses midline .. he can lift the left leg which 5/5 is normal and patient is awake and alert and conversant.. symmetrical smile ..Pt has a past medical history significant for hypertension, CAD status post CABG and CVA on 04/30/17 presents to the emergency department with acute onset of left arm weakness. Patient states he had sudden onset of heaviness, decreased motor coordination and tingling in his left upper . During his last hospitalization the patient was found to have 80% left ICA stenosis and 40-50% right ICA stenosis. He was instructed to follow-up with vascular surgery. He also had an abnormal thoracic spine MRI significant for progressive abnormal signal change within the substance of the cord associated with anterior displacement of flattening of the cord, reflecting central cord herniation. The patient was instructed to follow-up with neurosurgery in 2 months as an outpatient. At his last hospitalization, the patient was restarted on Coumadin which he is not currently taking. Head CT showed no acute intracranial abnormalities. MRI that was done sep 16 - had parietal bilateral old infarct areas. Pt main defecit is left deltoid to hand weakness 1/5 PFSH Past Medical History Arthritis: No Asthma: No Autoimmune Disease: No Blood Disorders: No Anxiety: No Depression: No Heart Rhythm Problems: No Cancer: No Cardiac Catheterization: Yes (1988) Cardiovascular Problems: Yes High Cholesterol: Yes Chemotherapy: No Chest Pain: Yes Congestive Heart Failure: No COPD: No Cerebrovascular Accident: Yes (July 2017) Diabetes: No (pt states strong family history) Diminished Hearing: Yes (A LITTLE HARD OF HEARING AT TIMES) Endocrine: No GERD: No Genitourinary: No Hiatal Hernia: No Hypertension: Yes Immune Disorder: No Implanted Vascular Access Dvce: Yes Kidney Stones: No Musculoskeletal: Yes (left arm post fall 09/16/17) Neurologic: Yes Psychiatric: No Reproductive: No Respiratory: No Immunizations Current: No Migraines: Yes (current) Myocardial Infarction: No Radiation Therapy: No Renal Failure: No Seizures: Yes (possibly prior to admission per pt.) Sickle Cell Disease: No Sleep Apnea: No Thyroid Disease: No Ulcer: No Past Surgical History Abdominal Surgery: No AICD: No Arteriovenous Shunt: No Body Medical Devices: Cardiac stents, pt states loop recorder but has no idea why Cardiac Surgery: Yes (double bypass in 1988, with vein strip to left arm) Coronary Artery Bypass Graft: Yes Coronary Stent: Yes Ear Surgery: No Endocrine Surgery: No Eye Surgery: No Genitourinary Surgery: No Gynecologic Surgery: No Insulin Pump: No Joint Replacement: No Oral Surgery: No Pacemaker: No Thoracic Surgery: No Other Surgery: Yes (CABG) Social History Alcohol Use: No Tobacco Use: Yes (1/2 PPD) Substance Use: Yes (marijuana) Allergies-Medications (Allergen,Severity, Reaction): Coded Allergies: No Known Allergies (Verified Allergy, Severe, 04/29/08) Reported Meds & Prescriptions Reported Meds & Active Scripts Active Walker with Front Wheels (Device) 1 Mis Mis Ea .ROUTE DIRECTED Medrol Dosepak (Methylprednisolone) 4 Mg Dspk 4 Mg PO DIRECTED Per Pharmacist direction Oxycodone (Oxycodone HCl) 5 Mg Cap 5 Mg PO Q6H PRN Norvasc (Amlodipine Besylate) 5 Mg Tab 5 Mg PO DAILY Atorvastatin (Atorvastatin Calcium) 40 Mg Tab 40 Mg PO HS Plavix (Clopidogrel Bisulfate) 75 Mg Tab 75 Mg PO DAILY Flexeril (Cyclobenzaprine HCl) 10 Mg Tab 5 Mg PO Q8H PRN Amoxicillin-Clavulanate 875-125 mg Tab 875 Mg PO Q12H not for use in CrCl <30 mL/minute Adult Aspirin EC Low Strength (Aspirin) 81 Mg Tabec 81 Mg PO DAILY Review of Systems Except as stated in HPI: all other systems reviewed are Neg Neurologic: Positive: Weakness (left arm and hand 0 out of 5) Physical Exam Narrative GENERAL: SKIN: Warm and dry. HEAD: Atraumatic. Normocephalic. EYES: Pupils equal and round. No scleral icterus. No injection or drainage. ENT: No nasal bleeding or discharge. Mucous membranes pink and moist. NECK: Trachea midline. No JVD. CARDIOVASCULAR: Regular rate and rhythm. RESPIRATORY: No accessory muscle use. Clear to auscultation. Breath sounds equal bilaterally. GASTROINTESTINAL: Abdomen soft, non-tender, nondistended. Hepatic and splenic margins not palpable. MUSCULOSKELETAL: Extremities without clubbing, cyanosis, or edema. No obvious deformities. NEUROLOGICAL: Awake and alert. EXTREMITY -- LEFT HAND 0/5 and LEFT arm 0/5 No obvious cranial nerve deficits. Data Data Last Documented VS Vital Signs Date Time Temp Pulse Resp B/P (MAP) Pulse Ox O2 Delivery O2 Flow Rate FiO2 10/14/17 21:38 62 16 167/72 (103) 99 Nasal Cannula 2.00 10/14/17 20:17 97.8 Orders Orders Electrocardiogram (10/14/17 20:25) Prothrombin Time / Inr (Pt) (10/14/17 20:25) Complete Blood Count With Diff (10/14/17 20:25) Comprehensive Metabolic Panel (10/14/17 20:25) Troponin I (10/14/17 20:25) Ct Brain W/O Iv Contrast(Rout) (10/14/17 20:25) Ecg Monitoring (10/14/17 20:25) Iv Access Insert/Monitor (10/14/17 20:25) Oximetry (10/14/17 20:25) Sodium Chloride 0.9% Flush (Ns Flush) (10/14/17 20:30) Fibrinogen (10/14/17 20:28) Chest, Single Ap (10/14/17 ) I-Stat Creatinine (10/14/17 20:25) I-Stat Profile (10/14/17 20:25) Labetalol Inj (Trandate Inj) (10/14/17 21:00) ^ Call Pharmacy (10/14/17 20:55) Nih Stroke Scale - Nihss .ONCE (10/14/17 20:55) Anticoagulant Alert (10/14/17 20:55) ^ Post Infusion Restrictions (10/14/17 20:55) ^ Medication Alert (10/14/17 20:55) Vital Signs (Adult) .As directed (10/14/17 20:55) Notify Dr: Blood Pressure (10/14/17 20:55) ^ Medication Alert (10/14/17 20:55) Alteplase Bolus (Activase Bolus) (10/14/17 21:00) Alteplase Drip (Activase Drip) (10/14/17 21:00) Sodium Chloride 0.9% Inj (Ns Inj) (10/14/17 21:00) Misc Nursing Information (10/14/17 21:00) Hydralazine Inj (Apresoline Inj) (10/14/17 21:15) Hydralazine Inj (Apresoline Inj) (10/14/17 21:09) Admit Order (Ed Use Only) (10/14/17 22:17) Labs Laboratory Tests Test 10/14/17 20:25 White Blood Count 7.7 TH/MM3 Red Blood Count 5.07 MIL/MM3 Hemoglobin 15.8 GM/DL Bedside Hemoglobin 17.3 G/DL Hematocrit 46.4 % Bedside Hematocrit 51.0 % Mean Corpuscular Volume 91.4 FL Mean Corpuscular Hemoglobin 31.2 PG Mean Corpuscular Hemoglobin Concent 34.2 % Red Cell Distribution Width 13.7 % Platelet Count 156 TH/MM3 Mean Platelet Volume 10.4 FL Neutrophils (%) (Auto) 63.8 % Lymphocytes (%) (Auto) 24.5 % Monocytes (%) (Auto) 9.5 % Eosinophils (%) (Auto) 1.6 % Basophils (%) (Auto) 0.6 % Neutrophils # (Auto) 4.9 TH/MM3 Lymphocytes # (Auto) 1.9 TH/MM3 Monocytes # (Auto) 0.7 TH/MM3 Eosinophils # (Auto) 0.1 TH/MM3 Basophils # (Auto) 0.0 TH/MM3 CBC Comment DIFF FINAL Differential Comment Prothrombin Time 10.3 SEC Prothromb Time International Ratio 1.0 RATIO Fibrinogen 449 mg/dL Bedside Sodium 140 MMOL/L Blood Urea Nitrogen 11 MG/DL Creatinine 0.87 MG/DL Random Glucose 120 MG/DL Total Protein 8.1 GM/DL Albumin 4.0 GM/DL Calcium Level 8.9 MG/DL Alkaline Phosphatase 67 U/L Aspartate Amino Transf (AST/SGOT) 14 U/L Alanine Aminotransferase (ALT/SGPT) 24 U/L Total Bilirubin 0.3 MG/DL Sodium Level 136 MEQ/L Potassium Level 3.6 MEQ/L Chloride Level 101 MEQ/L Carbon Dioxide Level 23.9 MEQ/L Bedside Potassium 3.8 MMOL/L Bedside Chloride 100 MMOL/L Anion Gap 11 MEQ/L Bedside Blood Urea Nitrogen 10 MG/DL Bedside Creatinine 0.8 MG/DL Estimat Glomerular Filtration Rate 90 ML/MIN Bedside Glucose 126 MG/DL Troponin I LESS THAN 0.02 NG/ML MDM Medical Decision Making Medical Screen Exam Complete: Yes Emergency Medical Condition: Yes Differential Diagnosis CVA ischemia vs CVA hemorrhagic vs [place] Paralysis, vs cardiogenic anoxia to brain, vs PML or parasitic infectious brain malfunction, Narrative Course Pt arrive 30 minutes after witnessed sudden onset of CVA like symptoms with Left arm paralysis and 0/5 geoint analyst. Pt has had similiar in the past a known vasculopath , CT negative for bleed and pt has never had prior head bleed. I Make patient a stroke alert and Dr Ferreira calls back and tPa is decided on from neurology recommendation. Pt is not on Coumadin so no need to wait for his INR, his BP was 188 SBP but controlled with Hydralazine 10 mg--> BP is now 167 and tPa bolus and infusion is begun, Admited to ICU Dr Olivia and pt symptoms fluctuate. 30 minutes into infusion his speech and left leg worsen and repeat CT done to assure no conversion to a bleed , Repeat CT show no change and He is admitted to Dr Olivia ICU Critical Care Narrative 45 mins Critical care as described above Diagnosis Primary Impression: Focal motor deficit Additional Impression: CVA (cerebral vascular accident) Qualified Codes: I63.9 - Cerebral infarction, unspecified Admitting Information Admitting Physician Requests: Admit Nilton Rutledge MD Oct 14, 2017 20:28
[2017-10-14] MEDS ORDERED: SODIUM CHLORIDE 0.9% FLUSH 10 ML FLUSH IVF PRN (20:30)
--- NOTE | 2017-10-14 20:48 | RADRPT ---
EXAM DATE/TIME: 10/14/2017 20:32 [facility] COMPARISON: CT BRAIN W/O CONTRAST, September 16, 2017, 20:48. INDICATIONS : Stroke alert, left sided numbness/weakness. RADIATION DOSE: 39.84 CTDIvol (mGy) This report was called by Dr. Rebolledo to MANOJ Sahni at 8: 45 PM MEDICAL HISTORY : Non-responsive. SURGICAL HISTORY : Non-responsive. ENCOUNTER: Initial ACUITY: 1 day PAIN SCALE: Non-responsive LOCATION: cranial TECHNIQUE: Multiple contiguous axial images were obtained of the head. Using automated exposure control and adj ustment of the mA and/or kV according to patient size, radiation dose was kept as low as reasonably a chievable to obtain optimal diagnostic quality images. DICOM format image data is available electro nically for review and comparison. FINDINGS: CEREBRUM: The ventricles are normal for age. No evidence of midline shift, mass lesion, hemorrhage or acute in farction. No extra-axial fluid collections are seen. POSTERIOR FOSSA: The cerebellum and brainstem are intact. The 4th ventricle is midline. The cerebellopontine angle i s unremarkable. EXTRACRANIAL: The visualized portion of the orbits is intact. SKULL: The calvaria is intact. No evidence of skull fracture. CONCLUSION: No acute intracranial abnormalities. Multifocal white matter ischemic changes noted with remote lacun ar infarct in left parietal lobe. Wilfredo Rebolledo MD on October 14, 2017 at 20:40 Board Certified Radiologist. This report was verified electronically.
[2017-10-14 20:51] LABS: AUTOMATED NEUTROPHIL # 4.9 TH/MM3 (1.8-7.7); BASOPHIL % 0.6 % (0.0-2.0); EOSINOPHIL # 0.1 TH/MM3 (0-0.4); EOSINOPHIL % 1.6 % (0.0-4.0); HEMATOCRIT 46.4 % (39.0-51.0); HEMOGLOBIN 15.8 GM/DL (13.0-17.0); LYMPH % 24.5 % (9.0-44.0); LYMPHOCYTE # 1.9 TH/MM3 (1.0-4.8); MEAN CELL VOLUME 91.4 FL (80.0-100.0); MEAN CORPUSCULAR HEMOGLOBIN 31.2 PG (27.0-34.0); MEAN CORPUSCULAR HGB CONC 34.2 % (32.0-36.0); MEAN PLATELET VOLUME 10.4 FL (7.0-11.0); MONO % 9.5 % (0.0-8.0); MONOCYTE # 0.7 TH/MM3 (0-0.9); NEUT % 63.8 % (16.0-70.0); PLATELET COUNT 156 TH/MM3 (150-450); RED BLOOD COUNT 5.07 MIL/MM3 (4.50-5.90); RED CELL DISTRIBUTION WIDTH 13.7 % (11.6-17.2); WHITE BLOOD COUNT 7.7 TH/MM3 (4.0-11.0)
[2017-10-14 21:00] LABS: ALT (GPT) 24 U/L (12-78); AST (GOT) 14 U/L (15-37); BICARBONATE 23.9 MEQ/L (21.0-32.0); BLOOD UREA NITROGEN 11 MG/DL (7-18); CALCIUM 8.9 MG/DL (8.5-10.1); CHLORIDE 101 MEQ/L (98-107); CREATININE 0.87 MG/DL (0.60-1.30); GLOMERULAR FILTRATION RATE 90 ML/MIN (>89); GLUCOSE,RANDOM 120 MG/DL (74-106); PROTHROMBIN TIME - PATIENT 10.3 SEC (9.8-11.6); SODIUM (NA) 136 MEQ/L (136-145)
[2017-10-14] MEDS ORDERED: LABETALOL HCL 100 MG/20 ML VIAL IV PUSH ONE (21:00)
[2017-10-14] MEDS ORDERED: ALTEPLASE BOLUS 9 MG/9 ML SYR IV ONE (21:00)
[2017-10-14] MEDS ORDERED: MISCELLANEOUS NURSING INFORMATION XX PRN (21:00)
[2017-10-14] MEDS ORDERED: ALTEPLASE DRIP IV ONE (21:00)
[2017-10-14] MEDS ORDERED: SODIUM CHLORIDE 0.9% 50 ML BAG IVF ONE (21:00)
[2017-10-14 21:04] LABS: ALKALINE PHOSPHATASE 67 U/L (45-117); TOTAL BILIRUBIN ADULT 0.3 MG/DL (0.2-1.0); TOTAL PROTEIN 8.1 GM/DL (6.4-8.2); TROPONIN I LESS THAN 0.02 NG/ML (0.02-0.05)
[2017-10-14] MEDS ORDERED: hydrALAZINE HCL 20 MG/ML VIAL ONE (21:09)
--- NOTE | 2017-10-14 21:13 | RADRPT ---
EXAM DATE/TIME: 10/14/2017 20:39 [facility] COMPARISON: No previous studies available for comparison. INDICATIONS : Stroke Alert. MEDICAL HISTORY : Hypertension. SURGICAL HISTORY : CABG. Coronary artery stent. ENCOUNTER: Initial ACUITY: 1 day PAIN SCORE: 0/10 LOCATION: Bilateral chest. FINDINGS: A single view of the chest demonstrates the lungs to be symmetrically aerated without evidence of mas s, infiltrate or effusion. Loop recorder present. The cardiomediastinal contours are unremarkable. O sseous structures are intact. CONCLUSION: 1. No active disease. Wilfredo Rebolledo MD on October 14, 2017 at 21:10 Board Certified Radiologist. This report was verified electronically.
[2017-10-14] MEDS ORDERED: hydrALAZINE HCL 20 MG/ML VIAL IV PUSH ONE (21:15)
[2017-10-14] MEDS ORDERED: ONDANSETRON HCL 4 MG/2 ML VIAL IV PUSH PRN (22:30)
[2017-10-14] MEDS ORDERED: RESP: ALBUTEROL 2.5 MG/3 ML NEB (PRN) INH (22:30)
[2017-10-14] MEDS ORDERED: MISCELLANEOUS NURSING INFORMATION XX SCH (22:30)
[2017-10-14] MEDS ORDERED: ACETAMINOPHEN/HYDROcodone 325 MG/5 MG TAB PO PRN (22:30)
[2017-10-14] MEDS ORDERED: LACTULOSE SYRUP 20 GM/30 ML CUP PO PRN (22:30)
[2017-10-14] MEDS ORDERED: SENNOSIDES 8.6 MG TAB PO PRN (22:30)
[2017-10-14] MEDS ORDERED: GLUCAGON 1 MG/ML VIAL OTHER PRN (22:30)
[2017-10-14] MEDS ORDERED: ACETAMINOPHEN 325 MG TAB PO PRN (22:30)
[2017-10-14] MEDS ORDERED: CHLORHEXIDINE GLUCONATE 2 % 1 PACK (2 CLOTHS) TOP PRN (22:30)
[2017-10-14] MEDS ORDERED: ENALAPRILAT 2.5 MG/2 ML VIAL IV PUSH PRN (22:30)
[2017-10-14] MEDS ORDERED: SODIUM CHLORIDE 0.9% FLUSH 10 ML FLUSH IV FLUSH PRN ×2 (22:30)
[2017-10-14] MEDS ORDERED: LABETALOL HCL 100 MG/20 ML VIAL IV PUSH PRN (22:30)
[2017-10-14] MEDS ORDERED: DEXTROSE 50% IN WATER 50 ML VIAL(D50) IV PUSH PRN (22:30)
[2017-10-14] MEDS ORDERED: BISACODYL 10 MG SUPP RECTAL PRN (22:30)
[2017-10-14] MEDS ORDERED: MAGNESIUM HYDROXIDE SUSP 30 ML CUP PO PRN (22:30)
--- NOTE | 2017-10-14 22:55 | HHI.HP ---
[facility] Service Critical Care Medicine Primary Care Physician No Primary Care Physician Admission Diagnosis CVA Diagnosis: (1) Carotid stenosis, bilateral Diagnosis: Principal (2) HTN (hypertension) Diagnosis: Principal (3) Chronic narcotic use Diagnosis: Secondary (4) tobaccoism Diagnosis: Secondary (5) cardiovascular occlusive disease Diagnosis: Secondary (6) Coronary artery disease Diagnosis: Secondary (7) CVA (cerebral vascular accident) Diagnosis: Principal Chief Complaint: Left upper extremity weakness Travel History International Travel<30 Days: No Contact w/Intl Traveler <30 Da: No Traveled to Known Affected Are: No History of Present Illness This is a 57-year-old male. Date of admission 10/14/2017. Past medical history includes coronary disease status post CABG at age 37, known left internal carotid occlusive disease 89%, right ICA 46%, COPD, ongoing tobaccoism and hypertension. Patient was seen in 04/25 and 09/25 with left and right upper extremity weakness respectively. Patient has a imaging his brain which reveals bilateral parietal occipital CVA and known left internal carotid artery 80-90 % occlusion/right internal carotid artery 40-50% occlusion patient presents to [facility] today after he was found status post following to the ground complaining of left arm/shoulder weakness. on Coumadin which she is not taking and she is now back with the same symptoms 30 minutes onset left hand 0 out of 5 otherwise neuro exam is normal CT brain revealed old left parietal CVA. Decision was given to provide alteplase per Dr. Ferreira. Received 7 mg bolus followed by 63 mg. Plan to admit the ICU with frequent neuro checks of vascular consultation. He received to notice hydralazine due to elevated blood pressure. Currently symptoms have not resolved with persistent left upper extremity weakness. We are asked with the patient. Review of Systems Constitutional: DENIES: Fatigue, Fever, Weight gain Endocrine: DENIES: Polydipsia, Polyuria Eyes: DENIES: Blurred vision, Double Vision Ears, nose, mouth, throat: DENIES: Tinnitus, Ear Pain Respiratory: DENIES: Hemoptysis Cardiovascular: DENIES: Chest pain, Dyspnea on Exertion Gastrointestinal: DENIES: Abdominal pain Genitourinary: DENIES: Sexual dysfunction Musculoskeletal: DENIES: Joint pain Integumentary: DENIES: Abnormal pigmentation Hematologic/lymphatic: DENIES: Bruising Immunologic/allergic: DENIES: Eczema Neurologic: COMPLAINS OF: Localized weakness, DENIES: Headache, Paresthesias, Seizures Psychiatric: COMPLAINS OF: Anxiety, DENIES: Confusion, Mood changes Past Family Social History Allergies: Coded Allergies: No Known Allergies (Verified Allergy, Severe, 04/29/08) Past Medical History Coronary artery disease Hypertension COPD CV OD Ongoing tobaccoism Dyslipidemia Chronic narcotic use Past Surgical History CABG 2 age 37 Reported Medications Walker with Front Wheels (Device) 1 Mis Mis Ea .ROUTE DIRECTED Medrol Dosepak (Methylprednisolone) 4 Mg Dspk 4 Mg PO DIRECTED Per Pharmacist direction Oxycodone (Oxycodone HCl) 5 Mg Cap 5 Mg PO Q6H PRN Norvasc (Amlodipine Besylate) 5 Mg Tab 5 Mg PO DAILY Atorvastatin (Atorvastatin Calcium) 40 Mg Tab 40 Mg PO HS Plavix (Clopidogrel Bisulfate) 75 Mg Tab 75 Mg PO DAILY Flexeril (Cyclobenzaprine HCl) 10 Mg Tab 5 Mg PO Q8H PRN Amoxicillin-Clavulanate 875-125 mg Tab 875 Mg PO Q12H not for use in CrCl <30 mL/minute Adult Aspirin EC Low Strength (Aspirin) 81 Mg Tabec 81 Mg PO DAILY Active Ordered Medications Reviewed in EMR Family History Family - coronary artery disease. Social History Occasional THC and alcohol use. Patient actually admits to drinking multiple times daily now. One pack per day tobacco 20 years. No IV drug use. Physical Exam Vital Signs Vital Signs Date Time Temp Pulse Resp B/P (MAP) Pulse Ox O2 Delivery O2 Flow Rate FiO2 10/14/17 22:21 61 18 154/67 (96) 99 Nasal Cannula 2.00 10/14/17 21:38 62 16 167/72 (103) 99 Nasal Cannula 2.00 10/14/17 21:19 67 16 172/73 (106) 98 Nasal Cannula 2.00 10/14/17 20:51 71 18 177/83 (114) 99 10/14/17 20:47 18 98 Nasal Cannula 1.00 10/14/17 20:17 97.8 79 16 186/86 (119) 100 Physical Exam GENERAL: This is a 57-year-old male currently resting in bed in no acute distress SKIN: Warm and dry. Multiple scars of the thorax from prior CABG HEAD: Atraumatic. Normocephalic. EYES: Pupils equal and round about 3 mm bilaterally and reactive. No scleral icterus. No injection or drainage. ENT: No nasal bleeding or discharge. Mucous membranes pink and moist. NECK: Trachea midline. No JVD. Positive left carotid bruit 2/ CARDIOVASCULAR: Regular rate and rhythm. S1, S2. No S4. Without murmur RESPIRATORY: No accessory muscle use. Clear to auscultation. Breath sounds equal bilaterally. GASTROINTESTINAL: Abdomen soft, non-tender, nondistended. Hepatic and splenic margins not palpable. MUSCULOSKELETAL: Extremities without significant peripheral edema. No obvious deformities. NEUROLOGICAL: Awake and alert. No obvious cranial nerve deficits. Strength left upper extremity 0/5. Decreased sensation light touch and pinprick. Left lower extremity strength 4-5. Right upper and lower extremity strength 5 out of 5 strength. Normal sensation. DTRs equal symmetric. Gait was not assessed. Laboratory Laboratory Tests Test 10/14/17 20:25 White Blood Count 7.7 Red Blood Count 5.07 Hemoglobin 15.8 Bedside Hemoglobin 17.3 Hematocrit 46.4 Bedside Hematocrit 51.0 Mean Corpuscular Volume 91.4 Mean Corpuscular Hemoglobin 31.2 Mean Corpuscular Hemoglobin Concent 34.2 Red Cell Distribution Width 13.7 Platelet Count 156 Mean Platelet Volume 10.4 Neutrophils (%) (Auto) 63.8 Lymphocytes (%) (Auto) 24.5 Monocytes (%) (Auto) 9.5 Eosinophils (%) (Auto) 1.6 Basophils (%) (Auto) 0.6 Neutrophils # (Auto) 4.9 Lymphocytes # (Auto) 1.9 Monocytes # (Auto) 0.7 Eosinophils # (Auto) 0.1 Basophils # (Auto) 0.0 CBC Comment DIFF FINAL Differential Comment Prothrombin Time 10.3 Prothromb Time International Ratio 1.0 Fibrinogen 449 Bedside Sodium 140 Blood Urea Nitrogen 11 Creatinine 0.87 Random Glucose 120 Total Protein 8.1 Albumin 4.0 Calcium Level 8.9 Alkaline Phosphatase 67 Aspartate Amino Transf (AST/SGOT) 14 Alanine Aminotransferase (ALT/SGPT) 24 Total Bilirubin 0.3 Sodium Level 136 Potassium Level 3.6 Chloride Level 101 Carbon Dioxide Level 23.9 Bedside Potassium 3.8 Bedside Chloride 100 Anion Gap 11 Bedside Blood Urea Nitrogen 10 Bedside Creatinine 0.8 Estimat Glomerular Filtration Rate 90 Bedside Glucose 126 Troponin I LESS THAN 0.02 Result Diagram: 10/14/17202410/14/172024 Imaging Last Impressions Head CT 10/14/172024 Signed Impressions: Service Date/Time: Saturday, October 14, 2017 20:32 - CONCLUSION: No acute intracranial abnormalities. Multifocal white matter ischemic changes noted with remote lacunar infarct in left parietal lobe. Wilfredo Rebolledo MD Chest X-Ray 10/14/17 Signed Impressions: Service Date/Time: Saturday, October 14, 2017 20:39 - CONCLUSION: 1. No active disease. Wilfredo Rebolledo MD Septic Shock Reassessment Septic shock perfusion: reassessment completed Caprini VTE Risk Assessment Caprini VTE Risk Assessment: Mod/High Risk (score >= 2) VTE Pharm Contraindication: High risk for bleeding Caprini Risk Assessment Model Point Value = 1 Point Value = 2 Point Value = 3 Point Value = 5 Age 41-60 Minor surgery BMI > 25 kg/m2 Swollen legs Varicose veins or History of unexplained or recurrent spontaneous Oral contraceptives or hormone replacement Sepsis (< 1 month) Serious lung disease, including pneumonia (< 1 month) Abnormal pulmonary function Acute myocardial infarction Congestive heart failure (< 1 month) History of inflammatory bowel disease Medical patient at bed rest Age 61-74 Arthroscopic surgery Major open surgery (> 45 min) Laparoscopic surgery (> 45 min) Malignancy Confined to bed (> 72 hours) Immobilizing plaster cast Central venous access Age >= 75 History of VTE Family history of VTE Factor V Leiden Prothrombin [id number] Lupus anticoagulant Anticardiolipin antibodies Elevated serum homocysteine Heparin-induced thrombocytopenia Other congenital or acquired thrombophilia Stroke (< 1 month) Elective arthroplasty Hip, pelvis, or leg fracture Acute spinal cord injury (< 1 month) Prophylaxis Regimen Total Risk Factor Score Risk Level Prophylaxis Regimen 0-1 Low Early ambulation 2 Moderate Order ONE of the following: *Sequential Compression Device (SCD) *Heparin 5000 units SQ BID 3-4 Higher Order ONE of the following medications: *Heparin 5000 units SQ TID *Enoxaparin/Lovenox 40 mg SQ daily (WT < 150 kg, CrCl > 30 mL/min) *Enoxaparin/Lovenox 30 mg SQ daily (WT < 150 kg, CrCl > 10-29 mL/min) *Enoxaparin/Lovenox 30 mg SQ BID (WT < 150 kg, CrCl > 30 mL/min) AND/OR *Sequential Compression Device (SCD) 5 or more Highest Order ONE of the following medications: *Heparin 5000 units SQ TID (Preferred with Epidurals) *Enoxaparin/Lovenox 40 mg SQ daily (WT < 150 kg, CrCl > 30 mL/min) *Enoxaparin/Lovenox 30 mg SQ daily (WT < 150 kg, CrCl > 10-29 mL/min) *Enoxaparin/Lovenox 30 mg SQ BID (WT < 150 kg, CrCl > 30 mL/min) AND *Sequential Compression Device (SCD) Assessment and Plan Assessment and Plan Neuro/Psych: CVA History of bilateral parietal/occipital CVA THC use EtOH CT brain 10/14 revealed a left parietal CVA Status post alteplase 7 mg 1 followed [place] [address] Ferreira neurology following Last echocardiogram 09/25 revealed EF 55-60%. No regional motion abnormality. MRI/A brain/carotid ultrasound pending 2-D echocardiogram pending Did not take prescribed warfarin CT brain 24 hours post alteplase MRI T spine ordered. Noted guiding/tethering anterior cord 04/25. Lost a neurosurgery follow-up. Holding cyclobenzaprine 10 mg 3 times a day and oxycodone 5 mill grams every 4 hours when necessary pain Acetaminophen for fever Hydrocodone/acetaminophen and morphine for pain management CIWA protocol initiated. Multivitamin, folate and thiamine daily currently with IV Seizure precautions CV: Left internal carotid artery stenosis 80% Right internal carotid artery stenosis 40-50% Coronary artery disease status post CABG and 2 at age 37 Hypertension Dyslipidemia Goal keep systolic blood pressure less than 185 diastolic blood pressure less than 110 Holding amlodipine 10 mg daily and atorvastatin 40 mg by mouth daily status post alteplase. Resume when clinically indicated Holding aspirin 81 mg daily and clopidogrel 75 mg by mouth daily. Vascular surgery consultation Lipid panel ordered As needed. Labetalol/enalaprilat/hydralazine/nicardipine drip to maintain systolic blood pressure less than 185, and also was less than 110 Resp: Ongoing tobaccoism Nasal cannula to maintain saturations greater than equal to 92% Incentive spirometry while awake As needed albuterol aerosols every 2 hours for dyspnea Tobacco cessation booklet will be given to patient for several evaluation. Cessation will be encouraged GI: Patient is currently nothing by mouth Famotidine for GI prophylaxis Docusate sodium/senna for bowel regimen : No indication for Rodríguez catheter Endo: Check hemoglobin A1c and TSH Renal: Creatinine currently within normal limits Currently on normal saline at 84 cc an hour Monitor urine output Accurate I's and O's Heme: Monitor CBC daily. Follow trends ID: Monitor for infection FEN: Replace electrolytes as clinically indicated MSK: PT/OT/ST evaluate and treat Access - Utilize peripheral IV. Central line if indicated Prophylaxis - GI famotidine - DVT - SCD/holding pharmacological prophylaxis status post alteplase Level II admission Code Status Full code Discussed Condition With Dr. Rutledge/ED physician. Patient. Care plan discussed and all questions answered Problem Qualifiers (1) HTN (hypertension): Qualified Codes: I10 - Essential (primary) hypertension (2) Coronary artery disease: Qualified Codes: I25.10 - Atherosclerotic heart disease of [place] coronary artery without angina pectoris (3) CVA (cerebral vascular accident): Qualified Codes: I63.9 - Cerebral infarction, unspecified Perry Olivia MD Oct 14, 2017 22:55
[2017-10-14] MEDS ORDERED: niCARdipine INJ 25 MG in SODIUM CHLOR 0.9% 250 ML INJ 240 ML IV PRN (23:00)
[2017-10-14] MEDS: SODIUM CHLOR 0.9% 1000 ML INJ 1,000 ML IV SCH (23:26)
--- NOTE | 2017-10-14 23:27 | RADRPT ---
EXAM DATE/TIME: 10/14/2017 23:02 [facility] COMPARISON: CT BRAIN W/O CONTRAST, October 14, 2017, 20:32. INDICATIONS : Change in mental status; follow up stroke. RADIATION DOSE: 56.35 CTDIvol (mGy) MEDICAL HISTORY : Cerebrovascular disease. Cardiovascular disease SURGICAL HISTORY : CABG ENCOUNTER: Subsequent ACUITY: 1 day PAIN SCALE: Non-responsive LOCATION: cranial TECHNIQUE: Multiple contiguous axial images were obtained of the head. Using automated exposure control and adj ustment of the mA and/or kV according to patient size, radiation dose was kept as low as reasonably a chievable to obtain optimal diagnostic quality images. DICOM format image data is available electro nically for review and comparison. FINDINGS: Chronic ischemic white matter changes are again identified. No evidence of acute intracranial hemorrh age or extra-axial fluid collection. No mass effect or midline shift. Ventricles within normal limits . No evidence of intracranial mass or acute infarction. CONCLUSION: No significant interval change. No acute intracranial findings. Angus Lyons MD on October 14, 2017 at 23:20 Board Certified Radiologist. This report was verified electronically.
[2017-10-15] VITALS (16 sets, daily range): BP systolic 100–223; BP diastolic 49–84; PULSE 41–107; RESP 16–26; TEMP 98.6–102; O2SAT 96–100
[2017-10-15] MEDS: hydrALAZINE HCL 20 MG/ML VIAL IV PUSH PRN (00:12)
[2017-10-15] MEDS ORDERED: LORazepam 1 MG TAB PO PRN (00:30)
[2017-10-15] MEDS ORDERED: FLUMAZENIL 0.5 MG/5 ML VIAL IV PUSH PRN (00:30)
[2017-10-15] MEDS ORDERED: LORazepam 2 MG/ML VIAL IV PUSH PRN ×3 (00:30)
[2017-10-15] MEDS ORDERED: LORazepam 2 MG TAB PO PRN (00:30)
[2017-10-15] MEDS: MORPHINE SULFATE 2 MG/ML INJ IV PUSH PRN (00:40)
[2017-10-15] MEDS: LORazepam 2 MG/ML VIAL IV PUSH PRN ×3 (01:08→02:55)
[2017-10-15] MEDS: MULTIVITAMIN INJ 10 ML, FOLIC ACID INJ 1 MG in SODIUM CHLORID 0.9% 500 ML INJ 500 ML IV SCH (01:09)
[2017-10-15] MEDS: THIAMINE INJ 100 MG in SODIUM CHLORIDE 0.9% INJ 100 ML IV SCH (01:09)
--- NOTE | 2017-10-15 03:41 | RADRPT ---
EXAM DATE/TIME: 10/15/2017 03:30 [facility] COMPARISON: CT BRAIN W/O CONTRAST, April 27, 2017, 10:18. CT BRAIN W/O CONTRAST, October 14, 2017, 23:02. INDICATIONS : Change in mental status; post stroke alert. RADIATION DOSE: 41.27 CTDIvol (mGy) MEDICAL HISTORY : Cerebrovascular disease. Hypertension. SURGICAL HISTORY : None. ENCOUNTER: Subsequent ACUITY: 1 day PAIN SCALE: 0/10 LOCATION: cranial TECHNIQUE: Multiple contiguous axial images were obtained of the head. Using automated exposure control and adj ustment of the mA and/or kV according to patient size, radiation dose was kept as low as reasonably a chievable to obtain optimal diagnostic quality images. DICOM format image data is available electro nically for review and comparison. FINDINGS: No changes seen to the prior study of 10/14/2017. No evidence of acute intracranial hemorrhage or extra -axial fluid collection. No mass effect or midline shift. [place] matter-white matter differentiation wi thin normal limits. Scattered white matter hypodensities are again seen and unchanged. CONCLUSION: No significant interval change. Scattered white matter hypodensities again seen. Angus Lyons MD on October 15, 2017 at 3:35 Board Certified Radiologist. This report was verified electronically.
[2017-10-15] MEDS: CHLORHEXIDINE GLUCONATE 2 % 1 PACK (2 CLOTHS) TOP SCH (04:00)
[2017-10-15] MEDS ORDERED: ETOMIDATE 40 MG/20 ML VIAL IV PUSH ONE (05:15)
[2017-10-15] MEDS ORDERED: ROCURONIUM INJ 100 MG/10 ML VIAL IV ONE (05:15)
--- NOTE | 2017-10-15 05:29 | PD.PROCEDR ---
Procedure Note Procedure DATE: 10/15/2017 PROCEDURE: Orotracheal intubation INDICATION: Respiratory failure/acute with altered mental status DETAILS OF PROCEDURE The patient was placed in optimal position and preoxygenated with 100% FiO2 via bag valve mask. At the start oxygen saturation was 100%. The patient was administered 20 milligrams etomidate IV and 50 milligrams rocuronium IV. I entered the oropharynx with a size 4 GVL glidescope laryngoscope blade and obtained a grade 2 view of the airway. On single attempt a size 8.0 cuffed endotracheal tube was passed through the vocal cords. Correct tube location was confirmed with end tidal CO2 detector and by auscultating over bilateral lung lemus. The endotracheal tube was secured with adhesive tape at a depth of 24 cm at the lips. The patient was connected to the ventilator. The patient tolerated the procedure well without any apparent complications. Oxygen saturations were maintained greater than 95% all times. STAT chest x-ray pending at time of dictation. Perry Olivia MD Oct 15, 2017 05:29
[2017-10-15] MEDS: PROPOFOL 1000 MG/100 ML INJ 100 ML IV PRN ×2 (05:53→08:15)
[2017-10-15] MEDS: ARTIFICIAL TEARS OPTH SOLN 15 ML BTL EACH EYE SCH (06:00)
--- NOTE | 2017-10-15 06:00 | RADRPT ---
EXAM DATE/TIME: 10/15/2017 05:40 [facility] COMPARISON: CHEST SINGLE AP, October 14, 2017, 20:39. INDICATIONS : Intubation. MEDICAL HISTORY : Hypertension. SURGICAL HISTORY : CABG. Coronary artery stent. ENCOUNTER: Initial ACUITY: 1 day PAIN SCORE: Non-responsive. LOCATION: Bilateral chest FINDINGS: Single AP view of the chest. Endotracheal tube is now in place with the tip 3-4 cm above the rigo. Nasogastric tube is in place with the tip in the proximal gastric body. Loop recorder again noted. Alexandra ngs are clear. Cardiomediastinal silhouette within normal limits. No evidence of pleural effusion or pneumothorax. CONCLUSION: No acute cardiopulmonary disease identified. Angus Lyons MD on October 15, 2017 at 5:55 Board Certified Radiologist. This report was verified electronically.
[2017-10-15] MEDS: CHLORHEXIDINE 0.12% (ORAL KIT) 15 ML CUP MT SCH ×2 (07:42→20:00)
[2017-10-15] MEDS: fentaNYL DRIP 250 ML IV PRN (07:42)
[2017-10-15] MEDS: DEXMEDETOMIDINE INJ 200 MCG in SODIUM CHLORIDE 0.9% INJ 50 ML IV PRN ×2 (07:42→11:57)
[2017-10-15] MEDS: INSULIN ASPART SUPPLEMENTAL SCALE SQ SCH ×4 (08:00→20:35)
[2017-10-15] MEDS: RESP: ALBUTEROL 2.5 MG/IPRATROPIUM 0.5 MG NEB (SCH) NEB ×3 (08:31→20:04)
[2017-10-15] MEDS: SODIUM CHLORIDE 0.9% FLUSH 10 ML FLUSH IV FLUSH SCH ×2 (09:00→21:00)
[2017-10-15] MEDS ORDERED: ARTIFICIAL TEARS OPTH SOLN 15 ML BTL EACH EYE SCH (09:00)
[2017-10-15] MEDS ORDERED: SODIUM CHLORIDE 0.9% FLUSH 10 ML FLUSH IV FLUSH SCH (09:00)
[2017-10-15] MEDS ORDERED: FAMOTIDINE 20 MG/2 ML VIAL IV PUSH SCH (09:00)
[2017-10-15] MEDS: DOCUSATE SODIUM 50 MG/SENNA 8.6 MG TAB PO SCH ×2 (09:16→20:05)
[2017-10-15] MEDS: LANSOPRAZOLE SOLUTAB 30 MG TAB NG SCH (09:16)
--- NOTE | 2017-10-15 10:02 | HHI.CCPN ---
Objective Vital Signs Date Time Temp Pulse Resp B/P (MAP) Pulse Ox O2 Delivery O2 Flow Rate FiO2 10/15/17 07:50 98 100 10/15/17 04:00 101 10/15/17 04:00 98.6 22 153/69 (97) 10/14/17 23:40 Nasal Cannula 2.00 Intake and Output 10/15/17 10/15/17 10/16/17 08:00 16:00 00:00 Output Total 1000 ml Balance -1000 ml Result Diagram: 10/14/17202410/14/172024 Other Results Laboratory Tests Test 10/15/17 07:50 Blood Gas Puncture Site RT RADIAL Blood Gas Patient Temperature 98.6 Blood Gas HCO3 23 mmol/L (22-26) Blood Gas Base Excess -1.3 mmol/L (-2-2) Blood Gas Oxygen Saturation 98 % (90-100) Arterial Blood pH 7.39 (7.380-7.420) Arterial Blood Partial Pressure CO2 39 mmHg (38-42) Arterial Blood Partial Pressure O2 453 mmHg (61-120) Arterial Blood Oxygen Content 21.7 Vol % (12.0-20.0) Arterial Blood Carboxyhemoglobin 1.1 % (0-4) Arterial Blood Methemoglobin 1.1 % (0-2) Blood Gas Hemoglobin 15.0 G/DL (12.0-16.0) Oxygen Delivery Device VENTILATOR Blood Gas Ventilator Setting PRVC/AC Blood Gas Inspired Oxygen 100 % Imaging Last Impressions Head CT 10/14/172024 Signed Impressions: Service Date/Time: Saturday, October 14, 2017 20:32 - CONCLUSION: No acute intracranial abnormalities. Multifocal white matter ischemic changes noted with remote lacunar infarct in left parietal lobe. Wilfredo Rebolledo MD Chest X-Ray 10/14/17 0000 Signed Impressions: Service Date/Time: Saturday, October 14, 2017 20:39 - CONCLUSION: 1. No active disease. Wilfredo Rebolledo MD Objective Remarks Nancy Evans MD Oct 15, 2017 10:02
--- NOTE | 2017-10-15 10:03 | PD.VS.CON ---
History of Present Illness Chief Complaint: stroke, carotid stenosis Consult Requested by: medical service History of Present Illness 57 yo male adm with L arm/shoulder weakness, thought to be a stroke, and he was administered lytics last night. At present he is intubated so history obtained from medical records. Of note, he had similar L somatic weakness in the summer and in [facility] but imaging of head most recently shows nothing acute but only suggestion of old L parietal infarct. CTA of his carotids previously has shown 40-50% R ICA stenosis and 80-90% stenosis of L ICA. When he was seen previously in [facility], I felt that his LEFT somatic symptoms were unrelated to his L ICA stenosis and recommended medical therapy. He was apparently on antiplatelet therapy on admission and still smoking. At present he is intubated and sedated. Past/Family/Social History Past Medical History CVOD ? CVA CAD HTN tobacco abuse tongue mass (seen on CT last admission and noted in records) Past Surgical History CABG at age 37 Social History + tobacco Family History NC Home Medications Active Scripts Walker with Front Wheels (Walker with Front Wheels) 1 Mis Mis, EA .ROUTE DIRECTED, #1 0 Refills Prov:Dian Guerrero 09/21/17 Methylprednisolone Dosepak (Medrol Dosepak) 4 Mg Dspk, 4 MG PO DIRECTED, #1 DSPK 0 Refills Per Pharmacist direction Prov:Dian Guerrero 09/21/17 Oxycodone (Oxycodone) 5 Mg Cap, 5 MG PO Q6H Y for PAIN, #20 CAP 0 Refills Prov:Dian Guerrero 09/21/17 Amlodipine (Norvasc) 5 Mg Tab, 5 MG PO DAILY for Blood Pressure Management, #90 TAB 3 Refills Prov:Dian Guerrero 09/21/17 Atorvastatin (Atorvastatin) 40 Mg Tab, 40 MG PO HS for Cholesterol Management, # 90 TAB 3 Refills Prov:Dian Guerrero DO 09/21/17 Clopidogrel (Plavix) 75 Mg Tab, 75 MG PO DAILY for Blood Clot Prevention, #30 TAB 3 Refills Prov:Dian Guerrero 09/21/17 Cyclobenzaprine (Flexeril) 10 Mg Tab, 5 MG PO Q8H Y for MUSCLE SPASM, #20 TAB Prov:Dian Guerrero 09/21/17 Amoxicillin-Clavulanate (Amoxicillin-Clavulanate) 875-125 mg Tab, 875 MG PO Q12H for Infection, #28 TAB not for use in CrCl <30 mL/minute Prov:Dian Guerrero DO 09/21/[address] (Adult Aspirin EC Low Strength) 81 Mg Tabec, 81 MG PO DAILY for Stroke Prevention, #30 TAB 0 Refills Prov:Tiago Calderon MD 04/29/17 Coded Allergies: No Known Allergies (Verified Allergy, Severe, 04/29/08) Review of Systems ROS Limitations: Intubated Physical Exam Vitals/I&O Date Time Temp Pulse Resp B/P (MAP) Pulse Ox O2 Delivery O2 Flow Rate FiO2 10/15/17 07:50 98 100 10/15/17 05:26 99 100 10/15/17 04:00 101 10/15/17 04:00 98.6 101 22 153/69 (97) 96 10/15/17 02:00 76 10/15/17 00:45 25 10/15/17 00:28 109 223/112 10/15/17 00:00 107 10/15/17 00:00 98.6 107 26 223/84 (130) 98 10/14/17 23:59 10/14/17 23:40 86 18 165/77 (106) 98 Nasal Cannula 2.00 10/14/17 23:20 102 16 134/75 (94) 99 Nasal Cannula 10/14/17 23:05 110 20 155/74 (101) 98 Nasal Cannula 2.00 10/14/17 22:21 61 18 154/67 (96) 99 Nasal Cannula 2.00 10/14/17 21:38 62 16 167/72 (103) 99 Nasal Cannula 2.00 10/14/17 21:19 67 16 172/73 (106) 98 Nasal Cannula 2.00 10/14/17 20:51 71 18 177/83 (114) 99 10/14/17 20:47 18 98 Nasal Cannula 1.00 10/14/17 20:17 97.8 79 16 186/86 (119) 100 10/15/17 10/15/17 10/15/17 07:00 15:00 23:00 Output Total 1000 ml Balance -1000 ml Neuro: intubated, sedated. Moving B LE but not hands HEENT: NC/AT Neck: no JVD Heart: reg rate Lungs: clear B Abdomen: NT, no masses Vascular: palpable UE pulses Laboratory Tests Test 10/14/17 20:25 10/15/17 07:50 White Blood Count 7.7 Red Blood Count 5.07 Hemoglobin 15.8 Bedside Hemoglobin 17.3 Hematocrit 46.4 Bedside Hematocrit 51.0 Mean Corpuscular Volume 91.4 Mean Corpuscular Hemoglobin 31.2 Mean Corpuscular Hemoglobin Concent 34.2 Red Cell Distribution Width 13.7 Platelet Count 156 Mean Platelet Volume 10.4 Neutrophils (%) (Auto) 63.8 Lymphocytes (%) (Auto) 24.5 Monocytes (%) (Auto) 9.5 Eosinophils (%) (Auto) 1.6 Basophils (%) (Auto) 0.6 Neutrophils # (Auto) 4.9 Lymphocytes # (Auto) 1.9 Monocytes # (Auto) 0.7 Eosinophils # (Auto) 0.1 Basophils # (Auto) 0.0 CBC Comment DIFF FINAL Differential Comment Prothrombin Time 10.3 Prothromb Time International Ratio 1.0 Fibrinogen 449 Bedside Sodium 140 Blood Urea Nitrogen 11 Creatinine 0.87 Random Glucose 120 Total Protein 8.1 Albumin 4.0 Calcium Level 8.9 Alkaline Phosphatase 67 Aspartate Amino Transf (AST/SGOT) 14 Alanine Aminotransferase (ALT/SGPT) 24 Total Bilirubin 0.3 Sodium Level 136 Potassium Level 3.6 Chloride Level 101 Carbon Dioxide Level 23.9 Bedside Potassium 3.8 Bedside Chloride 100 Anion Gap 11 Bedside Blood Urea Nitrogen 10 Bedside Creatinine 0.8 Estimat Glomerular Filtration Rate 90 Bedside Glucose 126 Troponin I LESS THAN 0.02 Blood Gas Puncture Site RT RADIAL Blood Gas Patient Temperature 98.6 Blood Gas HCO3 23 Blood Gas Base Excess -1.3 Blood Gas Oxygen Saturation 98 Arterial Blood pH 7.39 Arterial Blood Partial Pressure CO2 39 Arterial Blood Partial Pressure O2 453 Arterial Blood Oxygen Content 21.7 Arterial Blood Carboxyhemoglobin 1.1 Arterial Blood Methemoglobin 1.1 Blood Gas Hemoglobin 15.0 Oxygen Delivery Device VENTILATOR Blood Gas Ventilator Setting PRVC/AC Blood Gas Inspired Oxygen 100 Last [address] 10/15/17 0000 Signed Impressions: Service Date/Time: Sunday, October 15, 2017 03:30 - CONCLUSION: No significant interval change. Scattered white matter hypodensities again seen. Angus Lyons MD Chest X-Ray 10/15/17 0000 Signed Impressions: Service Date/Time: Sunday, October 15, 2017 05:40 - CONCLUSION: No acute cardiopulmonary disease identified. Angus Lyons MD Head CT 10/14/172024 Signed Impressions: Service Date/Time: Saturday, October 14, 2017 20:32 - CONCLUSION: No acute intracranial abnormalities. Multifocal white matter ischemic changes noted with remote lacunar infarct in left parietal lobe. Wilfredo Rebolledo MD Head CT 10/14/17 0000 Signed Impressions: Service Date/Time: Saturday, October 14, 2017 23:02 - CONCLUSION: No significant interval change. No acute intracranial findings. Angus Lyons MD Chest X-Ray 10/14/17 0000 Signed Impressions: Service Date/Time: Saturday, October 14, 2017 20:39 - CONCLUSION: 1. No active disease. Wilfredo Rebolledo MD Assessment and Plan Plan Unclear etiology of recent neurological event. His prior neck CTA showed LEFT carotid stenosis and minimal RIGHT carotid stenosis, which doesn't fit with LEFT arm weakness as causative etiology. Medical management for now and will follow. W/U of neck mass (ENT consult) Andrade Bertrand MD FACS RPVI stained glass glazier helper [facility] - Heart and Vascular Surgery at [facility] [phone] Andrade Bertrand MD Oct 15, 2017 10:03
--- NOTE | 2017-10-15 10:20 | MB ---
cc: DL SHEPHERD M.D. DATE OF CONSULTATION: 10/14/17 REASON FOR CONSULTATION Stroke alert. HISTORY OF PRESENT ILLNESS Mr. Barajas is a 57-year-old man who has a history of previous strokes as well as coronary artery disease. He presented to the ER today with acute onset of weakness involving the left arm and left leg which came around 07:30 p.m. The patient is supposed to be taking Coumadin but he states he has not been taking it because he cannot afford the medication. PAST MEDICAL HISTORY 1. History of strokes in the past. He had a stroke last month which recovered. 2. He has carotid artery stenosis on the left side at 80-90% stenosis by CTA of the neck which was obtained in September of 2017. That CT also showed 40-50% right carotid stenosis. 3. He has a history of CABG procedure. 4. Hypertension. ALLERGIES NONE KNOWN. MEDICATIONS 1. Oxycodone p.r.n. pain. 2. Norvasc 5 mg daily. 3. Atorvastatin 40 mg daily. 4. Plavix 75 mg daily. 5. Flexeril. 6. Amoxicillin. 7. Aspirin 81 mg daily. NEUROLOGIC EXAMINATION VITAL SIGNS: Blood pressure 172/73, pulse 67, respiratory rate is 16, temperature 97.8 degrees. Telemetry shows normal sinus rhythm. Higher cortical functions are normal. Cranial nerves intact. Motor exam: He has 3/5 in strength in the left arm, 4/5 strength left leg, normal strength in right arm and right leg. Reflexes are symmetric. IMAGING CT of the brain: Multifocal ischemic changes noted. No acute change present. No hemorrhage. LABORATORY DATA White count 7700, hemoglobin 15.8, hematocrit 46%, platelets 156,000. Sodium is 140, potassium 3.8, chloride 100, CO2 23.9, the BUN is 11, creatinine 0.87, GFR 90, glucose 126, AST 14, ALT is 24. His PT 10.3, INR 1. IMPRESSION Acute right MCA stroke. The patient is a candidate for IV TPA. His blood pressure has been controlled with hydralazine. Therefore, recommend proceeding with IV TPA per protocol with close neuro checks in the ICU. Withhold any antiplatelets or anticoagulants for 24 hours post TPA. We will obtain a 24-hour post TPA CT of the brain. MD DEACON Braga/RENETTA /9:24 PM /9:53 AM
--- NOTE | 2017-10-15 13:25 | RADRPT ---
EXAM DATE/TIME: 10/15/2017 08:16 [facility] COMPARISON: US CAROTID ARTERIES, September 17, 2017, 10:50. INDICATIONS : Evaluate for occlusion. MEDICAL HISTORY : Hypercholesterolemia. Hypertension. CVA. Cardiac disorders. SURGICAL HISTORY : CABG. Cardiac catheterization. Coronary stent. Orthopaedic surgery. ENCOUNTER: Subsequent ACUITY: 1 day PAIN SCORE: Nonresponsive. LOCATION: Bilateral neck PEAK SYSTOLIC VELOCITIES (cm/sec): ICA/CCA RATIO: Right: 0.6 Left: 3.3 ICA: Right: 40 Left: 321 CCA: Right: 72 Left: 96 ECA: Right: 268 Left: 194 VERTEBRAL: Right: 87 antegrade Left: 36 antegrade Elevated flow velocities and ICA/CCA ratios have been found to correlate with increased degrees of vessel stenosis, calculated as percentage of diameter relative to a normal segment of distal ICA/CCA FINDINGS: Ultrasound of the carotid arteries was performed bilaterally using real-time Doppler and color Dopple r imaging. Examination of the right carotid artery demonstrates mild fibrous plaque within the bifurcation. No w aveform abnormalities are identified and no spectral broadening is seen. Examination of the left carotid artery demonstrates extensive fibrous plaque within the bulb. There i s markedly elevated ratios and velocities on left side corresponding with 70% stenosis. CT angiograph y of the cervicobrachial arch and carotid arteries is recommended for further evaluation if clinicall y indicated. There is antegrade flow in both vertebral arteries. CONCLUSION: 1. High-grade stenosis on the left side greater than 70%. CT angiography of the cervicobrachial arch and carotid arteries is recommended for further evaluation if clinically indicated.8 Abdoul Quezada MD on October 15, 2017 at 13:20 Board Certified Radiologist. This report was verified electronically.
--- NOTE | 2017-10-15 13:28 | EKG ---
Date Performed: 10/14/2017 Time Performed: 20:58:31 PTAGE: 57 years EKG: Sinus rhythm WITH OCCASIONAL SUPRAVENTRICULAR PREMATURE COMPLEXES INDETERMINATE AXIS NONSPECIFIC T-WAVE ABNORMALI TY BORDERLINE ECG PREVIOUS TRACING : 09/16/2017 20.58 Compared to prior tracing no significant change DOCTOR: Clemente Valdivia Interpretating Date/Time 10/15/2017 13:26:01
--- NOTE | 2017-10-15 13:30 | RADRPT ---
EXAM DATE/TIME: 10/15/2017 12:26 [facility] COMPARISON: MRI THORACIC SPINE W/O CONTRAST, April 27, 2017, 18:00. INDICATIONS : Tethering MEDICAL HISTORY : Hypertension. SURGICAL HISTORY : CABG Loop recorder. ENCOUNTER: Initial ACUITY: 1 day PAIN SCORE: 0/10 LOCATION: Paraspinal TECHNIQUE: Multiplanar multisequence MRI of the thoracic spine was performed. FINDINGS: Sagittal images demonstrate normal vertebral body alignment and curvature. No focal area of marrow re placement are identified. The cord in this region abnormal signal intensity at T6 and T7 reservoir an d compared with the prior study. There is dorsal and taken on the cord at T7-T8 is seen on the prior study. There is the suggestion of a dorsal mass T2 hyperintense which could reflect an intradural kelin chnoid cyst which was present on the prior study. This does cause at least moderate spinal canal sten osis. Contrast was not administered which limits the evaluation. The conus terminates normally. Axial images were performed from T1-T2 through T12-L1. T1-T2: No significant abnormalities identified. T2-T3: No significant abnormalities identified. T3-T4: No significant abnormalities identified. T4-T5: No significant abnormalities identified. T5-T6: No significant abnormalities identified. T6-T7: No significant abnormalities identified. T7-T8: Large marked spinal canal stenosis secondary to dorsal impingement of the cord similar to the prior study. T8-T9: No significant abnormalities identified. T9-T10: No significant abnormalities identified. T10-T11: No significant abnormalities identified. T11-T12: No significant abnormalities identified. T12-L1: No significant abnormalities identified. CONCLUSION: There is worsening edema in the cord above the level of dorsal impingement related to kelin chnoid cyst or other T2 hyperintense abnormality. Contrast administration would be helpful. Note is m puneet of left basilar atelectasis versus pneumonia. Abdoul Quezada MD on October 15, 2017 at 13:23 Board Certified Radiologist. This report was verified electronically.
--- NOTE | 2017-10-15 13:33 | RADRPT ---
EXAM DATE/TIME: 10/15/2017 12:26 [facility] COMPARISON: CT BRAIN W/O CONTRAST, October 15, 2017, 3:30. CT BRAIN W/O CONTRAST, October 14, 2017, 23:02. MRI BRAIN W/O CONTRAST, September 17, 2017, 11:57. INDICATIONS : CVA. MEDICAL HISTORY : Hypertension. SURGICAL HISTORY : CABG Loop recorder ENCOUNTER: Initial ACUITY: 1 day PAIN SCORE: 0/10 LOCATION: cranial TECHNIQUE: Multiplanar, multisequence MRI of the brain was performed without contrast. FINDINGS: The craniocervical junction and midline structures are unremarkable. There is a large acute ischemic infarct involving the entire right middle cerebral artery distribution as well as the anterior cerebr al artery distributions bilaterally. There is occlusion of the cavernous carotid artery on the right side. There are no signs of herniation. Posterior fossa structures are unremarkable the exception of a small old area of lacunar infarct in the left side of the lacho.. CONCLUSION: 1. Extremely large ischemic infarct involving the entire right middle cerebral artery distribution an d both anterior cerebral artery distributions. Follow CT to evaluate for evolving cerebral edema is r ecommended. Abdoul Quezada MD on October 15, 2017 at 13:27 Board Certified Radiologist. This report was verified electronically.
--- NOTE | 2017-10-15 13:40 | HHI.CCPN ---
Subjective Remarks/Hospital Course This is a 57-year-old male. Date of admission 10/14/2017. Past medical history includes coronary disease status post CABG at age 37, known left internal carotid occlusive disease 89%, right ICA 46%, COPD, ongoing tobaccoism and hypertension. Patient was seen in 04/25 and 09/25 with left and right upper extremity weakness respectively. Patient has a imaging his brain which reveals bilateral parietal occipital CVA and known left internal carotid artery 80-90 % occlusion/right internal carotid artery 40-50% occlusion patient presents to [facility] today after he was found status post falling to the ground complaining of left arm/shoulder weakness. on Coumadin which he is not taking and he is now back with the same symptoms 30 minutes onset left hand 0 out of 5 otherwise neuro exam is normal. CT brain revealed old left parietal CVA. Decision was given to provide alteplase per Dr. Ferreira. Received 7 mg bolus followed by 63 mg. Plan to admit the ICU with frequent neuro checks of vascular consultation. He received hydralazine due to elevated blood pressure. Currently symptoms have not resolved with persistent left upper extremity weakness. We are asked with the patient. 10/15/17:Patient remains intubated heavily sedated. Very slight withdrawal of bilateral extremities on sedation. MRI brain today -Very large ischemic infarct involving the entire right middle cerebral artery distribution and both anterior cerebral artery distributions. MRI T spine- worsening edema in the cord above the level of dorsal impingement related to ?arachnoid cyst or other T2 hyperintense abnormality. Objective Vital Signs Date Time Temp Pulse Resp B/P (MAP) Pulse Ox O2 Delivery O2 Flow Rate FiO2 10/15/17 12:15 100 100 10/15/17 04:00 101 10/15/17 04:00 98.6 22 153/69 (97) 10/14/17 23:40 Nasal Cannula 2.00 Intake and Output 10/15/17 10/15/17 10/16/17 08:00 16:00 00:00 Intake Total 150 ml Output Total 1000 ml Balance -1000 ml 150 ml Result Diagram: 10/14/17202410/14/172024 Other Results Laboratory Tests Test 10/15/17 07:50 Blood Gas Puncture Site RT RADIAL Blood Gas Patient Temperature 98.6 Blood Gas HCO3 23 mmol/L (22-26) Blood Gas Base Excess -1.3 mmol/L (-2-2) Blood Gas Oxygen Saturation 98 % (90-100) Arterial Blood pH 7.39 (7.380-7.420) Arterial Blood Partial Pressure CO2 39 mmHg (38-42) Arterial Blood Partial Pressure O2 453 mmHg (61-120) Arterial Blood Oxygen Content 21.7 Vol % (12.0-20.0) Arterial Blood Carboxyhemoglobin 1.1 % (0-4) Arterial Blood Methemoglobin 1.1 % (0-2) Blood Gas Hemoglobin 15.0 G/DL (12.0-16.0) Oxygen Delivery Device VENTILATOR Blood Gas Ventilator Setting PRVC/AC Blood Gas Inspired Oxygen 100 % Imaging Last Impressions Head CT 10/14/172024 Signed Impressions: Service Date/Time: Saturday, October 14, 2017 20:32 - CONCLUSION: No acute intracranial abnormalities. Multifocal white matter ischemic changes noted with remote lacunar infarct in left parietal lobe. Wilfredo Rebolledo MD Chest X-Ray 10/14/17 0000 Signed Impressions: Service Date/Time: Saturday, October 14, 2017 20:39 - CONCLUSION: 1. No active disease. Wilfredo Rebolledo MD Objective Remarks GENERAL: This is a 57-year-old male currently intubated heavily sedated SKIN: Warm and dry. Scars of the thorax from prior CABG HEAD: Atraumatic. Normocephalic. EYES: Pupils equal and round about 3 mm bilaterally. No scleral icterus. No injection or drainage. ENT: No nasal bleeding or discharge. Orotracheally intubated NECK: Trachea midline. No JVD. Positive left carotid bruit 11/15 CARDIOVASCULAR: Regular rate and rhythm. S1, S2. No S4. Without murmur RESPIRATORY: No accessory muscle use. Clear to auscultation. Breath sounds equal bilaterally. GASTROINTESTINAL: Abdomen soft, non-tender, nondistended. MUSCULOSKELETAL: Extremities without significant peripheral edema. No obvious deformities. NEUROLOGICAL: Intubated heavily sedated. Moves bilateral lower extremities to pain on sedation. Pupils are equal A/P Assessment and Plan Neuro/Psych: Acute large right MCA, EQUIPMENT MAN and bilateral JENNIFER infarct Severe encephalopathy History of bilateral parietal/occipital CVA T2 spinal cord edema THC use EtOH MRI brain 10/15/17 -Very large ischemic infarct involving the entire right MCA, EQUIPMENT MAN distribution and both JENNIFER distributions. MRI T spine- worsening edema in the cord above the level of dorsal impingement related to ?arachnoid cyst or other T2 hyperintense abnormality. D/W Dr. Ferreira. Due to involvement of multiple vascular territories Dr. Jhon Cortes start IV Solu-Medrol pulse dose Also consult neurosurgery regarding spinal cord edema at T2 level CT brain 10/14 revealed a left parietal CVA Status post alteplase 7 mg 1 followed [place] [address] Ferreira neurology following-discussed with him Last echocardiogram 09/25 revealed EF 55-60%. No regional motion abnormality. MRA brain pending /carotid ultrasound high-grade stenosis left carotid 2-D echocardiogram pending Did not take prescribed warfarin CT brain 24 hours post alteplase, aspirin after CT if negative Propofol fentanyl for sedation and vent synchrony Acetaminophen for fever Multivitamin, folate and thiamine daily currently with IV Seizure precautions CV: Left internal carotid artery stenosis 80%, Right internal carotid artery stenosis 40-50% Coronary artery disease status post CABGx2 at age 37 Hypertension Dyslipidemia Goal keep systolic blood pressure less than 185 diastolic blood pressure less than 110 Holding amlodipine 10 mg daily and atorvastatin 40 mg by mouth daily status post alteplase. Resume atorvastatin at 80 mg daily Holding aspirin 81 mg daily and clopidogrel 75 mg by mouth daily. Vascular surgery consultation-Dr. freedman Lipid panel ordered As needed. Labetalol/enalaprilat/hydralazine/nicardipine drip to maintain systolic blood pressure less than 185, and also was less than 110 Resp: Acute respiratory failure Ongoing tobaccoism Intubated and placed on mechanical ventilation, ACV As needed albuterol aerosols every 2 hours for dyspnea Tobacco cessation will be encouraged No sedation vacation, or vent weaning until neuro status is improved GI: Patient is currently nothing by mouth Famotidine for GI prophylaxis Docusate sodium/senna for bowel regimen : No indication for Rodríguez catheter Endo: F/u hemoglobin A1c and TSH SSI while on steroids Renal: Creatinine currently within normal limits Currently on normal saline at 84 cc an hour Monitor urine output Accurate I's and O's Heme: Monitor CBC daily. Follow trends ID: Monitor for infection FEN: Replace electrolytes as clinically indicated MSK: PT/OT/ST evaluate and treat Access - Utilize peripheral IV. Central line if indicated Prophylaxis - GI famotidine - DVT - SCD/holding pharmacological prophylaxis status post alteplase CCT 45 min Patient remains extremely critically ill. Extremely large multi-territory right JENNIFER, MCA, EQUIPMENT MAN stroke and left JENNIFRE stroke. Multiple territories involved may be due to vasculitis hypercoagulable state or embolic. IV steroids per Dr. Ferreira. Prognosis guarded Nancy Evans MD Oct 15, 2017 13:40
[2017-10-15 14:29] LABS: AUTOMATED NEUTROPHIL # 8.6 TH/MM3 (1.8-7.7); BASOPHIL % 0.4 % (0.0-2.0); EOSINOPHIL % 0.2 % (0.0-4.0); HEMATOCRIT 43.6 % (39.0-51.0); HEMOGLOBIN 14.6 GM/DL (13.0-17.0); LYMPH % 10.2 % (9.0-44.0); LYMPHOCYTE # 1.1 TH/MM3 (1.0-4.8); MEAN CELL VOLUME 91.8 FL (80.0-100.0); MEAN CORPUSCULAR HEMOGLOBIN 30.8 PG (27.0-34.0); MEAN CORPUSCULAR HGB CONC 33.5 % (32.0-36.0); MONOCYTE # 0.9 TH/MM3 (0-0.9); NEUT % 81.2 % (16.0-70.0); PLATELET COUNT 151 TH/MM3 (150-450); RED BLOOD COUNT 4.75 MIL/MM3 (4.50-5.90); WHITE BLOOD COUNT 10.6 TH/MM3 (4.0-11.0)
[2017-10-15 14:55] LABS: CHOLESTEROL 144 MG/DL (120-200); PHOSPHORUS 2.3 MG/DL (2.5-4.9)
[2017-10-15] MEDS ORDERED: ACETAMINOPHEN 1000 MG/100 ML 100 ML IV PRN (15:00)
[2017-10-15 15:03] LABS: BANDS 9 % (0-6); LYMPHOCYTES 3 % (9-44); MONOCYTES 7 % (0-8); NEUTROPHIL # MANUAL DIFF 9.5 TH/MM3 (1.8-7.7); POLYS (SEG NEUTROPHILS) 81 % (16-70)
[2017-10-15 15:04] LABS: CHOLESTEROL/ HDL RATIO 3.98 RATIO; HDL CHOLESTEROL 36.1 MG/DL (40.0-60.0); LDL CHOLESTEROL 92 MG/DL (0-99); TRIGLYCERIDES 79 MG/DL (42-150)
[2017-10-15 15:07] LABS: ALBUMIN 3.5 GM/DL (3.4-5.0); ALKALINE PHOSPHATASE 58 U/L (45-117); ALT (GPT) 23 U/L (12-78); AST (GOT) 23 U/L (15-37); BICARBONATE 23.1 MEQ/L (21.0-32.0); BLOOD UREA NITROGEN 18 MG/DL (7-18); CALCIUM 8.3 MG/DL (8.5-10.1); CHLORIDE 111 MEQ/L (98-107); CREATININE 1.47 MG/DL (0.60-1.30); GLOMERULAR FILTRATION RATE 49 ML/MIN (>89); GLUCOSE,RANDOM 99 MG/DL (74-106); MAGNESIUM 1.6 MG/DL (1.5-2.5); SODIUM (NA) 141 MEQ/L (136-145); TOTAL BILIRUBIN ADULT 0.5 MG/DL (0.2-1.0); TOTAL PROTEIN 6.7 GM/DL (6.4-8.2)
--- NOTE | 2017-10-15 15:08 | HHI.PR ---
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 CT brain 24 hr post tpa --if no hemorrhage start asa 300 mg MS daily Diagnosis/Plan: Subjective Subjective Comments pt is intubated and sedated Active Medications Current Medications Medications (Trade) Dose Ordered Sig/Aria Route Start Time Stop Time Status Last Admin Miscellaneous Information No Heparin, Warfarin, Aspir... UNSCH PRN XX 10/14/17 21:00 10/15/17 20:59 Sodium Chloride 1,000 ml @ 84 mls/hr [id number] IV 10/14/17 22:18 10/14/17 23:26 (Tylenol) 650 mg Q6H PRN PO 10/14/17 22:30 ([place] 5-325 Mg) 1 tab Q4H PRN PO 10/14/17 22:30 (Morphine Inj) 2 mg Q2H PRN IV PUSH 10/14/17 22:30 10/15/17 00:40 (Tears Naturale Opth Soln) 1 drop TID EACH EYE 10/15/17 09:00 (Zofran Inj) 4 mg Q6H PRN IV PUSH 10/14/17 22:30 10/15/17 00:40 (Albuterol Neb) 2.5 mg Q2HR NEB PRN INH 10/14/17 22:30 Miscellaneous Information 1 [id number] XX 10/14/17 22:30 (Chlorhexidine 2% Cloth) 3 pack Taper DAILY@04 TOP 10/15/17 04:00 10/11/18 03:59 (Chlorhexidine 2% Cloth) 3 pack UNSCH PRN TOP 10/14/17 22:30 (Nadeen-Colace) 1 tab BID PO 10/15/17 09:00 10/15/17 09:16 (Milk Of Magnesia Liq) 30 ml Q12H PRN PO 10/14/17 22:30 (Senokot) 17.2 mg Q12H PRN PO 10/14/17 22:30 (Dulcolax Supp) 10 mg DAILY PRN RECTAL 10/14/17 22:30 (Lactulose Liq) 30 ml DAILY PRN PO 10/14/17 22:30 (NS Flush) 2 ml BID IV FLUSH 10/15/17 09:00 (NS Flush) 2 ml UNSCH PRN IV FLUSH 10/14/17 22:30 (Trandate Inj) 10 mg Q2H PRN IV PUSH 10/14/17 22:30 Nicardipine HCl 25 mg/Sodium Chloride 250 ml @ 50 mls/hr TITRATE PRN IV 10/14/17 23:00 10/15/17 00:28 (NovoLOG SUPPLEMENTAL SCALE) 1 ACHS SQ 10/15/17 08:00 (D50w (Vial) Inj) 50 ml UNSCH PRN IV PUSH 10/14/17 22:30 (Glucagon Inj) 1 mg UNSCH PRN OTHER 10/14/17 22:30 (Apresoline Inj) 10 mg Q1HR PRN IV PUSH 10/14/17 22:30 10/15/17 00:12 (Vasotec Inj) 2.5 mg Q6H PRN IV PUSH 10/14/17 22:30 Multivitamins 10 ml/Folic Acid 1 mg/Sodium Chloride 510.2 ml @ 125 mls/hr Q24H IV 10/15/17 02:00 10/20/17 01:59 10/15/17 01:09 Thiamine HCl 100 mg/Sodium Chloride 101 ml @ 100 mls/hr Q24H IV 10/15/17 02:00 10/18/17 01:59 10/15/17 01:09 (Romazicon Inj) 0.2 mg Q1M PRN IV PUSH 10/15/17 00:30 (Ativan) 1 mg Q4H PRN PO 10/15/17 00:30 (Ativan Inj) 1 mg Q4H PRN IV PUSH 10/15/17 00:30 (Ativan) 2 mg Q2H PRN PO 10/15/17 00:30 (Ativan Inj) 2 mg Q2H PRN IV PUSH 10/15/17 00:30 (Ativan Inj) 2 mg Q1H PRN IV PUSH 10/15/17 00:30 (Ativan Inj) 2 mg Q15M PRN IV PUSH 10/15/17 00:30 10/15/17 02:55 Dexmedetomidine HCl 200 mcg/ Sodium Chloride 52 ml @ 4.03 mls/hr TITRATE PRN IV 10/15/17 03:15 10/15/17 11:57 (Peridex 0.12% Liq) 15 ml BID@08,20 MT 10/15/17 08:00 10/15/17 07:42 Propofol 100 ml @ 2.325 mls/ hr TITRATE PRN IV 10/15/17 05:15 10/15/17 08:15 Fentanyl Citrate 250 ml @ 5 mls/hr TITRATE PRN IV 10/15/17 05:15 10/15/17 07:42 (Prevacid Odt) 30 mg DAILY NG 10/15/17 09:00 10/15/17 09:16 (Tears Naturale Opth Soln) 1 drop Q8HR EACH EYE 10/15/17 06:00 (Duoneb Neb) 1 ampule Q6HR NEB NEB 10/15/17 10:00 10/15/17 08:31 (Lipitor) 80 mg HS PO 10/15/17 21:00 Methylprednisolone Sodium Succinate 250 mg/Dextrose 100 ml @ 200 mls/hr Q6H IV 10/15/17 15:00 Acetaminophen 100 ml @ 400 mls/hr Q6HR PRN IV 10/15/17 15:00 Allergies Allergies Coded Allergies No Known Allergies (Verified Allergy, Severe, 04/29/08) Review of Systems All other ROS: ROS reviewed as documented in chart Exam I&O / VS 10/15/17 10/15/17 10/16/17 15:00 23:00 07:00 Intake Total 150 ml Balance 150 ml Intake IV Total 150 ml Vital Signs Date Time Temp Pulse Resp B/P (MAP) Pulse Ox O2 Delivery O2 Flow Rate FiO2 10/15/17 12:15 100 100 10/15/17 12:00 75 10/15/17 12:00 100.2 75 18 116/58 (77) 96 10/15/17 08:00 99.9 69 16 132/75 (94) 99 10/15/17 08:00 69 10/15/17 07:50 98 100 10/15/17 05:26 99 100 10/15/17 04:00 101 10/15/17 04:00 98.6 101 22 153/69 (97) 96 10/15/17 02:00 76 10/15/17 00:45 25 10/15/17 00:28 109 223/112 10/15/17 00:00 107 10/15/17 00:00 98.6 107 26 223/84 (130) 98 10/14/17 23:59 10/14/17 23:40 86 18 165/77 (106) 98 Nasal Cannula 2.00 10/14/17 23:20 102 16 134/75 (94) 99 Nasal Cannula 10/14/17 23:05 110 20 155/74 (101) 98 Nasal Cannula 2.00 10/14/17 22:21 61 18 154/67 (96) 99 Nasal Cannula 2.00 10/14/17 21:38 62 16 167/72 (103) 99 Nasal Cannula 2.00 10/14/17 21:19 67 16 172/73 (106) 98 Nasal Cannula 2.00 10/14/17 20:51 71 18 177/83 (114) 99 10/14/17 20:47 18 98 Nasal Cannula 1.00 10/14/17 20:17 97.8 79 16 186/86 (119) 100 Exam Comments sedated, nonresponsive Pupils 1 mm bilateral and sluggishly reactive EOM--limited to occulocephalics MOTOR--no withdrawal Objective Radiology Results MRI brain--acute cve entire right MCA and JENNIFER territory and left JENNIFER territory with right carotid occlusion MRA brain --pending MRI thoracic spine--area of myelomalacia with increased cord signal and possible arachoid cyst. Micro and Labs Laboratory Tests Test 10/14/17 20:25 10/15/17 07:50 10/15/17 14:05 White Blood Count 7.7 10.6 Red Blood Count 5.07 4.75 Hemoglobin 15.8 14.6 Bedside Hemoglobin 17.3 Hematocrit 46.4 43.6 Bedside Hematocrit 51.0 Mean Corpuscular Volume 91.4 91.8 Mean Corpuscular Hemoglobin 31.2 30.8 Mean Corpuscular Hemoglobin Concent 34.2 33.5 Red Cell Distribution Width 13.7 14.0 Platelet Count 156 151 Mean Platelet Volume 10.4 10.0 Neutrophils (%) (Auto) 63.8 81.2 Lymphocytes (%) (Auto) 24.5 10.2 Monocytes (%) (Auto) 9.5 8.0 Eosinophils (%) (Auto) 1.6 0.2 Basophils (%) (Auto) 0.6 0.4 Neutrophils # (Auto) 4.9 8.6 Lymphocytes # (Auto) 1.9 1.1 Monocytes # (Auto) 0.7 0.9 Eosinophils # (Auto) 0.1 0.0 Basophils # (Auto) 0.0 0.0 CBC Comment DIFF FINAL AUTO DIFF Differential Comment FINAL DIFF MANUAL Prothrombin Time 10.3 Prothromb Time International Ratio 1.0 Fibrinogen 449 Bedside Sodium 140 Blood Urea Nitrogen 11 Creatinine 0.87 Random Glucose 120 Total Protein 8.1 Albumin 4.0 Calcium Level 8.9 Alkaline Phosphatase 67 Aspartate Amino Transf (AST/SGOT) 14 Alanine Aminotransferase (ALT/SGPT) 24 Total Bilirubin 0.3 Sodium Level 136 Potassium Level 3.6 Chloride Level 101 Carbon Dioxide Level 23.9 Bedside Potassium 3.8 Bedside Chloride 100 Anion Gap 11 Bedside Blood Urea Nitrogen 10 Bedside Creatinine 0.8 Estimat Glomerular Filtration Rate 90 Bedside Glucose 126 Troponin I LESS THAN 0.02 Blood Gas Puncture Site RT RADIAL Blood Gas Patient Temperature 98.6 Blood Gas HCO3 23 Blood Gas Base Excess -1.3 Blood Gas Oxygen Saturation 98 Arterial Blood pH 7.39 Arterial Blood Partial Pressure CO2 39 Arterial Blood Partial Pressure O2 453 Arterial Blood Oxygen Content 21.7 Arterial Blood Carboxyhemoglobin 1.1 Arterial Blood Methemoglobin 1.1 Blood Gas Hemoglobin 15.0 Oxygen Delivery Device VENTILATOR Blood Gas Ventilator Setting PRVC/AC Blood Gas Inspired Oxygen 100 Differential Total Cells Counted 100 Neutrophils % (Manual) 81 Band Neutrophils % 9 Lymphocytes % 3 Monocytes % 7 Neutrophils # (Manual) 9.5 Erythrocyte Sedimentation Rate 3 Phosphorus Level 2.3 Cholesterol Level 144 Maxim Ferreira MD PhD Oct 15, 2017 15:08
[2017-10-15] MEDS: methylPREDNISolone SO SUCC INJ 250 MG in DEXTROSE 5% IN WATER 100ML INJ 100 ML IV SCH ×4 (16:20→20:34)
[2017-10-15] MEDS ORDERED: SODIUM CHLOR 0.9% 1000 ML INJ 2,000 ML IV SCH (16:30)
--- NOTE | 2017-10-15 17:16 | RADRPT ---
EXAM DATE/TIME: 10/15/2017 12:26 [facility] COMPARISON: MRA BRAIN W/O CONTRAST, September 17, 2017, 11:57. INDICATIONS : CVA. MEDICAL HISTORY : Hypertension. SURGICAL HISTORY : CABG Loop recorder. ENCOUNTER: Initial ACUITY: 1 day PAIN SCORE: 0/10 LOCATION: cranial Please note a normal MRA of the brain does not entirely exclude the possibility of a small aneurysm, nor the possibility of distal intracranial vessel disease. TECHNIQUE: 3D time of flight MRA was performed. Source images, multiplanar STS MIP, and 3D volume MIP reconstru ctions were reviewed. FINDINGS: There is complete occlusion of the right carotid system as well as both anterior to indicating arteri es. The left carotid artery and middle cervical artery are intact. Examination of posterior fossa also demonstrates no evidence of aneurysm or vascular malformation. Th e vertebral arteries are codominant. CONCLUSION: 1. Complete occlusion of the right carotid artery and both anterior cerebrals and right middle cerebr al artery Abdoul Quezada MD on October 15, 2017 at 17:12 Board Certified Radiologist. This report was verified electronically.
[2017-10-15] MEDS: MIDAZOLAM 100 MG/NS 100 ML DRIP Premix IV PRN (17:17)
[2017-10-15] MEDS ORDERED: TERBUTALINE INJ 1 MG/ML AMP SQ PRN (18:00)
[2017-10-15] MEDS ORDERED: DOPamine INJ PREMIX 500 ML ONE (18:12)
[2017-10-15] MEDS: DOPamine INJ 800 MG in DEXTROSE 5% IN WATER INJ 230 ML IV PRN ×4 (18:19→18:41)
[2017-10-15] MEDS: SODIUM CHLOR 0.9% 1000 ML INJ 1,000 ML IV SCH (18:20)
[2017-10-15] MEDS: PIPERACIL-TAZO 4.5 GM PREMIX 100 ML IV SCH (18:54)
[2017-10-15] MEDS: ATORVASTATIN 40 MG TAB PO SCH (20:05)
[2017-10-15] MEDS ORDERED: ATORVASTATIN 40 MG TAB PO SCH (21:00)
--- NOTE | 2017-10-15 22:06 | RADRPT ---
EXAM DATE/TIME: 10/15/2017 21:11 [facility] COMPARISON: CTA CAROTID ARTERIES W 3D RECON, September 18, 2017, 11:26. CT BRAIN W/O CONT RAST, October 14, 2017, 20:32. CT BRAIN W/O CONTRAST, October 14, 2017, 23:02. MRA BRAIN W/O CONTRA ST, October 15, 2017, 12:26. CT BRAIN W/O CONTRAST, October 15, 2017, 3:30. INDICATIONS : Follow up stroke; 24 hour post TPA. RADIATION DOSE: 56.35 CTDIvol (mGy) MEDICAL HISTORY : Cerebrovascular disease. ETOH abuse SURGICAL HISTORY : None. ENCOUNTER: Subsequent ACUITY: 2 days PAIN SCALE: Non-responsive LOCATION: cranial TECHNIQUE: Multiple contiguous axial images were obtained of the head. Using automated exposure control and adjustment of the mA and/or kV according to patient size, radiation dose was kept as low as reasonably achievable to obtain optimal diagnostic quality images. DICOM format image data is av ailable electronically for review and comparison. FINDINGS: CEREBRUM: Extensive hypodensity with loss of cortical and white matter differentiation has develo ped throughout the right cerebral hemisphere and along the parasagittal region of the left cerebral h emisphere. Significant mass effect with sulcal effacement is noted. There is no evidence of acute hem orrhage. There is developing subfalcine herniation. The right side of the suprasellar cistern is effa kobe. POSTERIOR FOSSA: The cerebellum and brainstem are intact. The 4th ventricle is midline. The cer ebellopontine angle is unremarkable. EXTRACRANIAL: The visualized portion of the orbits is intact. SKULL: The calvaria is intact. No evidence of skull fracture. CONCLUSION: 1. Acute infarct throughout the right cerebral hemisphere and parasagittal region the left frontal an d parietal lobes. 2. No evidence of acute hemorrhage. 3. Early subfalcine and left uncal herniation. Baron Harrell MD on October 15, 2017 at 21:54 Board Certified Radiologist. This report was verified electronically.
[2017-10-15] MEDS ORDERED: 3% SALINE INJ 500 ML IV SCH (23:30)
--- NOTE | 2017-10-15 23:58 | RADRPT ---
EXAM DATE/TIME: 10/15/2017 23:34 [facility] COMPARISON: CHEST SINGLE AP, October 15, 2017, 5:40. INDICATIONS : Right subclavian central line placement. MEDICAL HISTORY : Cerebrovascular disease. SURGICAL HISTORY : None. ENCOUNTER: Subsequent ACUITY: 2 days PAIN SCORE: Non-responsive. LOCATION: Right chest FINDINGS: Single AP view of the chest. Endotracheal tube and nasogastric tube remain in place. Right subclavian central venous catheter is now seen with the tip at the cavoatrial junction. No evidence of pneumoth orax. There is new left lower lung zone opacity likely worsening atelectasis. No evidence of pleural effusion. Cardiomediastinal silhouette unchanged. CONCLUSION: 1. Right subclavian central venous catheter in place with the tip at the cavoatrial junction. No evid ence of pneumothorax. 2. New medial left lower lobe opacity likely representing atelectasis. Angus Lyons MD on October 15, 2017 at 23:55 Board Certified Radiologist. This report was verified electronically.
--- NOTE | 2017-10-15 23:59 | PD.PROCEDR ---
Procedure Note Procedure Centerline placement A time-out was completed verifying correct patient, procedure, site, positioning , and special equipment if applicable. The patient was placed in a dependent position appropriate for central line placement based on the vein to be cannulated. The patients right shoulder was prepped and draped in sterile fashion. 1% Lidocaine was used to anesthetize the surrounding skin area. A triple lumen 9-Monegasque Cordis catheter was introduced into the the right subclavian vein using the Seldinger technique. The catheter was threaded smoothly over the guide wire and appropriate blood return was obtained. Each lumen of the catheter was evacuated of air and flushed with sterile saline. The catheter was then sutured in place to the skin and a sterile dressing applied. Perfusion to the extremity distal to the point of catheter insertion was checked and found to be adequate. Estimated Blood Loss: 1ml The patient tolerated the procedure well and there were no complications. Angel Rock MD Oct 15, 2017 23:59
[2017-10-16] VITALS (17 sets, daily range): BP systolic 107–151; BP diastolic 55–70; PULSE 43–113; RESP 16–18; TEMP 97.2–99.5; O2SAT 94–100
[2017-10-16] MEDS ORDERED: MANNITOL INJ 400 ML IV SCH
[2017-10-16] MEDS: MULTIVITAMIN INJ 10 ML, FOLIC ACID INJ 1 MG in SODIUM CHLORID 0.9% 500 ML INJ 500 ML IV SCH (00:55)
[2017-10-16] MEDS: THIAMINE INJ 100 MG in SODIUM CHLORIDE 0.9% INJ 100 ML IV SCH (00:55)
[2017-10-16] MEDS: PIPERACIL-TAZO 4.5 GM PREMIX 100 ML IV SCH ×4 (00:55→20:04)
[2017-10-16] MEDS: methylPREDNISolone SO SUCC INJ 250 MG in DEXTROSE 5% IN WATER 100ML INJ 100 ML IV SCH ×4 (03:54→08:32)
[2017-10-16] MEDS: CHLORHEXIDINE GLUCONATE 2 % 1 PACK (2 CLOTHS) TOP SCH (04:00)
[2017-10-16] MEDS: RESP: ALBUTEROL 2.5 MG/IPRATROPIUM 0.5 MG NEB (SCH) NEB ×4 (04:21→19:56)
[2017-10-16] MEDS ORDERED: niCARdipine INJ 25 MG in SODIUM CHLOR 0.9% 250 ML INJ 240 ML IV PRN (07:15)
[2017-10-16] MEDS ORDERED: ACETAMINOPHEN 650 MG/20.3 ML UDC NG PRN (07:15)
--- NOTE | 2017-10-16 07:19 | HHI.CCPN ---
Subjective Remarks/Hospital Course This is a 57-year-old male. Date of admission 10/14/2017. Past medical history includes coronary disease status post CABG at age 37, known left internal carotid occlusive disease 89%, right ICA 46%, COPD, ongoing tobaccoism and hypertension. Patient was seen in 04/25 and 09/25 with left and right upper extremity weakness respectively. Patient has a imaging his brain which reveals bilateral parietal occipital CVA and known left internal carotid artery 80-90 % occlusion/right internal carotid artery 40-50% occlusion patient presents to [facility] today after he was found status post falling to the ground complaining of left arm/shoulder weakness. on Coumadin which he is not taking and he is now back with the same symptoms 30 minutes onset left hand 0 out of 5 otherwise neuro exam is normal. CT brain revealed old left parietal CVA. Decision was given to provide alteplase per Dr. Ferreira. Received 7 mg bolus followed by 63 mg. Plan to admit the ICU with frequent neuro checks of vascular consultation. He received hydralazine due to elevated blood pressure. Currently symptoms have not resolved with persistent left upper extremity weakness. We are asked with the patient. 10/15/17:Patient remains intubated heavily sedated. Very slight withdrawal of bilateral extremities on sedation. MRI brain today -Very large ischemic infarct involving the entire right middle cerebral artery distribution and both anterior cerebral artery distributions. MRI T spine- worsening edema in the cord above the level of dorsal impingement related to ?arachnoid cyst or other T2 hyperintense abnormality. Subjective 10/16: Afebrile. Placed on dopamine overnight due to bradycardia. Currently at 3 mcg/kg per minute Patient currently withdrawing right upper and lower extremity left lower extremity. Right pupil 5 mm and sluggish. Left pupil 1 mm and minimally reactive. Positive cough. Noted CT brain revealed no edema right hemisphere/left frontal/parietal region along with impending subfalcine/ uncal herniation. Objective Vital Signs Date Time Temp Pulse Resp B/P (MAP) Pulse Ox O2 Delivery O2 Flow Rate FiO2 10/16/17 06:00 83 10/16/17 04:20 98 50 10/16/17 04:00 97.2 16 142/65 (90) 10/14/17 23:40 Nasal Cannula 2.00 Intake and Output 10/16/17 10/16/17 10/17/17 08:00 16:00 00:00 Intake Total 1110 ml Output Total 3200 ml Balance -2090 ml Result Diagram: 10/15/17 1405 10/15/17 1405 Other Results Microbiology Date/Time Source Procedure Growth Status 10/15/17 14:45 Blood Peripheral Aerobic Blood Culture Pending Received 10/15/17 14:45 Blood Peripheral Anaerobic Blood Culture Pending Received 10/15/17 14:42 Sputum Endotracheal Gram Stain Pending Received 10/15/17 14:42 Sputum Endotracheal Sputum Culture Pending Received 10/15/17 14:45 Urine Catheterized Urine Urine Culture Pending Received Imaging Last Impressions Head CT 10/15/17 2130 Signed Impressions: Service Date/Time: Sunday, October 15, 2017 21:11 - CONCLUSION: 1. Acute infarct throughout the right cerebral hemisphere and parasagittal region the left frontal and parietal lobes. 2. No evidence of acute hemorrhage. 3. Early subfalcine and left uncal herniation. Baron Harrell MD Thoracic Spine MRI 10/15/17 0900 Signed Impressions: Service Date/Time: Sunday, October 15, 2017 12:26 - CONCLUSION: There is worsening edema in the cord above the level of dorsal impingement related to arachnoid cyst or other T2 hyperintense abnormality. Contrast administration would be helpful. Note is made of left basilar atelectasis versus pneumonia. Abdoul Quezada MD Head Magnetic Resonance Angiography 10/15/17 0000 Signed Impressions: Service Date/Time: Sunday, October 15, 2017 12:26 - CONCLUSION: 1. Complete occlusion of the right carotid artery and both anterior cerebrals and right middle cerebral artery Abdoul Quezada MD Chest X-Ray 10/15/17 0000 Signed Impressions: Service Date/Time: Sunday, October 15, 2017 23:34 - CONCLUSION: 1. Right subclavian central venous catheter in place with the tip at the cavoatrial junction. No evidence of pneumothorax. 2. New medial left lower lobe opacity likely representing atelectasis. Angus Lyons MD Carotid Artery Ultrasound 10/15/17 0000 Signed Impressions: Service Date/Time: Sunday, October 15, 2017 08:16 - CONCLUSION: 1. High- grade stenosis on the left side greater than 70%%. CT angiography of the cervicobrachial arch and carotid arteries is recommended for further evaluation if clinically indicated.8 Abdoul Quezada MD Brain MRI 10/15/17 0000 Signed Impressions: Service Date/Time: Sunday, October 15, 2017 12:26 - CONCLUSION: 1. Extremely large ischemic infarct involving the entire right middle cerebral artery distribution and both anterior cerebral artery distributions. Follow CT to evaluate for evolving cerebral edema is recommended. Abdoul Quezada MD Objective Remarks GENERAL: This is a 57-year-old male currently intubated resting in bed in no acute distress SKIN: Warm and dry. Scars of the thorax from prior CABG HEAD: Atraumatic. Normocephalic. EYES: Right pupil 5 mm and sluggish. Left pupils 1 mm and minimally reactive. ENT: No nasal bleeding or discharge. Orotracheally intubated NECK: Trachea midline. No JVD. Positive left carotid bruit 11/15 CARDIOVASCULAR: Regular rate and rhythm. S1, S2. No S4. Without murmur RESPIRATORY: Few crackles appreciated in the left lower lobes. Symmetrical excursion. Breath sounds equal bilaterally. GASTROINTESTINAL: Abdomen soft, non-tender, nondistended. Hypoactive bowel sounds. MUSCULOSKELETAL: Extremities without significant peripheral edema. No obvious deformities. NEUROLOGICAL: Pupils as above. Positive cough/gag. Positive corneal reflex. Withdraws to pain right upper/lower left lower extremity. Upper extremities flaccid Urinary Catheter: Yes Assessment to: Continue Rodríguez insert reason: Prolonged Immobilization Vascular Central Line Catheter: Yes Assessment to: Continue Date of Insertion: Oct 15, 2017 Line: Central Venous Catheter Side: Right Location: Subclavian A/P Assessment and Plan Neuro/Psych: Acute large right MCA/ bilateral JENNIFER infarct Severe encephalopathy History of bilateral parietal/occipital CVA T 7/8 spinal cord edema/dorsal impingement THC use EtOH Midazolam currently at 3 g per minute and fentanyl drip at 100 mcg/h for sedation and vent synchrony Goal of RASS -2 Daily sedation vacation when okay with neurology MRI brain 10/15/17 -Very large ischemic infarct involving the entire right MCA, STERILE PROCESS TECH distribution and both JENNIFER distributions. MRI T spine- worsening edema in the cord above the level of dorsal impingement T7/8 related to ?arachnoid cyst or other T2 hyperintense abnormality. Dr. Evans discussed Dr. Ferreira. Due to involvement of multiple vascular territories Dr. Ferreira initiated's methylprednisolone 20 mg IV every 6 hours Also consult neurosurgery regarding spinal cord edema at T7/[address] brain 10/14 revealed old lacunar left parietal/lacho CVA Status post alteplase 7 mg 1 followed by [address] Ferreira neurology following- Last echocardiogram 09/25 revealed EF 55-60%. No regional motion abnormality. MRA brain revealed occlusion right carotid. Bilateral anterior cerebral arteries and right MCA distribution 2-D echocardiogram pending Did not take prescribed warfarin CT brain 24 hours post alteplase revealed diffuse edema in the right cerebral region, less cerebral in the parasagittal region as well as a left frontal and parietal regions. Developing subfalcine herniation/uncal herniation with right suprasellar cistern effaced Acetaminophen for fever Multivitamin, folate and thiamine daily currently with IV Seizure precautions *Methylprednisolone 250 mg every 6 hours for spinal cord edema CT brain 8 AM or earlier if clinically indicated follow up cerebral edema CV: Left internal carotid artery stenosis 80%, Right internal carotid artery stenosis 40-50% Coronary artery disease status post CABGx2 at age 37 Hypertension Dyslipidemia Sinus bradycardia Currently on dopamine at 3 g pertinent Per minute. Heart rate currently 90. We'll attempt to wean off. Goal keep systolic blood pressure less than 185 diastolic blood pressure less than 110 Holding amlodipine 10 mg daily and atorvastatin 40 mg by mouth daily status post alteplase. Resume atorvastatin at 80 mg daily Holding aspirin 81 mg daily and clopidogrel 75 mg by mouth daily. Recommended by neurology 20 mg when necessary aspirin however severe edema noted. Risk of bleeding. We'll discuss with neurology Vascular surgery consultation-Dr. Bertrand - medical management Lipid panel ordered revealed low HDL. Otherwise within normal limits As needed. Labetalol/enalaprilat/hydralazine/nicardipine drip to maintain systolic blood pressure less than 160, and also was less than 90 Again 2-D echocardiogram pending Resp: Acute respiratory failure Ongoing tobaccoism [facility] 16/10/14/39 Ventilator bundle Albuterol/ipratropium aerosols every 6 hours with albuterol aerosols every 2 hours. Dyspnea Tobacco cessation will be encouraged Spontaneous breathing trials when clinically indicated GI: Patient is currently nothing by mouth NGT to LIWS Lansoprazole for GI prophylaxis Docusate sodium/senna for bowel regimen : No indication for Rodríguez catheter Endo: TSH within normal limits. SSI with Novulog with Accu-Cheks every 6 hours to maintain euglycemia/low regimen Renal: Creatinine currently within normal limits Currently on normal saline at 84 cc an hour Monitor urine output Accurate I's and O's Heme: Monitor CBC daily. Follow trends Hypercoagulable workup currently pending. ESR 3 ID: Left lower lobe pneumonia Currently on piperacillin/tazobactam 4.5 g IV every 6 hours day #2 Pertinent cultures Blood cultures 2 - 10/15 - pending Urine culture - 10/15 - pending Sputum - / - pending FEN: Replace electrolytes as clinically indicated MSK: PT/OT/ST evaluate and treat Access Right subclavian CVL day [address] 10/15 Prophylaxis - GI - lansoprazole - DVT - SCD/holding pharmacological prophylaxis with high risk of bleeding due to cerebral edema Level III follow-up Perry Olivia MD Oct 16, 2017 07:19
[2017-10-16 07:33] LABS: AUTOMATED NEUTROPHIL # 11.5 TH/MM3 (1.8-7.7); BASOPHIL % 0.1 % (0.0-2.0); HEMATOCRIT 43.6 % (39.0-51.0); HEMOGLOBIN 14.5 GM/DL (13.0-17.0); LYMPHOCYTE # 0.5 TH/MM3 (1.0-4.8); MEAN CELL VOLUME 91.5 FL (80.0-100.0); MEAN CORPUSCULAR HEMOGLOBIN 30.5 PG (27.0-34.0); MEAN CORPUSCULAR HGB CONC 33.3 % (32.0-36.0); MEAN PLATELET VOLUME 10.2 FL (7.0-11.0); MONO % 2.7 % (0.0-8.0); MONOCYTE # 0.3 TH/MM3 (0-0.9); NEUT % 93.2 % (16.0-70.0); PLATELET COUNT 135 TH/MM3 (150-450); RED BLOOD COUNT 4.77 MIL/MM3 (4.50-5.90); RED CELL DISTRIBUTION WIDTH 14.3 % (11.6-17.2); WHITE BLOOD COUNT 12.3 TH/MM3 (4.0-11.0)
[2017-10-16] MEDS: SODIUM CHLOR 0.9% 1000 ML INJ 1,000 ML IV SCH ×2 (07:51→21:32)
[2017-10-16] MEDS: LANSOPRAZOLE SOLUTAB 30 MG TAB NG SCH (07:54)
[2017-10-16] MEDS: CHLORHEXIDINE 0.12% (ORAL KIT) 15 ML CUP MT SCH ×2 (07:54→20:04)
[2017-10-16] MEDS: DOCUSATE SODIUM 50 MG/SENNA 8.6 MG TAB PO SCH ×2 (07:54→20:03)
[2017-10-16] MEDS: MANNITOL 12.5 GM/50 ML VIAL IV SCH ×2 (08:00→16:00)
[2017-10-16 08:47] LABS: ALBUMIN 3.2 GM/DL (3.4-5.0); ALKALINE PHOSPHATASE 63 U/L (45-117); ALT (GPT) 28 U/L (12-78); AST (GOT) 80 U/L (15-37); BICARBONATE 22.3 MEQ/L (21.0-32.0); BLOOD UREA NITROGEN 14 MG/DL (7-18); CALCIUM 9.3 MG/DL (8.5-10.1); CHLORIDE 129 MEQ/L (98-107); CREATININE 1.31 MG/DL (0.60-1.30); GLOMERULAR FILTRATION RATE 56 ML/MIN (>89); GLUCOSE,RANDOM 159 MG/DL (74-106); MAGNESIUM 2.4 MG/DL (1.5-2.5); SODIUM (NA) 157 MEQ/L (136-145); TOTAL BILIRUBIN ADULT 0.3 MG/DL (0.2-1.0)
--- NOTE | 2017-10-16 09:51 | HHI.PR ---
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 Plan reduce solumedrol to 125 mg q 6 hr start aspirin rectal 300 mg daily mannitol for edema associated with cva and monitor serum osmolarity I discussed case with Dr Thomas, given the extensive nature of the strokes involving most of the right hemisphere and large area of left hemisphere, his prognosis is very poor . I do not feel that surgical therapy for the cerebral edema would be of benefit. Diagnosis/Plan: Subjective Subjective Comments No acute events reported Active Medications Current Medications Medications (Trade) Dose Ordered Sig/Aria Route Start Time Stop Time Status Last Admin Sodium Chloride 1,000 ml @ 84 mls/hr [id number] IV 10/14/17 22:18 10/16/17 07:51 (Breaks 5-325 Mg) 1 tab Q4H PRN PO 10/14/17 22:30 (Morphine Inj) 2 mg Q2H PRN IV PUSH 10/14/17 22:30 10/15/17 00:40 (Zofran Inj) 4 mg Q6H PRN IV PUSH 10/14/17 22:30 10/15/17 00:40 (Albuterol Neb) 2.5 mg Q2HR NEB PRN INH 10/14/17 22:30 Miscellaneous Information 1 [id number] XX 10/14/17 22:30 (Chlorhexidine 2% Cloth) 3 pack Taper DAILY@04 TOP 10/15/17 04:00 10/11/18 03:59 (Chlorhexidine 2% Cloth) 3 pack UNSCH PRN TOP 10/14/17 22:30 (Nadeen-Colace) 1 tab BID PO 10/15/17 09:00 10/16/17 07:54 (Milk Of Magnesia Liq) 30 ml Q12H PRN PO 10/14/17 22:30 (Senokot) 17.2 mg Q12H PRN PO 10/14/17 22:30 (Dulcolax Supp) 10 mg DAILY PRN RECTAL 10/14/17 22:30 (Lactulose Liq) 30 ml DAILY PRN PO 10/14/17 22:30 (NS Flush) 2 ml BID IV FLUSH 10/15/17 09:00 (NS Flush) 2 ml UNSCH PRN IV FLUSH 10/14/17 22:30 (Trandate Inj) 10 mg Q2H PRN IV PUSH 10/14/17 22:30 (D50w (Vial) Inj) 50 ml UNSCH PRN IV PUSH 10/14/17 22:30 (Glucagon Inj) 1 mg UNSCH PRN OTHER 10/14/17 22:30 (Apresoline Inj) 10 mg Q1HR PRN IV PUSH 10/14/17 22:30 10/15/17 00:12 (Vasotec Inj) 2.5 mg Q6H PRN IV PUSH 10/14/17 22:30 (Peridex 0.12% Liq) 15 ml BID@08,20 MT 10/15/17 08:00 10/16/17 07:54 Propofol 100 ml @ 2.325 mls/ hr TITRATE PRN IV 10/15/17 05:15 10/15/17 08:15 Fentanyl Citrate 250 ml @ 5 mls/hr TITRATE PRN IV 10/15/17 05:15 10/15/17 07:42 (Prevacid Odt) 30 mg DAILY NG 10/15/17 09:00 10/16/17 07:54 (Tears Naturale Opth Soln) 1 drop Q8HR EACH EYE 10/15/17 06:00 (Duoneb Neb) 1 ampule Q6HR NEB NEB 10/15/17 10:00 10/16/17 08:09 (Lipitor) 80 mg HS PO 10/15/17 21:00 10/15/17 20:05 Midazolam HCl 100 ml @ 2 mls/hr TITRATE PRN IV 10/15/17 17:00 10/15/17 17:17 Dopamine HCl 800 mg/Dextrose 250 ml @ 4.38 mls/hr TITRATE PRN IV 10/15/17 18:00 10/15/17 18:41 (Brethine Inj) 1 mg UNSCH PRN SQ 10/15/17 18:00 Piperacillin Sod/ Tazobactam Sod 100 ml @ 200 mls/hr Q6H IV 10/15/17 20:00 10/16/17 07:54 Sodium Chloride 500 ml @ 30 mls/hr Q16H IV 10/15/17 23:30 10/15/17 23:35 (Tylenol 650 Mg/ 20 ml Liq) 650 mg Q6H PRN NG 10/16/17 07:15 Nicardipine HCl 25 mg/Sodium Chloride 250 ml @ 50 mls/hr TITRATE PRN IV 10/16/17 07:15 (NovoLOG SUPPLEMENTAL SCALE) 1 Q6HR SQ 10/16/17 12:00 (Mannitol Inj) 12.5 gm Q8H IV 10/16/17 08:00 Potassium Phosphate 30 mmol/ Sodium Chloride 260 ml @ 43.333 mls/ hr ONCE ONCE IV 10/16/17 11:00 10/16/17 16:59 Methylprednisolone Sodium Succinate 125 mg/Dextrose 100 ml @ 200 mls/hr Q6H IV 10/16/17 15:00 UNV Allergies Allergies Coded Allergies No Known Allergies (Verified Allergy, Severe, 04/29/08) Review of Systems All other ROS: ROS reviewed as documented in chart Exam I&O / VS 10/16/17 10/16/17 10/17/17 15:00 23:00 07:00 Intake Total 1200 ml Balance 1200 ml Intake IV Total 1200 ml Vital Signs Date Time Temp Pulse Resp B/P (MAP) Pulse Ox O2 Delivery O2 Flow Rate FiO2 10/16/17 08:09 97 50 10/16/17 08:00 48 10/16/17 08:00 99.5 48 17 115/55 (75) 96 10/16/17 06:00 83 10/16/17 04:20 98 50 10/16/17 04:00 97.2 49 16 142/65 (90) 98 10/16/17 04:00 49 10/16/17 02:00 52 10/16/17 01:22 100 50 10/16/17 00:00 98.8 49 18 144/61 (88) 99 10/16/17 00:00 49 10/15/17 22:01 98 50 10/15/17 22:00 49 10/15/17 21:15 100 100 10/15/17 20:01 98 50 10/15/17 20:00 41 10/15/17 20:00 99.9 61 16 139/65 (89) 99 10/15/17 18:27 45 137/65 10/15/17 18:12 43 111/52 10/15/17 16:00 60 10/15/17 16:00 102.0 60 19 100/49 (66) 97 10/15/17 15:39 96 50 10/15/17 12:15 100 100 10/15/17 12:00 75 10/15/17 12:00 100.2 75 18 116/58 (77) 96 10/15/17 11:45 99 50 Exam Comments sedated, nonresponsive Pupils 1 mm bilateral and sluggishly reactive EOM--limited to occulocephalics MOTOR--no withdrawal Objective Radiology Results CT brain 24 hr post TPA--large right hemisphere cva and left para falcine cva with no hemorrhage. Early subfalcine and left uncal herniation Micro and Labs Laboratory Tests Test 10/15/17 14:05 10/15/17 14:45 10/16/17 07:12 White Blood Count 10.6 12.3 Red Blood Count 4.75 4.77 Hemoglobin 14.6 14.5 Hematocrit 43.6 43.6 Mean Corpuscular Volume 91.8 91.5 Mean Corpuscular Hemoglobin 30.8 30.5 Mean Corpuscular Hemoglobin Concent 33.5 33.3 Red Cell Distribution Width 14.0 14.3 Platelet Count 151 135 Mean Platelet Volume 10.0 10.2 Neutrophils (%) (Auto) 81.2 93.2 Lymphocytes (%) (Auto) 10.2 4.0 Monocytes (%) (Auto) 8.0 2.7 Eosinophils (%) (Auto) 0.2 0.0 Basophils (%) (Auto) 0.4 0.1 Neutrophils # (Auto) 8.6 11.5 Lymphocytes # (Auto) 1.1 0.5 Monocytes # (Auto) 0.9 0.3 Eosinophils # (Auto) 0.0 0.0 Basophils # (Auto) 0.0 0.0 CBC Comment AUTO DIFF DIFF FINAL Differential Total Cells Counted 100 Neutrophils % (Manual) 81 Band Neutrophils % 9 Lymphocytes % 3 Monocytes % 7 Neutrophils # (Manual) 9.5 Differential Comment FINAL DIFF MANUAL Erythrocyte Sedimentation Rate 3 Blood Urea Nitrogen 18 14 Creatinine 1.47 1.31 Random Glucose 99 159 Total Protein 6.7 7.0 Albumin 3.5 3.2 Calcium Level 8.3 9.3 Magnesium Level 1.6 2.4 Alkaline Phosphatase 58 63 Aspartate Amino Transf (AST/SGOT) 23 80 Alanine Aminotransferase (ALT/SGPT) 23 28 Total Bilirubin 0.5 0.3 Sodium Level 141 157 Potassium Level 3.9 3.9 Chloride Level 111 129 Carbon Dioxide Level 23.1 22.3 Anion Gap 7 6 Estimat Glomerular Filtration Rate 49 56 Phosphorus Level 2.3 1.0 Triglycerides Level 79 Cholesterol Level 144 LDL Cholesterol 92 HDL Cholesterol 36.1 Cholesterol/HDL Ratio 3.98 Thyroid Stimulating Hormone 3rd Gen 1.330 Date/Time Source Procedure Growth Status 10/15/17 14:45 Blood Peripheral Aerobic Blood Culture Pending Received 10/15/17 14:45 Blood Peripheral Anaerobic Blood Culture Pending Received 10/15/17 14:42 Sputum Endotracheal Gram Stain Pending Received 10/15/17 14:42 Sputum Endotracheal Sputum Culture Pending Received 10/15/17 14:45 Urine Catheterized Urine Urine Culture Pending Received Maxim Ferreira MD PhD Oct 16, 2017 09:51
--- NOTE | 2017-10-16 10:25 | RADRPT ---
EXAM DATE/TIME: 10/16/2017 10:08 [facility] COMPARISON: CT BRAIN W/O CONTRAST, October 14, 2017, 23:02. CT BRAIN W/O CONTRAST, October 15, 2017, 3:30. MRI BRAIN W/O CONTRAST, October 15, 2017, 12:26. CT BRAIN W/O CONTRAST, October 15, 2017, 21:11. INDICATIONS : Left dilated pupil. RADIATION DOSE: 49.43 CTDIvol (mGy) MEDICAL HISTORY : Cardiovascular disease. Stroke Hypertension. SURGICAL HISTORY : CABG ENCOUNTER: Initial ACUITY: 1 day PAIN SCALE: Non-responsive LOCATION: cranial TECHNIQUE: Multiple contiguous axial images were obtained of the head. Using automated exposure control and adj ustment of the mA and/or kV according to patient size, radiation dose was kept as low as reasonably a chievable to obtain optimal diagnostic quality images. DICOM format image data is available electro nically for review and comparison. FINDINGS: Extensive diffuse cerebral edema is again noted involving almost the entire right cerebral hemisphere as well as the medial aspect of the left cerebral hemisphere indicating infarctions of the right mid dle cerebral and bilateral anterior cerebral arteries. There is significant subfalcine herniation lef t measuring 12 mm which is worse than on the previous examination. No acute hemorrhage is noted. Oni a is also noted involving the left basal ganglia. CONCLUSION: Extensive diffuse cerebral edema involving almost the entire right cerebral hemispher e as well as the medial aspect of the left cerebral hemisphere indicating infarctions of the right mi ddle cerebral and bilateral anterior cerebral arteries with subfalcine herniation to the left measuri ng 12 mm which is worse than on the previous examination. Edema is also noted involving left basal ga nglia. No acute hemorrhage is noted. Andrade Milligan MD on October 16, 2017 at 10:17 Board Certified Radiologist. This report was verified electronically.
[2017-10-16 10:51] LABS: HEMOGLOBIN A1C 5.5 % (4.3-6.0)
--- NOTE | 2017-10-16 10:53 | PD.CONS ---
[facility] Service Neurosurgery Consult Requested By Dr Olivia Reason for Consult Thoracic syrinx Primary Care Physician No Primary Care Physician History of Present Illness This is a 57-year-old male with history of coronary disease status post CABG at age 37, known left internal carotid occlusive disease 89%, right ICA 46%, COPD, ongoing tobaccoism and arterial hypertension. He has a history of previous strokes. He was was seen in 04/25 and 09/25 with left and right upper extremity weakness respectively. Patient has a imaging his brain which reveals bilateral parietal occipital CVA and known left internal carotid artery 80-90 % occlusion/ right internal carotid artery 40-50% occlusion. He presented to [facility] emergency room and after he was found in the ground complaining of left arm/shoulder weakness. He was anticoagulated on Coumadin which he has not been taking. Apparently he was paralyzed in his left upper extremity His initial CT brain revealed old left parietal CVA. He was given to provide alteplase per Dr. Ferreira. Received 7 mg bolus followed by 63 mg. He was admitted to the ICU with frequent neuro checks, and a vascular consultation. He received hydralazine due to elevated blood pressure. His neurological condition deteriorated. His MRI of the thoracic spine show a large syrinx. He was intubated and mechanically ventilated. Neurosurgical consultation was requested Review of Systems Unobtainable due to the patient neurological condition Past Family Social History Allergies: Coded Allergies: No Known Allergies (Verified Allergy, Severe, 04/29/08) Past Medical History Coronary artery disease Hypertension COPD CV OD Ongoing tobaccoism Dyslipidemia Chronic narcotic use Past Surgical History CABG 2 age 37 Reported Medications Walker with Front Wheels (Device) 1 Mis Mis Ea .ROUTE DIRECTED Medrol Dosepak (Methylprednisolone) 4 Mg Dspk 4 Mg PO DIRECTED Per Pharmacist direction Oxycodone (Oxycodone HCl) 5 Mg Cap 5 Mg PO Q6H PRN Norvasc (Amlodipine Besylate) 5 Mg Tab 5 Mg PO DAILY Atorvastatin (Atorvastatin Calcium) 40 Mg Tab 40 Mg PO HS Plavix (Clopidogrel Bisulfate) 75 Mg Tab 75 Mg PO DAILY Flexeril (Cyclobenzaprine HCl) 10 Mg Tab 5 Mg PO Q8H PRN Amoxicillin-Clavulanate 875-125 mg Tab 875 Mg PO Q12H not for use in CrCl <30 mL/minute Adult Aspirin EC Low Strength (Aspirin) 81 Mg Tabec 81 Mg PO DAILY Active Ordered Medications Current Medications Sodium Chloride (NS Flush) 2 ml UNSCH PRN IVF FLUSH AFTER USING IV ACCESS; Start 10/14/17 at 20:30; Stop 10/14/17 at 22:26; Status DC Labetalol HCl (Trandate Inj) 10 mg ONCE ONCE IV PUSH ; Start 10/14/17 at 21:00; Stop 10/14/17 at 21:01; Status DC Alteplase, Recombinant (Activase Bolus) 7 mg ONCE ONCE IV Last administered on 10/14/17at 21:06; Start 10/14/17 at 21:00; Stop 10/14/17 at 21:01; Status DC Alteplase, Recombinant 63 mg/ Syringe / Bag 63 ml @ 63 mls/hr ONCE ONCE IV Last administered on 10/14/17at 21:07; Start 10/14/17 at 21:00; Stop 10/14/17 at 21: 59; Status DC Sodium Chloride (NS Inj) 30 ml ONCE ONCE IVF Last administered on 10/14/17at 22: 16; Start 10/14/17 at 21:00; Stop 10/14/17 at 21:01; Status DC Miscellaneous Information No Heparin, Warfarin, Aspir... UNSCH PRN XX SEE DOSE INSTRUCTIONS; Start 10/14/17 at 21:00; Stop 10/15/17 at 20:59; Status DC Hydralazine HCl (Apresoline Inj) 10 mg ONCE ONCE IV PUSH Last administered on 10/14/17at 21:35; Start 10/14/17 at 21:15; Stop 10/14/17 at 21:16; Status DC Hydralazine HCl (Apresoline Inj) 20 mg STK-MED ONCE .ROUTE ; Start 10/14/17 at 21 :09; Stop 10/14/17 at 21:10; Status DC Sodium Chloride 1,000 ml @ 84 mls/hr [id number] IV Last administered on 10/16/17at 07:51; Start 10/14/17 at 22:18 Sodium Chloride (NS Flush) 2 ml UNSCH PRN IV FLUSH FLUSH AFTER USING IV ACCESS ; Start 10/14/17 at 22:30; Stop 10/14/17 at 22:30; Status DC Sodium Chloride (NS Flush) 2 ml BID IV FLUSH ; Start 10/15/17 at 09:00; Stop 10/15 at 09:00; Status DC Acetaminophen (Tylenol) 650 mg Q6H PRN PO PAIN 1-10 AND/OR FEVER >101F; Start 10/14/17 at 22:30; Stop 10/16/17 at 07:07; Status DC Acetaminophen/ Hydrocodone Bitart ([place] 5-325 Mg) 1 tab Q4H PRN PO PAIN SCALE 1 TO 5; Start 10/14/17 at 22:30 Morphine Sulfate (Morphine Inj) 2 mg Q2H PRN IV PUSH PAIN SCALE 6-10 Last administered on 10/15/17at 00:40; Start 10/14/17 at 22:30 Famotidine (Pepcid Inj) 20 mg Q12HR IV PUSH ; Start 10/15/17 at 09:00; Stop at 09:00; Status DC Artificial Tears (Tears Naturale Opth Soln) 1 drop TID EACH EYE ; Start 10/15/17 at 09:00; Stop 10/16/17 at 07:07; Status DC Ondansetron HCl (Zofran Inj) 4 mg Q6H PRN IV PUSH NAUSEA OR VOMITING Last administered on 10/15/17at 00:40; Start 10/14/17 at 22:30 Albuterol Sulfate (Albuterol Neb) 2.5 mg Q2HR NEB PRN INH SOB/WHEEZING; Start 10/14/17 at 22:30 Miscellaneous Information 1 [id number] XX ; Start 10/14/17 at 22:30 Chlorhexidine Gluconate (Chlorhexidine 2% Cloth) 3 pack Taper DAILY@04 TOP ; Start 10/15/17 at 04:00; Stop 10/11/18 at 03:59 Chlorhexidine Gluconate (Chlorhexidine 2% Cloth) 3 pack UNSCH PRN TOP HYGIENIC CARE; Start 10/14/17 at 22:30 Senna/Docusate Sodium (Nadeen-Colace) 1 tab BID PO Last administered on 10/16/17at 07:54; Start 10/15/17 at 09:00 Magnesium Hydroxide (Milk Of Magnesia Liq) 30 ml Q12H PRN PO Mild constipation ; Start 10/14/17 at 22:30 Sennosides (Senokot) 17.2 mg Q12H PRN PO Moderate constipation; Start 10/14/17 at 22:30 Bisacodyl (Dulcolax Supp) 10 mg DAILY PRN RECTAL SEVERE CONSITIPATION; Start at 22:30 Lactulose (Lactulose Liq) 30 ml DAILY PRN PO SEVERE CONSITIPATION; Start at 22:30 Atorvastatin Calcium (Lipitor) 40 mg HS PO ; Start 10/15/17 at 21:00; Stop at 21:00; Status DC Sodium Chloride (NS Flush) 2 ml BID IV FLUSH ; Start 10/15/17 at 09:00 Sodium Chloride (NS Flush) 2 ml UNSCH PRN IV FLUSH FLUSH AFTER USING IV ACCESS ; Start 10/14/17 at 22:30 Labetalol HCl (Trandate Inj) 10 mg Q2H PRN IV PUSH SBP>160, DBP>90, HR>65; Start 10/14/17 at 22:30 Nicardipine HCl 25 mg/Sodium Chloride 250 ml @ 50 mls/hr TITRATE PRN IV Maintain BP goal Last administered on 10/15/17at 00:28; Start 10/14/17 at 23:00; Stop 10/16/17 at 07:10; Status DC Insulin Aspart (NovoLOG SUPPLEMENTAL SCALE) 1 ACHS SQ ; Start 10/15/17 at 08:00; Stop 10/16/17 at 07:10; Status DC Dextrose (D50w (Vial) Inj) 50 ml UNSCH PRN IV PUSH HYPOGLYCEMIA-SEE COMMENTS; Start 10/14/17 at 22:30 Glucagon (Glucagon Inj) 1 mg UNSCH PRN OTHER HYPOGLYCEMIA-SEE COMMENTS; Start 10/14/17 at 22:30 Hydralazine HCl (Apresoline Inj) 10 mg Q1HR PRN IV PUSH SBP> OR = 160, DBP> OR = 90 Last administered on 10/15/17at 00:12; Start 10/14/17 at 22:30 Enalaprilat (Vasotec Inj) 2.5 mg Q6H PRN IV PUSH SBP> OR = 160, DBP> OR = 90; Start 10/14/17 at 22:30 Multivitamins 10 ml/Folic Acid 1 mg/Sodium Chloride 510.2 ml @ 125 mls/hr Q24H IV Last administered on 10/16/17at 00:55; Start 10/15/17 at 02:00; Stop 10/16/17 at 07:07; Status DC Thiamine HCl 100 mg/Sodium Chloride 101 ml @ 100 mls/hr Q24H IV Last administered on 10/16/17at 00:55; Start 10/15/17 at 02:00; Stop 10/16/17 at 07:07; Status DC Flumazenil (Romazicon Inj) 0.2 mg Q1M PRN IV PUSH SEE LABEL COMMENTS; Start 10/15/17 at 00:30; Stop 10/16/17 at 07:07; Status DC Lorazepam (Ativan) 1 mg Q4H PRN PO CIWA 8 - 10; Start 10/15/17 at 00:30; Stop at 07:07; Status DC Lorazepam (Ativan Inj) 1 mg Q4H PRN IV PUSH CIWA 8 - 10; Start 10/15/17 at 00:30 ; Stop 10/16/17 at 07:07; Status DC Lorazepam (Ativan) 2 mg Q2H PRN PO CIWA 11-14; Start 10/15/17 at 00:30; Stop 10/16/17 at 07:07; Status DC Lorazepam (Ativan Inj) 2 mg Q2H PRN IV PUSH CIWA 11-14 Last administered on 10/15at 22:02; Start 10/15/17 at 00:30; Stop 10/16/17 at 07:07; Status DC Lorazepam (Ativan Inj) 2 mg Q1H PRN IV PUSH CIWA 15-20; Start 10/15/17 at 00:30 ; Stop 10/16/17 at 07:07; Status DC Lorazepam (Ativan Inj) 2 mg Q15M PRN IV PUSH CIWA > 20 Last administered on 10/15at 02:55; Start 10/15/17 at 00:30; Stop 10/16/17 at 07:07; Status DC Dexmedetomidine HCl 200 mcg/ Sodium Chloride 52 ml @ 4.03 mls/hr TITRATE PRN IV SEDATION Last administered on 10/15/17 11:57; Start 10/15/17 at 03:15; Stop at 07:10; Status DC Etomidate (Amidate Inj) 40 mg ONCE ONCE IV PUSH Last administered on 10/15/17 05:51; Start 10/15/17 at 05:15; Stop 10/15/17 at 05:16; Status DC Rocuronium [place] (Zemuron Inj) 100 mg BOLUS ONCE IV Last administered on 10/15 05:51; Start 10/15/17 at 05:15; Stop 10/15/17 at 05:16; Status DC Chlorhexidine Gluconate (Peridex 0.12% Liq) 15 ml BID@08,20 MT Last administered on 10/16/17 07:54; Start 10/15/17 at 08:00 Propofol 100 ml @ 2.325 mls/ hr TITRATE PRN IV SEDATION Last administered on 08:15; Start 10/15/17 at 05:15 Fentanyl Citrate 250 ml @ 5 mls/hr TITRATE PRN IV SEDATION Last administered on 10/15/17at 07:42; Start 10/15/17 at 05:15 Lansoprazole (Prevacid Odt) 30 mg DAILY NG Last administered on 10/16/17 07:54 ; Start 10/15/17 at 09:00 Artificial Tears (Tears Naturale Opth Soln) 1 drop Q8HR EACH EYE ; Start at 06:00 Albuterol/ Ipratropium (Duoneb Neb) 1 ampule Q6HR NEB NEB Last administered on 10/16/17at 08:09; Start 10/15/17 at 10:00 Atorvastatin Calcium (Lipitor) 80 mg HS PO Last administered on 10/15/17at 20:05 ; Start 10/15/17 at 21:00 Methylprednisolone Sodium Succinate 250 mg/Dextrose 100 ml @ 200 mls/hr Q6H IV Last administered on 10/16/17at 08:32; Start 10/15/17 at 15:00; Stop 10/16/17 at 09:45; Status DC Acetaminophen 100 ml @ 400 mls/hr Q6HR PRN IV Fever >101 Last administered on 10/15/17at 15:15; Start 10/15/17 at 15:00; Stop 10/16/17 at 07:07; Status DC Sodium Chloride 2,000 ml @ 999 mls/hr Q2H1M IV Last administered on 10/15/17at 16:20; Start 10/15/17 at 16:30; Stop 10/15/17 at 18:30; Status DC Midazolam HCl 100 ml @ 2 mls/hr TITRATE PRN IV SEDATION Last administered on 10/15/17at 17:17; Start 10/15/17 at 17:00 Dopamine HCl 800 mg/Dextrose 250 ml @ 4.38 mls/hr TITRATE PRN IV Blood Pressure Management Last administered on 10/15/17at 18:41; Start 10/15/17 at 18:00 Terbutaline Sulfate (Brethine Inj) 1 mg UNSCH PRN SQ For Extravasation; Start 10/15/17 at 18:00 Piperacillin Sod/ Tazobactam Sod 100 ml @ 200 mls/hr Q6H IV Last administered on 10/16/17at 07:54; Start 10/15/17 at 20:00 Dopamine HCl/ Dextrose 500 ml @ As Directed STK-MED ONCE .ROUTE Last administered on 10/15/17at 18:12; Start 10/15/17 at 18:12; Stop 10/15/17 at 18:13; Status DC Sodium Chloride 500 ml @ 30 mls/hr Q16H IV Last administered on 10/15/17at 23:35 ; Start 10/15/17 at 23:30 Mannitol 400 ml @ 400 mls/hr Q1H IV Last administered on 10/15/17at 23:51; Start 10/16/17 at 00:00; Stop 10/16/17 at 00:59; Status DC Acetaminophen (Tylenol 650 Mg/ 20 ml Liq) 650 mg Q6H PRN NG FEVER; Start at 07:15 Nicardipine HCl 25 mg/Sodium Chloride 250 ml @ 50 mls/hr TITRATE PRN IV Maintain BP goal; Start 10/16/17 at 07:15 Insulin Aspart (NovoLOG SUPPLEMENTAL SCALE) 1 Q6HR SQ Last administered on at 11:39; Start 10/16/17 at 12:00 Mannitol (Mannitol Inj) 12.5 gm Q8H IV ; Start 10/16/17 at 08:00 Potassium Phosphate 30 mmol/ Sodium Chloride 260 ml @ 43.333 mls/ hr ONCE ONCE IV Last administered on 10/16/17at 10:28; Start 10/16/17 at 11:00; Stop at 16:59 Methylprednisolone Sodium Succinate 125 mg/Dextrose 100 ml @ 200 mls/hr Q6H IV ; Start 10/16/17 at 15:00 Aspirin (Aspirin Supp) 300 mg DAILY RECTAL Last administered on 10/16/17at 11:46 ; Start 10/16/17 at 10:00 Family History Physical history was reviewed. Positive for coronary artery disease Social History Occasional THC and alcohol use. Patient actually admits to drinking multiple times daily now. One pack per day tobacco 20 years. No IV drug use. Physical Exam Vital Signs Vital Signs Date Time Temp Pulse Resp B/P (MAP) Pulse Ox O2 Delivery O2 Flow Rate FiO2 10/16/17 10:00 100 100 10/16/17 08:09 97 50 10/16/17 08:00 48 10/16/17 08:00 99.5 48 17 115/55 (75) 96 10/16/17 06:00 83 10/16/17 04:20 98 50 10/16/17 04:00 97.2 49 16 142/65 (90) 98 10/16/17 04:00 49 10/16/17 02:00 52 10/16/17 01:22 100 50 10/16/17 00:00 98.8 49 18 144/61 (88) 99 10/16/17 00:00 49 10/15/17 22:01 98 50 10/15/17 22:00 49 10/15/17 21:15 100 100 10/15/17 20:01 98 50 10/15/17 20:00 41 10/15/17 20:00 99.9 61 16 139/65 (89) 99 10/15/17 18:27 45 137/65 10/15/17 18:12 43 111/52 10/15/17 16:00 60 10/15/17 16:00 102.0 60 19 100/49 (66) 97 10/15/17 15:39 96 50 10/15/17 12:15 100 100 10/15/17 12:00 75 10/15/17 12:00 100.2 75 18 116/58 (77) 96 10/15/17 11:45 99 50 Physical Exam The patient is intubated and mechanically ventilated. No response to pain Cranial Nerves: Pupils unequal, 5mm on right, 4mm on left, non reactiveround, reactive to light. Eyes appear conjugated. There was no nystagmus, + papilledema. Face musculature appeared symmetrical at rest. Face sensation, olfaction, visual lemus, and hearing cannot be adequately assessed due to his neurological condition. The patient has no corneal reflex. He has no gag reflex. The sternocleidomastoid and trapezius are symmetrical. Cervical Spine: His neck is soft, supple, without nuchal rigidity. Motor: His muscle tone and bulk are normal. No response to pain Reflexes: Deep tendon reflexes are 1+ and symmetrical in the biceps, triceps, and brachioradialis, bilaterally, in the upper extremities. In the lower extremities, the patellar and ankles are 1+, bilaterally. There is a bilateral neutral response to plantar stimulation. There is no clonus Sensory: On examination there is no response to painful stimuli Cerebellar: Examination cannot be adequately assessed due to the patient's neurological condition. Laboratory Laboratory Tests Test 10/15/17 14:05 10/15/17 14:45 10/16/17 07:12 White Blood Count 10.6 12.3 Red Blood Count 4.75 4.77 Hemoglobin 14.6 14.5 Hematocrit 43.6 43.6 Mean Corpuscular Volume 91.8 91.5 Mean Corpuscular Hemoglobin 30.8 30.5 Mean Corpuscular Hemoglobin Concent 33.5 33.3 Red Cell Distribution Width 14.0 14.3 Platelet Count 151 135 Mean Platelet Volume 10.0 10.2 Neutrophils (%) (Auto) 81.2 93.2 Lymphocytes (%) (Auto) 10.2 4.0 Monocytes (%) (Auto) 8.0 2.7 Eosinophils (%) (Auto) 0.2 0.0 Basophils (%) (Auto) 0.4 0.1 Neutrophils # (Auto) 8.6 11.5 Lymphocytes # (Auto) 1.1 0.5 Monocytes # (Auto) 0.9 0.3 Eosinophils # (Auto) 0.0 0.0 Basophils # (Auto) 0.0 0.0 CBC Comment AUTO DIFF DIFF FINAL Differential Total Cells Counted 100 Neutrophils % (Manual) 81 Band Neutrophils % 9 Lymphocytes % 3 Monocytes % 7 Neutrophils # (Manual) 9.5 Differential Comment FINAL DIFF MANUAL Erythrocyte Sedimentation Rate 3 Blood Urea Nitrogen 18 14 Creatinine 1.47 1.31 Random Glucose 99 159 Total Protein 6.7 7.0 Albumin 3.5 3.2 Calcium Level 8.3 9.3 Magnesium Level 1.6 2.4 Alkaline Phosphatase 58 63 Aspartate Amino Transf (AST/SGOT) 23 80 Alanine Aminotransferase (ALT/SGPT) 23 28 Total Bilirubin 0.5 0.3 Sodium Level 141 157 Potassium Level 3.9 3.9 Chloride Level 111 129 Carbon Dioxide Level 23.1 22.3 Anion Gap 7 6 Estimat Glomerular Filtration Rate 49 56 Phosphorus Level 2.3 1.0 Triglycerides Level 79 Cholesterol Level 144 LDL Cholesterol 92 HDL Cholesterol 36.1 Cholesterol/HDL Ratio 3.98 Thyroid Stimulating Hormone 3rd Gen 1.330 Serum Osmolality 334 Date/Time Source Procedure Growth Status 10/15/17 14:45 Blood Peripheral Aerobic Blood Culture Pending Received 10/15/17 14:45 Blood Peripheral Anaerobic Blood Culture Pending Received 10/15/17 14:42 Sputum Endotracheal Gram Stain - Final Resulted 10/15/17 14:42 Sputum Endotracheal Sputum Culture Pending Resulted 10/15/17 14:45 Urine Catheterized Urine Urine Culture Pending Received Result Diagram: 10/16/17 0712 10/16/17 0712 Imaging Last [address] 10/16/17 0000 Signed Impressions: Service Date/Time: Monday, October 16, 2017 10:08 - CONCLUSION: Extensive diffuse cerebral edema involving almost the entire right cerebral hemisphere as well as the medial aspect of the left cerebral hemisphere indicating infarctions of the right middle cerebral and bilateral anterior cerebral arteries with subfalcine herniation to the left measuring 12 mm which is worse than on the previous examination. Edema is also noted involving left basal ganglia. No acute hemorrhage is noted. Andrade Milligan MD Head CT 10/15/17 2130 Signed Impressions: Service Date/Time: Sunday, October 15, 2017 21:11 - CONCLUSION: 1. Acute infarct throughout the right cerebral hemisphere and parasagittal region the left frontal and parietal lobes. 2. No evidence of acute hemorrhage. 3. Early subfalcine and left uncal herniation. Baron Harrell MD Thoracic Spine MRI 10/15/17 0900 Signed Impressions: Service Date/Time: Sunday, October 15, 2017 12:26 - CONCLUSION: There is worsening edema in the cord above the level of dorsal impingement related to arachnoid cyst or other T2 hyperintense abnormality. Contrast administration would be helpful. Note is made of left basilar atelectasis versus pneumonia. Abdoul Quezada MD Head Magnetic Resonance Angiography 10/15/17 Signed Impressions: Service Date/Time: Sunday, October 15, 2017 12:26 - CONCLUSION: 1. Complete occlusion of the right carotid artery and both anterior cerebrals and right middle cerebral artery Abdoul Quezada MD Head CT 10/15/17 Signed Impressions: Service Date/Time: Sunday, October 15, 2017 03:30 - CONCLUSION: No significant interval change. Scattered white matter hypodensities again seen. Angus Lyons MD Chest X-Ray 10/15/17 Signed Impressions: Service Date/Time: Sunday, October 15, 2017 23:34 - CONCLUSION: 1. Right subclavian central venous catheter in place with the tip at the cavoatrial junction. No evidence of pneumothorax. 2. New medial left lower lobe opacity likely representing atelectasis. Angus Lyons MD Chest X-Ray 10/15/17 Signed Impressions: Service Date/Time: Sunday, October 15, 2017 05:40 - CONCLUSION: No acute cardiopulmonary disease identified. Angus Lyons MD Carotid Artery Ultrasound 10/15/17 0000 Signed Impressions: Service Date/Time: Sunday, October 15, 2017 08:16 - CONCLUSION: 1. High- grade stenosis on the left side greater than 70%%. CT angiography of the cervicobrachial arch and carotid arteries is recommended for further evaluation if clinically indicated.8 Abdoul Quezada MD Brain MRI 10/15/17 Signed Impressions: Service Date/Time: Sunday, October 15, 2017 12:26 - CONCLUSION: 1. Extremely large ischemic infarct involving the entire right middle cerebral artery distribution and both anterior cerebral artery distributions. Follow CT to evaluate for evolving cerebral edema is recommended. Abdoul Quezada MD Head CT 10/14/172024 Signed Impressions: Service Date/Time: Saturday, October 14, 2017 20:32 - CONCLUSION: No acute intracranial abnormalities. Multifocal white matter ischemic changes noted with remote lacunar infarct in left parietal lobe. Wilfredo Rebolledo MD Assessment and Plan Assessment and Plan Caprini VTE Risk Assessment Caprini VTE Risk Assessment: Mod/High Risk (score >= 2) VTE Pharm Contraindication: High risk for bleeding Caprini Risk Assessment Model Point Value = 1 Point Value = 2 Point Value = 3 Point Value = 5 Age 41-60 Minor surgery BMI > 25 kg/m2 Swollen legs Varicose veins or History of unexplained or recurrent spontaneous Oral contraceptives or hormone replacement Sepsis (< 1 month) Serious lung disease, including pneumonia (< 1 month) Abnormal pulmonary function Acute myocardial infarction Congestive heart failure (< 1 month) History of inflammatory bowel disease Medical patient at bed rest Age 61-74 Arthroscopic surgery Major open surgery (> 45 min) Laparoscopic surgery (> 45 min) Malignancy Confined to bed (> 72 hours) Immobilizing plaster cast Central venous access Age >= 75 History of VTE Family history of VTE Factor V Leiden Prothrombin [id number] Lupus anticoagulant Anticardiolipin antibodies Elevated serum homocysteine Heparin-induced thrombocytopenia Other congenital or acquired thrombophilia Stroke (< 1 month) Elective arthroplasty Hip, pelvis, or leg fracture Acute spinal cord injury (< 1 month) Prophylaxis Regimen Total Risk Factor Score Risk Level Prophylaxis Regimen 0-1 Low Early ambulation 2 Moderate Order ONE of the following: *Sequential Compression Device (SCD) *Heparin 5000 units SQ BID 3-4 Higher Order ONE of the following medications: *Heparin 5000 units SQ TID *Enoxaparin/Lovenox 40 mg SQ daily (WT < 150 kg, CrCl > 30 mL/min) *Enoxaparin/Lovenox 30 mg SQ daily (WT < 150 kg, CrCl > 10-29 mL/min) *Enoxaparin/Lovenox 30 mg SQ BID (WT < 150 kg, CrCl > 30 mL/min) AND/OR *Sequential Compression Device (SCD) 5 or more Highest Order ONE of the following medications: *Heparin 5000 units SQ TID (Preferred with Epidurals) *Enoxaparin/Lovenox 40 mg SQ daily (WT < 150 kg, CrCl > 30 mL/min) *Enoxaparin/Lovenox 30 mg SQ daily (WT < 150 kg, CrCl > 10-29 mL/min) *Enoxaparin/Lovenox 30 mg SQ BID (WT < 150 kg, CrCl > 30 mL/min) AND *Sequential Compression Device (SCD) Attending Statement I reviewed his clinical and logical findings neurological condition with clinical and radiological evidence of uncal herniation. He has suffer a bilateral infarctions and his prognosis is extremity poor, without chances of meaningful recovery even with a surgical intervention. I have discussed the case with and Maxim Ferreira who were in agreement. Recommend to continue medical treatment, as he is not a surgical candidate. Palliative care consultation 3% NaCl at 30 L per hour. Serial sodium and Osm every 6 hours. End-tidal CO2 monitoring, correlate with ABG and. Target PaCO2 of 35-40. acetaminophen/cooling blanket as needed for temperature greater than 100.4 Acute respiratory failure. Ventilator bundle. Pulmonary.. Continue aggressive pulmonary toilette, nasotracheal suction, and breathing treatments with nebulizers. Nutrition. NPO Renal. monitor closely urine output, BUN and creatinine Rodríguez in place. Monitor intake and output. Monitor electrolytes and replace as indicated per ICU electrolyte replacement protocol. ENDO:Acute hyperglycemia secondary to trauma. Monitor bedside glucose and initiate low-dose insulin sliding scale as indicated for glucose greater than 180 central venous line A-line insertion for hemodynamic monitoring Protonix for stress ulcer prophylaxis Mau ordonez and SCD's for DVT prophylaxis. Iglesia Thomas MD Oct 16, 2017 10:53
[2017-10-16] MEDS ORDERED: POTASSIUM PHOSPHATE INJ 30 MMOL in SODIUM CHLOR 0.9% 250 ML INJ 250 ML IV ONE (11:00)
[2017-10-16] MEDS: INSULIN ASPART SUPPLEMENTAL SCALE SQ SCH ×2 (11:39→17:46)
[2017-10-16] MEDS: ASPIRIN 300 MG SUPP RECTAL SCH (11:46)
--- NOTE | 2017-10-16 13:07 | MG ---
cc: DL SHEPHERD M.D. Lab No: [id number] Date: 10/17/2017 Age: Sex: M Race: TECHNIQUE: 17 channel EEG. DESCRIPTION: The background rhythm is very abnormal with reduced amplitude at roughly 2 microvolts. There is occasional higher amplitude activity over the left hemisphere but still very slow in the delta frequency and no epileptiform discharges are seen. INTERPRETATION: Abnormal study consistent with a severe encephalopathic state. MD DEACON Braga/ZOFIA /12:49 PM /12:53 PM
[2017-10-16] MEDS: hydrALAZINE HCL 20 MG/ML VIAL IV PUSH PRN ×2 (13:17→14:33)
[2017-10-16] MEDS: MORPHINE SULFATE 2 MG/ML INJ IV PUSH PRN (15:14)
[2017-10-16] MEDS: MIDAZOLAM 100 MG/NS 100 ML DRIP Premix IV PRN (15:19)
[2017-10-16] MEDS: WATER IV SCH ×4 (16:27→20:06)
[2017-10-16] MEDS: METHYLPREDNISOLONE SO SUCC IV SCH ×4 (16:27→20:06)
[2017-10-16] MEDS: DEXTROSE 5% IV SCH ×4 (16:27→20:06)
--- NOTE | 2017-10-16 17:02 | ECHRPT ---
Indication: CVA/TIA CONCLUSIONS The left ventricular systolic function is normal with an estimated ejection fraction in the range of 60-65%. Wall thickness is measured at the upper limits of normal. Normal left ventricular size. There is mild tricuspid valve regurgitation. The estimated pulmonary arterial pressure is 29.9 mmHg. BP: 142 / 65 HR: 90 Rhythm: Sinus MEASUREMENTS (Male / Female) Normal Values Technical Quality:Fair 2D ECHO LV Diastolic Diameter PLAX 5.4 cm 4.2 - 5.9 / 3.9 - 5.3 cm LV Systolic Diameter PLAX 3.9 cm IVS Diastolic Thickness 1.2 cm 0.6 - 1.0 / 0.6 - 0.9 cm LVPW Diastolic Thickness 1.2 cm 0.6 - 1.0 / 0.6 - 0.9 cm LV Relative Wall Thickness 0.4 LVOT Diameter 2.2 cm M-MODE Aortic Root Diameter MM 3.0 cm LA Systolic Diameter MM 3.7 cm LA Ao Ratio MM 1.2 AV Cusp Separation MM 2.5 cm DOPPLER AV Peak Velocity 180.5 cm/s AV Peak Gradient 13.0 mmHg LVOT Peak Velocity 103.0 cm/s LVOT Peak Gradient 4.2 mmHg AV Area Cont Eq pk 2.2 cm Mitral E Point Velocity 104.0 cm/s Mitral A Point Velocity 56.8 cm/s Mitral E to A Ratio 1.8 LV E' Lateral Velocity 8.3 cm/s Mitral E to LV E' Lateral Ratio 12.5 LV E' Septal Velocity 12.3 cm/s Mitral E to LV E' Septal Ratio 8.5 TR Peak Velocity 223.0 cm/s TR Peak Gradient 19.9 mmHg Right Atrial Pressure 10.0 mmHg Pulmonary Artery Systolic Pressu 29.9 mmHg Right Ventricular Systolic Press 29.9 mmHg PV Peak Velocity 190.0 cm/s PV Peak Gradient 14.4 mmHg FINDINGS LEFT VENTRICLE The left ventricular systolic function is normal with an estimated ejection fraction in the range of 60-65%. Wall thickness is measured at the upper limits of normal. Normal left ventricular size. RIGHT VENTRICLE Normal right ventricular size and systolic function. LEFT ATRIUM The left atrial size is normal. RIGHT ATRIUM The right atrial size is normal. ATRIAL SEPTUM Normal atrial septal thickness without atrial level shunting by limited color doppler interrogation. AORTA The aortic root and proximal ascending aorta are normal in size on limited imaging. MITRAL VALVE Structurally normal mitral valve. No mitral valve stenosis or regurgitation. AORTIC VALVE Trileaflet aortic valve. No aortic valve stenosis or regurgitation. TRICUSPID VALVE There is mild tricuspid valve regurgitation. The estimated pulmonary arterial pressure is 29.9 mmHg. PULMONARY VALVE No pulmonary valve regurgitation or stenosis. VESSELS The inferior vena cava is normal in size. PERICARDIUM No pericardial effusion. Benji Marcial MD (Electronically Signed) Final Date:16 October 2017 17:01
[2017-10-16] MEDS: ATORVASTATIN 40 MG TAB PO SCH (20:04)
[2017-10-16] MEDS: SODIUM CHLORIDE 0.9% FLUSH 10 ML FLUSH IV FLUSH SCH (21:00)
[2017-10-17] VITALS (20 sets, daily range): BP systolic 87–116; BP diastolic 51–64; PULSE 79–100; RESP 16; TEMP 96.8–100; O2SAT 93–98
[2017-10-17] MEDS: MANNITOL 12.5 GM/50 ML VIAL IV SCH
[2017-10-17] MEDS: PIPERACIL-TAZO 4.5 GM PREMIX 100 ML IV SCH ×4 (01:14→21:58)
[2017-10-17] MEDS: METHYLPREDNISOLONE SO SUCC IV SCH ×8 (03:03→21:58)
[2017-10-17] MEDS: WATER IV SCH ×8 (03:03→21:58)
[2017-10-17] MEDS: DEXTROSE 5% IV SCH ×8 (03:03→21:58)
[2017-10-17] MEDS: RESP: ALBUTEROL 2.5 MG/IPRATROPIUM 0.5 MG NEB (SCH) NEB ×4 (03:04→19:33)
[2017-10-17] MEDS: CHLORHEXIDINE GLUCONATE 2 % 1 PACK (2 CLOTHS) TOP SCH (04:00)
--- NOTE | 2017-10-17 05:16 | RADRPT ---
EXAM DATE/TIME: 10/17/2017 04:04 [facility] COMPARISON: CHEST SINGLE AP, October 15, 2017, 23:34. INDICATIONS : Evaluate for Pneumonia- Respiratory failure MEDICAL HISTORY : Cerebrovascular disease. CVA SURGICAL HISTORY : None. ENCOUNTER: Subsequent ACUITY: 3 days PAIN SCORE: Non-responsive. LOCATION: Bilateral chest FINDINGS: The cardiac silhouette is normal in transverse diameter. Support lines and tubes are in satisfactory position. There is left lower lobe atelectasis versus pneumonia. A small left sided effusion is prese nt. The right lung is free of acute parenchymal opacity. CONCLUSION: 1. Left lower lobe atelectasis versus pneumonia. The findings have worsened when compared with the pr ior examination. 2. Left effusion Abdoul Quezada MD on October 17, 2017 at 5:14 Board Certified Radiologist. This report was verified electronically.
[2017-10-17] MEDS: INSULIN ASPART SUPPLEMENTAL SCALE SQ SCH ×5 (06:00→23:09)
[2017-10-17 06:46] LABS: AUTOMATED NEUTROPHIL # 9.9 TH/MM3 (1.8-7.7); BASOPHIL % 0.1 % (0.0-2.0); HEMATOCRIT 41.7 % (39.0-51.0); HEMOGLOBIN 13.7 GM/DL (13.0-17.0); LYMPH % 4.9 % (9.0-44.0); LYMPHOCYTE # 0.6 TH/MM3 (1.0-4.8); MEAN CELL VOLUME 93.2 FL (80.0-100.0); MEAN CORPUSCULAR HEMOGLOBIN 30.5 PG (27.0-34.0); MEAN CORPUSCULAR HGB CONC 32.7 % (32.0-36.0); MEAN PLATELET VOLUME 10.5 FL (7.0-11.0); MONO % 9.1 % (0.0-8.0); NEUT % 85.9 % (16.0-70.0); PLATELET COUNT 143 TH/MM3 (150-450); RED BLOOD COUNT 4.47 MIL/MM3 (4.50-5.90); RED CELL DISTRIBUTION WIDTH 14.2 % (11.6-17.2); WHITE BLOOD COUNT 11.5 TH/MM3 (4.0-11.0)
[2017-10-17 07:23] LABS: BICARBONATE 23.6 MEQ/L (21.0-32.0); CALCIUM 9.4 MG/DL (8.5-10.1); CREATININE 1.43 MG/DL (0.60-1.30); MAGNESIUM 2.7 MG/DL (1.5-2.5); PHOSPHORUS 3.3 MG/DL (2.5-4.9)
[2017-10-17] MEDS ORDERED: MINERAL OIL LIQUID 30 ML CUP PO ONE (07:30)
--- NOTE | 2017-10-17 07:38 | HHI.CCPN ---
Subjective Remarks/Hospital Course This is a 57-year-old male. Date of admission 10/14/2017. Past medical history includes coronary disease status post CABG at age 37, known left internal carotid occlusive disease 89%, right ICA 46%, COPD, ongoing tobaccoism and hypertension. Patient was seen in 04/25 and 09/25 with left and right upper extremity weakness respectively. Patient has a imaging his brain which reveals bilateral parietal occipital CVA and known left internal carotid artery 80-90 % occlusion/right internal carotid artery 40-50% occlusion patient presents to [facility] today after he was found status post falling to the ground complaining of left arm/shoulder weakness. on Coumadin which he is not taking and he is now back with the same symptoms 30 minutes onset left hand 0 out of 5 otherwise neuro exam is normal. CT brain revealed old left parietal CVA. Decision was given to provide alteplase per Dr. Ferreira. Received 7 mg bolus followed by 63 mg. Plan to admit the ICU with frequent neuro checks of vascular consultation. He received hydralazine due to elevated blood pressure. Currently symptoms have not resolved with persistent left upper extremity weakness. We are asked with the patient. 10/15/17:Patient remains intubated heavily sedated. Very slight withdrawal of bilateral extremities on sedation. MRI brain today -Very large ischemic infarct involving the entire right middle cerebral artery distribution and both anterior cerebral artery distributions. MRI T spine- worsening edema in the cord above the level of dorsal impingement related to ?arachnoid cyst or other T2 hyperintense abnormality. 10/16: Afebrile. Placed on dopamine overnight due to bradycardia. Currently at 3 mcg/kg per minute Patient currently withdrawing right upper and lower extremity left lower extremity. Right pupil 5 mm and sluggish. Left pupil 1 mm and minimally reactive. Positive cough. Noted CT brain revealed no edema right hemisphere/left frontal/parietal region along with impending subfalcine/ uncal herniation. Subjective 10/17: Afebrile. Off all vasopressors. No corneal reflex. No gag. CT yesterday revealed worsening cerebral edema right MCA, bilateral JENNIFER distribution with a 12 mm subfalcine shift to the left. 3% saline discontinued due to elevated sodium. Pupils are essentially fixed. Objective Vital Signs Date Time Temp Pulse Resp B/P (MAP) Pulse Ox O2 Delivery O2 Flow Rate FiO2 10/17/17 06:00 87 10/17/17 04:10 94 50 10/17/17 04:00 98.4 16 101/58 (72) 10/14/17 23:40 Nasal Cannula 2.00 Intake and Output 10/17/17 10/17/17 10/18/17 08:00 16:00 00:00 Intake Total 300 ml Output Total 1250 ml Balance -950 ml Result Diagram: 10/17/17 0625 10/17/17 0020 Other Results Microbiology Date/Time Source Procedure Growth Status 10/15/17 14:45 Blood Peripheral Aerobic Blood Culture - Preliminary NO GROWTH IN 1 DAY Resulted 10/15/17 14:45 Blood Peripheral Anaerobic Blood Culture - Preliminary NO GROWTH IN 1 DAY Resulted 10/15/17 14:42 Sputum Endotracheal Gram Stain - Final Resulted 10/15/17 14:42 Sputum Culture - Preliminary Moraxella Catarrahalis Resulted 10/15/17 14:45 Urine Catheterized Urine Urine Culture - Preliminary NO GROWTH IN 24 HOURS. Resulted Imaging Last Impressions Chest X-Ray 10/17/17 0600 Signed Impressions: Service Date/Time: Tuesday, October 17, 2017 04:04 - CONCLUSION: 1. Left lower lobe atelectasis versus pneumonia. The findings have worsened when compared with the prior examination. 2. Left effusion Abdolu Quezada MD Head CT 10/16/17 0000 Signed Impressions: Service Date/Time: Monday, October 16, 2017 10:08 - CONCLUSION: Extensive diffuse cerebral edema involving almost the entire right cerebral hemisphere as well as the medial aspect of the left cerebral hemisphere indicating infarctions of the right middle cerebral and bilateral anterior cerebral arteries with subfalcine herniation to the left measuring 12 mm which is worse than on the previous examination. Edema is also noted involving left basal ganglia. No acute hemorrhage is noted. Andrade Milligan MD Thoracic Spine MRI 10/15/17 0900 Signed Impressions: Service Date/Time: Sunday, October 15, 2017 12:26 - CONCLUSION: There is worsening edema in the cord above the level of dorsal impingement related to arachnoid cyst or other T2 hyperintense abnormality. Contrast administration would be helpful. Note is made of left basilar atelectasis versus pneumonia. Abdoul Quezada MD Head Magnetic Resonance Angiography 10/15/17 0000 Signed Impressions: Service Date/Time: Sunday, October 15, 2017 12:26 - CONCLUSION: 1. Complete occlusion of the right carotid artery and both anterior cerebrals and right middle cerebral artery Abdoul Qeuzada MD Carotid Artery Ultrasound 10/15/17 0000 Signed Impressions: Service Date/Time: Sunday, October 15, 2017 08:16 - CONCLUSION: 1. High- grade stenosis on the left side greater than 70%%. CT angiography of the cervicobrachial arch and carotid arteries is recommended for further evaluation if clinically indicated.8 Abdoul Quezada MD Brain MRI 10/15/17 0000 Signed Impressions: Service Date/Time: Sunday, October 15, 2017 12:26 - CONCLUSION: 1. Extremely large ischemic infarct involving the entire right middle cerebral artery distribution and both anterior cerebral artery distributions. Follow CT to evaluate for evolving cerebral edema is recommended. Abdoul Quezada MD Objective Remarks GENERAL: This is a 57-year-old male currently intubated resting in bed in no acute distress SKIN: Warm and dry. Scars of the thorax from prior CABG HEAD: Atraumatic. Normocephalic. EYES: Pupils are about 4 mm bilaterally and fixed ENT: No nasal bleeding or discharge. Orotracheally intubated NECK: Trachea midline. No JVD. Positive left carotid bruit 11/15 CARDIOVASCULAR: Regular rate and rhythm. S1, S2. No S4. Without murmur RESPIRATORY: Few crackles appreciated in the left lower lobes. Symmetrical excursion. Breath sounds equal bilaterally. GASTROINTESTINAL: Abdomen soft, non-tender, nondistended. Hypoactive bowel sounds. MUSCULOSKELETAL: Extremities without significant peripheral edema. No obvious deformities. NEUROLOGICAL: Pupils as above. Cannot elicit cough/gag. No corneal reflex. Cannot elicit withdrawal to pain. Urinary Catheter: Yes Assessment to: Continue Rodríguez insert reason: Prolonged Immobilization Vascular Central Line Catheter: Yes Assessment to: Continue Date of Insertion: Oct 15, 2017 Line: Central Venous Catheter Side: Right Location: Subclavian A/P Assessment and Plan Neuro/Psych: Acute large right MCA/ bilateral JENNIFER infarct Severe encephalopathy History of bilateral parietal/occipital CVA T 7/8 spinal cord edema/dorsal impingement THC use EtOH Midazolam and fentanyl drips if necessary for sedation and vent synchrony Goal of RASS [address] brain 10/16 revealed significant cerebral drain in the right cerebral hemisphere indicative of right MCA/bilateral JENNIFER occlusions. 12 mm shift to left subfalcine. Herniation. Infarct involving left basal ganglia as well. . Aspirin 300 mg per rectum daily - Neurology/neurosurgery see documentation severity of the clinical situation. 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 MRI T spine- worsening edema in the cord above the level of dorsal impingement T7/8 related to ?arachnoid cyst or other T2 hyperintense abnormality. Dr. Evans discussed Dr. Ferreira. Due to involvement of multiple vascular territories Dr. Ferreira initiated's methylprednisolone 125 mg IV every 6 hours Appreciate neurosurgery regarding spinal cord edema at T7/8 level. No surgical management at this time CT brain 10/14 revealed old lacunar left parietal/lacho CVA Status post alteplase 7 mg 1 followed by [address] Ferreira neurology following- 2-D echo revealed EF 66%. Mild TR. PAP 30 mmHg Last echocardiogram 09/25 revealed EF 55-60%. No regional motion abnormality. MRA brain revealed occlusion right carotid. Bilateral anterior cerebral arteries and right MCA distribution Did not take prescribed warfarin CT brain 24 hours post alteplase revealed diffuse edema in the right cerebral region, less cerebral in the parasagittal region as well as a left frontal and parietal regions. Developing subfalcine herniation/uncal herniation with right suprasellar cistern effaced Acetaminophen for fever Multivitamin, folate and thiamine daily currently with IV Seizure precautions *Methylprednisolone 125 mg every 6 hours for spinal cord edema CT brain 1/8 AM or earlier if clinically indicated follow up cerebral edema CV: Left internal carotid artery stenosis 80%, Right internal carotid artery stenosis 40-50% Coronary artery disease status post CABGx2 at age 37 Hypertension Dyslipidemia Sinus bradycardia Holding amlodipine 10 mg daily and atorvastatin 40 mg by mouth daily status post alteplase. Resume atorvastatin at 80 mg daily 10/17 Holding aspirin 81 mg daily and clopidogrel 75 mg by mouth daily. Currently on aspirin 300 mg daily Vascular surgery consultation-Dr. Bertrand - medical management Lipid panel ordered revealed low HDL. Otherwise within normal limits As needed. Labetalol/enalaprilat/hydralazine/nicardipine drip to maintain systolic blood pressure less than 160, and also was less than 90 2-D echo revealed EF 60-65%. Mild TR. PAP 30 mmHg Resp: Acute respiratory failure Ongoing tobaccoism [facility] 16/525/10/14/39 Ventilator bundle Albuterol/ipratropium aerosols every 6 hours with albuterol aerosols every 2 hours. Dyspnea Tobacco cessation will be encouraged Spontaneous breathing trials when clinically indicated GI: Patient is currently nothing by mouth NGT to LIWS Lansoprazole for GI prophylaxis Docusate sodium/senna for bowel regimen : No indication for Rodríguez catheter Endo: TSH within normal limits. SSI with Novulog with Accu-Cheks every 6 hours to maintain euglycemia/low regimen Renal: Creatinine currently within normal limits Currently on one quarter normal saline at 84 cc an hour Free water 200 cc every 6 hours Monitor urine output Accurate I's and O's Heme: Monitor CBC daily. Follow trends Hypercoagulable workup currently pending. ESR 3 ID: Left lower lobe pneumonia - Moraxella catarrhalis Currently on piperacillin/tazobactam 4.5 g IV every 6 hours day #3 Pertinent cultures Blood cultures 2 - 10/15 - pending Urine culture - 10/15 - pending Sputum - 10/15 -Moraxella catarrhalis FEN: Hypernatremia Replace electrolytes as clinically indicated Is continue hypertonic saline. Started quarter normal saline at 84 cc an hour. Add free water 200 cc every 6 hours. Sodiums every 6 hours. MSK: PT/OT/ST evaluate and treat Access Right subclavian CVL day [address] 10/15 Prophylaxis - GI - lansoprazole - DVT - SCD/holding pharmacological prophylaxis with high risk of bleeding due to cerebral edema Level III follow-up Perry Olivia MD Oct 17, 2017 07:38
[2017-10-17] MEDS: LANSOPRAZOLE SOLUTAB 30 MG TAB NG SCH (08:44)
[2017-10-17] MEDS: ASPIRIN 300 MG SUPP RECTAL SCH (08:45)
[2017-10-17] MEDS: SODIUM CHLORIDE 23.4% INJ 38.5 MEQ in WATER STERILE FOR INJ 1,000 ML IV SCH ×2 (08:45→22:00)
[2017-10-17] MEDS: DOCUSATE SODIUM 50 MG/SENNA 8.6 MG TAB PO SCH ×2 (08:45→21:59)
[2017-10-17] MEDS: SODIUM CHLORIDE 0.9% FLUSH 10 ML FLUSH IV FLUSH SCH (08:46)
[2017-10-17] MEDS: CHLORHEXIDINE 0.12% (ORAL KIT) 15 ML CUP MT SCH ×2 (08:46→22:00)
--- NOTE | 2017-10-17 11:08 | HHI.HCPN ---
Palliative consulted to assist with goals of care, attempting to assist with locating family. No accurint completed at time of palliative care consultation. Google search attempted for friendTara. * [phone]-- just rings * [phone]-- previously attempted by CM; not a working number Potential match found on social media for friendTara. Private message sent requesting call. Spoke with ISAAC Dillon on unit floor. [employer] requested. Results produced: * Dimas-- (possibly parents) * Bonita Sommer (Barajas): [phone]-- just rings * Google search number: [phone]-- just rings * unable to further identify any matches on social media [employer] on Tara trivedi requested in [place]. No records found. 1220pm-- called to bedside for visitor. Silvano (employer) with [employer] in [place]. Reports Mr. 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 He provided the following information * Tara Miller "mouse": #[phone] * Spoke with Ms. Miller. She has been friends with Mr. Barajas since the . They became friends after he suffered an IN, his sister came to get him after that and he soon returned to [place]. Ms. Miller has assisted with caring for Mr. Barajas, ensuring he has food, clothes, etc. Reports they see each other on a daily basis and when Mr. Barajas does not show up she travels to his home to check on him. Ms. Miller and Mr. Barajas have been trying to locate his sister for the past 10+ years without any luck. Sister's name is Amairani Barajas (Palero possible name). Parents . No other family. [employer] requested. Potential Number: #[phone]-- does not know the patient. Attempted google search and social media search, unable to determine match. * Unable to find sister, Ms. Miller is willing to serve as health care proxy. * Roommate: Krunal: #[phone]-- "just works with him, not really a friend" * Silvano, employer: [phone] Palliative care will continue to follow throughout hospitalization. Suzie Truong, BOWL TURNER Oct 17, 2017 11:08
--- NOTE | 2017-10-17 13:00 | HHI.NSPN ---
(Cheri Crow) Note Status Status: Progress Note (Cheri Crow) Interval History Interval History This is a 57-year-old male with history of coronary disease status post CABG at age 37, known left internal carotid occlusive disease 89%, right ICA 46%, COPD, ongoing tobaccoism and arterial hypertension. He has a history of previous strokes. He was was seen in 04/25 and 09/25 with left and right upper extremity weakness respectively. Patient has a imaging his brain which reveals bilateral parietal occipital CVA and known left internal carotid artery 80-90 % occlusion/ right internal carotid artery 40-50% occlusion. He presented to [facility] emergency room and after he was found in the ground complaining of left arm/shoulder weakness. He was anticoagulated on Coumadin which he has not been taking. Apparently he was paralyzed in his left upper extremity His initial CT brain revealed old left parietal CVA. He was given to provide alteplase per Dr. Ferreira. Received 7 mg bolus followed by 63 mg. He was admitted to the ICU with frequent neuro checks, and a vascular consultation. He received hydralazine due to elevated blood pressure. His neurological condition deteriorated. His MRI of the thoracic spine show a large syrinx. He was intubated and mechanically ventilated. Neurosurgical consultation was requested 10/17: today pupils fixed, with loss of corneal reflexes. palliative care consulted (Cheri Crow) Labs, Micro, & Vital Signs Results Date Time Temp Pulse Resp B/P (MAP) Pulse Ox O2 Delivery O2 Flow Rate FiO2 10/17/17 12:35 93 55 10/17/17 11:17 93 50 10/17/17 08:29 50 10/17/17 07:42 94 50 10/17/17 06:00 87 10/17/17 04:10 94 50 10/17/17 04:00 87 10/17/17 04:00 50 10/17/17 04:00 98.4 86 16 101/58 (72) 93 10/17/17 02:00 80 10/17/17 01:04 94 50 10/17/17 00:00 50 10/17/17 00:00 79 10/17/17 00:00 96.8 79 16 104/58 (73) 98 10/16/17 22:30 94 50 10/16/17 22:00 87 10/16/17 20:00 50 10/16/17 20:00 98.2 95 16 107/57 (74) 94 10/16/17 20:00 95 10/16/17 19:50 94 50 10/16/17 16:00 98.8 113 16 151/70 (97) 95 10/16/17 16:00 112 10/16/17 15:19 95 50 Constitutional Vital Signs Date Time Temp Pulse Resp B/P (MAP) Pulse Ox O2 Delivery O2 Flow Rate FiO2 10/17/17 12:35 93 55 10/17/17 11:17 93 50 10/17/17 08:29 50 10/17/17 07:42 94 50 10/17/17 06:00 87 10/17/17 04:10 94 50 10/17/17 04:00 87 10/17/17 04:00 50 10/17/17 04:00 98.4 86 16 101/58 (72) 93 10/17/17 02:00 80 10/17/17 01:04 94 50 10/17/17 00:00 50 10/17/17 00:00 79 10/17/17 00:00 96.8 79 16 104/58 (73) 98 10/16/17 22:30 94 50 10/16/17 22:00 87 10/16/17 20:00 50 10/16/17 20:00 98.2 95 16 107/57 (74) 94 10/16/17 20:00 95 10/16/17 19:50 94 50 10/16/17 16:00 98.8 113 16 151/70 (97) 95 10/16/17 16:00 112 10/16/17 15:19 95 50 (Cheri Crow) Review of Systems ROS Limitations: Clinical Condition, Intubated (Cheri Crow) Physical Exam The patient is intubated, does not open eyes. Cranial Nerves: Pupils 5 mm fixed, nonreactive. Cervical Spine: neck is soft, supple Motor: No response x 4 extremities, no spontaneous movement Reflexes: Deep tendon reflexes are trace throughout. Plantars silent bilaterally. Cerebellar: cannot assessed due to the patient's neurological condition. (Cheri Crow) The patient is intubated, does not open eyes. Cranial Nerves: Pupils 5 mm fixed, nonreactive. Cervical Spine: neck is soft, supple Motor: No response x 4 extremities, no spontaneous movement Reflexes: Deep tendon reflexes are trace throughout. Plantars silent bilaterally. Cerebellar: cannot assessed due to the patient's neurological condition. (Iglesia Thomas MD) Medications Current Medications Current Medications Medications (Trade) Dose Ordered Sig/Aria Route PRN Reason Start Time Stop Time Status Last Admin Dose Admin Acetaminophen/ Hydrocodone Bitart ([place] 5-325 Mg) 1 tab Q4H PRN PO PAIN SCALE 1 TO 5 10/14/17 22:30 Morphine Sulfate (Morphine Inj) 2 mg Q2H PRN IV PUSH PAIN SCALE 6-10 10/14/17 22:30 10/16/17 15:14 Ondansetron HCl (Zofran Inj) 4 mg Q6H PRN IV PUSH NAUSEA OR VOMITING 10/14/17 22:30 10/15/17 00:40 Albuterol Sulfate (Albuterol Neb) 2.5 mg Q2HR NEB PRN INH SOB/WHEEZING 10/14/17 22:30 Miscellaneous Information 1 Q361D XX 10/14/17 22:30 Chlorhexidine Gluconate (Chlorhexidine 2% Cloth) 3 pack Taper DAILY@04 TOP 10/15/17 04:00 10/11/18 03:59 Chlorhexidine Gluconate (Chlorhexidine 2% Cloth) 3 pack UNSCH PRN TOP HYGIENIC CARE 10/14/17 22:30 Senna/Docusate Sodium (Nadeen-Colace) 1 tab BID PO 10/15/17 09:00 10/17/17 08:45 Magnesium Hydroxide (Milk Of Magnesia Liq) 30 ml Q12H PRN PO Mild constipation 10/14/17 22:30 Sennosides (Senokot) 17.2 mg Q12H PRN PO Moderate constipation 10/14/17 22:30 Bisacodyl (Dulcolax Supp) 10 mg DAILY PRN RECTAL SEVERE CONSITIPATION 10/14/17 22:30 Lactulose (Lactulose Liq) 30 ml DAILY PRN PO SEVERE CONSITIPATION 10/14/17 22:30 Sodium Chloride (NS Flush) 2 ml BID IV FLUSH 10/15/17 09:00 10/17/17 08:46 Sodium Chloride (NS Flush) 2 ml UNSCH PRN IV FLUSH FLUSH AFTER USING IV ACCESS 10/14/17 22:30 Labetalol HCl (Trandate Inj) 10 mg Q2H PRN IV PUSH SBP>160, DBP>90, HR>65 10/14/17 22:30 Dextrose (D50w (Vial) Inj) 50 ml UNSCH PRN IV PUSH HYPOGLYCEMIA-SEE COMMENTS 10/14/17 22:30 Glucagon (Glucagon Inj) 1 mg UNSCH PRN OTHER HYPOGLYCEMIA-SEE COMMENTS 10/14/17 22:30 Hydralazine HCl (Apresoline Inj) 10 mg Q1HR PRN IV PUSH SBP> OR = 160, DBP> OR = 90 10/14/17 22:30 10/16/17 14:33 Enalaprilat (Vasotec Inj) 2.5 mg Q6H PRN IV PUSH SBP> OR = 160, DBP> OR = 90 10/14/17 22:30 Chlorhexidine Gluconate (Peridex 0.12% Liq) 15 ml BID@08,20 MT 10/15/17 08:00 10/17/17 08:46 Propofol 100 ml @ 2.325 mls/ hr TITRATE PRN IV SEDATION 10/15/17 05:15 10/15/17 08:15 Fentanyl Citrate 250 ml @ 5 mls/hr TITRATE PRN IV SEDATION 10/15/17 05:15 10/15/17 07:42 Lansoprazole (Prevacid Odt) 30 mg DAILY NG 10/15/17 09:00 10/17/17 08:44 Artificial Tears (Tears Naturale Opth Soln) 1 drop Q8HR EACH EYE 10/15/17 06:00 10/15/17 06:00 Albuterol/ Ipratropium (Duoneb Neb) 1 ampule Q6HR NEB NEB 10/15/17 10:00 10/17/17 07:41 Atorvastatin Calcium (Lipitor) 80 mg HS PO 10/15/17 21:00 10/16/17 20:04 Midazolam HCl 100 ml @ 2 mls/hr TITRATE PRN IV SEDATION 10/15/17 17:00 10/16/17 15:19 Dopamine HCl 800 mg/Dextrose 250 ml @ 4.38 mls/hr TITRATE PRN IV Blood Pressure Management 10/15/17 18:00 10/15/17 18:41 Terbutaline Sulfate (Brethine Inj) 1 mg UNSCH PRN SQ For Extravasation 10/15/17 18:00 Piperacillin Sod/ Tazobactam Sod 100 ml @ 200 mls/hr Q6H IV 10/15/17 20:00 10/17/17 09:12 Acetaminophen (Tylenol 650 Mg/ 20 ml Liq) 650 mg Q6H PRN NG FEVER 10/16/17 07:15 Nicardipine HCl 25 mg/Sodium Chloride 250 ml @ 50 mls/hr TITRATE PRN IV Maintain BP goal 10/16/17 07:15 Insulin Aspart (NovoLOG SUPPLEMENTAL SCALE) 1 Q6HR SQ 10/16/17 12:00 10/16/17 17:46 Methylprednisolone Sodium Succinate 125 mg/Dextrose 100 ml @ 200 mls/hr Q6H IV 10/16/17 15:00 10/17/17 08:45 Aspirin (Aspirin Supp) 300 mg DAILY RECTAL 10/16/17 10:00 10/17/17 08:45 Water (Free Water) 200 ml Q6HR G-TUBE 10/17/17 12:00 Sodium Chloride 38.5 meq/Sterile Water 1,009.625 ml @ 84 mls/hr Q12H2M IV 10/17/17 09:00 10/17/17 08:45 (Cheri Crow) Medical Decision Making MDM Remarks 57 y/o male with large right hemispheric stroke, and left side infarction, f/u CT Head 10/17/16 with significant midline shift and impending uncal herniation thoracic cord syrinx, nonoperative (Cheri Crow) Plan Plan Remarks prognosis is grim, palliative care consulted cont supportive care critical care (Cheri Crow) Attending Statement Not a surgical candidate defer to paliative care The exam, history, and the medical decision-making described in the above note were completed with the assistance of the mid-level provider. I reviewed and agree with the findings presented. I attest that I had a [id number] encounter with the patient on the same day, and personally performed and documented my assessment and findings in the medical record. (Iglesia Thomas MD) Cheri Crow Oct 17, 2017 13:00 Iglesia Thomas MD Oct 18, 2017 13:57
[2017-10-17] MEDS: ARTIFICIAL TEARS OPTH SOLN 15 ML BTL EACH EYE SCH ×2 (13:04→22:01)
[2017-10-17] MEDS: FREE WATER G-TUBE SCH ×3 (13:05→23:08)
--- NOTE | 2017-10-17 15:45 | PD.CONS ---
Consult Service Palliative Care Consult Requested By Dr. Olivia . Primary Care Physician No Primary Care Physician Reason for Consultation a. To assist with evaluation and management of symptoms including: Pain, dyspnea b. To assist medical decision maker(s) with: better understanding of current medical conditions; weighing benefits/burdens of medical treatment options; making medical treatment decisions. HPI History of Present Illness This is a 57-year-old male who was sent by EMS to [place] 10/14/17 when he suddenly fell to the ground at his friend's home with left arm and left shoulder weakness. He had been evaluated [place] with similar findings 09/16 and carotid ultrasound had indicated 80% stenosis in the left ICA and 40-50% in the right ICA, referred for outpatient vascular surgery workup. He was supposed to be taking Coumadin which he was not and also did not follow-up with the vascular surgeon, both due to financial concerns. At this admission the left hand showed 0 out of 5 strength otherwise the neurological exam was unchanged. He has a past medical history of hypertension, coronary artery disease status post two-vessel coronary artery bypass grafting with previous cerebrovascular accident April 30, 2017. At that evaluation he was also found to have an abnormal thoracic spine MRI showing progressive abnormal signal change within the substance of the cord associated with anterior displacement and flattening of the cord reflecting central cord herniation. This cystic mass was evaluated by neurosurgery and conservative management was chosen to allow him time to recover from his cerebrovascular accident and other acute illnesses prior to considering surgery. Initial evaluation revealed bilateral parietal occipital CVA and left internal carotid artery stenosis 80-90%, right internal carotid artery stenosis 40-50%. CT of the brain showed old left parietal CVA and he was given alteplase per Dr. Ferreira. He was admitted to ICU and subsequently intubated. MRA of the brain showed complete occlusion of the right carotid artery and both anterior cerebral and right middle cerebral artery. Brain MRI showed extremely large ischemic infarct involving the entire right middle cerebral artery distribution and both anterior cerebral artery distributions. Thoracic spine MRI showed worsening edema in the cord above the level of the dorsal impingement related to arachnoid cyst or other T2 hyperintense abnormality. Follow-up head CT 10/15 showed acute infarct throughout the right cerebral hemisphere and parasagittal region of the left frontal and parietal lobes, no hemorrhage, early subfalcine and left uncal herniation. Head CT 10/16 showed extensive diffuse cerebral edema involving almost the entire right cerebral hemisphere as well as the medial aspect of the left cerebral hemisphere indicating infarctions of the right middle cerebral and bilateral anterior cerebral arteries with subfalcine herniation to the left measuring 12 mm which is worse than on the previous examination. Edema is also noted involving the left basal ganglia. Chest x- ray done 10/17 shows left lower lobe atelectasis versus pneumonia worsened when compared to the prior examination with a left pleural effusion. EEG done 10/16 showed a background rhythm which was very abnormal with reduced amplitude at roughly 2 V. Occasional higher amplitude activity over the left hemisphere but still very slow in the delta region with no epileptiform discharges. Interpretation was an abnormal study consistent with a very encephalopathic state. Consultation between neurology and neurosurgery indicated that given the extensive nature of the strokes involving most of the right hemisphere and a large area of the left hemisphere his prognosis was very poor and surgical therapy of the cerebral edema would not be of benefit. At this time he has no corneal reflex, no gag reflex with fixed pupils. He remains intubated and unresponsive to noxious stimuli. Extensive research was done to locate a family member to serve as decision- maker. He had collapsed at a friend's home, Tara Miller, who has been caring for him for over 10 years. The number we were able to obtain through [employer] search, social media and [employer] report returned nonfunctioning numbers. The patient's boss came to the hospital to visit him and further contact information was obtained from him. Discussion with Ms. Miller indicated that he is and does have a son that he has not seen since he was an . She reports that he does have some telephone contact with the son and is attempting to locate a number for the son from the patient's phone. He does have a sister as well home the patient and Ms. Miller have been searching for for over 10 years. Parents were . MostLikely report on his sister, Amairani Barajas (Palero as a possible name) did return a number however that person did not note the patient. At this time Ms. Miller is willing to serve as the patient's healthcare proxy pending possible location of the son. Per my discussion with Dr. Olivia, it is expected that the patient will experience brain , at which point no decision-maker will be required. This was discussed with Ms. Miller and she states she would be willing to be the legal decision-maker if needed. Dr. Olivia is to further evaluate the possibility of brain in the morning and further decisions will be made from that point. . Function/Cognitive Trajectory Patient has experienced several episodes of cerebrovascular symptoms and has been steadily declining at home. He was still able to work, however his friend Tara Miller has been making sure that he has and clean clothing and providing general oversight. This most recent stroke is so devastating it is felt that he will progress to brain . . Review of Systems ROS Limitations: Clinical Condition, Intubated, Unresponsive (Patient is nonverbal and unable to provide their own ROS. 10 part ROS taken as best as possible from medical record and available family.) Past Family Social History Coded Allergies: No Known Allergies (Verified Allergy, Severe, 04/29/08) Past Medical History Coronary artery disease Hypertension COPD CV OD Ongoing tobaccoism Dyslipidemia Chronic narcotic use . Past Surgical History CABG 2 age 37 Reported Medications Reported Meds & Active Scripts Active Walker with Front Wheels (Device) 1 Mis Mis Ea .ROUTE DIRECTED Medrol Dosepak (Methylprednisolone) 4 Mg Dspk 4 Mg PO DIRECTED Per Pharmacist direction Oxycodone (Oxycodone HCl) 5 Mg Cap 5 Mg PO Q6H PRN Norvasc (Amlodipine Besylate) 5 Mg Tab 5 Mg PO DAILY Atorvastatin (Atorvastatin Calcium) 40 Mg Tab 40 Mg PO HS Plavix (Clopidogrel Bisulfate) 75 Mg Tab 75 Mg PO DAILY Flexeril (Cyclobenzaprine HCl) 10 Mg Tab 5 Mg PO Q8H PRN Amoxicillin-Clavulanate 875-125 mg Tab 875 Mg PO Q12H not for use in CrCl <30 mL/minute Adult Aspirin EC Low Strength (Aspirin) 81 Mg Tabec 81 Mg PO DAILY . Current Medications Medications (Trade) Dose Ordered Sig/Aria Route Start Time Stop Time Status Last Admin ([place] 5-325 Mg) 1 tab Q4H PRN PO 10/14/17 22:30 (Morphine Inj) 2 mg Q2H PRN IV PUSH 10/14/17 22:30 10/16/17 15:14 (Zofran Inj) 4 mg Q6H PRN IV PUSH 10/14/17 22:30 10/15/17 00:40 (Albuterol Neb) 2.5 mg Q2HR NEB PRN INH 10/14/17 22:30 Miscellaneous Information 1 Q361D XX 10/14/17 22:30 (Chlorhexidine 2% Cloth) 3 pack Taper DAILY@04 TOP 10/15/17 04:00 10/11/18 03:59 (Chlorhexidine 2% Cloth) 3 pack UNSCH PRN TOP 10/14/17 22:30 (Nadeen-Colace) 1 tab BID PO 10/15/17 09:00 10/17/17 08:45 (Milk Of Magnesia Liq) 30 ml Q12H PRN PO 10/14/17 22:30 (Senokot) 17.2 mg Q12H PRN PO 10/14/17 22:30 (Dulcolax Supp) 10 mg DAILY PRN RECTAL 10/14/17 22:30 (Lactulose Liq) 30 ml DAILY PRN PO 10/14/17 22:30 (NS Flush) 2 ml BID IV FLUSH 10/15/17 09:00 10/17/17 08:46 (NS Flush) 2 ml UNSCH PRN IV FLUSH 10/14/17 22:30 (Trandate Inj) 10 mg Q2H PRN IV PUSH 10/14/17 22:30 (D50w (Vial) Inj) 50 ml UNSCH PRN IV PUSH 10/14/17 22:30 (Glucagon Inj) 1 mg UNSCH PRN OTHER 10/14/17 22:30 (Apresoline Inj) 10 mg Q1HR PRN IV PUSH 10/14/17 22:30 10/16/17 14:33 (Vasotec Inj) 2.5 mg Q6H PRN IV PUSH 10/14/17 22:30 (Peridex 0.12% Liq) 15 ml BID@08,20 MT 10/15/17 08:00 10/17/17 08:46 Propofol 100 ml @ 2.325 mls/ hr TITRATE PRN IV 10/15/17 05:15 10/15/17 08:15 Fentanyl Citrate 250 ml @ 5 mls/hr TITRATE PRN IV 10/15/17 05:15 10/15/17 07:42 (Prevacid Odt) 30 mg DAILY NG 10/15/17 09:00 10/17/17 08:44 (Tears Naturale Opth Soln) 1 drop Q8HR EACH EYE 10/15/17 06:00 10/17/17 13:04 (Duoneb Neb) 1 ampule Q6HR NEB NEB 10/15/17 10:00 10/17/17 15:08 (Lipitor) 80 mg HS PO 10/15/17 21:00 10/16/17 20:04 Midazolam HCl 100 ml @ 2 mls/hr TITRATE PRN IV 10/15/17 17:00 10/16/17 15:19 Dopamine HCl 800 mg/Dextrose 250 ml @ 4.38 mls/hr TITRATE PRN IV 10/15/17 18:00 10/15/17 18:41 (Brethine Inj) 1 mg UNSCH PRN SQ 10/15/17 18:00 Piperacillin Sod/ Tazobactam Sod 100 ml @ 200 mls/hr Q6H IV 10/15/17 20:00 10/17/17 13:04 (Tylenol 650 Mg/ 20 ml Liq) 650 mg Q6H PRN NG 10/16/17 07:15 Nicardipine HCl 25 mg/Sodium Chloride 250 ml @ 50 mls/hr TITRATE PRN IV 10/16/17 07:15 (NovoLOG SUPPLEMENTAL SCALE) 1 Q6HR SQ 10/16/17 12:00 10/16/17 17:46 Methylprednisolone Sodium Succinate 125 mg/Dextrose 100 ml @ 200 mls/hr Q6H IV 10/16/17 15:00 10/17/17 08:45 (Aspirin Supp) 300 mg DAILY RECTAL 10/16/17 10:00 10/17/17 08:45 (Free Water) 200 ml Q6HR G-TUBE 10/17/17 12:00 10/17/17 13:05 Sodium Chloride 38.5 meq/Sterile Water 1,009.625 ml @ 84 mls/hr Q12H2M IV 10/17/17 09:00 10/17/17 08:45 . Family History Unknown. Line. Substance Use Tobacco: Chronic tobacco use for all of his life. Alcohol: Drank beer on a regular basis. Prescription med abuse: No history of prescription drug abuse. Illicits: Used marijuana, no cocaine. . Psychosocial History He was born in [place] and attended school there. He moved to [place] in 1981. 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 He was at one time and had a son, whom he has not seen since he was an , but does maintain some phone contact with. He is . He does have 1 sister whom he has had no contact with for over 10 years and has been unable to locate. . Spiritual/Cultural Factors Raised [employer]. . Living Will: Never completed Health Care Surrogate: Never completed Durable Power of Patternmaker Plaster: Never completed Physical Exam Vital Signs Date Time Temp Pulse Resp B/P (MAP) Pulse Ox O2 Delivery O2 Flow Rate FiO2 10/17/17 15:08 95 55 10/17/17 12:35 93 55 10/17/17 11:17 93 50 10/17/17 08:29 50 10/17/17 07:42 94 50 10/17/17 06:00 87 10/17/17 04:10 94 50 10/17/17 04:00 87 10/17/17 04:00 50 10/17/17 04:00 98.4 86 16 101/58 (72) 93 10/17/17 02:00 80 10/17/17 01:04 94 50 10/17/17 00:00 50 10/17/17 00:00 79 10/17/17 00:00 96.8 79 16 104/58 (73) 98 10/16/17 22:30 94 50 10/16/17 22:00 87 10/16/17 20:00 50 10/16/17 20:00 98.2 95 16 107/57 (74) 94 10/16/17 20:00 95 10/16/17 19:50 94 50 10/16/17 16:00 98.8 113 16 151/70 (97) 95 10/16/17 16:00 112 Exam CONSTITUTIONAL/GENERAL: This is an adequately nourished patient, in no apparent distress. TUBES/LINES/DRAINS: SKIN: No jaundice, rashes, or lesions. Ecchymoses on upper extremities. No wounds seen anteriorly. Skin temperature appropriate. Not diaphoretic. HEAD: Atraumatic. Normocephalic. EYES: Pupils equal and round and reactive. Extraocular motions intact. No scleral icterus. No injection or drainage. Fundi not examined. ENT: Hearing grossly normal. Nose without bleeding or purulent drainage. Throat without visible erythema, exudates, masses, or lesions. NECK: Trachea midline. Supple, nontender. No palpable thyroid enlargement or nodularity. CARDIOVASCULAR: Regular rate and rhythm without murmurs, gallops, or rubs. No JVD. Peripheral pulses symmetric. RESPIRATORY/CHEST: Symmetric, unlabored respirations. Clear to auscultation. Breath sounds equal bilaterally. No wheezes, rales, or rhonchi. GASTROINTESTINAL: Abdomen soft, non-tender, nondistended. No hepato-splenomegaly , or palpable masses. No guarding. Bowel sounds present. GENITOURINARY: Without palpable bladder distension. Rodríguez catheter in place. MUSCULOSKELETAL: Extremities without clubbing, cyanosis, or edema. No joint tenderness or effusion noted. No calf tenderness. No mottling or clubbing. LYMPHATICS: No palpable cervical or supraclavicular adenopathy. NEUROLOGICAL: Awake and alert. Motor and sensory grossly within normal limits. Follows commands. Cognitively sharp. Moves all extremities. PSYCHIATRIC: No obvious anxiety/depression. no apparent hallucinations or other psychotic thought process. Diagnostic Tests Laboratory Laboratory Tests Test 10/14/17 20:25 10/15/17 07:50 10/15/17 14:05 10/15/17 14:45 White Blood Count 7.7 TH/MM3 (4.0-11.0) 10.6 TH/MM3 (4.0-11.0) Red Blood Count 5.07 MIL/MM3 (4.50-5.90) 4.75 MIL/MM3 (4.50-5.90) Hemoglobin 15.8 GM/DL (13.0-17.0) 14.6 GM/DL (13.0-17.0) Bedside Hemoglobin 17.3 G/DL (13.0-17.0) Hematocrit 46.4 % (39.0-51.0) 43.6 % (39.0-51.0) Bedside Hematocrit 51.0 % (39.0-51.0) Mean Corpuscular Volume 91.4 FL (80.0-100.0) 91.8 FL (80.0-100.0) Mean Corpuscular Hemoglobin 31.2 PG (27.0-34.0) 30.8 PG (27.0-34.0) Mean Corpuscular Hemoglobin Concent 34.2 % (32.0-36.0) 33.5 % (32.0-36.0) Red Cell Distribution Width 13.7 % (11.6-17.2) 14.0 % (11.6-17.2) Platelet Count 156 TH/MM3 (150-450) 151 TH/MM3 (150-450) Mean Platelet Volume 10.4 FL (7.0-11.0) 10.0 FL (7.0-11.0) Neutrophils (%) (Auto) 63.8 % (16.0-70.0) 81.2 % (16.0-70.0) Lymphocytes (%) (Auto) 24.5 % (9.0-44.0) 10.2 % (9.0-44.0) Monocytes (%) (Auto) 9.5 % (0.0-8.0) 8.0 % (0.0-8.0) Eosinophils (%) (Auto) 1.6 % (0.0-4.0) 0.2 % (0.0-4.0) Basophils (%) (Auto) 0.6 % (0.0-2.0) 0.4 % (0.0-2.0) Neutrophils # (Auto) 4.9 TH/MM3 (1.8-7.7) 8.6 TH/MM3 (1.8-7.7) Lymphocytes # (Auto) 1.9 TH/MM3 (1.0-4.8) 1.1 TH/MM3 (1.0-4.8) Monocytes # (Auto) 0.7 TH/MM3 (0-0.9) 0.9 TH/MM3 (0-0.9) Eosinophils # (Auto) 0.1 TH/MM3 (0-0.4) 0.0 TH/MM3 (0-0.4) Basophils # (Auto) 0.0 TH/MM3 (0-0.2) 0.0 TH/MM3 (0-0.2) CBC Comment DIFF FINAL AUTO DIFF Differential Comment FINAL DIFF MANUAL Prothrombin Time 10.3 SEC (9.8-11.6) Prothromb Time International Ratio 1.0 RATIO Fibrinogen 449 mg/dL (227-377) Bedside Sodium 140 MMOL/L (137-144) Blood Urea Nitrogen 11 MG/DL (7-18) 18 MG/DL (7-18) Creatinine 0.87 MG/DL (0.60-1.30) 1.47 MG/DL (0.60-1.30) Random Glucose 120 MG/DL (74-106) 99 MG/DL (74-106) Total Protein 8.1 GM/DL (6.4-8.2) 6.7 GM/DL (6.4-8.2) Albumin 4.0 GM/DL (3.4-5.0) 3.5 GM/DL (3.4-5.0) Calcium Level 8.9 MG/DL (8.5-10.1) 8.3 MG/DL (8.5-10.1) Alkaline Phosphatase 67 U/L (45-117) 58 U/L (45-117) Aspartate Amino Transf (AST/SGOT) 14 U/L (15-37) 23 U/L (15-37) Alanine Aminotransferase (ALT/SGPT) 24 U/L (12-78) 23 U/L (12-78) Total Bilirubin 0.3 MG/DL (0.2-1.0) 0.5 MG/DL (0.2-1.0) Sodium Level 136 MEQ/L (136-145) 141 MEQ/L (136-145) Potassium Level 3.6 MEQ/L (3.5-5.1) 3.9 MEQ/L (3.5-5.1) Chloride Level 101 MEQ/L (98-107) 111 MEQ/L (98-107) Carbon Dioxide Level 23.9 MEQ/L (21.0-32.0) 23.1 MEQ/L (21.0-32.0) Bedside Potassium 3.8 MMOL/L (3.6-5.0) Bedside Chloride 100 MMOL/L (102-111) Anion Gap 11 MEQ/L (5-15) 7 MEQ/L (5-15) Bedside Blood Urea Nitrogen 10 MG/DL (5-21) Bedside Creatinine 0.8 MG/DL (0.6-1.3) Estimat Glomerular Filtration Rate 90 ML/MIN (>89) 49 ML/MIN (>89) Bedside Glucose 126 MG/DL (68-110) Troponin I LESS THAN 0.02 NG/ML Blood Gas Puncture Site RT RADIAL Blood Gas Patient Temperature 98.6 Blood Gas HCO3 23 mmol/L (22-26) Blood Gas Base Excess -1.3 mmol/L (-2-2) Blood Gas Oxygen Saturation 98 % (90-100) Arterial Blood pH 7.39 (7.380-7.420) Arterial Blood Partial Pressure CO2 39 mmHg (38-42) Arterial Blood Partial Pressure O2 453 mmHg (61-120) Arterial Blood Oxygen Content 21.7 Vol % (12.0-20.0) Arterial Blood Carboxyhemoglobin 1.1 % (0-4) Arterial Blood Methemoglobin 1.1 % (0-2) Blood Gas Hemoglobin 15.0 G/DL (12.0-16.0) Oxygen Delivery Device VENTILATOR Blood Gas Ventilator Setting PRVC/AC Blood Gas Inspired Oxygen 100 % Differential Total Cells Counted 100 Neutrophils % (Manual) 81 % (16-70) Band Neutrophils % 9 % (0-6) Lymphocytes % 3 % (9-44) Monocytes % 7 % (0-8) Neutrophils # (Manual) 9.5 TH/MM3 (1.8-7.7) Erythrocyte Sedimentation Rate 3 mm/hr (0-20) Magnesium Level 1.6 MG/DL (1.5-2.5) Hemoglobin A1c 5.5 % (4.3-6.0) Phosphorus Level 2.3 MG/DL (2.5-4.9) Triglycerides Level 79 MG/DL (42-150) Cholesterol Level 144 MG/DL (120-200) LDL Cholesterol 92 MG/DL (0-99) HDL Cholesterol 36.1 MG/DL (40.0-60.0) Cholesterol/HDL Ratio 3.98 RATIO Thyroid Stimulating Hormone 3rd Gen 1.330 uIU/ML (0.358-3.740) Anti-Nuclear Antibody Screen NEG (NEG) Test 10/16/17 07:12 10/16/17 12:48 10/16/17 18:33 10/17/17 00:20 White Blood Count 12.3 TH/MM3 (4.0-11.0) Red Blood Count 4.77 MIL/MM3 (4.50-5.90) Hemoglobin 14.5 GM/DL (13.0-17.0) Hematocrit 43.6 % (39.0-51.0) Mean Corpuscular Volume 91.5 FL (80.0-100.0) Mean Corpuscular Hemoglobin 30.5 PG (27.0-34.0) Mean Corpuscular Hemoglobin Concent 33.3 % (32.0-36.0) Red Cell Distribution Width 14.3 % (11.6-17.2) Platelet Count 135 TH/MM3 (150-450) Mean Platelet Volume 10.2 FL (7.0-11.0) Neutrophils (%) (Auto) 93.2 % (16.0-70.0) Lymphocytes (%) (Auto) 4.0 % (9.0-44.0) Monocytes (%) (Auto) 2.7 % (0.0-8.0) Eosinophils (%) (Auto) 0.0 % (0.0-4.0) Basophils (%) (Auto) 0.1 % (0.0-2.0) Neutrophils # (Auto) 11.5 TH/MM3 (1.8-7.7) Lymphocytes # (Auto) 0.5 TH/MM3 (1.0-4.8) Monocytes # (Auto) 0.3 TH/MM3 (0-0.9) Eosinophils # (Auto) 0.0 TH/MM3 (0-0.4) Basophils # (Auto) 0.0 TH/MM3 (0-0.2) CBC Comment DIFF FINAL Differential Comment Blood Urea Nitrogen 14 MG/DL (7-18) Creatinine 1.31 MG/DL (0.60-1.30) Random Glucose 159 MG/DL (74-106) Total Protein 7.0 GM/DL (6.4-8.2) Albumin 3.2 GM/DL (3.4-5.0) Calcium Level 9.3 MG/DL (8.5-10.1) Phosphorus Level 1.0 MG/DL (2.5-4.9) Magnesium Level 2.4 MG/DL (1.5-2.5) Alkaline Phosphatase 63 U/L (45-117) Aspartate Amino Transf (AST/SGOT) 80 U/L (15-37) Alanine Aminotransferase (ALT/SGPT) 28 U/L (12-78) Total Bilirubin 0.3 MG/DL (0.2-1.0) Sodium Level 157 MEQ/L (136-145) 163 MEQ/L (136-145) 169 MEQ/L (136-145) 175 MEQ/L (136-145) Potassium Level 3.9 MEQ/L (3.5-5.1) Chloride Level 129 MEQ/L (98-107) Carbon Dioxide Level 22.3 MEQ/L (21.0-32.0) Anion Gap 6 MEQ/L (5-15) Estimat Glomerular Filtration Rate 56 ML/MIN (>89) Serum Osmolality 334 MOSM/KG (275-295) 344 MOSM/KG (275-295) 358 MOSM/KG (275-295) 363 MOSM/KG (275-295) Test 10/17/17 06:25 10/17/17 10:30 White Blood Count 11.5 TH/MM3 (4.0-11.0) Red Blood Count 4.47 MIL/MM3 (4.50-5.90) Hemoglobin 13.7 GM/DL (13.0-17.0) Hematocrit 41.7 % (39.0-51.0) Mean Corpuscular Volume 93.2 FL (80.0-100.0) Mean Corpuscular Hemoglobin 30.5 PG (27.0-34.0) Mean Corpuscular Hemoglobin Concent 32.7 % (32.0-36.0) Red Cell Distribution Width 14.2 % (11.6-17.2) Platelet Count 143 TH/MM3 (150-450) Mean Platelet Volume 10.5 FL (7.0-11.0) Neutrophils (%) (Auto) 85.9 % (16.0-70.0) Lymphocytes (%) (Auto) 4.9 % (9.0-44.0) Monocytes (%) (Auto) 9.1 % (0.0-8.0) Eosinophils (%) (Auto) 0.0 % (0.0-4.0) Basophils (%) (Auto) 0.1 % (0.0-2.0) Neutrophils # (Auto) 9.9 TH/MM3 (1.8-7.7) Lymphocytes # (Auto) 0.6 TH/MM3 (1.0-4.8) Monocytes # (Auto) 1.0 TH/MM3 (0-0.9) Eosinophils # (Auto) 0.0 TH/MM3 (0-0.4) Basophils # (Auto) 0.0 TH/MM3 (0-0.2) CBC Comment DIFF FINAL Differential Comment Blood Urea Nitrogen 23 MG/DL (7-18) Creatinine 1.43 MG/DL (0.60-1.30) Random Glucose 138 MG/DL (74-106) Calcium Level 9.4 MG/DL (8.5-10.1) Phosphorus Level 3.3 MG/DL (2.5-4.9) Magnesium Level 2.7 MG/DL (1.5-2.5) Sodium Level 175 MEQ/L (136-145) Potassium Level 4.1 MEQ/L (3.5-5.1) Chloride Level 146 MEQ/L (98-107) Carbon Dioxide Level 23.6 MEQ/L (21.0-32.0) Anion Gap 5 MEQ/L (5-15) Estimat Glomerular Filtration Rate 51 ML/MIN (>89) Serum Osmolality 363 MOSM/KG (275-295) Nasal Screen MRSA (PCR) MRSA NOT DETECTED (NOT Result Diagram: 10/17/1762410/17/17624 Microbiology Microbiology Date/Time Source Procedure Growth Status 10/15/17 14:45 Blood Peripheral Aerobic Blood Culture - Preliminary NO GROWTH IN 2 DAYS Resulted 10/15/17 14:45 Blood Peripheral Anaerobic Blood Culture - Preliminary NO GROWTH IN 2 DAYS Resulted 10/15/17 14:45 Blood Peripheral Aerobic Blood Culture - Preliminary NO GROWTH IN 2 DAYS Resulted 10/15/17 14:45 Blood Peripheral Anaerobic Blood Culture - Preliminary NO GROWTH IN 2 DAYS Resulted 10/15/17 14:42 Sputum Endotracheal Gram Stain - Final Complete 10/15/17 14:42 Sputum Culture - Final Moraxella Catarrahalis Complete 10/15/17 14:45 Urine Catheterized Urine Urine Culture - Final NO GROWTH IN 48 HOURS. Complete Patient/Family Conference Issues Discussed: * Palliative care role, purpose, approach * Additional medical, psychosocial, and spiritual history * Patients general health, functional status, and cognitive changes in the months leading up to the current hospitalization * Patient/family understanding of the current medical problems * Patient/family understanding of prognosis * Patients goals of care as best understood from advance directives and/or conversations and/or values * Current medical treatment options and benefits/burdens of those options * Likely scenarios comparing ongoing aggressive care with a transition to comfort measures only * Questions answered to the best of my ability * Palliative care contact information provided Assessment and Plan Disease Oriented Problem List: (1) cardiovascular occlusive disease (2) tobaccoism (3) CVA (cerebral vascular accident) (4) Carotid stenosis, bilateral (5) HTN (hypertension) Symptom Scale: (1) Dyspnea and respiratory abnormalities (2) Pain, generalized Pertinent Non-Medical Issues Psychosocial:He was born in [place] and attended school there. He moved to [place] in 1981. 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 He was at one time and had a son, whom he has not seen since he was an infant, but does maintain some phone contact with. He is . He does have 1 sister whom he has had no contact with for over 10 years and has been unable to locate. Spiritual: Raised [employer]. Legal: No known legal issues. Ethical issues impacting care: No known ethical issues. . Important Contacts Friend: Tara Miller Roommate: Krunal Employer: [employer] . . Prognosis His prognosis is very poor. He has had an enormous, devastating CVA involving the entire right and part of the left cerebral hemispheres. He is progressing towards brain . Code Status: Full Code Plan PLAN: Legal decision maker: At this time his friend, Tara Miller has agreed to be his legal decision maker. She has indicated that he has a son, and attempt is being made to contact him, however it is thought that he may be a minor child and unable to participate. Goals: At this time he remains a full code pending establishment of a decision-maker. CODE STATUS: FULL CODE SYMPTOMS: * Pain: At this time he is not withdrawing to pain, however is at risk as he is not able to make his needs known, has multiple invasive lines and is bedbound, however if withdrawal of ventilator support is necessary, pain will be managed with opioids. * Dyspnea: He is at significant risk for dyspnea secondary to mechanical ventilation, inability to protect airway, neurologic dysfunction and worsening imaging studies suspicious for pneumonia. Continue mechanical ventilation management per machinist helper. SUMMARY: This is an unfortunate 57-year-old male who has had several cerebrovascular accidents since April 2017, now has suffered a devastating CVA with herniation progressing towards brain . Information was obtained today indicating that the patient has a son but it is not known if the child is an adult or minor, no name or contact information is available for him and it is not known if he would be willing to participate. At this time Dr. Olivia feels that the patient is progressing towards brain which would negate the need for a decision-maker. He plans to run tests tomorrow to determine brain activity and from that further decisions will be made. Palliative care will continue to follow the patient during hospital course as condition evolves, to assist patient/decision-maker with understanding of their medical conditions, weighing benefits/burdens of treatment options, for clarification of goals of treatment. Additionally will assist with any symptoms of palliative concern. . Thank you for the opportunity to participate in the care of Mr. Barajas. Attestation To help prompt me to consider important information that might be impacting today's encounter and assessment, information from prior notes written by myself or my colleagues may have been "brought forward" into today's note. My signature on this note, however, is an attestation that I personally performed the exam, history, and/or decision-making noted today, and, unless otherwise indicated, the interactions with patient, family, and staff as well as the review of records all occurred today. I also attest that the listed assessment and stated plan reflect my best clinical judgment today based on the combination of historical information, prior notes, and today's exam/ interactions. When time spent is documented, it refers only to time spent today by the signer, or if indicated, combined time spent today by collaborating physician/nurse practitioner. . Katia Blanco Oct 17, 2017 3:45 pm
--- NOTE | 2017-10-17 20:07 | HHI.PR ---
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 Plan reduce solumedrol to 125 mg q 6 hr start aspirin rectal 300 mg daily mannitol for edema associated with cva and monitor serum osmolarity I discussed case with Dr Thomas, given the extensive nature of the strokes involving most of the right hemisphere and large area of left hemisphere, his prognosis is very poor . I do not feel that surgical therapy for the cerebral edema would be of benefit. Diagnosis/Plan: Subjective Subjective Comments No acute events reported Active Medications Current Medications Medications (Trade) Dose Ordered Sig/Aria Route Start Time Stop Time Status Last Admin ([place] 5-325 Mg) 1 tab Q4H PRN PO 10/14/17 22:30 (Morphine Inj) 2 mg Q2H PRN IV PUSH 10/14/17 22:30 10/16/17 15:14 (Zofran Inj) 4 mg Q6H PRN IV PUSH 10/14/17 22:30 10/15/17 00:40 (Albuterol Neb) 2.5 mg Q2HR NEB PRN INH 10/14/17 22:30 Miscellaneous Information 1 Q361D XX 10/14/17 22:30 (Chlorhexidine 2% Cloth) 3 pack Taper DAILY@04 TOP 10/15/17 04:00 10/11/18 03:59 (Chlorhexidine 2% Cloth) 3 pack UNSCH PRN TOP 10/14/17 22:30 (Nadeen-Colace) 1 tab BID PO 10/15/17 09:00 10/17/17 08:45 (Milk Of Magnesia Liq) 30 ml Q12H PRN PO 10/14/17 22:30 (Senokot) 17.2 mg Q12H PRN PO 10/14/17 22:30 (Dulcolax Supp) 10 mg DAILY PRN RECTAL 10/14/17 22:30 (Lactulose Liq) 30 ml DAILY PRN PO 10/14/17 22:30 (NS Flush) 2 ml BID IV FLUSH 10/15/17 09:00 10/17/17 08:46 (NS Flush) 2 ml UNSCH PRN IV FLUSH 10/14/17 22:30 (Trandate Inj) 10 mg Q2H PRN IV PUSH 10/14/17 22:30 (D50w (Vial) Inj) 50 ml UNSCH PRN IV PUSH 10/14/17 22:30 (Glucagon Inj) 1 mg UNSCH PRN OTHER 10/14/17 22:30 (Apresoline Inj) 10 mg Q1HR PRN IV PUSH 10/14/17 22:30 10/16/17 14:33 (Vasotec Inj) 2.5 mg Q6H PRN IV PUSH 10/14/17 22:30 (Peridex 0.12% Liq) 15 ml BID@08,20 MT 10/15/17 08:00 10/17/17 08:46 Propofol 100 ml @ 2.325 mls/ hr TITRATE PRN IV 10/15/17 05:15 10/15/17 08:15 Fentanyl Citrate 250 ml @ 5 mls/hr TITRATE PRN IV 10/15/17 05:15 10/15/17 07:42 (Prevacid Odt) 30 mg DAILY NG 10/15/17 09:00 10/17/17 08:44 (Tears Naturale Opth Soln) 1 drop Q8HR EACH EYE 10/15/17 06:00 10/17/17 13:04 (Duoneb Neb) 1 ampule Q6HR NEB NEB 10/15/17 10:00 10/17/17 19:33 (Lipitor) 80 mg HS PO 10/15/17 21:00 10/16/17 20:04 Midazolam HCl 100 ml @ 2 mls/hr TITRATE PRN IV 10/15/17 17:00 10/16/17 15:19 Dopamine HCl 800 mg/Dextrose 250 ml @ 4.38 mls/hr TITRATE PRN IV 10/15/17 18:00 10/15/17 18:41 (Brethine Inj) 1 mg UNSCH PRN SQ 10/15/17 18:00 Piperacillin Sod/ Tazobactam Sod 100 ml @ 200 mls/hr Q6H IV 10/15/17 20:00 10/17/17 13:04 (Tylenol 650 Mg/ 20 ml Liq) 650 mg Q6H PRN NG 10/16/17 07:15 Nicardipine HCl 25 mg/Sodium Chloride 250 ml @ 50 mls/hr TITRATE PRN IV 10/16/17 07:15 (NovoLOG SUPPLEMENTAL SCALE) 1 Q6HR SQ 10/16/17 12:00 10/17/17 17:54 Methylprednisolone Sodium Succinate 125 mg/Dextrose 100 ml @ 200 mls/hr Q6H IV 10/16/17 15:00 10/17/17 15:53 (Aspirin Supp) 300 mg DAILY RECTAL 10/16/17 10:00 10/17/17 08:45 (Free Water) 200 ml Q6HR G-TUBE 10/17/17 12:00 10/17/17 17:54 Sodium Chloride 38.5 meq/Sterile Water 1,009.625 ml @ 84 mls/hr Q12H2M IV 10/17/17 09:00 10/17/17 08:45 Allergies Allergies Coded Allergies No Known Allergies (Verified Allergy, Severe, 04/29/08) Review of Systems All other ROS: ROS reviewed as documented in chart Exam I&O / VS 10/17/17 10/17/17 10/18/17 15:00 23:00 07:00 Intake Total 1800 ml Output Total 1050 ml Balance 750 ml Intake IV Total 1400 ml Other 400 ml Output Urine Total 950 ml Gastric Drainage Total 100 ml # Bowel Movements 0 Vital Signs Date Time Temp Pulse Resp B/P (MAP) Pulse Ox O2 Delivery O2 Flow Rate FiO2 10/17/17 19:29 96 55 10/17/17 18:00 81 10/17/17 16:00 91 10/17/17 16:00 50 10/17/17 16:00 98.1 91 16 99/58 (72) 95 10/17/17 15:08 95 55 10/17/17 14:00 90 10/17/17 12:35 93 55 10/17/17 12:00 100.0 92 16 87/51 (63) 93 10/17/17 12:00 92 10/17/17 12:00 50 10/17/17 11:17 93 50 10/17/17 10:00 93 10/17/17 08:29 50 10/17/17 08:00 87 10/17/17 08:00 99.7 100 16 98/55 (69) 94 10/17/17 08:00 50 10/17/17 07:42 94 50 10/17/17 06:00 87 10/17/17 04:10 94 50 10/17/17 04:00 87 10/17/17 04:00 50 10/17/17 04:00 98.4 86 16 101/58 (72) 93 10/17/17 02:00 80 10/17/17 01:04 94 50 10/17/17 00:00 50 10/17/17 00:00 79 10/17/17 00:00 96.8 79 16 104/58 (73) 98 10/16/17 22:30 94 50 10/16/17 22:00 87 Exam Comments sedated, nonresponsive Pupils 3mm bilateral and sluggishly reactive EOM--limited to occulocephalics MOTOR--no withdrawal Objective Micro and Labs Laboratory Tests Test 10/17/17 00:20 10/17/17 06:25 10/17/17 10:30 10/17/17 17:30 Sodium Level 175 175 171 Serum Osmolality 363 363 363 White Blood Count 11.5 Red Blood Count 4.47 Hemoglobin 13.7 Hematocrit 41.7 Mean Corpuscular Volume 93.2 Mean Corpuscular Hemoglobin 30.5 Mean Corpuscular Hemoglobin Concent 32.7 Red Cell Distribution Width 14.2 Platelet Count 143 Mean Platelet Volume 10.5 Neutrophils (%) (Auto) 85.9 Lymphocytes (%) (Auto) 4.9 Monocytes (%) (Auto) 9.1 Eosinophils (%) (Auto) 0.0 Basophils (%) (Auto) 0.1 Neutrophils # (Auto) 9.9 Lymphocytes # (Auto) 0.6 Monocytes # (Auto) 1.0 Eosinophils # (Auto) 0.0 Basophils # (Auto) 0.0 CBC Comment DIFF FINAL Differential Comment Blood Urea Nitrogen 23 Creatinine 1.43 Random Glucose 138 Calcium Level 9.4 Phosphorus Level 3.3 Magnesium Level 2.7 Potassium Level 4.1 Chloride Level 146 Carbon Dioxide Level 23.6 Anion Gap 5 Estimat Glomerular Filtration Rate 51 Nasal Screen MRSA (PCR) MRSA NOT DETECTED Date/Time Source Procedure Growth Status 10/15/17 14:45 Blood Peripheral Aerobic Blood Culture - Preliminary NO GROWTH IN 2 DAYS Resulted 10/15/17 14:45 Blood Peripheral Anaerobic Blood Culture - Preliminary NO GROWTH IN 2 DAYS Resulted 10/15/17 14:42 Sputum Endotracheal Gram Stain - Final Complete 10/15/17 14:42 Sputum Culture - Final Moraxella Catarrahalis Complete 10/15/17 14:45 Urine Catheterized Urine Urine Culture - Final NO GROWTH IN 48 HOURS. Complete Maxim Ferreira MD PhD Oct 17, 2017 20:07
[2017-10-17] MEDS: ATORVASTATIN 40 MG TAB PO SCH (21:59)
[2017-10-18] VITALS (17 sets, daily range): BP systolic 108–125; BP diastolic 61–70; PULSE 80–106; RESP 16; TEMP 97.5–98.9; O2SAT 94–97
[2017-10-18] MEDS: DEXTROSE 5% IV SCH ×6 (02:43→14:52)
[2017-10-18] MEDS: WATER IV SCH ×6 (02:43→14:52)
[2017-10-18] MEDS: PIPERACIL-TAZO 4.5 GM PREMIX 100 ML IV SCH ×3 (02:43→14:13)
[2017-10-18] MEDS: METHYLPREDNISOLONE SO SUCC IV SCH ×6 (02:43→14:52)
[2017-10-18] MEDS: RESP: ALBUTEROL 2.5 MG/IPRATROPIUM 0.5 MG NEB (SCH) NEB ×4 (03:08→20:03)
[2017-10-18] MEDS: CHLORHEXIDINE GLUCONATE 2 % 1 PACK (2 CLOTHS) TOP SCH (04:00)
[2017-10-18] MEDS: ARTIFICIAL TEARS OPTH SOLN 15 ML BTL EACH EYE SCH ×3 (06:00→22:00)
[2017-10-18] MEDS: INSULIN ASPART SUPPLEMENTAL SCALE SQ SCH ×3 (06:00→17:38)
[2017-10-18] MEDS: FREE WATER G-TUBE SCH ×3 (06:00→17:38)
[2017-10-18 06:16] LABS: HEMATOCRIT 38.9 % (39.0-51.0); HEMOGLOBIN 12.7 GM/DL (13.0-17.0); MEAN CELL VOLUME 92.3 FL (80.0-100.0); MEAN CORPUSCULAR HEMOGLOBIN 30.2 PG (27.0-34.0); MEAN CORPUSCULAR HGB CONC 32.7 % (32.0-36.0); MEAN PLATELET VOLUME 10.2 FL (7.0-11.0); PLATELET COUNT 115 TH/MM3 (150-450); RED BLOOD COUNT 4.22 MIL/MM3 (4.50-5.90); RED CELL DISTRIBUTION WIDTH 14.7 % (11.6-17.2); WHITE BLOOD COUNT 11.1 TH/MM3 (4.0-11.0)
[2017-10-18] MEDS: CHLORHEXIDINE 0.12% (ORAL KIT) 15 ML CUP MT SCH ×2 (07:51→19:59)
[2017-10-18] MEDS: DOCUSATE SODIUM 50 MG/SENNA 8.6 MG TAB PO SCH ×2 (08:27→19:58)
[2017-10-18] MEDS: LANSOPRAZOLE SOLUTAB 30 MG TAB NG SCH (08:27)
[2017-10-18] MEDS: SODIUM CHLORIDE 23.4% INJ 38.5 MEQ in WATER STERILE FOR INJ 1,000 ML IV SCH ×2 (08:27→17:38)
[2017-10-18] MEDS: ASPIRIN 300 MG SUPP RECTAL SCH (08:27)
[2017-10-18] MEDS: SODIUM CHLORIDE 0.9% FLUSH 10 ML FLUSH IV FLUSH SCH ×2 (08:28→19:59)
--- NOTE | 2017-10-18 10:32 | HHI.CCPN ---
Subjective Remarks/Hospital Course This is a 57-year-old male. Date of admission 10/14/2017. Past medical history includes coronary disease status post CABG at age 37, known left internal carotid occlusive disease 89%, right ICA 46%, COPD, ongoing tobaccoism and hypertension. Patient was seen in 04/25 and 09/25 with left and right upper extremity weakness respectively. Patient has a imaging his brain which reveals bilateral parietal occipital CVA and known left internal carotid artery 80-90 % occlusion/right internal carotid artery 40-50% occlusion patient presents to [facility] today after he was found status post falling to the ground complaining of left arm/shoulder weakness. on Coumadin which he is not taking and he is now back with the same symptoms 30 minutes onset left hand 0 out of 5 otherwise neuro exam is normal. CT brain revealed old left parietal CVA. Decision was given to provide alteplase per Dr. Ferreira. Received 7 mg bolus followed by 63 mg. Plan to admit the ICU with frequent neuro checks of vascular consultation. He received hydralazine due to elevated blood pressure. Currently symptoms have not resolved with persistent left upper extremity weakness. We are asked with the patient. 10/15/17:Patient remains intubated heavily sedated. Very slight withdrawal of bilateral extremities on sedation. MRI brain today -Very large ischemic infarct involving the entire right middle cerebral artery distribution and both anterior cerebral artery distributions. MRI T spine- worsening edema in the cord above the level of dorsal impingement related to ?arachnoid cyst or other T2 hyperintense abnormality. 10/16: Afebrile. Placed on dopamine overnight due to bradycardia. Currently at 3 mcg/kg per minute Patient currently withdrawing right upper and lower extremity left lower extremity. Right pupil 5 mm and sluggish. Left pupil 1 mm and minimally reactive. Positive cough. Noted CT brain revealed no edema right hemisphere/left frontal/parietal region along with impending subfalcine/ uncal herniation. 10/17: Afebrile. Off all vasopressors. No corneal reflex. No gag. CT yesterday revealed worsening cerebral edema right MCA, bilateral JENNIFER distribution with a 12 mm subfalcine shift to the left. 3% saline discontinued due to elevated sodium. Pupils are essentially fixed. Subjective 10/18: Afebrile. Off all vasopressors. Withdraws to bilateral lower x-rays. Not overbreathing the ventilator. Pupils are about 3-4 minutes bilaterally and fixed. Objective Vital Signs Date Time Temp Pulse Resp B/P (MAP) Pulse Ox O2 Delivery O2 Flow Rate FiO2 10/18/17 10:00 106 10/18/17 08:00 55 10/18/17 08:00 98.8 16 108/61 (77) 94 10/14/17 23:40 Nasal Cannula 2.00 Intake and Output 10/18/17 10/18/17 10/19/17 08:00 16:00 00:00 Intake Total 400 ml Output Total 1200 ml Balance -800 ml Result Diagram: 10/18/17 0610/18/17599 Imaging Last Impressions Chest X-Ray 10/17/17599 Signed Impressions: Service Date/Time: Tuesday, October 17, 2017 04:04 - CONCLUSION: 1. Left lower lobe atelectasis versus pneumonia. The findings have worsened when compared with the prior examination. 2. Left effusion Abdoul Quezada MD Head CT 10/16/17 0000 Signed Impressions: Service Date/Time: Monday, October 16, 2017 10:08 - CONCLUSION: Extensive diffuse cerebral edema involving almost the entire right cerebral hemisphere as well as the medial aspect of the left cerebral hemisphere indicating infarctions of the right middle cerebral and bilateral anterior cerebral arteries with subfalcine herniation to the left measuring 12 mm which is worse than on the previous examination. Edema is also noted involving left basal ganglia. No acute hemorrhage is noted. Andrade Milligan MD Thoracic Spine MRI 10/15/17 0900 Signed Impressions: Service Date/Time: Sunday, October 15, 2017 12:26 - CONCLUSION: There is worsening edema in the cord above the level of dorsal impingement related to arachnoid cyst or other T2 hyperintense abnormality. Contrast administration would be helpful. Note is made of left basilar atelectasis versus pneumonia. Abdoul Quezada MD Head Magnetic Resonance Angiography 10/15/17 0000 Signed Impressions: Service Date/Time: Sunday, October 15, 2017 12:26 - CONCLUSION: 1. Complete occlusion of the right carotid artery and both anterior cerebrals and right middle cerebral artery Abdoul Quezada MD Carotid Artery Ultrasound 10/15/17 0000 Signed Impressions: Service Date/Time: Sunday, October 15, 2017 08:16 - CONCLUSION: 1. High- grade stenosis on the left side greater than 70%%. CT angiography of the cervicobrachial arch and carotid arteries is recommended for further evaluation if clinically indicated.8 Abdoul Quezada MD Brain MRI 10/15/17 0000 Signed Impressions: Service Date/Time: Sunday, October 15, 2017 12:26 - CONCLUSION: 1. Extremely large ischemic infarct involving the entire right middle cerebral artery distribution and both anterior cerebral artery distributions. Follow CT to evaluate for evolving cerebral edema is recommended. Abdoul Quezada MD Objective Remarks GENERAL: This is a 57-year-old male currently intubated resting in bed in no acute distress SKIN: Warm and dry. Scars of the thorax from prior CABG HEAD: Atraumatic. Normocephalic. EYES: Pupils are about 4 mm bilaterally and fixed ENT: No nasal bleeding or discharge. Orotracheally intubated NECK: Trachea midline. No JVD. Positive left carotid bruit 11/15 CARDIOVASCULAR: Regular rate and rhythm. S1, S2. No S4. Without murmur RESPIRATORY: Few crackles appreciated in the left lower lobes. Symmetrical excursion. Breath sounds equal bilaterally. GASTROINTESTINAL: Abdomen soft, non-tender, nondistended. Hypoactive bowel sounds. MUSCULOSKELETAL: Extremities without significant peripheral edema. No obvious deformities. NEUROLOGICAL: Pupils as above. Cannot elicit cough/gag. No corneal reflex. Withdraws to pain bilateral lower extremities Urinary Catheter: Yes Assessment to: Continue Rodríguez insert reason: Prolonged Immobilization Vascular Central Line Catheter: Yes Assessment to: Continue Date of Insertion: Oct 15, 2017 Line: Central Venous Catheter Side: Right Location: Subclavian A/P Assessment and Plan Neuro/Psych: Acute large right MCA/ bilateral JENNIFER infarct Severe encephalopathy History of bilateral parietal/occipital CVA T 7/8 spinal cord edema/dorsal impingement THC use EtOH Midazolam and fentanyl drips if necessary for sedation and vent synchrony Goal of RASS [address] brain 10/16 revealed significant cerebral drain in the right cerebral hemisphere indicative of right MCA/bilateral JENNIFER occlusions. 12 mm shift to left subfalcine. Herniation. Infarct involving left basal ganglia as well. . Aspirin 300 mg per rectum daily - Neurology/neurosurgery see documentation severity of the clinical situation. No surgical intervention per their recommendations MRI brain 10/15/17 -Very large ischemic infarct involving the entire right MCA, [employer] distribution and both JENNIFER distributions. MRI T spine- worsening edema in the cord above the level of dorsal impingement T7/8 related to ?arachnoid cyst or other T2 hyperintense abnormality. Dr. Evans discussed Dr. Ferreira. Due to involvement of multiple vascular territories Dr. Ferreira initiated's methylprednisolone 125 mg IV every 6 hours Appreciate neurosurgery regarding spinal cord edema at T7/8 level. No surgical management at this time CT brain 10/14 revealed old lacunar left parietal/lacho CVA Status post alteplase 7 mg 1 followed [place] [address] Ferreira neurology following- 2-D echo revealed EF 66%. Mild TR. PAP 30 mmHg Last echocardiogram 09/25 revealed EF 55-60%. No regional motion abnormality. MRA brain revealed occlusion right carotid. Bilateral anterior cerebral arteries and right MCA distribution Did not take prescribed warfarin CT brain 24 hours post alteplase revealed diffuse edema in the right cerebral region, less cerebral in the parasagittal region as well as a left frontal and parietal regions. Developing subfalcine herniation/uncal herniation with right suprasellar cistern effaced Acetaminophen for fever Multivitamin, folate and thiamine daily currently with IV Seizure precautions *Methylprednisolone 125 mg every 6 hours for spinal cord edema CV: Left internal carotid artery stenosis 80%, Right internal carotid artery stenosis 40-50% Coronary artery disease status post CABGx2 at age 37 Hypertension Dyslipidemia Sinus bradycardia Holding amlodipine 10 mg daily and atorvastatin 40 mg by mouth daily status post alteplase. Resume atorvastatin at 80 mg daily 10/17 Holding aspirin 81 mg daily and clopidogrel 75 mg by mouth daily. Currently on aspirin 300 mg daily Vascular surgery consultation-Dr. Bertrand - medical management Lipid panel ordered revealed low HDL. Otherwise within normal limits As needed. Labetalol/enalaprilat/hydralazine/nicardipine drip to maintain systolic blood pressure less than 160, and also was less than 90 2-D echo revealed EF 60-65%. Mild TR. PAP 30 mmHg Resp: Acute respiratory failure Ongoing [facility]ism [facility]./ Ventilator bundle Albuterol/ipratropium aerosols every 6 hours with albuterol aerosols every 2 hours. Dyspnea Tobacco cessation will be encouraged Spontaneous breathing trials not indicated DVT neurological status GI: Vital 1.5 goal 45 cc an hour Lansoprazole for GI prophylaxis Docusate sodium/senna for bowel regimen : No indication for Rodríguez catheter Endo: TSH within normal limits. SSI with Novulog with Accu-Cheks every 6 hours to maintain euglycemia/low regimen Renal: Creatinine currently within normal limits Currently on one quarter normal saline at 120 cc an hour Free water 300 cc every 6 hours Monitor urine output Accurate I's and O's Heme: Monitor CBC daily. Follow trends Hypercoagulable workup currently pending. ESR 3 ID: Left lower lobe pneumonia - Moraxella catarrhalis Currently on piperacillin/tazobactam 4.5 g IV every 6 hours day #4 Pertinent cultures Blood cultures 2 - 10/15 -no growth Urine culture - 6 -no growth Sputum - / -Moraxella catarrhalis FEN: Hypernatremia Replace electrolytes as clinically indicated Is continue hypertonic saline. Started quarter normal saline at 120 cc an hour. Add free water 300 cc every 6 hours. Sodiums every 6 hours. MSK: PT/OT/ST evaluate and treat Access Right subclavian CVL day [address] 10/15 Prophylaxis - GI - lansoprazole - DVT - SCD/holding pharmacological prophylaxis with high risk of bleeding due to cerebral edema Level III follow-up Perry Olivia MD Oct 18, 2017 10:32
[2017-10-18 11:20] LABS: BICARBONATE 20.9 MEQ/L (21.0-32.0); CALCIUM 8.6 MG/DL (8.5-10.1); CREATININE 2.12 MG/DL (0.60-1.30); MAGNESIUM 2.6 MG/DL (1.5-2.5); PHOSPHORUS 3.6 MG/DL (2.5-4.9)
--- NOTE | 2017-10-18 13:01 | HHI.HCPN ---
Spoke with business intelligence manager, Dr. Olivia, for follow-up on Mr. Barajas. Change in medical condition, no indication of brain at this time. Palliative care continues to work on identifying medical proxy decision maker. Apparently yesterday afternoon patient's friend, Tara, informed palliative [employer] of a son. Unable to elicit any identifying information (name, possible age, contact information, mother's name, etc). She was going to try and get a phone number from patient's phone. Spoke with Tara. She was unable to locate any information regarding patient' s son. Tells me she tried contacting other friends and past employers to see if they have information on his applications. [employer] report has been completed and all potential matches to patient/possible known sister were exhausted via [facility] results, social media, and google search. Reached out to legal for possible avenues regarding child support payments/ certificates to try and find a son/other family. Legal conducted searches for potential family, unable to find any matches. At this time cleared by legal to proceed with friend as health care proxy. Given all of the above, legal proxy decision maker falls to patient's long-time friend and caregiver, Tara Miller. Confirms again today she is willing to serve in this role. Palliative care will continue to follow throughout hospitalization. Suzie Truong, OUTSIDE SALESPERSON Oct 18, 2017 13:01
[2017-10-18 15:28] LABS: CARDIOLIPIN IGG AB <9.4 GPL; CARDIOLIPIN IGM AB 10.5 MPL
[2017-10-18 17:26] LABS: PROTEIN C ACTIVITY 88 % (70 - 150); PROTEIN S ACTIVITY 82 % (65 - 160)
[2017-10-18 18:45] LABS: BICARBONATE 19.6 MEQ/L (21.0-32.0); CALCIUM 8.5 MG/DL (8.5-10.1); CREATININE 1.96 MG/DL (0.60-1.30)
[2017-10-18] MEDS: ATORVASTATIN 40 MG TAB PO SCH (19:58)
[2017-10-18] MEDS: PIPERACIL-TAZO 3.375 GM PREMIX 50 ML IV SCH (19:58)
--- NOTE | 2017-10-18 22:09 | HHI.PR ---
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 Plan reduce solumedrol to 125 mg q 6 hr start aspirin rectal 300 mg daily mannitol for edema associated with cva and monitor serum osmolarity I discussed case with Dr Thomas, given the extensive nature of the strokes involving most of the right hemisphere and large area of left hemisphere, his prognosis is very poor . I do not feel that surgical therapy for the cerebral edema would be of benefit. reduce steroid Diagnosis/Plan: Subjective Subjective Comments No acute events reported Active Medications Current Medications Medications (Trade) Dose Ordered Sig/Aria Route Start Time Stop Time Status Last Admin (Renick 5-325 Mg) 1 tab Q4H PRN PO 10/14/17 22:30 (Morphine Inj) 2 mg Q2H PRN IV PUSH 10/14/17 22:30 10/16/17 15:14 (Zofran Inj) 4 mg Q6H PRN IV PUSH 10/14/17 22:30 10/15/17 00:40 (Albuterol Neb) 2.5 mg Q2HR NEB PRN INH 10/14/17 22:30 Miscellaneous Information 1 Q361D XX 10/14/17 22:30 (Chlorhexidine 2% Cloth) 3 pack Taper DAILY@04 TOP 10/15/17 04:00 10/11/18 03:59 (Chlorhexidine 2% Cloth) 3 pack UNSCH PRN TOP 10/14/17 22:30 (Nadeen-Colace) 1 tab BID PO 10/15/17 09:00 10/18/17 19:58 (Milk Of Magnesia Liq) 30 ml Q12H PRN PO 10/14/17 22:30 (Senokot) 17.2 mg Q12H PRN PO 10/14/17 22:30 (Dulcolax Supp) 10 mg DAILY PRN RECTAL 10/14/17 22:30 (Lactulose Liq) 30 ml DAILY PRN PO 10/14/17 22:30 (NS Flush) 2 ml BID IV FLUSH 10/15/17 09:00 10/18/17 08:28 (NS Flush) 2 ml UNSCH PRN IV FLUSH 10/14/17 22:30 (Trandate Inj) 10 mg Q2H PRN IV PUSH 10/14/17 22:30 (D50w (Vial) Inj) 50 ml UNSCH PRN IV PUSH 10/14/17 22:30 (Glucagon Inj) 1 mg UNSCH PRN OTHER 10/14/17 22:30 (Apresoline Inj) 10 mg Q1HR PRN IV PUSH 10/14/17 22:30 10/16/17 14:33 (Vasotec Inj) 2.5 mg Q6H PRN IV PUSH 10/14/17 22:30 (Peridex 0.12% Liq) 15 ml BID@08,20 MT 10/15/17 08:00 10/18/17 19:59 Propofol 100 ml @ 2.325 mls/ hr TITRATE PRN IV 10/15/17 05:15 10/15/17 08:15 Fentanyl Citrate 250 ml @ 5 mls/hr TITRATE PRN IV 10/15/17 05:15 10/15/17 07:42 (Prevacid Odt) 30 mg DAILY NG 10/15/17 09:00 10/18/17 08:27 (Tears Naturale Opth Soln) 1 drop Q8HR EACH EYE 10/15/17 06:00 10/18/17 14:13 (Lipitor) 80 mg HS PO 10/15/17 21:00 10/18/17 19:58 Midazolam HCl 100 ml @ 2 mls/hr TITRATE PRN IV 10/15/17 17:00 10/16/17 15:19 (Tylenol 650 Mg/ 20 ml Liq) 650 mg Q6H PRN NG 10/16/17 07:15 Nicardipine HCl 25 mg/Sodium Chloride 250 ml @ 50 mls/hr TITRATE PRN IV 10/16/17 07:15 (NovoLOG SUPPLEMENTAL SCALE) 1 Q6HR SQ 10/16/17 12:00 10/18/17 17:38 Methylprednisolone Sodium Succinate 125 mg/Dextrose 100 ml @ 200 mls/hr Q6H IV 10/16/17 15:00 10/18/17 14:52 (Aspirin Supp) 300 mg DAILY RECTAL 10/16/17 10:00 10/18/17 08:27 Sodium Chloride 38.5 meq/Sterile Water 1,009.625 ml @ 120 mls/hr Q8H25M IV 10/17/17 09:00 10/18/17 17:38 (Duoneb Neb) 1 ampule Q6HR NEB NEB 10/18/17 16:00 10/18/17 20:03 (Free Water) 300 ml Q6HR G-TUBE 10/18/17 12:00 10/18/17 17:38 Piperacillin Sod/ Tazobactam Sod 50 ml @ 100 mls/hr Q6H IV 10/18/17 20:00 10/18/17 19:58 Allergies Allergies Coded Allergies No Known Allergies (Verified Allergy, Severe, 04/29/08) Review of Systems All other ROS: ROS reviewed as documented in chart Exam I&O / VS 10/18/17 10/18/17 10/19/17 15:00 23:00 07:00 Intake Total 300 ml 1259.625 ml Output Total 550 ml Balance 300 ml 709.625 ml Intake IV Total 300 ml 1109.625 ml Tube Feeding 150 ml Output Urine Total 550 ml # Bowel Movements 0 Vital Signs Date Time Temp Pulse Resp B/P (MAP) Pulse Ox O2 Delivery O2 Flow Rate FiO2 10/18/17 20:04 96 55 10/18/17 20:00 89 10/18/17 20:00 55 10/18/17 20:00 98.7 89 16 125/70 (88) 95 10/18/17 18:00 86 10/18/17 16:00 55 10/18/17 16:00 96 55 10/18/17 16:00 98.9 87 16 120/67 (84) 95 10/18/17 16:00 88 10/18/17 14:00 85 10/18/17 12:00 85 10/18/17 12:00 98.6 85 16 121/67 (85) 97 10/18/17 12:00 55 10/18/17 10:34 95 55 10/18/17 10:00 106 10/18/17 08:00 92 10/18/17 08:00 55 10/18/17 08:00 98.8 90 16 108/61 (77) 94 10/18/17 07:46 95 55 10/18/17 06:00 87 1/9/18 04:10 95 55 10/18/17 04:00 99 10/18/17 04:00 98.2 99 16 109/66 (80) 94 10/18/17 04:00 50 10/18/17 02:00 82 10/18/17 01:45 95 55 10/18/17 00:00 80 10/18/17 00:00 50 10/18/17 00:00 97.5 81 16 113/68 (83) 94 10/17/17 23:50 96 55 Exam Comments sedated, nonresponsive Pupils 3mm bilateral and sluggishly reactive EOM--limited to occulocephalics MOTOR--no withdrawal Objective Micro and Labs Laboratory Tests Test 10/18/17 01:30 10/18/17 06:00 10/18/17 10:50 10/18/17 17:30 Sodium Level 171 167 168 164 Serum Osmolality 363 359 352 White Blood Count 11.1 Red Blood Count 4.22 Hemoglobin 12.7 Hematocrit 38.9 Mean Corpuscular Volume 92.3 Mean Corpuscular Hemoglobin 30.2 Mean Corpuscular Hemoglobin Concent 32.7 Red Cell Distribution Width 14.7 Platelet Count 115 Mean Platelet Volume 10.2 Blood Urea Nitrogen 36 34 Creatinine 2.12 1.96 Random Glucose 234 259 Calcium Level 8.6 8.5 Phosphorus Level 3.6 Magnesium Level 2.6 Potassium Level 3.8 3.5 Chloride Level 136 133 Carbon Dioxide Level 20.9 19.6 Anion Gap 11 11 Estimat Glomerular Filtration Rate 32 35 Date/Time Source Procedure Growth Status 10/15/17 14:45 Blood Peripheral Aerobic Blood Culture - Preliminary NO GROWTH IN 3 DAYS Resulted 10/15/17 14:45 Blood Peripheral Anaerobic Blood Culture - Preliminary NO GROWTH IN 3 DAYS Resulted 10/15/17 14:42 Sputum Endotracheal Gram Stain - Final Complete 10/15/17 14:42 Sputum Culture - Final Moraxella Catarrahalis Complete 10/15/17 14:45 Urine Catheterized Urine Urine Culture - Final NO GROWTH IN 48 HOURS. Complete Maxim Ferreira MD PhD Oct 18, 2017 22:09
[2017-10-19] VITALS (19 sets, daily range): BP systolic 125–143; BP diastolic 68–78; PULSE 78–93; RESP 16; TEMP 98–98.9; O2SAT 94–96
[2017-10-19] MEDS: SODIUM CHLORIDE 23.4% INJ 38.5 MEQ in WATER STERILE FOR INJ 1,000 ML IV SCH ×4 (02:13→23:57)
[2017-10-19] MEDS: methylPREDNISolone SOD SUCC 125 MG/2 ML VIAL IV SCH ×4 (02:45→21:14)
[2017-10-19] MEDS: PIPERACIL-TAZO 3.375 GM PREMIX 50 ML IV SCH ×4 (02:45→19:52)
[2017-10-19] MEDS ORDERED: WATER IV SCH ×2 (03:00)
[2017-10-19] MEDS ORDERED: DEXTROSE 5% IV SCH ×2 (03:00)
[2017-10-19] MEDS ORDERED: METHYLPREDNISOLONE SO SUCC IV SCH ×2 (03:00)
[2017-10-19] MEDS: RESP: ALBUTEROL 2.5 MG/IPRATROPIUM 0.5 MG NEB (SCH) NEB ×4 (03:26→20:24)
[2017-10-19] MEDS: CHLORHEXIDINE GLUCONATE 2 % 1 PACK (2 CLOTHS) TOP SCH (04:00)
[2017-10-19] MEDS: ARTIFICIAL TEARS OPTH SOLN 15 ML BTL EACH EYE SCH ×3 (06:00→22:44)
[2017-10-19] MEDS: FREE WATER G-TUBE SCH ×6 (06:00→23:46)
--- NOTE | 2017-10-19 06:02 | RADRPT ---
EXAM DATE/TIME: 10/19/2017 04:39 [facility] COMPARISON: CHEST SINGLE AP, October 17, 2017, 4:04. INDICATIONS : Shortness of breath. MEDICAL HISTORY : Hypertension. SURGICAL HISTORY : CABG Loop recorder ENCOUNTER: Subsequent ACUITY: 4 - 6 days PAIN SCORE: Non-responsive. LOCATION: Bilateral chest FINDINGS: The cardiac silhouette is enlarged in transverse diameter. There is left lower lobe atelectasis versu s pneumonia. A small left sided effusion is present. The right lung is free of acute parenchymal opac ity. CONCLUSION: 1. Left lower lobe atelectasis versus pneumonia. There has been no significant change when compared t o the prior exam. Abdoul Quezada MD on October 19, 2017 at 5:59 Board Certified Radiologist. This report was verified electronically.
[2017-10-19 06:19] LABS: AUTOMATED NEUTROPHIL # 12.7 TH/MM3 (1.8-7.7); BASOPHIL % 0.2 % (0.0-2.0); HEMATOCRIT 39.3 % (39.0-51.0); HEMOGLOBIN 12.8 GM/DL (13.0-17.0); LYMPH % 3.8 % (9.0-44.0); LYMPHOCYTE # 0.5 TH/MM3 (1.0-4.8); MEAN CELL VOLUME 92.9 FL (80.0-100.0); MEAN CORPUSCULAR HEMOGLOBIN 30.3 PG (27.0-34.0); MEAN CORPUSCULAR HGB CONC 32.6 % (32.0-36.0); MEAN PLATELET VOLUME 10.4 FL (7.0-11.0); MONO % 5.3 % (0.0-8.0); MONOCYTE # 0.7 TH/MM3 (0-0.9); NEUT % 90.7 % (16.0-70.0); PLATELET COUNT 78 TH/MM3 (150-450); RED BLOOD COUNT 4.23 MIL/MM3 (4.50-5.90); RED CELL DISTRIBUTION WIDTH 14.5 % (11.6-17.2)
[2017-10-19 06:53] LABS: ALBUMIN 2.5 GM/DL (3.4-5.0); ALKALINE PHOSPHATASE 63 U/L (45-117); ALT (GPT) 104 U/L (12-78); AST (GOT) 399 U/L (15-37); BICARBONATE 19.7 MEQ/L (21.0-32.0); BLOOD UREA NITROGEN 35 MG/DL (7-18); CALCIUM 8.7 MG/DL (8.5-10.1); CHLORIDE 131 MEQ/L (98-107); CREATININE 1.71 MG/DL (0.60-1.30); GLOMERULAR FILTRATION RATE 41 ML/MIN (>89); GLUCOSE,RANDOM 336 MG/DL (74-106); MAGNESIUM 2.5 MG/DL (1.5-2.5); PHOSPHORUS 2.3 MG/DL (2.5-4.9); TOTAL BILIRUBIN ADULT 0.3 MG/DL (0.2-1.0); TOTAL PROTEIN 6.2 GM/DL (6.4-8.2)
[2017-10-19 06:57] LABS: SODIUM (NA) 162 MEQ/L (136-145)
[2017-10-19] MEDS: INSULIN ASPART SUPPLEMENTAL SCALE SQ SCH ×5 (07:38→23:47)
[2017-10-19] MEDS: CHLORHEXIDINE 0.12% (ORAL KIT) 15 ML CUP MT SCH ×2 (08:00→19:53)
[2017-10-19] MEDS: SODIUM CHLORIDE 0.9% FLUSH 10 ML FLUSH IV FLUSH SCH ×2 (08:06→21:00)
[2017-10-19] MEDS: LANSOPRAZOLE SOLUTAB 30 MG TAB NG SCH (08:26)
[2017-10-19] MEDS: ASPIRIN 300 MG SUPP RECTAL SCH (08:26)
[2017-10-19] MEDS: DOCUSATE SODIUM 50 MG/SENNA 8.6 MG TAB PO SCH ×2 (08:27→21:15)
[2017-10-19 13:53] LABS: DRVVT 1:1 MIX ND (CORRECTED); DRVVT CONFIRM ND (NEGATIVE); HEXAGONAL PHASE CONFIRM ND (NEGATIVE)
--- NOTE | 2017-10-19 15:56 | HHI.HCPN ---
Reason for visit a. To assist with evaluation and management of symptoms including: Pain, dyspnea b. To assist medical decision maker(s) with: better understanding of current medical conditions; weighing benefits/burdens of medical treatment options; making medical treatment decisions. Subjective/Interval History Patient remains encephalopathic. He has some minimal withdrawal to pain on lower extremities, none upper extremities. Gag and corneal reflexes are negative. He does not blink to threat. He has failed his spontaneous breathing trials within 60 seconds as he has no spontaneous respirations. His sodium is decreasing appropriately on therapy down to 162 from 175. Liver function is declining with increase in AST to 399 and ALT 104. Sputum culture shows Moraxella catarrhalis. Blood cultures are negative 4 days, urine culture is negative 48 hours. He has remained afebrile however white blood cell count continues to climb, now up to 14.0, but patient is receiving Solu-Medrol. Platelets continued to decline down to 78. Chest x-ray shows left lower lobe atelectasis versus pneumonia. Neurology is following and feel that surgical therapy would not be of benefit for his cerebral edema and feels that his prognosis is very poor. . Family/friend interactions Call placed to Tara Miller to discuss CODE STATUS and potential upcoming compassionate withdrawal of ventilator support. Voicemail left for return call. . Advance Directives Living Will: Never completed Health Care Surrogate: Never completed Durable Power of Review Rn: Never completed Objective Vital Signs Date Time Temp Pulse Resp B/P (MAP) Pulse Ox O2 Delivery O2 Flow Rate FiO2 10/19/17 14:00 81 10/19/17 12:39 94 50 10/19/17 12:00 84 10/19/17 12:00 55 10/19/17 12:00 98.9 84 16 143/76 (98) 95 10/19/17 10:00 87 10/19/17 08:00 89 10/19/17 08:00 98.2 93 16 132/73 (92) 96 10/19/17 08:00 55 10/19/17 07:49 95 50 10/19/17 06:00 88 10/19/17 04:00 80 10/19/17 04:00 55 10/19/17 04:00 98.9 90 16 132/73 (92) 95 10/19/17 03:26 95 55 10/19/17 02:00 85 10/19/17 00:52 94 55 10/19/17 00:00 55 10/19/17 00:00 98.7 84 16 126/68 (87) 95 10/19/17 00:00 85 10/18/17 22:00 85 10/18/17 20:04 96 55 10/18/17 20:00 89 10/18/17 20:00 55 10/18/17 20:00 98.7 89 16 125/70 (88) 95 10/18/17 18:00 86 10/18/17 16:00 55 10/18/17 16:00 96 55 10/18/17 16:00 98.9 87 16 120/67 (84) 95 10/18/17 16:00 88 Intake & Output 10/19/17 10/19/17 07:00 19:00 Intake Total 1340 ml Output Total 250 ml Balance 1090 ml Intake IV Total 200 ml Tube Feeding 540 ml Other 600 ml Output Urine Total 250 ml # Bowel Movements 0 Physical Exam CONSTITUTIONAL/GENERAL: This is an adequately nourished patient, in no apparent distress. TUBES/LINES/DRAINS: [facility] central line ETT, Rodríguez EYES: Pupils equal and round, 3-4 mm non-reactive. No injection or drainage. Fundi not examined. NECK: Trachea midline. Supple, nontender. No palpable thyroid enlargement or nodularity. CARDIOVASCULAR: Regular rate and rhythm without murmurs, gallops, or rubs. No JVD. Peripheral pulses symmetric. RESPIRATORY/CHEST: Symmetric, unlabored respirations. Clear to auscultation. Breath sounds equal bilaterally. No wheezes, rales, or rhonchi. GASTROINTESTINAL: Abdomen soft, nondistended. No hepato-splenomegaly, or palpable masses. No guarding. Bowel sounds present. GENITOURINARY: Without palpable bladder distension. Rodríguez catheter in place. MUSCULOSKELETAL: Extremities without clubbing, cyanosis, or edema. No mottling or clubbing. NEUROLOGICAL: Slight withdrawal to painful stimuli bilateral lower extremities otherwise Unresponsive PSYCHIATRIC: Unresponsive . Diagnostic Tests Laboratory Laboratory Tests Test 10/16/17 18:33 10/17/17 00:20 10/17/17 06:25 10/17/17 10:30 Sodium Level 169 MEQ/L (136-145) 175 MEQ/L (136-145) 175 MEQ/L (136-145) Serum Osmolality 358 MOSM/KG (275-295) 363 MOSM/KG (275-295) 363 MOSM/KG (275-295) White Blood Count 11.5 TH/MM3 (4.0-11.0) Red Blood Count 4.47 MIL/MM3 (4.50-5.90) Hemoglobin 13.7 GM/DL (13.0-17.0) Hematocrit 41.7 % (39.0-51.0) Mean Corpuscular Volume 93.2 FL (80.0-100.0) Mean Corpuscular Hemoglobin 30.5 PG (27.0-34.0) Mean Corpuscular Hemoglobin Concent 32.7 % (32.0-36.0) Red Cell Distribution Width 14.2 % (11.6-17.2) Platelet Count 143 TH/MM3 (150-450) Mean Platelet Volume 10.5 FL (7.0-11.0) Neutrophils (%) (Auto) 85.9 % (16.0-70.0) Lymphocytes (%) (Auto) 4.9 % (9.0-44.0) Monocytes (%) (Auto) 9.1 % (0.0-8.0) Eosinophils (%) (Auto) 0.0 % (0.0-4.0) Basophils (%) (Auto) 0.1 % (0.0-2.0) Neutrophils # (Auto) 9.9 TH/MM3 (1.8-7.7) Lymphocytes # (Auto) 0.6 TH/MM3 (1.0-4.8) Monocytes # (Auto) 1.0 TH/MM3 (0-0.9) Eosinophils # (Auto) 0.0 TH/MM3 (0-0.4) Basophils # (Auto) 0.0 TH/MM3 (0-0.2) CBC Comment DIFF FINAL Differential Comment Blood Urea Nitrogen 23 MG/DL (7-18) Creatinine 1.43 MG/DL (0.60-1.30) Random Glucose 138 MG/DL (74-106) Calcium Level 9.4 MG/DL (8.5-10.1) Phosphorus Level 3.3 MG/DL (2.5-4.9) Magnesium Level 2.7 MG/DL (1.5-2.5) Potassium Level 4.1 MEQ/L (3.5-5.1) Chloride Level 146 MEQ/L (98-107) Carbon Dioxide Level 23.6 MEQ/L (21.0-32.0) Anion Gap 5 MEQ/L (5-15) Estimat Glomerular Filtration Rate 51 ML/MIN (>89) Nasal Screen MRSA (PCR) MRSA NOT DETECTED (NOT Test 10/17/17 17:30 10/18/17 01:30 10/18/17 06:00 10/18/17 10:50 Sodium Level 171 MEQ/L (136-145) 171 MEQ/L (136-145) 167 MEQ/L (136-145) 168 MEQ/L (136-145) Serum Osmolality 363 MOSM/KG (275-295) 363 MOSM/KG (275-295) 359 MOSM/KG (275-295) White Blood Count 11.1 TH/MM3 (4.0-11.0) Red Blood Count 4.22 MIL/MM3 (4.50-5.90) Hemoglobin 12.7 GM/DL (13.0-17.0) Hematocrit 38.9 % (39.0-51.0) Mean Corpuscular Volume 92.3 FL (80.0-100.0) Mean Corpuscular Hemoglobin 30.2 PG (27.0-34.0) Mean Corpuscular Hemoglobin Concent 32.7 % (32.0-36.0) Red Cell Distribution Width 14.7 % (11.6-17.2) Platelet Count 115 TH/MM3 (150-450) Mean Platelet Volume 10.2 FL (7.0-11.0) Blood Urea Nitrogen 36 MG/DL (7-18) Creatinine 2.12 MG/DL (0.60-1.30) Random Glucose 234 MG/DL (74-106) Calcium Level 8.6 MG/DL (8.5-10.1) Phosphorus Level 3.6 MG/DL (2.5-4.9) Magnesium Level 2.6 MG/DL (1.5-2.5) Potassium Level 3.8 MEQ/L (3.5-5.1) Chloride Level 136 MEQ/L (98-107) Carbon Dioxide Level 20.9 MEQ/L (21.0-32.0) Anion Gap 11 MEQ/L (5-15) Estimat Glomerular Filtration Rate 32 ML/MIN (>89) Test 10/18/17 17:30 10/19/17 01:00 10/19/17 06:00 Blood Urea Nitrogen 34 MG/DL (7-18) 35 MG/DL (7-18) Creatinine 1.96 MG/DL (0.60-1.30) 1.71 MG/DL (0.60-1.30) Random Glucose 259 MG/DL (74-106) 336 MG/DL (74-106) Calcium Level 8.5 MG/DL (8.5-10.1) 8.7 MG/DL (8.5-10.1) Sodium Level 164 MEQ/L (136-145) 161 MEQ/L (136-145) 162 MEQ/L (136-145) Potassium Level 3.5 MEQ/L (3.5-5.1) 3.6 MEQ/L (3.5-5.1) Chloride Level 133 MEQ/L (98-107) 131 MEQ/L (98-107) Carbon Dioxide Level 19.6 MEQ/L (21.0-32.0) 19.7 MEQ/L (21.0-32.0) Anion Gap 11 MEQ/L (5-15) 11 MEQ/L (5-15) Estimat Glomerular Filtration Rate 35 ML/MIN (>89) 41 ML/MIN (>89) Serum Osmolality 352 MOSM/KG (275-295) 350 MOSM/KG (275-295) 352 MOSM/KG (275-295) White Blood Count 14.0 TH/MM3 (4.0-11.0) Red Blood Count 4.23 MIL/MM3 (4.50-5.90) Hemoglobin 12.8 GM/DL (13.0-17.0) Hematocrit 39.3 % (39.0-51.0) Mean Corpuscular Volume 92.9 FL (80.0-100.0) Mean Corpuscular Hemoglobin 30.3 PG (27.0-34.0) Mean Corpuscular Hemoglobin Concent 32.6 % (32.0-36.0) Red Cell Distribution Width 14.5 % (11.6-17.2) Platelet Count 78 TH/MM3 (150-450) Mean Platelet Volume 10.4 FL (7.0-11.0) Neutrophils (%) (Auto) 90.7 % (16.0-70.0) Lymphocytes (%) (Auto) 3.8 % (9.0-44.0) Monocytes (%) (Auto) 5.3 % (0.0-8.0) Eosinophils (%) (Auto) 0.0 % (0.0-4.0) Basophils (%) (Auto) 0.2 % (0.0-2.0) Neutrophils # (Auto) 12.7 TH/MM3 (1.8-7.7) Lymphocytes # (Auto) 0.5 TH/MM3 (1.0-4.8) Monocytes # (Auto) 0.7 TH/MM3 (0-0.9) Eosinophils # (Auto) 0.0 TH/MM3 (0-0.4) Basophils # (Auto) 0.0 TH/MM3 (0-0.2) CBC Comment AUTO DIFF Differential Comment AUTO DIFF CONFIRMED Total Protein 6.2 GM/DL (6.4-8.2) Albumin 2.5 GM/DL (3.4-5.0) Phosphorus Level 2.3 MG/DL (2.5-4.9) Magnesium Level 2.5 MG/DL (1.5-2.5) Alkaline Phosphatase 63 U/L (45-117) Aspartate Amino Transf (AST/SGOT) 399 U/L (15-37) Alanine Aminotransferase (ALT/SGPT) 104 U/L (12-78) Total Bilirubin 0.3 MG/DL (0.2-1.0) . Result Diagram: 10/19/17 0600 10/19/17 06 Microbiology Microbiology Date/Time Source Procedure Growth Status 10/15/17 14:45 Blood Peripheral Aerobic Blood Culture - Preliminary NO GROWTH IN 4 DAYS Resulted 10/15/17 14:45 Blood Peripheral Anaerobic Blood Culture - Preliminary NO GROWTH IN 4 DAYS Resulted 10/15/17 14:42 Sputum Endotracheal Gram Stain - Final Complete 10/15/17 14:42 Sputum Culture - Final Moraxella Catarrahalis Complete 10/15/17 14:45 Urine Catheterized Urine Urine Culture - Final NO GROWTH IN 48 HOURS. Complete . Imaging Last Impressions Chest X-Ray 10/19/17 0600 Signed Impressions: Service Date/Time: Thursday, October 19, 2017 04:39 - CONCLUSION: 1. Left lower lobe atelectasis versus pneumonia. There has been no significant change when compared to the prior exam. Abdoul Quezada MD Head CT 10/16/17 0000 Signed Impressions: Service Date/Time: Monday, October 16, 2017 10:08 - CONCLUSION: Extensive diffuse cerebral edema involving almost the entire right cerebral hemisphere as well as the medial aspect of the left cerebral hemisphere indicating infarctions of the right middle cerebral and bilateral anterior cerebral arteries with subfalcine herniation to the left measuring 12 mm which is worse than on the previous examination. Edema is also noted involving left basal ganglia. No acute hemorrhage is noted. Andrade Milligan MD Thoracic Spine MRI 10/15/17 0900 Signed Impressions: Service Date/Time: Sunday, October 15, 2017 12:26 - CONCLUSION: There is worsening edema in the cord above the level of dorsal impingement related to arachnoid cyst or other T2 hyperintense abnormality. Contrast administration would be helpful. Note is made of left basilar atelectasis versus pneumonia. Abdoul Quezada MD Head Magnetic Resonance Angiography 10/15/17 0000 Signed Impressions: Service Date/Time: Sunday, October 15, 2017 12:26 - CONCLUSION: 1. Complete occlusion of the right carotid artery and both anterior cerebrals and right middle cerebral artery Abdoul Quezada MD Carotid Artery Ultrasound 10/15/17 0000 Signed Impressions: Service Date/Time: Sunday, October 15, 2017 08:16 - CONCLUSION: 1. High- grade stenosis on the left side greater than 70%%. CT angiography of the cervicobrachial arch and carotid arteries is recommended for further evaluation if clinically indicated.8 Abdoul Quezada MD Brain MRI 10/15/17 0000 Signed Impressions: Service Date/Time: Sunday, October 15, 2017 12:26 - CONCLUSION: 1. Extremely large ischemic infarct involving the entire right middle cerebral artery distribution and both anterior cerebral artery distributions. Follow CT to evaluate for evolving cerebral edema is recommended. Abdoul Quezada MD . Procedures 10/15/17: Right subclavian central line placement 10/15/17: Endotracheal intubation. . Assessment and Plan Disease Oriented Problem List: (1) cardiovascular occlusive disease (2) tobaccoism (3) CVA (cerebral vascular accident) (4) Carotid stenosis, bilateral (5) HTN (hypertension) Symptom Scale: (1) Dyspnea and respiratory abnormalities 0-10 Scale: Unable to quantify (2) Pain, generalized 0-10 Scale: Unable to quantify Pertinent Non-Medical Issues Psychosocial:He was born in [place] and attended school there. He moved to [place] in 1981. 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 He was at one time and had a son, whom he has not seen since he was an infant, but does maintain some phone contact with. He is . He does have 1 sister whom he has had no contact with for over 10 years and has been unable to locate. Spiritual: Ra[employer]. Legal: No known legal issues. Ethical issues impacting care: No known ethical issues. . Important Contacts Friend: Tara Miller Roommate: Krunal Employer: [employer] . . Prognosis His prognosis is very poor. He has had an enormous, devastating CVA involving the entire right and part of the left cerebral hemispheres. He is progressing towards brain . Code Status: Full Code Plan PLAN: Legal decision maker: At this time his friend, Tara Miller has agreed to be his legal decision maker. She has indicated that he has a son, and attempt is being made to contact him, however it is thought that he may be a minor child and unable to participate. Goals: At this time he remains a full code pending establishment of a decision-maker. CODE STATUS: FULL CODE SYMPTOMS: * Pain: At this time he is withdrawing to pain only in the lower extremities, however is at risk as he is not able to make his needs known, has multiple invasive lines and is bedbound, however if compassionate withdrawal of ventilator support is necessary, pain will be managed with opioids. He has remained a full code during the search for a decision-maker. A call has been placed to Tara Miller, his friend who has agreed to be the decision-maker. And I am waiting for a return call to discuss CODE STATUS and potential withdrawal of vent support in the next 24-48 hours. * Dyspnea: He is at significant risk for dyspnea secondary to mechanical ventilation, inability to protect airway, neurologic dysfunction and worsening imaging studies suspicious for pneumonia. Continue mechanical ventilation management per head wrestling coach. He has no spontaneous respirations at all per the CPAP trial done 10/17/17, indicating significant neurologic dysfunction. Palliative care will continue to follow the patient during hospital course as condition evolves, to assist patient/decision-maker with understanding of their medical conditions, weighing benefits/burdens of treatment options, for clarification of goals of treatment. Additionally will assist with any symptoms of palliative concern. . Time Spent >50% Counseling/Coord of Care: No (voicemail left for decision-maker, Cecilia Miller.) Attestation To help prompt me to consider important information that might be impacting today's encounter and assessment, information from prior notes written by myself or my colleagues may have been "brought forward" into today's note. My signature on this note, however, is an attestation that I personally performed the exam, history, and/or decision-making noted today, and, unless otherwise indicated, the interactions with patient, family, and staff as well as the review of records all occurred today. I also attest that the listed assessment and stated plan reflect my best clinical judgment today based on the combination of historical information, prior notes, and today's exam/ interactions. When time spent is documented, it refers only to time spent today by the signer, or if indicated, combined time spent today by collaborating physician/nurse practitioner. . Katia Blanco Oct 19, 2017 15:56
--- NOTE | 2017-10-19 18:52 | HHI.CCPN ---
Subjective Remarks/Hospital Course This is a 57-year-old male. Date of admission 10/14/2017. Past medical history includes coronary disease status post CABG at age 37, known left internal carotid occlusive disease 89%, right ICA 46%, COPD, ongoing tobaccoism and hypertension. Patient was seen in 04/25 and 09/25 with left and right upper extremity weakness respectively. Patient has a imaging his brain which reveals bilateral parietal occipital CVA and known left internal carotid artery 80-90 % occlusion/right internal carotid artery 40-50% occlusion patient presents to [facility] today after he was found status post falling to the ground complaining of left arm/shoulder weakness. on Coumadin which he is not taking and he is now back with the same symptoms 30 minutes onset left hand 0 out of 5 otherwise neuro exam is normal. CT brain revealed old left parietal CVA. Decision was given to provide alteplase per Dr. Ferreira. Received 7 mg bolus followed by 63 mg. Plan to admit the ICU with frequent neuro checks of vascular consultation. He received hydralazine due to elevated blood pressure. Currently symptoms have not resolved with persistent left upper extremity weakness. We are asked with the patient. 10/15/17:Patient remains intubated heavily sedated. Very slight withdrawal of bilateral extremities on sedation. MRI brain today -Very large ischemic infarct involving the entire right middle cerebral artery distribution and both anterior cerebral artery distributions. MRI T spine- worsening edema in the cord above the level of dorsal impingement related to ?arachnoid cyst or other T2 hyperintense abnormality. 10/16: Afebrile. Placed on dopamine overnight due to bradycardia. Currently at 3 mcg/kg per minute Patient currently withdrawing right upper and lower extremity left lower extremity. Right pupil 5 mm and sluggish. Left pupil 1 mm and minimally reactive. Positive cough. Noted CT brain revealed no edema right hemisphere/left frontal/parietal region along with impending subfalcine/ uncal herniation. 10/17: Afebrile. Off all vasopressors. No corneal reflex. No gag. CT yesterday revealed worsening cerebral edema right MCA, bilateral JENNIFER distribution with a 12 mm subfalcine shift to the left. 3% saline discontinued due to elevated sodium. Pupils are essentially fixed. 10/18: Afebrile. Off all vasopressors. Withdraws to bilateral lower x-rays. Not overbreathing the ventilator. Pupils are about 3-4 minutes bilaterally and fixed. Subjective 10/19: Afebrile. Withdrawals to bilateral lower extremities. Withdrawing upper extremities as AM. Rodríguez placed due to urinary retention. Off all sedation. Objective Vital Signs Date Time Temp Pulse Resp B/P (MAP) Pulse Ox O2 Delivery O2 Flow Rate FiO2 10/19/17 18:00 82 10/19/17 17:34 96 50 10/19/17 16:00 98.0 16 125/70 (88) Intake and Output 10/19/17 10/19/17 10/20/17 08:00 16:00 00:00 Intake Total 1240 ml 548 ml Output Total 250 ml 2500 ml Balance 990 ml -1952 ml Result Diagram: 10/19/17 0600 10/19/17 1500 Other Results Microbiology Date/Time Source Procedure Growth Status 10/15/17 14:45 Blood Peripheral Aerobic Blood Culture - Preliminary NO GROWTH IN 4 DAYS Resulted 10/15/17 14:45 Blood Peripheral Anaerobic Blood Culture - Preliminary NO GROWTH IN 4 DAYS Resulted 10/15/17 14:42 Sputum Endotracheal Gram Stain - Final Complete 10/15/17 14:42 Sputum Culture - Final Moraxella Catarrahalis Complete 10/15/17 14:45 Urine Catheterized Urine Urine Culture - Final NO GROWTH IN 48 HOURS. Complete Imaging Last Impressions Chest X-Ray 10/19/17 0600 Signed Impressions: Service Date/Time: Thursday, October 19, 2017 04:39 - CONCLUSION: 1. Left lower lobe atelectasis versus pneumonia. There has been no significant change when compared to the prior exam. Abdoul Quezada MD Head CT 10/16/17 0000 Signed Impressions: Service Date/Time: Monday, October 16, 2017 10:08 - CONCLUSION: Extensive diffuse cerebral edema involving almost the entire right cerebral hemisphere as well as the medial aspect of the left cerebral hemisphere indicating infarctions of the right middle cerebral and bilateral anterior cerebral arteries with subfalcine herniation to the left measuring 12 mm which is worse than on the previous examination. Edema is also noted involving left basal ganglia. No acute hemorrhage is noted. Andrade Milligan MD Thoracic Spine MRI 10/15/17 0900 Signed Impressions: Service Date/Time: Sunday, October 15, 2017 12:26 - CONCLUSION: There is worsening edema in the cord above the level of dorsal impingement related to arachnoid cyst or other T2 hyperintense abnormality. Contrast administration would be helpful. Note is made of left basilar atelectasis versus pneumonia. Abdoul Quezada MD Head Magnetic Resonance Angiography 10/15/17 Signed Impressions: Service Date/Time: Sunday, October 15, 2017 12:26 - CONCLUSION: 1. Complete occlusion of the right carotid artery and both anterior cerebrals and right middle cerebral artery Abdoul Quezada MD Carotid Artery Ultrasound 10/15/17 Signed Impressions: Service Date/Time: Sunday, October 15, 2017 08:16 - CONCLUSION: 1. High- grade stenosis on the left side greater than 70%%. CT angiography of the cervicobrachial arch and carotid arteries is recommended for further evaluation if clinically indicated.8 Abdoul Quezada MD Brain MRI 10/15/17 Signed Impressions: Service Date/Time: Sunday, October 15, 2017 12:26 - CONCLUSION: 1. Extremely large ischemic infarct involving the entire right middle cerebral artery distribution and both anterior cerebral artery distributions. Follow CT to evaluate for evolving cerebral edema is recommended. Abdoul Quezada MD Objective Remarks GENERAL: This is a 57-year-old male currently intubated resting in bed in no acute distress SKIN: Warm and dry. Scars of the thorax from prior CABG HEAD: Atraumatic. Normocephalic. EYES: Pupils are about 4 mm bilaterally and fixed ENT: No nasal bleeding or discharge. Orotracheally intubated NECK: Trachea midline. No JVD. Positive left carotid bruit / CARDIOVASCULAR: Regular rate and rhythm. S1, S2. No S4. Without murmur RESPIRATORY: Few crackles appreciated in the left lower lobes. Symmetrical excursion. Breath sounds equal bilaterally. GASTROINTESTINAL: Abdomen soft, non-tender, nondistended. Hypoactive bowel sounds. MUSCULOSKELETAL: Extremities without significant peripheral edema. No obvious deformities. NEUROLOGICAL: Pupils as above. Cannot elicit cough/gag. No corneal reflex. Withdraws to pain bilateral lower extremities and upper extremity Urinary Catheter: Yes Assessment to: Continue Rodríguez insert reason: Obstruction/Retention Vascular Central Line Catheter: Yes Assessment to: Continue Date of Insertion: Oct 15, 2017 Line: Central Venous Catheter Side: Right Location: Subclavian A/P Assessment and Plan Neuro/Psych: Acute large right MCA/ bilateral JENNIFER infarct Severe encephalopathy History of bilateral parietal/occipital CVA T 7/8 spinal cord edema/dorsal impingement THC use EtOH Midazolam and fentanyl drips if necessary for sedation and vent synchrony Goal of RASS [address] brain 10/16 revealed significant cerebral drain in the right cerebral hemisphere indicative of right MCA/bilateral JENNIFER occlusions. 12 mm shift to left subfalcine. Herniation. Infarct involving left basal ganglia as well. . Aspirin 300 mg per rectum daily - Neurology/neurosurgery see documentation severity of the clinical situation. No surgical intervention per their recommendations MRI brain 10/15/17 -Very large ischemic infarct involving the entire right MCA, G[employer] SYSTEM[employer] WORKER distribution and both JENNIFER distributions. MRI T spine- worsening edema in the cord above the level of dorsal impingement T7/8 related to ?arachnoid cyst or other T2 hyperintense abnormality. Dr. Evans discussed Dr. Ferreira. Due to involvement of multiple vascular territories Dr. Ferreira initiated's methylprednisolone 125 mg IV every 6 hours Appreciate neurosurgery regarding spinal cord edema at T7/8 level. No surgical management at this time CT brain 10/14 revealed old lacunar left parietal/lacho CVA Status post alteplase 7 mg 1 followed [place] [address] Ferreira neurology following- 2-D echo revealed EF 66%. Mild TR. PAP 30 mmHg Last echocardiogram 09/25 revealed EF 55-60%. No regional motion abnormality. MRA brain revealed occlusion right carotid. Bilateral anterior cerebral arteries and right MCA distribution Did not take prescribed warfarin CT brain 24 hours post alteplase revealed diffuse edema in the right cerebral region, less cerebral in the parasagittal region as well as a left frontal and parietal regions. Developing subfalcine herniation/uncal herniation with right suprasellar cistern effaced Acetaminophen for fever Multivitamin, folate and thiamine daily currently with IV Seizure precautions *Methylprednisolone 60 mg every 6 hours for spinal cord edema CV: Left internal carotid artery stenosis 80%, Right internal carotid artery stenosis 40-50% Coronary artery disease status post CABGx2 at age 37 Hypertension Dyslipidemia Sinus bradycardia Holding amlodipine 10 mg daily and atorvastatin 40 mg by mouth daily status post alteplase. Resume atorvastatin at 80 mg daily 10/17 Holding aspirin 81 mg daily and clopidogrel 75 mg by mouth daily. Currently on aspirin 300 mg daily Vascular surgery consultation-Dr. Bertrand - medical management Lipid panel ordered revealed low HDL. Otherwise within normal limits As needed. Labetalol/enalaprilat/hydralazine/nicardipine drip to maintain systolic blood pressure less than 160, and also was less than 90 2-D echo revealed EF 60-65%. Mild TR. PAP 30 mmHg Resp: Acute respiratory failure Ongoing tobaccoism [facility] [address]25/1.3/ Ventilator bundle Albuterol/ipratropium aerosols every 6 hours with albuterol aerosols every 2 hours. Dyspnea Tobacco cessation will be encouraged Spontaneous breathing trials not indicated DVT neurological status GI: Elevated transaminases Hypoalbuminemia Vital 1.5 goal 45 cc an hour Lansoprazole for GI prophylaxis Docusate sodium/senna for bowel regimen : No indication for Rodríguez catheter Endo: TSH within normal limits. SSI with Novulog with Accu-Cheks every 6 hours to maintain euglycemia/low regimen Renal: Creatinine currently within normal limits Currently on one quarter normal saline at 200 cc an hour Free water 300 cc every 4 hours Monitor urine output Accurate I's and O's Heme: Leukocytosis Normocytic anemia ThromboCytopenia Monitor CBC daily. Follow trends Hypercoagulable workup currently pending. ESR 3 ID: Left lower lobe pneumonia - Moraxella catarrhalis Currently on piperacillin/tazobactam 4.5 g IV every 6 hours day #5 Pertinent cultures Blood cultures 2 - / -no growth Urine culture - /6 -no growth Sputum - / -Moraxella catarrhalis FEN: Hypernatremia Replace electrolytes as clinically indicated Is continue hypertonic saline. Started quarter normal saline at 200 cc an hour. Add free water 300 cc every 4 hours. Sodiums every 6 hours. MSK: PT/OT/ST evaluate and treat Access Right subclavian CVL day [address] place 1/ Prophylaxis - GI - lansoprazole - DVT - SCD/holding pharmacological prophylaxis with high risk of bleeding due to cerebral edema Level III follow-up Perry Olivia MD Oct 19, 2017 18:52
[2017-10-19] MEDS: ATORVASTATIN 40 MG TAB PO SCH (21:15)
[2017-10-20] VITALS (16 sets, daily range): BP systolic 121–152; BP diastolic 67–81; PULSE 78–91; RESP 16; TEMP 98.7–99.4; O2SAT 93–98
[2017-10-20] MEDS: PIPERACIL-TAZO 3.375 GM PREMIX 50 ML IV SCH (01:58)
[2017-10-20] MEDS: RESP: ALBUTEROL 2.5 MG/IPRATROPIUM 0.5 MG NEB (SCH) NEB ×4 (03:04→20:17)
[2017-10-20] MEDS: methylPREDNISolone SOD SUCC 125 MG/2 ML VIAL IV SCH ×3 (03:18→14:22)
[2017-10-20] MEDS: CHLORHEXIDINE GLUCONATE 2 % 1 PACK (2 CLOTHS) TOP SCH (04:00)
[2017-10-20] MEDS: FREE WATER G-TUBE SCH ×5 (04:12→20:00)
[2017-10-20] MEDS: SODIUM CHLORIDE 23.4% INJ 38.5 MEQ in WATER STERILE FOR INJ 1,000 ML IV SCH ×7 (05:12→20:36)
[2017-10-20] MEDS: INSULIN ASPART SUPPLEMENTAL SCALE SQ SCH ×3 (05:40→18:00)
[2017-10-20] MEDS: ARTIFICIAL TEARS OPTH SOLN 15 ML BTL EACH EYE SCH ×3 (05:40→20:37)
[2017-10-20 07:18] LABS: PHOSPHORUS 2.5 MG/DL (2.5-4.9)
--- NOTE | 2017-10-20 07:25 | HHI.CCPN ---
Subjective Remarks/Hospital Course This is a 57-year-old male. Date of admission 10/14/2017. Past medical history includes coronary disease status post CABG at age 37, known left internal carotid occlusive disease 89%, right ICA 46%, COPD, ongoing tobaccoism and hypertension. Patient was seen in 04/25 and 09/25 with left and right upper extremity weakness respectively. Patient has a imaging his brain which reveals bilateral parietal occipital CVA and known left internal carotid artery 80-90 % occlusion/right internal carotid artery 40-50% occlusion patient presents to [facility] today after he was found status post falling to the ground complaining of left arm/shoulder weakness. on Coumadin which he is not taking and he is now back with the same symptoms 30 minutes onset left hand 0 out of 5 otherwise neuro exam is normal. CT brain revealed old left parietal CVA. Decision was given to provide alteplase per Dr. Ferreira. Received 7 mg bolus followed by 63 mg. Plan to admit the ICU with frequent neuro checks of vascular consultation. He received hydralazine due to elevated blood pressure. Currently symptoms have not resolved with persistent left upper extremity weakness. We are asked with the patient. 10/15/17:Patient remains intubated heavily sedated. Very slight withdrawal of bilateral extremities on sedation. MRI brain today -Very large ischemic infarct involving the entire right middle cerebral artery distribution and both anterior cerebral artery distributions. MRI T spine- worsening edema in the cord above the level of dorsal impingement related to ?arachnoid cyst or other T2 hyperintense abnormality. 10/16: Afebrile. Placed on dopamine overnight due to bradycardia. Currently at 3 mcg/kg per minute Patient currently withdrawing right upper and lower extremity left lower extremity. Right pupil 5 mm and sluggish. Left pupil 1 mm and minimally reactive. Positive cough. Noted CT brain revealed no edema right hemisphere/left frontal/parietal region along with impending subfalcine/ uncal herniation. 10/17: Afebrile. Off all vasopressors. No corneal reflex. No gag. CT yesterday revealed worsening cerebral edema right MCA, bilateral JENNIFER distribution with a 12 mm subfalcine shift to the left. 3% saline discontinued due to elevated sodium. Pupils are essentially fixed. 10/18: Afebrile. Off all vasopressors. Withdraws to bilateral lower x-rays. Not overbreathing the ventilator. Pupils are about 3-4 minutes bilaterally and fixed. 10/19: Afebrile. Withdrawals to bilateral lower extremities. Withdrawing upper extremities as AM. Rodríguez placed due to urinary retention. Off all sedation. Subjective 10/20: Tmax 99. Sodium continues to rise. Adjusted crystalloid see orders. Tube feeds adjusted 55 cc an hour. Withdraws lower extremities and withdraws upper extremities. Objective Vital Signs Date Time Temp Pulse Resp B/P (MAP) Pulse Ox O2 Delivery O2 Flow Rate FiO2 10/20/17 06:00 86 10/20/17 04:00 55 10/20/17 04:00 99.0 16 148/70 (96) 94 Intake and Output 10/20/17 10/20/17 10/21/17 08:00 16:00 00:00 Intake Total 1589 ml Output Total 1950 ml Balance -361 ml Result Diagram: 10/19/17 0600 10/19/17 2355 Other Results Microbiology Date/Time Source Procedure Growth Status 10/15/17 14:45 Blood Peripheral Aerobic Blood Culture - Preliminary NO GROWTH IN 4 DAYS Resulted 10/15/17 14:45 Blood Peripheral Anaerobic Blood Culture - Preliminary NO GROWTH IN 4 DAYS Resulted 10/15/17 14:42 Sputum Endotracheal Gram Stain - Final Complete 10/15/17 14:42 Sputum Culture - Final Moraxella Catarrahalis Complete 10/15/17 14:45 Urine Catheterized Urine Urine Culture - Final NO GROWTH IN 48 HOURS. Complete Imaging Last Impressions Chest X-Ray 10/19/17 0600 Signed Impressions: Service Date/Time: Thursday, October 19, 2017 04:39 - CONCLUSION: 1. Left lower lobe atelectasis versus pneumonia. There has been no significant change when compared to the prior exam. Abdoul Quezada MD Head CT 10/16/17 0000 Signed Impressions: Service Date/Time: Monday, October 16, 2017 10:08 - CONCLUSION: Extensive diffuse cerebral edema involving almost the entire right cerebral hemisphere as well as the medial aspect of the left cerebral hemisphere indicating infarctions of the right middle cerebral and bilateral anterior cerebral arteries with subfalcine herniation to the left measuring 12 mm which is worse than on the previous examination. Edema is also noted involving left basal ganglia. No acute hemorrhage is noted. Andrade Milligan MD Thoracic Spine MRI 10/15/17 0900 Signed Impressions: Service Date/Time: Sunday, October 15, 2017 12:26 - CONCLUSION: There is worsening edema in the cord above the level of dorsal impingement related to arachnoid cyst or other T2 hyperintense abnormality. Contrast administration would be helpful. Note is made of left basilar atelectasis versus pneumonia. Abdoul Quezada MD Head Magnetic Resonance Angiography 10/15/17 0000 Signed Impressions: Service Date/Time: Sunday, October 15, 2017 12:26 - CONCLUSION: 1. Complete occlusion of the right carotid artery and both anterior cerebrals and right middle cerebral artery Abdoul Quezada MD Carotid Artery Ultrasound 10/15/17 0000 Signed Impressions: Service Date/Time: Sunday, October 15, 2017 08:16 - CONCLUSION: 1. High- grade stenosis on the left side greater than 70%%. CT angiography of the cervicobrachial arch and carotid arteries is recommended for further evaluation if clinically indicated.8 Abdoul Quezada MD Brain MRI 10/15/17 0000 Signed Impressions: Service Date/Time: Sunday, October 15, 2017 12:26 - CONCLUSION: 1. Extremely large ischemic infarct involving the entire right middle cerebral artery distribution and both anterior cerebral artery distributions. Follow CT to evaluate for evolving cerebral edema is recommended. Abdoul Quezada MD Objective Remarks GENERAL: This is a 57-year-old male currently intubated resting in bed in no acute distress SKIN: Warm and dry. Scars of the thorax from prior CABG HEAD: Atraumatic. Normocephalic. EYES: Pupils are about 4 mm bilaterally and fixed ENT: No nasal bleeding or discharge. Orotracheally intubated NECK: Trachea midline. No JVD. Positive left carotid bruit 2/ CARDIOVASCULAR: Regular rate and rhythm. S1, S2. No S4. Without murmur RESPIRATORY: Few crackles appreciated in the left lower lobes. Symmetrical excursion. Breath sounds equal bilaterally. GASTROINTESTINAL: Abdomen soft, non-tender, nondistended. Hypoactive bowel sounds. MUSCULOSKELETAL: Extremities without significant peripheral edema. No obvious deformities. NEUROLOGICAL: Pupils as above. Cannot elicit cough/gag. No corneal reflex. Withdraws to pain bilateral lower extremities and upper extremity Date of Insertion: Oct 15, 2017 Line: Central Venous Catheter Side: Right Location: Subclavian A/P Assessment and Plan Neuro/Psych: Acute large right MCA/ bilateral JENNIFER infarct Severe encephalopathy History of bilateral parietal/occipital CVA T 7/8 spinal cord edema/dorsal impingement THC use EtOH Midazolam and fentanyl drips if necessary for sedation and vent synchrony Goal of RASS [address] brain 10/16 revealed significant cerebral drain in the right cerebral hemisphere indicative of right MCA/bilateral JENNIFER occlusions. 12 mm shift to left subfalcine. Herniation. Infarct involving left basal ganglia as well. . Aspirin 300 mg per rectum daily - transition to 324 chew daily - Neurology/neurosurgery see documentation severity of the clinical situation. No surgical intervention per their recommendations MRI brain 10/15/17 -Very large ischemic infarct involving the entire right MCA, [employer] AGENT distribution and both JENNIFER distributions. MRI T spine- worsening edema in the cord above the level of dorsal impingement T7/8 related to ?arachnoid cyst or other T2 hyperintense abnormality. Dr. Evans discussed Dr. Ferreira. Due to involvement of multiple vascular territories Dr. Ferreira initiated's methylprednisolone 125 mg IV every 6 hours Appreciate neurosurgery regarding spinal cord edema at T7/8 level. No surgical management at this time CT brain 10/14 revealed old lacunar left parietal/lacho CVA Status post alteplase 7 mg 1 followed [place] [address] Ferreira neurology has followed- 2-D echo revealed EF 66%. Mild TR. PAP 30 mmHg Last echocardiogram 09/25 revealed EF 55-60%. No regional motion abnormality. MRA brain revealed occlusion right carotid. Bilateral anterior cerebral arteries and right MCA distribution Did not take prescribed warfarin CT brain 24 hours post alteplase revealed diffuse edema in the right cerebral region, less cerebral in the parasagittal region as well as a left frontal and parietal regions. Developing subfalcine herniation/uncal herniation with right suprasellar cistern effaced Acetaminophen 650 mg every 6 hours when necessary for fever Multivitamin, folate and thiamine daily Seizure precautions *Methylprednisolone 60 mg every 6 hours for spinal cord edema CV: Left internal carotid artery stenosis 80%, Right internal carotid artery stenosis 40-50% Coronary artery disease status post CABGx2 at age 37 Hypertension Dyslipidemia Sinus bradycardia Holding amlodipine 10 mg daily and atorvastatin 40 mg by mouth daily status post alteplase. Resume atorvastatin at 80 mg daily 10/17 Holding aspirin 81 mg daily and clopidogrel 75 mg by mouth daily. Currently on aspirin 300 mg daily Vascular surgery consultation-Dr. Bertrand - medical management Lipid panel ordered revealed low HDL. Otherwise within normal limits As needed. Labetalol/enalaprilat/hydralazine/nicardipine drip to maintain systolic blood pressure less than 160 2-D echo revealed EF 60-65%. Mild TR. PAP 30 mmHg, Resp: Acute respiratory failure Ongoing tobaccoism [facility] 16/600/1.3/5/50 Ventilator bundle Albuterol/ipratropium aerosols every 6 hours with albuterol aerosols every 2 hours. Dyspnea Tobacco cessation will be encouraged Spontaneous breathing trials not indicated DVT neurological status GI: Elevated transaminases Hypoalbuminemia Vital 1.5 goal 55 cc an hour Lansoprazole for GI prophylaxis Docusate sodium/senna for bowel regimen Metoclopramide 5 mg IV every 8 hours : No indication for Rodríguez catheter Endo: TSH within normal limits. SSI with Novulog with Accu-Cheks every 6 hours to maintain euglycemia/low regimen Renal: Creatinine currently within normal limits Currently on one quarter normal saline at 200 cc an hour Free water 300 cc every 4 hours Monitor urine output Accurate I's and O's Heme: Leukocytosis Normocytic anemia ThromboCytopenia Monitor CBC daily. Follow trends Hypercoagulable workup currently pending. ESR 3 ID: Left lower lobe pneumonia - Moraxella catarrhalis Currently on piperacillin/tazobactam 4.5 g IV every 6 hours day #6 - transition to cefixime 260 mg liquid daily to lessen salt load day 1 Pertinent cultures Blood cultures 2 - 6 -no growth Urine culture - /6 -no growth Sputum - /6 -Moraxella catarrhalis FEN: Hypernatremia Replace electrolytes as clinically indicated Is continue hypertonic saline. Started quarter normal saline at 250 cc an hour. Add free water 300 cc every 4 hours. Sodiums every 6 hours. MSK: PT/OT/ST evaluate and treat Access Right subclavian CVL day [address] 1/6 Prophylaxis - GI - lansoprazole - DVT - SCD/holding pharmacological prophylaxis with high risk of bleeding due to cerebral edema Level III follow-up Perry Olivia MD Oct 20, 2017 07:25
[2017-10-20 07:36] LABS: HEMATOCRIT 37.9 % (39.0-51.0); HEMOGLOBIN 12.7 GM/DL (13.0-17.0); MEAN CELL VOLUME 92.9 FL (80.0-100.0); MEAN CORPUSCULAR HEMOGLOBIN 31.1 PG (27.0-34.0); MEAN CORPUSCULAR HGB CONC 33.4 % (32.0-36.0); MEAN PLATELET VOLUME 10.6 FL (7.0-11.0); PLATELET COUNT 56 TH/MM3 (150-450); RED BLOOD COUNT 4.08 MIL/MM3 (4.50-5.90); RED CELL DISTRIBUTION WIDTH 14.8 % (11.6-17.2); WHITE BLOOD COUNT 15.5 TH/MM3 (4.0-11.0)
[2017-10-20] MEDS: CHLORHEXIDINE 0.12% (ORAL KIT) 15 ML CUP MT SCH ×2 (08:00→20:36)
[2017-10-20] MEDS: THIAMINE HCL 100 MG TAB PO SCH (08:03)
[2017-10-20] MEDS: LANSOPRAZOLE SOLUTAB 30 MG TAB NG SCH (08:03)
[2017-10-20] MEDS: ASPIRIN 81 MG CHEW TAB DOBHOFF SCH (08:04)
[2017-10-20] MEDS: DOCUSATE SODIUM 50 MG/SENNA 8.6 MG TAB PO SCH ×2 (08:04→20:36)
[2017-10-20] MEDS: FOLIC ACID 1 MG TAB PO SCH (08:04)
[2017-10-20] MEDS: MULTIVITAMIN TAB PO SCH (08:04)
[2017-10-20] MEDS: METOCLOPRAMIDE HCL 10 MG/2 ML VIAL IV PUSH SCH ×2 (08:05→16:00)
[2017-10-20] MEDS: SODIUM CHLORIDE 0.9% FLUSH 10 ML FLUSH IV FLUSH SCH ×2 (09:00→20:37)
[2017-10-20] MEDS ORDERED: CEFIXIME SUSP 100 MG/5 ML 50 ML BTL PO SCH (09:00)
[2017-10-20] MEDS: CEFUROXIME AXETIL SUSP 250 MG/5 ML 50 ML BTL PO SCH (11:20)
--- NOTE | 2017-10-20 11:41 | HHI.HCPN ---
Reason for visit a. To assist with evaluation and management of symptoms including: Pain, dyspnea b. To assist medical decision maker(s) with: better understanding of current medical conditions; weighing benefits/burdens of medical treatment options; making medical treatment decisions. Subjective/Interval History Patient remains encephalopathic. He has some withdrawal to pain on all extremities today. Gag and corneal reflexes are negative. He does not blink to threat. He has failed his spontaneous breathing trials within 60 seconds as he has no spontaneous respirations. He is increasingly hypernatremic in spite of the addition of free water of 300 mL every 4 hours, at 167, up from 165. IV fluid has been changed to1/4 normal saline. He is now developing tube feeding residual of 100 mL at last assessment. Chest x-ray is significant for left lower lobe atelectasis versus pneumonia. Blood and urine cultures remain negative. Sputum culture is positive for Moraxella catarrhalis and antibiotic has been adjusted from Zosyn to Ceftin. Neurologically, no changes. . Family/friend interactions Left message for patient's friend, Tara Miller, 10/19, pending return call. . Advance Directives Living Will: Never completed Health Care Surrogate: Never completed Durable Power of Armored Car Messenger: Never completed Objective Vital Signs Date Time Temp Pulse Resp B/P (MAP) Pulse Ox O2 Delivery O2 Flow Rate FiO2 10/20/17 10:06 50 10/20/17 10:01 95 50 10/20/17 10:00 91 10/20/17 08:00 55 10/20/17 08:00 99.3 87 16 140/77 (98) 94 10/20/17 08:00 87 10/20/17 06:00 86 10/20/17 04:00 55 10/20/17 04:00 99.0 88 16 148/70 (96) 94 10/20/17 04:00 88 10/20/17 03:05 94 50 10/20/17 02:00 82 10/20/17 00:00 55 10/20/17 00:00 84 10/20/17 00:00 98.9 84 16 121/67 (85) 93 10/19/17 23:40 94 50 10/19/17 22:00 86 10/19/17 20:23 95 50 10/19/17 20:00 55 10/19/17 20:00 80 10/19/17 20:00 98.7 79 16 141/78 (99) 96 10/19/17 18:00 82 10/19/17 17:34 96 50 10/19/17 16:00 55 10/19/17 16:00 78 10/19/17 16:00 98.0 78 16 125/70 (88) 96 10/19/17 14:00 81 10/19/17 12:39 94 50 10/19/17 12:00 84 10/19/17 12:00 55 10/19/17 12:00 98.9 84 16 143/76 (98) 95 Intake & Output 10/20/17 10/20/17 07:00 19:00 Intake Total 2689 ml Output Total 3600 ml 100.0 ml Balance -911 ml -100.0 ml Intake IV Total 2150 ml Tube Feeding 539 ml Output Urine Total 3600 ml Tube Feeding Residual Discard 100.0 ml Physical Exam CONSTITUTIONAL/GENERAL: This is an adequately nourished patient, in no apparent distress. TUBES/LINES/DRAINS: [facility] central line ETT, Rodríguez EYES: Pupils equal and round, 3-4 mm non-reactive. No injection or drainage. Fundi not examined. NECK: Trachea midline. Supple, nontender. No palpable thyroid enlargement or nodularity. CARDIOVASCULAR: Regular rate and rhythm without murmurs, gallops, or rubs. No JVD. Peripheral pulses symmetric. RESPIRATORY/CHEST: Symmetric, unlabored respirations. Clear to auscultation. Breath sounds equal bilaterally. No wheezes, rales, or rhonchi. GASTROINTESTINAL: Abdomen soft, nondistended. No hepato-splenomegaly, or palpable masses. No guarding. Bowel sounds present. GENITOURINARY: Without palpable bladder distension. Rodríguez catheter in place. MUSCULOSKELETAL: Extremities without clubbing, cyanosis, or edema. No mottling or clubbing. NEUROLOGICAL: No gag, corneal reflexes, does not blink to threat. Slight withdrawal to painful stimuli all extremities otherwise Unresponsive PSYCHIATRIC: Unresponsive . Diagnostic Tests Laboratory Laboratory Tests Test 10/17/17 17:30 10/18/17 01:30 10/18/17 06:00 10/18/17 10:50 Sodium Level 171 MEQ/L (136-145) 171 MEQ/L (136-145) 167 MEQ/L (136-145) 168 MEQ/L (136-145) Serum Osmolality 363 MOSM/KG (275-295) 363 MOSM/KG (275-295) 359 MOSM/KG (275-295) White Blood Count 11.1 TH/MM3 (4.0-11.0) Red Blood Count 4.22 MIL/MM3 (4.50-5.90) Hemoglobin 12.7 GM/DL (13.0-17.0) Hematocrit 38.9 % (39.0-51.0) Mean Corpuscular Volume 92.3 FL (80.0-100.0) Mean Corpuscular Hemoglobin 30.2 PG (27.0-34.0) Mean Corpuscular Hemoglobin Concent 32.7 % (32.0-36.0) Red Cell Distribution Width 14.7 % (11.6-17.2) Platelet Count 115 TH/MM3 (150-450) Mean Platelet Volume 10.2 FL (7.0-11.0) Blood Urea Nitrogen 36 MG/DL (7-18) Creatinine 2.12 MG/DL (0.60-1.30) Random Glucose 234 MG/DL (74-106) Calcium Level 8.6 MG/DL (8.5-10.1) Phosphorus Level 3.6 MG/DL (2.5-4.9) Magnesium Level 2.6 MG/DL (1.5-2.5) Potassium Level 3.8 MEQ/L (3.5-5.1) Chloride Level 136 MEQ/L (98-107) Carbon Dioxide Level 20.9 MEQ/L (21.0-32.0) Anion Gap 11 MEQ/L (5-15) Estimat Glomerular Filtration Rate 32 ML/MIN (>89) Test 10/18/17 17:30 10/19/17 01:00 10/19/17 06:00 10/19/17 15:00 Blood Urea Nitrogen 34 MG/DL (7-18) 35 MG/DL (7-18) Creatinine 1.96 MG/DL (0.60-1.30) 1.71 MG/DL (0.60-1.30) Random Glucose 259 MG/DL (74-106) 336 MG/DL (74-106) Calcium Level 8.5 MG/DL (8.5-10.1) 8.7 MG/DL (8.5-10.1) Sodium Level 164 MEQ/L (136-145) 161 MEQ/L (136-145) 162 MEQ/L (136-145) 161 MEQ/L (136-145) Potassium Level 3.5 MEQ/L (3.5-5.1) 3.6 MEQ/L (3.5-5.1) Chloride Level 133 MEQ/L (98-107) 131 MEQ/L (98-107) Carbon Dioxide Level 19.6 MEQ/L (21.0-32.0) 19.7 MEQ/L (21.0-32.0) Anion Gap 11 MEQ/L (5-15) 11 MEQ/L (5-15) Estimat Glomerular Filtration Rate 35 ML/MIN (>89) 41 ML/MIN (>89) Serum Osmolality 352 MOSM/KG (275-295) 350 MOSM/KG (275-295) 352 MOSM/KG (275-295) 357 MOSM/KG (275-295) White Blood Count 14.0 TH/MM3 (4.0-11.0) Red Blood Count 4.23 MIL/MM3 (4.50-5.90) Hemoglobin 12.8 GM/DL (13.0-17.0) Hematocrit 39.3 % (39.0-51.0) Mean Corpuscular Volume 92.9 FL (80.0-100.0) Mean Corpuscular Hemoglobin 30.3 PG (27.0-34.0) Mean Corpuscular Hemoglobin Concent 32.6 % (32.0-36.0) Red Cell Distribution Width 14.5 % (11.6-17.2) Platelet Count 78 TH/MM3 (150-450) Mean Platelet Volume 10.4 FL (7.0-11.0) Neutrophils (%) (Auto) 90.7 % (16.0-70.0) Lymphocytes (%) (Auto) 3.8 % (9.0-44.0) Monocytes (%) (Auto) 5.3 % (0.0-8.0) Eosinophils (%) (Auto) 0.0 % (0.0-4.0) Basophils (%) (Auto) 0.2 % (0.0-2.0) Neutrophils # (Auto) 12.7 TH/MM3 (1.8-7.7) Lymphocytes # (Auto) 0.5 TH/MM3 (1.0-4.8) Monocytes # (Auto) 0.7 TH/MM3 (0-0.9) Eosinophils # (Auto) 0.0 TH/MM3 (0-0.4) Basophils # (Auto) 0.0 TH/MM3 (0-0.2) CBC Comment AUTO DIFF Differential Comment AUTO DIFF CONFIRMED Total Protein 6.2 GM/DL (6.4-8.2) Albumin 2.5 GM/DL (3.4-5.0) Phosphorus Level 2.3 MG/DL (2.5-4.9) Magnesium Level 2.5 MG/DL (1.5-2.5) Alkaline Phosphatase 63 U/L (45-117) Aspartate Amino Transf (AST/SGOT) 399 U/L (15-37) Alanine Aminotransferase (ALT/SGPT) 104 U/L (12-78) Total Bilirubin 0.3 MG/DL (0.2-1.0) Test 10/19/17 23:55 10/20/17 04:52 10/20/17 07:10 Sodium Level 165 MEQ/L (136-145) 167 MEQ/L (136-145) Serum Osmolality 364 MOSM/KG (275-295) 360 MOSM/KG (275-295) Phosphorus Level 2.5 MG/DL (2.5-4.9) White Blood Count 15.5 TH/MM3 (4.0-11.0) Red Blood Count 4.08 MIL/MM3 (4.50-5.90) Hemoglobin 12.7 GM/DL (13.0-17.0) Hematocrit 37.9 % (39.0-51.0) Mean Corpuscular Volume 92.9 FL (80.0-100.0) Mean Corpuscular Hemoglobin 31.1 PG (27.0-34.0) Mean Corpuscular Hemoglobin Concent 33.4 % (32.0-36.0) Red Cell Distribution Width 14.8 % (11.6-17.2) Platelet Count 56 TH/MM3 (150-450) Mean Platelet Volume 10.6 FL (7.0-11.0) . Result Diagram: 10/20/17 0710 10/20/17 0452 Microbiology Microbiology Date/Time Source Procedure Growth Status 10/15/17 14:45 Blood Peripheral Aerobic Blood Culture - Final NO GROWTH IN 5 DAYS Complete 10/15/17 14:45 Blood Peripheral Anaerobic Blood Culture - Final NO GROWTH IN 5 DAYS Complete 10/15/17 14:42 Sputum Endotracheal Gram Stain - Final Complete 10/15/17 14:42 Sputum Culture - Final Moraxella Catarrahalis Complete 10/15/17 14:45 Urine Catheterized Urine Urine Culture - Final NO GROWTH IN 48 HOURS. Complete Imaging Last Impressions Chest X-Ray 10/19/17 0600 Signed Impressions: Service Date/Time: Thursday, October 19, 2017 04:39 - CONCLUSION: 1. Left lower lobe atelectasis versus pneumonia. There has been no significant change when compared to the prior exam. Abdoul Quezada MD Head CT 10/16/17 0000 Signed Impressions: Service Date/Time: Monday, October 16, 2017 10:08 - CONCLUSION: Extensive diffuse cerebral edema involving almost the entire right cerebral hemisphere as well as the medial aspect of the left cerebral hemisphere indicating infarctions of the right middle cerebral and bilateral anterior cerebral arteries with subfalcine herniation to the left measuring 12 mm which is worse than on the previous examination. Edema is also noted involving left basal ganglia. No acute hemorrhage is noted. Andrade Milligan MD Thoracic Spine MRI 10/15/17 0900 Signed Impressions: Service Date/Time: Sunday, October 15, 2017 12:26 - CONCLUSION: There is worsening edema in the cord above the level of dorsal impingement related to arachnoid cyst or other T2 hyperintense abnormality. Contrast administration would be helpful. Note is made of left basilar atelectasis versus pneumonia. Abdoul Quezada MD Head Magnetic Resonance Angiography 10/15/17 0000 Signed Impressions: Service Date/Time: Sunday, October 15, 2017 12:26 - CONCLUSION: 1. Complete occlusion of the right carotid artery and both anterior cerebrals and right middle cerebral artery Abdoul Quezada MD Carotid Artery Ultrasound 10/15/17 0000 Signed Impressions: Service Date/Time: Sunday, October 15, 2017 08:16 - CONCLUSION: 1. High- grade stenosis on the left side greater than 70%%. CT angiography of the cervicobrachial arch and carotid arteries is recommended for further evaluation if clinically indicated.8 Abdoul Quezada MD Brain MRI 10/15/17 0000 Signed Impressions: Service Date/Time: Sunday, October 15, 2017 12:26 - CONCLUSION: 1. Extremely large ischemic infarct involving the entire right middle cerebral artery distribution and both anterior cerebral artery distributions. Follow CT to evaluate for evolving cerebral edema is recommended. Abdoul Quezada MD . Procedures 10/15/17: Right subclavian central line placement 10/15/17: Endotracheal intubation. . Assessment and Plan Disease Oriented Problem List: (1) cardiovascular occlusive disease (2) tobaccoism (3) CVA (cerebral vascular accident) (4) Carotid stenosis, bilateral (5) HTN (hypertension) Symptom Scale: (1) Dyspnea and respiratory abnormalities 0-10 Scale: Unable to quantify (2) Pain, generalized 0-10 Scale: Unable to quantify Pertinent Non-Medical Issues Psychosocial:He was born in [place] and attended school there. He moved to [place] in 1981. 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 He was at one time and had a son, whom he has not seen since he was an , but does maintain some phone contact with. He is . He does have 1 sister whom he has had no contact with for over 10 years and has been unable to locate. Spiritual: Raised Mandaeism. Legal: No known legal issues. Ethical issues impacting care: No known ethical issues. . Important Contacts Friend: Tara Paul Roommate: Krunal Employer: [employer] . . Prognosis His prognosis is very poor. He has had an enormous, devastating CVA involving the entire right and part of the left cerebral hemispheres. He is progressing towards brain . Code Status: Full Code Plan PLAN: Legal decision maker: At this time his friend, Tara Miller has agreed to be his legal decision maker. She has indicated that he has a son, but does not know his name or contact number. It is thought that he may be a minor child and unable to participate, as the patient has documents at his home indicating child support payments.. Goals: At this time he remains a full code pending discussion with his decision-maker, Tara Miller. CODE STATUS: FULL CODE SYMPTOMS: * Pain: At this time he is withdrawing to pain only in the lower extremities, however is at risk as he is not able to make his needs known, has multiple invasive lines and is bedbound, however if compassionate withdrawal of ventilator support is necessary, pain will be managed with opioids. He is now developing a painful withdrawal response in all 4 extremities. Per my discussion with the RN, Maurice, he is resuming his low dose fentanyl drip for comfort measures. He has remained a full code during the search for a decision- maker. A call has been placed to Tara Miller, his friend who has agreed to be the decision-maker. And I am waiting for a return call to discuss CODE STATUS and potential withdrawal of vent support in the next 24-48 hours. * Dyspnea: He is at significant risk for dyspnea secondary to mechanical ventilation, inability to protect airway, neurologic dysfunction and worsening imaging studies suspicious for pneumonia. Continue mechanical ventilation management per broom bundler. He has no spontaneous respirations at all per the CPAP trial done 10/17/17, indicating significant neurologic dysfunction. Will discuss withdrawal of ventilator support with his decision-maker once call is returned. He is at risk for recurrent infections, pneumonia, wounds given his poor neurological dysfunction. Per my discussion with Dr. Olivia, he would like to allow the sodium to progress towards normalization prior to making that decision. Palliative care will continue to follow the patient during hospital course as condition evolves, to assist patient/decision-maker with understanding of their medical conditions, weighing benefits/burdens of treatment options, for clarification of goals of treatment. Additionally will assist with any symptoms of palliative concern. . Attestation To help prompt me to consider important information that might be impacting today's encounter and assessment, information from prior notes written by myself or my colleagues may have been "brought forward" into today's note. My signature on this note, however, is an attestation that I personally performed the exam, history, and/or decision-making noted today, and, unless otherwise indicated, the interactions with patient, family, and staff as well as the review of records all occurred today. I also attest that the listed assessment and stated plan reflect my best clinical judgment today based on the combination of historical information, prior notes, and today's exam/ interactions. When time spent is documented, it refers only to time spent today by the signer, or if indicated, combined time spent today by collaborating physician/nurse practitioner. . Katia Blanco Oct 20, 2017 11:41 am
[2017-10-20] MEDS: fentaNYL DRIP 250 ML IV PRN (12:40)
--- NOTE | 2017-10-20 20:20 | HHI.PR ---
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 Plan reduce solumedrol Diagnosis/Plan: Subjective Subjective Comments No acute events reported Active Medications Current Medications Medications (Trade) Dose Ordered Sig/Aria Route Start Time Stop Time Status Last Admin (Jackson 5-325 Mg) 1 tab Q4H PRN PO 10/14/17 22:30 (Morphine Inj) 2 mg Q2H PRN IV PUSH 10/14/17 22:30 10/16/17 15:14 (Zofran Inj) 4 mg Q6H PRN IV PUSH 10/14/17 22:30 10/15/17 00:40 (Albuterol Neb) 2.5 mg Q2HR NEB PRN INH 10/14/17 22:30 Miscellaneous Information 1 Q361D XX 10/14/17 22:30 (Chlorhexidine 2% Cloth) Taper DAILY@04 TOP 10/15/17 04:00 10/11/18 03:59 (Chlorhexidine 2% Cloth) 3 pack UNSCH PRN TOP 10/14/17 22:30 (Nadeen-Colace) 1 tab BID PO 10/15/17 09:00 10/20/17 08:04 (Milk Of Magnesia Liq) 30 ml Q12H PRN PO 10/14/17 22:30 (Senokot) 17.2 mg Q12H PRN PO 10/14/17 22:30 (Dulcolax Supp) 10 mg DAILY PRN RECTAL 10/14/17 22:30 (Lactulose Liq) 30 ml DAILY PRN PO 10/14/17 22:30 (NS Flush) 2 ml BID IV FLUSH 10/15/17 09:00 10/20/17 09:00 (NS Flush) 2 ml UNSCH PRN IV FLUSH 10/14/17 22:30 (Trandate Inj) 10 mg Q2H PRN IV PUSH 10/14/17 22:30 (D50w (Vial) Inj) 50 ml UNSCH PRN IV PUSH 10/14/17 22:30 (Glucagon Inj) 1 mg UNSCH PRN OTHER 1/5/18 22:30 (Apresoline Inj) 10 mg Q1HR PRN IV PUSH 10/14/17 22:30 10/16/17 14:33 (Vasotec Inj) 2.5 mg Q6H PRN IV PUSH 10/14/17 22:30 (Peridex 0.12% Liq) 15 ml BID@08,20 MT 10/15/17 08:00 10/20/17 08:00 Propofol 100 ml @ 2.325 mls/ hr TITRATE PRN IV 10/15/17 05:15 10/15/17 08:15 Fentanyl Citrate 250 ml @ 5 mls/hr TITRATE PRN IV 10/15/17 05:15 10/20/17 12:40 (Prevacid Odt) 30 mg DAILY NG 10/15/17 09:00 10/20/17 08:03 (Tears Naturale Opth Soln) 1 drop Q8HR EACH EYE 10/15/17 06:00 10/20/17 13:54 (Lipitor) 80 mg HS PO 10/15/17 21:00 10/19/17 21:15 Midazolam HCl 100 ml @ 2 mls/hr TITRATE PRN IV 10/15/17 17:00 10/16/17 15:19 (Tylenol 650 Mg/ 20 ml Liq) 650 mg Q6H PRN NG 10/16/17 07:15 Nicardipine HCl 25 mg/Sodium Chloride 250 ml @ 50 mls/hr TITRATE PRN IV 10/16/17 07:15 (NovoLOG SUPPLEMENTAL SCALE) 1 Q6HR SQ 10/16/17 12:00 10/20/17 18:00 Sodium Chloride 38.5 meq/Sterile Water 1,009.625 ml @ 200 mls/hr Q5H3M IV 10/17/17 09:00 10/20/17 14:22 (Duoneb Neb) 1 ampule Q6HR NEB NEB 10/18/17 16:00 10/20/17 18:39 (SoluMEDROL INJ) 60 mg Q6H IV 10/19/17 03:00 10/20/17 14:22 (Free Water) 300 ml Q4HR G-TUBE 10/19/17 20:00 10/20/17 16:00 (Reglan Inj) 5 mg Q8H IV PUSH 10/20/17 08:00 10/20/17 16:00 (Vitamin B1) 100 mg DAILY PO 10/20/17 09:00 10/20/17 08:03 (Theragran) 1 tab DAILY PO 10/20/17 09:00 10/20/17 08:04 (Folate) 1 mg DAILY PO 10/20/17 09:00 10/20/17 08:04 (Aspirin Chew) 324 mg DAILY DOBHOFF 10/20/17 09:00 10/20/17 08:04 (Ceftin 250 Mg/5 ml Liq) 250 mg Q12H PO 10/20/17 11:00 10/20/17 11:20 Allergies Allergies Coded Allergies No Known Allergies (Verified Allergy, Severe, 04/29/08) Review of Systems All other ROS: ROS reviewed as documented in chart Exam I&O / VS 10/20/17 10/20/17 10/21/17 15:00 23:00 07:00 Intake Total 1310 ml Output Total 100.0 ml 2025 ml Balance -100.0 ml -715 ml Tube Feeding 310 ml Tube Irrigant 1000 ml Output Urine Total 2025 ml Tube Feeding Residual Discard 100.0 ml # Bowel Movements 0 Vital Signs Date Time Temp Pulse Resp B/P (MAP) Pulse Ox O2 Delivery O2 Flow Rate FiO2 10/20/17 18:00 78 10/20/17 16:00 55 10/20/17 16:00 81 10/20/17 16:00 99.3 83 16 152/81 (104) 97 10/20/17 14:00 83 10/20/17 12:00 90 10/20/17 12:00 99.4 91 16 139/73 (95) 98 10/20/17 12:00 55 10/20/17 10:06 50 10/20/17 10:01 95 50 10/20/17 10:00 91 10/20/17 08:00 55 10/20/17 08:00 99.3 87 16 140/77 (98) 94 10/20/17 08:00 87 10/20/17 06:00 86 10/20/17 04:00 55 10/20/17 04:00 99.0 88 16 148/70 (96) 94 10/20/17 04:00 88 10/20/17 03:05 94 50 10/20/17 02:00 82 10/20/17 00:00 55 10/20/17 00:00 84 10/20/17 00:00 98.9 84 16 121/67 (85) 93 10/19/17 23:40 94 50 10/19/17 22:00 86 10/19/17 20:23 95 50 Exam Comments sedated, nonresponsive Pupils 3mm bilateral and sluggishly reactive EOM--limited to occulocephalics MOTOR--no withdrawal Objective Micro and Labs Laboratory Tests Test 10/19/17 23:55 10/20/17 04:52 10/20/17 07:10 10/20/17 13:45 Sodium Level 165 167 160 Serum Osmolality 364 360 352 Phosphorus Level 2.5 White Blood Count 15.5 Red Blood Count 4.08 Hemoglobin 12.7 Hematocrit 37.9 Mean Corpuscular Volume 92.9 Mean Corpuscular Hemoglobin 31.1 Mean Corpuscular Hemoglobin Concent 33.4 Red Cell Distribution Width 14.8 Platelet Count 56 Mean Platelet Volume 10.6 Date/Time Source Procedure Growth Status 10/15/17 14:45 Blood Peripheral Aerobic Blood Culture - Final NO GROWTH IN 5 DAYS Complete 10/15/17 14:45 Blood Peripheral Anaerobic Blood Culture - Final NO GROWTH IN 5 DAYS Complete 10/15/17 14:42 Sputum Endotracheal Gram Stain - Final Complete 10/15/17 14:42 Sputum Culture - Final Moraxella Catarrahalis Complete 10/15/17 14:45 Urine Catheterized Urine Urine Culture - Final NO GROWTH IN 48 HOURS. Complete Maxim Ferreira MD PhD Oct 20, 2017 20:20
[2017-10-20] MEDS: ATORVASTATIN 40 MG TAB PO SCH (20:36)
[2017-10-20] MEDS: methylPREDNISolone SOD SUCC 40 MG/1 ML VIAL IV PUSH SCH (20:49)
[2017-10-21] VITALS (9 sets, daily range): BP systolic 128–132; BP diastolic 72–76; PULSE 69–85; RESP 16–17; TEMP 97.8–98.7; O2SAT 92–99
[2017-10-21] MEDS: SODIUM CHLORIDE 23.4% INJ 38.5 MEQ in WATER STERILE FOR INJ 1,000 ML IV SCH ×3 (00:54→11:29)
[2017-10-21] MEDS: CEFUROXIME AXETIL SUSP 250 MG/5 ML 50 ML BTL PO SCH ×2 (00:56→11:00)
[2017-10-21] MEDS: METOCLOPRAMIDE HCL 10 MG/2 ML VIAL IV PUSH SCH ×2 (01:01→09:04)
[2017-10-21] MEDS: methylPREDNISolone SOD SUCC 40 MG/1 ML VIAL IV PUSH SCH ×2 (02:45→09:06)
[2017-10-21] MEDS: INSULIN ASPART SUPPLEMENTAL SCALE SQ SCH ×4 (02:50→12:00)
[2017-10-21] MEDS: RESP: ALBUTEROL 2.5 MG/IPRATROPIUM 0.5 MG NEB (SCH) NEB ×2 (03:34→08:02)
[2017-10-21] MEDS: FREE WATER G-TUBE SCH ×4 (04:00→12:00)
[2017-10-21] MEDS: CHLORHEXIDINE GLUCONATE 2 % 1 PACK (2 CLOTHS) TOP SCH (04:00)
[2017-10-21 04:58] LABS: AUTOMATED NEUTROPHIL # 11.6 TH/MM3 (1.8-7.7); BASOPHIL % 0.1 % (0.0-2.0); HEMATOCRIT 36.9 % (39.0-51.0); HEMOGLOBIN 12.2 GM/DL (13.0-17.0); LYMPH % 7.4 % (9.0-44.0); MEAN CELL VOLUME 91.9 FL (80.0-100.0); MEAN CORPUSCULAR HEMOGLOBIN 30.3 PG (27.0-34.0); MEAN PLATELET VOLUME 10.5 FL (7.0-11.0); MONO % 4.4 % (0.0-8.0); MONOCYTE # 0.6 TH/MM3 (0-0.9); NEUT % 88.1 % (16.0-70.0); PLATELET COUNT 47 TH/MM3 (150-450); RED BLOOD COUNT 4.01 MIL/MM3 (4.50-5.90); RED CELL DISTRIBUTION WIDTH 14.4 % (11.6-17.2); WHITE BLOOD COUNT 13.2 TH/MM3 (4.0-11.0)
[2017-10-21 05:17] LABS: ALBUMIN 2.1 GM/DL (3.4-5.0); ALKALINE PHOSPHATASE 73 U/L (45-117); ALT (GPT) 75 U/L (12-78); AST (GOT) 102 U/L (15-37); BLOOD UREA NITROGEN 30 MG/DL (7-18); CALCIUM 8.4 MG/DL (8.5-10.1); CHLORIDE 126 MEQ/L (98-107); CREATININE 1.11 MG/DL (0.60-1.30); GLOMERULAR FILTRATION RATE 68 ML/MIN (>89); GLUCOSE,RANDOM 256 MG/DL (74-106); MAGNESIUM 2.6 MG/DL (1.5-2.5); PHOSPHORUS 2.4 MG/DL (2.5-4.9); TOTAL BILIRUBIN ADULT 0.3 MG/DL (0.2-1.0); TOTAL PROTEIN 5.6 GM/DL (6.4-8.2)
[2017-10-21 05:21] LABS: SODIUM (NA) 158 MEQ/L (136-145)
[2017-10-21] MEDS: ARTIFICIAL TEARS OPTH SOLN 15 ML BTL EACH EYE SCH (05:34)
[2017-10-21] MEDS ORDERED: DEXTROSE 50% IN WATER 50 ML VIAL(D50) IV PUSH PRN (07:00)
[2017-10-21] MEDS ORDERED: GLUCAGON 1 MG/ML VIAL OTHER PRN (07:00)
[2017-10-21] MEDS: CHLORHEXIDINE 0.12% (ORAL KIT) 15 ML CUP MT SCH (08:00)
[2017-10-21] MEDS: SODIUM CHLORIDE 0.9% FLUSH 10 ML FLUSH IV FLUSH SCH (09:00)
[2017-10-21] MEDS ORDERED: INSULIN DETEMIR 100 UNITS/ML VIAL SQ SCH ×2 (09:00→21:00)
[2017-10-21] MEDS: FOLIC ACID 1 MG TAB PO SCH (09:05)
[2017-10-21] MEDS: MULTIVITAMIN TAB PO SCH (09:05)
[2017-10-21] MEDS: ASPIRIN 81 MG CHEW TAB DOBHOFF SCH (09:05)
[2017-10-21] MEDS: DOCUSATE SODIUM 50 MG/SENNA 8.6 MG TAB PO SCH (09:05)
[2017-10-21] MEDS: LANSOPRAZOLE SOLUTAB 30 MG TAB NG SCH (09:05)
[2017-10-21] MEDS: THIAMINE HCL 100 MG TAB PO SCH (09:05)
[2017-10-21] MEDS: fentaNYL DRIP 250 ML IV PRN (09:20)
--- NOTE | 2017-10-21 11:57 | HHI.CCPN ---
Subjective Remarks/Hospital Course This is a 57-year-old male. Date of admission 10/14/2017. Past medical history includes coronary disease status post CABG at age 37, known left internal carotid occlusive disease 89%, right ICA 46%, COPD, ongoing tobaccoism and hypertension. Patient was seen in 04/25 and 09/25 with left and right upper extremity weakness respectively. Patient has a imaging his brain which reveals bilateral parietal occipital CVA and known left internal carotid artery 80-90 % occlusion/right internal carotid artery 40-50% occlusion patient presents to [facility] today after he was found status post falling to the ground complaining of left arm/shoulder weakness. on Coumadin which he is not taking and he is now back with the same symptoms 30 minutes onset left hand 0 out of 5 otherwise neuro exam is normal. CT brain revealed old left parietal CVA. Decision was given to provide alteplase per Dr. Ferreira. Received 7 mg bolus followed by 63 mg. Plan to admit the ICU with frequent neuro checks of vascular consultation. He received hydralazine due to elevated blood pressure. Currently symptoms have not resolved with persistent left upper extremity weakness. We are asked with the patient. 10/15/17:Patient remains intubated heavily sedated. Very slight withdrawal of bilateral extremities on sedation. MRI brain today -Very large ischemic infarct involving the entire right middle cerebral artery distribution and both anterior cerebral artery distributions. MRI T spine- worsening edema in the cord above the level of dorsal impingement related to ?arachnoid cyst or other T2 hyperintense abnormality. 10/16: Afebrile. Placed on dopamine overnight due to bradycardia. Currently at 3 mcg/kg per minute Patient currently withdrawing right upper and lower extremity left lower extremity. Right pupil 5 mm and sluggish. Left pupil 1 mm and minimally reactive. Positive cough. Noted CT brain revealed no edema right hemisphere/left frontal/parietal region along with impending subfalcine/ uncal herniation. 10/17: Afebrile. Off all vasopressors. No corneal reflex. No gag. CT yesterday revealed worsening cerebral edema right MCA, bilateral JENNIFER distribution with a 12 mm subfalcine shift to the left. 3% saline discontinued due to elevated sodium. Pupils are essentially fixed. 10/18: Afebrile. Off all vasopressors. Withdraws to bilateral lower x-rays. Not overbreathing the ventilator. Pupils are about 3-4 minutes bilaterally and fixed. 10/19: Afebrile. Withdrawals to bilateral lower extremities. Withdrawing upper extremities as AM. Rodríguez placed due to urinary retention. Off all sedation. 10/20: Tmax 99. Sodium continues to rise. Adjusted crystalloid see orders. Tube feeds adjusted 55 cc an hour. Withdraws lower extremities and withdraws upper extremities. Subjective 10/21: Resting comfortably in bed. Withdraws bilateral upper and lower extremities. No new issues overnight. Sodium down to 158. Objective Vital Signs Date Time Temp Pulse Resp B/P (MAP) Pulse Ox O2 Delivery O2 Flow Rate FiO2 10/21/17 11:52 98 60 10/21/17 10:00 72 10/21/17 08:00 97.8 16 129/76 (93) Intake and Output 10/21/17 10/21/17 10/21/17 07:59 15:59 23:59 Intake Total 2000 ml Output Total 1000 ml Balance 1000 ml Result Diagram: 10/21/17 0430 10/21/17 0430 Other Results Microbiology Date/Time Source Procedure Growth Status 10/15/17 14:45 Blood Peripheral Aerobic Blood Culture - Final NO GROWTH IN 5 DAYS Complete 10/15/17 14:45 Blood Peripheral Anaerobic Blood Culture - Final NO GROWTH IN 5 DAYS Complete 10/15/17 14:42 Sputum Endotracheal Gram Stain - Final Complete 10/15/17 14:42 Sputum Culture - Final Moraxella Catarrahalis Complete 10/15/17 14:45 Urine Catheterized Urine Urine Culture - Final NO GROWTH IN 48 HOURS. Complete Imaging Last Impressions Chest X-Ray 10/19/17 0600 Signed Impressions: Service Date/Time: Thursday, October 19, 2017 04:39 - CONCLUSION: 1. Left lower lobe atelectasis versus pneumonia. There has been no significant change when compared to the prior exam. Abdoul Quezada MD Head CT 10/16/17 0000 Signed Impressions: Service Date/Time: Monday, October 16, 2017 10:08 - CONCLUSION: Extensive diffuse cerebral edema involving almost the entire right cerebral hemisphere as well as the medial aspect of the left cerebral hemisphere indicating infarctions of the right middle cerebral and bilateral anterior cerebral arteries with subfalcine herniation to the left measuring 12 mm which is worse than on the previous examination. Edema is also noted involving left basal ganglia. No acute hemorrhage is noted. Andrade Milligan MD Thoracic Spine MRI 10/15/17 0900 Signed Impressions: Service Date/Time: Sunday, October 15, 2017 12:26 - CONCLUSION: There is worsening edema in the cord above the level of dorsal impingement related to arachnoid cyst or other T2 hyperintense abnormality. Contrast administration would be helpful. Note is made of left basilar atelectasis versus pneumonia. Abdoul Quezada MD Head Magnetic Resonance Angiography 10/15/17 0000 Signed Impressions: Service Date/Time: Sunday, October 15, 2017 12:26 - CONCLUSION: 1. Complete occlusion of the right carotid artery and both anterior cerebrals and right middle cerebral artery Abdoul Quezada MD Carotid Artery Ultrasound 10/15/17 0000 Signed Impressions: Service Date/Time: Sunday, October 15, 2017 08:16 - CONCLUSION: 1. High- grade stenosis on the left side greater than 70%%. CT angiography of the cervicobrachial arch and carotid arteries is recommended for further evaluation if clinically indicated.8 Abdoul Quezada MD Brain MRI 10/15/17 0000 Signed Impressions: Service Date/Time: Sunday, October 15, 2017 12:26 - CONCLUSION: 1. Extremely large ischemic infarct involving the entire right middle cerebral artery distribution and both anterior cerebral artery distributions. Follow CT to evaluate for evolving cerebral edema is recommended. Abdoul Quezada MD Objective Remarks GENERAL: This is a 57-year-old male currently intubated resting in bed in no acute distress SKIN: Warm and dry. Scars of the thorax from prior CABG HEAD: Atraumatic. Normocephalic. EYES: Pupils are about 4 mm bilaterally and fixed ENT: No nasal bleeding or discharge. Orotracheally intubated NECK: Trachea midline. No JVD. Positive left carotid bruit 11/15 CARDIOVASCULAR: Regular rate and rhythm. S1, S2. No S4. Without murmur RESPIRATORY: Few crackles appreciated in the left lower lobes. Symmetrical excursion. Breath sounds equal bilaterally. GASTROINTESTINAL: Abdomen soft, non-tender, nondistended. Hypoactive bowel sounds. MUSCULOSKELETAL: Extremities without significant peripheral edema. No obvious deformities. NEUROLOGICAL: Pupils as above. Cannot elicit cough/gag. No corneal reflex. Withdraws to pain bilateral lower extremities and upper extremity Urinary Catheter: Yes Assessment to: Continue Rodríguez insert reason: ICU Pt Getting Diuretics Vascular Central Line Catheter: Yes Assessment to: Continue Date of Insertion: Oct 15, 2017 Line: Central Venous Catheter Side: Right Location: Subclavian A/P Assessment and Plan Neuro/Psych: Acute large right MCA/ bilateral JENNIFER infarct Severe encephalopathy History of bilateral parietal/occipital CVA T 7/8 spinal cord edema/dorsal impingement THC use EtOH Midazolam and fentanyl drips if necessary for sedation and vent synchrony Goal of RASS [address] brain 10/16 revealed significant cerebral drain in the right cerebral hemisphere indicative of right MCA/bilateral JENNIFER occlusions. 12 mm shift to left subfalcine. Herniation. Infarct involving left basal ganglia as well. . Aspirin 300 mg per rectum daily - transition to 324 chew daily - Neurology/neurosurgery see documentation severity of the clinical situation. No surgical intervention per their recommendations MRI brain 10/15/17 -Very large ischemic infarct involving the entire right MCA, [employer] distribution and both JENNIFER distributions. MRI T spine- worsening edema in the cord above the level of dorsal impingement T7/8 related to ?arachnoid cyst or other T2 hyperintense abnormality. Dr. Evans discussed Dr. Ferreira. Due to involvement of multiple vascular territories Dr. Ferreira initiated's methylprednisolone 125 mg IV every 6 hours Appreciate neurosurgery regarding spinal cord edema at T7/8 level. No surgical management at this time CT brain 10/14 revealed old lacunar left parietal/lacho CVA Status post alteplase in ED Dr. Ferreira neurology has followed- 2-D echo revealed EF 66%. Mild TR. PAP 30 mmHg Last echocardiogram 09/25 revealed EF 55-60%. No regional motion abnormality. MRA brain revealed occlusion right carotid. Bilateral anterior cerebral arteries and right MCA distribution Did not take prescribed warfarin CT brain 24 hours post alteplase revealed diffuse edema in the right cerebral region, less cerebral in the parasagittal region as well as a left frontal and parietal regions. Developing subfalcine herniation/uncal herniation with right suprasellar cistern effaced Acetaminophen 650 mg every 6 hours when necessary for fever Multivitamin, folate and thiamine daily Seizure precautions *Methylprednisolone 30 mg every 6 hours for spinal cord edema CV: Left internal carotid artery stenosis 80%, Right internal carotid artery stenosis 40-50% Coronary artery disease status post CABGx2 at age 37 Hypertension Dyslipidemia Sinus bradycardia Holding amlodipine 10 mg daily and atorvastatin 40 mg by mouth daily status post alteplase. Resume atorvastatin at 80 mg daily 10/17 Holding aspirin 81 mg daily and clopidogrel 75 mg by mouth daily. Currently on aspirin 300 mg daily Vascular surgery consultation-Dr. Bertrand - medical management Lipid panel ordered revealed low HDL. Otherwise within normal limits As needed. Labetalol/enalaprilat/hydralazine/nicardipine drip to maintain systolic blood pressure less than 160 2-D echo revealed EF 60-65%. Mild TR. PAP 30 mmHg, Resp: Acute respiratory failure Ongoing tobaccoism [facility] 16/600/1.3/ Ventilator bundle Albuterol/ipratropium aerosols every 6 hours with albuterol aerosols every 2 hours. Dyspnea Tobacco cessation will be encouraged Spontaneous breathing trials not indicated DVT neurological status GI: Elevated transaminases Hypoalbuminemia Nepro goal 45 cc an hour per dietary recommendations for low sodium tube feeding Lansoprazole for GI prophylaxis Docusate sodium/senna for bowel regimen Metoclopramide 5 mg IV every 8 hours : No indication for Rodríguez catheter Endo: TSH within normal limits. SSI with Novulog with Accu-Cheks every 6 hours to maintain euglycemia/medium regimen Added insulin detemir 10 units twice a day Renal: Creatinine currently within normal limits Currently on one quarter normal saline at 200 cc an hour Free water 300 cc every 4 hours Monitor urine output Accurate I's and O's Heme: Leukocytosis Normocytic anemia ThromboCytopenia Monitor CBC daily. Follow trends Hypercoagulable workup currently pending. ESR 3 ID: Left lower lobe pneumonia - Moraxella catarrhalis Currently on piperacillin/tazobactam 4.5 g IV every 6 hours day #6 - transition to cefuroxime 250 mg liquid daily to lessen salt load day 1 Pertinent cultures Blood cultures 2 - 10/15 -no growth Urine culture - 10/15 -no growth Sputum - /6 -Moraxella catarrhalis FEN: Hypernatremia Replace electrolytes as clinically indicated Is continue hypertonic saline. Started quarter normal saline at 200 cc an hour. Add free water 300 cc every 4 hours. Sodiums every 6 hours. MSK: PT/OT/ST evaluate and treat Access Right subclavian CVL day [address] / Prophylaxis - GI - lansoprazole - DVT - SCD/holding pharmacological prophylaxis with high risk of bleeding due to cerebral edema Level II follow-up Perry Olivia MD Oct 21, 2017 11:57
--- NOTE | 2017-10-21 13:24 | HHI.HCPN ---
Reason for visit a. To assist with evaluation and management of symptoms including: Pain, dyspnea b. To assist medical decision maker(s) with: better understanding of current medical conditions; weighing benefits/burdens of medical treatment options; making medical treatment decisions. Subjective/Interval History Patient remains encephalopathic with minimal withdrawal to noxious stimuli to all 4 extremities. Spontaneous breathing trials today lasted less than 1 minute as patient was apneic and oxygen saturations began to decline. No improvement in neurological status. Sodium down to 158 from 160. WBC 13.2, hemoglobin 12.2, hematocrit 36.9, platelets 47. No plantar, gag or corneal reflex. . . Family/friend interactions Spoke with his friend, Tara Miller, who states that she is willing to be the patient's decision-maker, she does not want him resuscitated, want to be DO NOT RESUSCITATE/DO NOT REINTUBATE status and wants him withdrawn from the ventilator. This was discussed with the attending physician, Dr. Olivia and consulting physician, Dr. Clyde Barroso, and they both agree that the patient's neurological status is not likely to improve and that his condition is essentially terminal. Exhibits are signed and on the chart pending signature by Ms. Miller. I have contacted her by phone and she states that she is coming to the hospital to sign the exhibits and attend the withdrawal. Anticipatory guidance given regarding expectations during withdrawal. Palliative care will continue to provide support to the decision-maker during this event. . Advance Directives Living Will: Never completed Health Care Surrogate: Never completed Durable Power of Equipment Services Associate: Never completed Advance Directive Specifics Significant change in goals: Per my discussion with the decision-maker, Tara Miller, today patient will be made a DO NOT RESUSCITATE, do not reintubate status in preparation for withdrawal of ventilator support is planned for later today. . Objective Vital Signs Date Time Temp Pulse Resp B/P (MAP) Pulse Ox O2 Delivery O2 Flow Rate FiO2 10/21/17 12:00 69 10/21/17 12:00 60 10/21/17 12:00 98.5 69 16 128/76 (93) 97 10/21/17 11:52 98 60 10/21/17 10:00 72 10/21/17 08:11 60 10/21/17 08:02 96 60 10/21/17 08:00 97.8 70 16 129/76 (93) 95 10/21/17 08:00 60 10/21/17 08:00 70 10/21/17 06:00 76 10/21/17 04:00 92 60 10/21/17 04:00 78 10/21/17 04:00 55 10/21/17 04:00 98.7 82 16 128/72 (90) 94 10/21/17 02:00 85 10/21/17 00:00 55 10/21/17 00:00 80 10/21/17 00:00 98.4 80 17 132/73 (92) 99 10/20/17 23:54 93 50 10/20/17 22:00 80 10/20/17 20:17 94 50 10/20/17 20:00 98.7 81 16 134/71 (92) 96 10/20/17 20:00 81 10/20/17 20:00 55 10/20/17 18:00 78 10/20/17 16:00 55 10/20/17 16:00 81 10/20/17 16:00 99.3 83 16 152/81 (104) 97 10/20/17 14:00 83 Intake & Output 10/21/17 10/21/17 07:00 19:00 Intake Total 3000 ml Output Total 1000 ml Balance 2000 ml Intake IV Total 3000 ml Output Urine Total 1000 ml Physical Exam CONSTITUTIONAL/GENERAL: This is an adequately nourished patient, intubated, unresponsive in no apparent distress. TUBES/LINES/DRAINS: RSC central line ETT, Rodríguez EYES: Pupils equal and round, 3-4 mm non-reactive. No injection or drainage. Fundi not examined. NECK: Trachea midline. Supple, nontender. No palpable thyroid enlargement or nodularity. CARDIOVASCULAR: Regular rate and rhythm without murmurs, gallops, or rubs. No JVD. Peripheral pulses symmetric. RESPIRATORY/CHEST: Symmetric, unlabored respirations. Clear to auscultation. Breath sounds equal bilaterally. No wheezes, rales, or rhonchi. GASTROINTESTINAL: Abdomen soft, nondistended. No hepato-splenomegaly, or palpable masses. No guarding. Bowel sounds present. GENITOURINARY: Without palpable bladder distension. Rodríguez catheter in place. MUSCULOSKELETAL: Extremities without clubbing, cyanosis, or edema. No mottling or clubbing. NEUROLOGICAL: No plantar, gag, corneal reflexes, does not blink to threat. Slight withdrawal to painful stimuli all extremities otherwise unresponsive PSYCHIATRIC: Unresponsive . Diagnostic Tests Laboratory Laboratory Tests Test 10/18/17 17:30 10/19/17 01:00 10/19/17 06:00 10/19/17 15:00 Blood Urea Nitrogen 34 MG/DL (7-18) 35 MG/DL (7-18) Creatinine 1.96 MG/DL (0.60-1.30) 1.71 MG/DL (0.60-1.30) Random Glucose 259 MG/DL (74-106) 336 MG/DL (74-106) Calcium Level 8.5 MG/DL (8.5-10.1) 8.7 MG/DL (8.5-10.1) Sodium Level 164 MEQ/L (136-145) 161 MEQ/L (136-145) 162 MEQ/L (136-145) 161 MEQ/L (136-145) Potassium Level 3.5 MEQ/L (3.5-5.1) 3.6 MEQ/L (3.5-5.1) Chloride Level 133 MEQ/L (98-107) 131 MEQ/L (98-107) Carbon Dioxide Level 19.6 MEQ/L (21.0-32.0) 19.7 MEQ/L (21.0-32.0) Anion Gap 11 MEQ/L (5-15) 11 MEQ/L (5-15) Estimat Glomerular Filtration Rate 35 ML/MIN (>89) 41 ML/MIN (>89) Serum Osmolality 352 MOSM/KG (275-295) 350 MOSM/KG (275-295) 352 MOSM/KG (275-295) 357 MOSM/KG (275-295) White Blood Count 14.0 TH/MM3 (4.0-11.0) Red Blood Count 4.23 MIL/MM3 (4.50-5.90) Hemoglobin 12.8 GM/DL (13.0-17.0) Hematocrit 39.3 % (39.0-51.0) Mean Corpuscular Volume 92.9 FL (80.0-100.0) Mean Corpuscular Hemoglobin 30.3 PG (27.0-34.0) Mean Corpuscular Hemoglobin Concent 32.6 % (32.0-36.0) Red Cell Distribution Width 14.5 % (11.6-17.2) Platelet Count 78 TH/MM3 (150-450) Mean Platelet Volume 10.4 FL (7.0-11.0) Neutrophils (%) (Auto) 90.7 % (16.0-70.0) Lymphocytes (%) (Auto) 3.8 % (9.0-44.0) Monocytes (%) (Auto) 5.3 % (0.0-8.0) Eosinophils (%) (Auto) 0.0 % (0.0-4.0) Basophils (%) (Auto) 0.2 % (0.0-2.0) Neutrophils # (Auto) 12.7 TH/MM3 (1.8-7.7) Lymphocytes # (Auto) 0.5 TH/MM3 (1.0-4.8) Monocytes # (Auto) 0.7 TH/MM3 (0-0.9) Eosinophils # (Auto) 0.0 TH/MM3 (0-0.4) Basophils # (Auto) 0.0 TH/MM3 (0-0.2) CBC Comment AUTO DIFF Differential Comment AUTO DIFF CONFIRMED Total Protein 6.2 GM/DL (6.4-8.2) Albumin 2.5 GM/DL (3.4-5.0) Phosphorus Level 2.3 MG/DL (2.5-4.9) Magnesium Level 2.5 MG/DL (1.5-2.5) Alkaline Phosphatase 63 U/L (45-117) Aspartate Amino Transf (AST/SGOT) 399 U/L (15-37) Alanine Aminotransferase (ALT/SGPT) 104 U/L (12-78) Total Bilirubin 0.3 MG/DL (0.2-1.0) Test 10/19/17 23:55 10/20/17 04:52 10/20/17 07:10 10/20/17 13:45 Sodium Level 165 MEQ/L (136-145) 167 MEQ/L (136-145) 160 MEQ/L (136-145) Serum Osmolality 364 MOSM/KG (275-295) 360 MOSM/KG (275-295) 352 MOSM/KG (275-295) Phosphorus Level 2.5 MG/DL (2.5-4.9) White Blood Count 15.5 TH/MM3 (4.0-11.0) Red Blood Count 4.08 MIL/MM3 (4.50-5.90) Hemoglobin 12.7 GM/DL (13.0-17.0) Hematocrit 37.9 % (39.0-51.0) Mean Corpuscular Volume 92.9 FL (80.0-100.0) Mean Corpuscular Hemoglobin 31.1 PG (27.0-34.0) Mean Corpuscular Hemoglobin Concent 33.4 % (32.0-36.0) Red Cell Distribution Width 14.8 % (11.6-17.2) Platelet Count 56 TH/MM3 (150-450) Mean Platelet Volume 10.6 FL (7.0-11.0) Test 10/21/17 04:30 10/21/17 12:00 White Blood Count 13.2 TH/MM3 (4.0-11.0) Red Blood Count 4.01 MIL/MM3 (4.50-5.90) Hemoglobin 12.2 GM/DL (13.0-17.0) Hematocrit 36.9 % (39.0-51.0) Mean Corpuscular Volume 91.9 FL (80.0-100.0) Mean Corpuscular Hemoglobin 30.3 PG (27.0-34.0) Mean Corpuscular Hemoglobin Concent 33.0 % (32.0-36.0) Red Cell Distribution Width 14.4 % (11.6-17.2) Platelet Count 47 TH/MM3 (150-450) Mean Platelet Volume 10.5 FL (7.0-11.0) Neutrophils (%) (Auto) 88.1 % (16.0-70.0) Lymphocytes (%) (Auto) 7.4 % (9.0-44.0) Monocytes (%) (Auto) 4.4 % (0.0-8.0) Eosinophils (%) (Auto) 0.0 % (0.0-4.0) Basophils (%) (Auto) 0.1 % (0.0-2.0) Neutrophils # (Auto) 11.6 TH/MM3 (1.8-7.7) Lymphocytes # (Auto) 1.0 TH/MM3 (1.0-4.8) Monocytes # (Auto) 0.6 TH/MM3 (0-0.9) Eosinophils # (Auto) 0.0 TH/MM3 (0-0.4) Basophils # (Auto) 0.0 TH/MM3 (0-0.2) CBC Comment AUTO DIFF Differential Comment AUTO DIFF CONFIRMED Platelet Estimate LOW (NORMAL) Platelet Morphology Comment ENLARGED (NORMAL) Blood Urea Nitrogen 30 MG/DL (7-18) Creatinine 1.11 MG/DL (0.60-1.30) Random Glucose 256 MG/DL (74-106) Total Protein 5.6 GM/DL (6.4-8.2) Albumin 2.1 GM/DL (3.4-5.0) Calcium Level 8.4 MG/DL (8.5-10.1) Phosphorus Level 2.4 MG/DL (2.5-4.9) Magnesium Level 2.6 MG/DL (1.5-2.5) Alkaline Phosphatase 73 U/L (45-117) Aspartate Amino Transf (AST/SGOT) 102 U/L (15-37) Alanine Aminotransferase (ALT/SGPT) 75 U/L (12-78) Total Bilirubin 0.3 MG/DL (0.2-1.0) Sodium Level 158 MEQ/L (136-145) 159 MEQ/L (136-145) Potassium Level 4.0 MEQ/L (3.5-5.1) Chloride Level 126 MEQ/L (98-107) Carbon Dioxide Level 23.0 MEQ/L (21.0-32.0) Anion Gap 9 MEQ/L (5-15) Estimat Glomerular Filtration Rate 68 ML/MIN (>89) Serum Osmolality 344 MOSM/KG (275-295) 338 MOSM/KG (275-295) . Result Diagram: 10/21/17 0430 10/21/17 1200 Microbiology Microbiology Date/Time Source Procedure Growth Status 10/15/17 14:45 Blood Peripheral Aerobic Blood Culture - Final NO GROWTH IN 5 DAYS Complete 10/15/17 14:45 Blood Peripheral Anaerobic Blood Culture - Final NO GROWTH IN 5 DAYS Complete 10/15/17 14:42 Sputum Endotracheal Gram Stain - Final Complete 10/15/17 14:42 Sputum Culture - Final Moraxella Catarrahalis Complete 10/15/17 14:45 Urine Catheterized Urine Urine Culture - Final NO GROWTH IN 48 HOURS. Complete . Imaging Last Impressions Chest X-Ray 10/19/17 0600 Signed Impressions: Service Date/Time: Thursday, October 19, 2017 04:39 - CONCLUSION: 1. Left lower lobe atelectasis versus pneumonia. There has been no significant change when compared to the prior exam. Abdoul Quezada MD Head CT 10/16/17 0000 Signed Impressions: Service Date/Time: Monday, October 16, 2017 10:08 - CONCLUSION: Extensive diffuse cerebral edema involving almost the entire right cerebral hemisphere as well as the medial aspect of the left cerebral hemisphere indicating infarctions of the right middle cerebral and bilateral anterior cerebral arteries with subfalcine herniation to the left measuring 12 mm which is worse than on the previous examination. Edema is also noted involving left basal ganglia. No acute hemorrhage is noted. Andrade Milligan MD Thoracic Spine MRI 10/15/17 0900 Signed Impressions: Service Date/Time: Sunday, October 15, 2017 12:26 - CONCLUSION: There is worsening edema in the cord above the level of dorsal impingement related to arachnoid cyst or other T2 hyperintense abnormality. Contrast administration would be helpful. Note is made of left basilar atelectasis versus pneumonia. Abdoul Quezada MD Head Magnetic Resonance Angiography 10/15/17 0000 Signed Impressions: Service Date/Time: Sunday, October 15, 2017 12:26 - CONCLUSION: 1. Complete occlusion of the right carotid artery and both anterior cerebrals and right middle cerebral artery Abdoul Quezada MD Carotid Artery Ultrasound 10/15/17 0000 Signed Impressions: Service Date/Time: Sunday, October 15, 2017 08:16 - CONCLUSION: 1. High- grade stenosis on the left side greater than 70%%. CT angiography of the cervicobrachial arch and carotid arteries is recommended for further evaluation if clinically indicated.8 Abdoul Quezada MD Brain MRI 10/15/17 0000 Signed Impressions: Service Date/Time: Sunday, October 15, 2017 12:26 - CONCLUSION: 1. Extremely large ischemic infarct involving the entire right middle cerebral artery distribution and both anterior cerebral artery distributions. Follow CT to evaluate for evolving cerebral edema is recommended. Adboul Quezada MD . Procedures 10/15/17: Right subclavian central line placement 10/15/17: Endotracheal intubation. . Assessment and Plan Disease Oriented Problem List: (1) cardiovascular occlusive disease (2) tobaccoism (3) CVA (cerebral vascular accident) (4) Carotid stenosis, bilateral (5) HTN (hypertension) Symptom Scale: (1) Dyspnea and respiratory abnormalities 0-10 Scale: Unable to quantify (2) Pain, generalized 0-10 Scale: Unable to quantify Pertinent Non-Medical Issues Psychosocial:He was born in [place] and attended school there. He moved to [place] in 1981. 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 He was at one time and had a son, whom he has not seen since he was an , but does maintain some phone contact with. He is . He does have 1 sister whom he has had no contact with for over 10 years and has been unable to locate. Spiritual: Raised Pentec[employer]al. Legal: No known legal issues. Ethical issues impacting care: No known ethical issues. . Important Contacts Friend: Tara Miller Roommate: Krunal Employer: [employer] . . Prognosis His prognosis is very poor. He has had an enormous, devastating CVA involving the entire right and part of the left cerebral hemispheres. He has minimal chance, if any, of any significant recovery. . Code Status: No Code (DNR/DNI) Plan PLAN: Legal decision maker: At this time his friend, Tara Miller has agreed to be his legal decision maker. She has indicated that he has a son, but does not know his name or contact number. It is thought that he may be a minor child and unable to participate, as the patient has documents at his home indicating child support payments.. Goals: Comfort oriented. CODE STATUS: DNR/DNI SYMPTOMS: * Pain: At this time he is withdrawing to pain only in the lower extremities, however is at risk as he is not able to make his needs known, has multiple invasive lines and is bedbound, however if compassionate withdrawal of ventilator support is necessary, pain will be managed with opioids. He has a withdrawal to pain response in all 4 extremities but is otherwise unresponsive. Fentanyl at 50 mcg/m is running for underlying pain control as the patient is unable to make his needs known. * Dyspnea: He is at significant risk for dyspnea secondary to mechanical ventilation, inability to protect airway, neurologic dysfunction and worsening imaging studies suspicious for pneumonia. Continue mechanical ventilation management per meat cutter. He has no spontaneous respirations at all per the CPAP trial done 10/17/17 and again on 10/21/17, indicating significant neurologic dysfunction. Have discussed ventilatory support withdrawal with his decision- maker and she feels that this is the best decision for the patient as he has no hope of significant recovery. Awaiting her arrival to sign consents withdrawal of ventilator support. Palliative care will continue to follow the patient during hospital course as condition evolves, to assist patient/decision-maker with understanding of their medical conditions, weighing benefits/burdens of treatment options, for clarification of goals of treatment. Additionally will assist with any symptoms of palliative concern. . Attestation To help prompt me to consider important information that might be impacting today's encounter and assessment, information from prior notes written by myself or my colleagues may have been "brought forward" into today's note. My signature on this note, however, is an attestation that I personally performed the exam, history, and/or decision-making noted today, and, unless otherwise indicated, the interactions with patient, family, and staff as well as the review of records all occurred today. I also attest that the listed assessment and stated plan reflect my best clinical judgment today based on the combination of historical information, prior notes, and today's exam/ interactions. When time spent is documented, it refers only to time spent today by the signer, or if indicated, combined time spent today by collaborating physician/nurse practitioner. . . Katia Blanco Oct 21, 2017 13:24
[2017-10-21] MEDS ORDERED: fentaNYL DRIP 250 ML IV PRN (14:15)
[2017-10-21] MEDS ORDERED: HYOSCYAMINE 0.5 MG/ML AMP IV PUSH ONE (14:15)
[2017-10-21] MEDS ORDERED: LORazepam 2 MG/ML VIAL IV PUSH ONE ×2 (14:15→14:30)
[2017-10-21] MEDS ORDERED: FUROSEMIDE 20 MG/2 ML VIAL IV PUSH PRN (14:45)
[2017-10-21] MEDS ORDERED: BISACODYL 10 MG SUPP RECTAL PRN (14:45)
[2017-10-21] MEDS ORDERED: MORPHINE SULFATE 4 MG/ML INJ IV PUSH PRN (14:45)
[2017-10-21] MEDS ORDERED: HYOSCYAMINE 0.5 MG/ML AMP IV PUSH PRN (14:45)
[2017-10-21] MEDS ORDERED: LORazepam 2 MG/ML VIAL IV PUSH PRN ×3 (14:45)
[2017-10-21] MEDS ORDERED: ACETAMINOPHEN 650 MG SUPP RECTAL PRN (14:45)
[2017-10-21] MEDS ORDERED: LORazepam 2 MG/ML VIAL IV PUSH SCH (16:00)
[2017-10-21] MEDS ORDERED: MORPHINE SULFATE 4 MG/ML INJ IV PUSH SCH (16:00)
== END 2017-10-21 17:39 | disposition expired | DRG 61 ==
LOC: NEPE 20:14 → NEDA 22:19 → N03B 23:42
PROVIDERS: ADMIT Internal Medicine Critical Care Medicine; ATTEND Internal Medicine Critical Care Medicine
PROC: 3E03317 Introduction of Other Thrombolytic into Peripheral Vein, Percutaneous Approach (ICD-10-PCS; principal; 2017-10-14)
PROC: 5A1955Z Respiratory Ventilation, Greater than 96 Consecutive Hours (ICD-10-PCS; 2017-10-15)
PROC: 0BH18EZ Insertion of Endotracheal Airway into Trachea, Via Natural or Artificial Opening Endoscopic (ICD-10-PCS; 2017-10-15)
PROC: 02HV33Z Insertion of Infusion Device into Superior Vena Cava, Percutaneous Approach (ICD-10-PCS; 2017-10-15)
DX: I63.511 Cerebral infarction due to unspecified occlusion or stenosis of right middle cerebral artery (principal); J15.6 Pneumonia due to other Gram-negative bacteria; J96.00 Acute respiratory failure, unspecified whether with hypoxia or hypercapnia; G93.49 Other encephalopathy; G93.6 Cerebral edema; D69.6 Thrombocytopenia, unspecified; E87.0 Hyperosmolality and hypernatremia; E88.09 Other disorders of plasma-protein metabolism, not elsewhere classified; G95.19 Other vascular myelopathies; J44.0 Chronic obstructive pulmonary disease with (acute) lower respiratory infection; I25.10 Atherosclerotic heart disease of native coronary artery without angina pectoris; I63.523 Cerebral infarction due to unspecified occlusion or stenosis of bilateral anterior cerebral arteries; Z95.1 Presence of aortocoronary bypass graft; E78.5 Hyperlipidemia, unspecified; F17.210 Nicotine dependence, cigarettes, uncomplicated; D64.9 Anemia, unspecified; I65.23 Occlusion and stenosis of bilateral carotid arteries; G83.24 Monoplegia of upper limb affecting left nondominant side; R00.1 Bradycardia, unspecified; Z51.5 Encounter for palliative care; Z66 Do not resuscitate; Z86.73 Personal history of transient ischemic attack (TIA), and cerebral infarction without residual deficits; Z95.5 Presence of coronary angioplasty implant and graft
CPT/HCPCS: 31500; 36600; 70450; 70544; 70551; 71045; 72146; 80048; 80053; 80061; 81240; 81241; 82435; 82565; 82805; 82947; 82948; 83036; 83735; 83930; 84100; 84132; 84295; 84443; 84484; 84520; 85007; 85025; 85027; 85303; 85306; 85384; 85610; 85613; 85652; 85730; 86038; 86147; 87040; 87070; 87086; 87205; 87641; 93005; 93306; 93880; 94002; 94003; 94640; 94664; 95819; 96365; 96375; J1265; J0131; J0360; J1815; J2060; J2250; J2270; J2405; J2543; J2765; J2920; J2930; J2997; J3010; J3411; J7030; J7040; J7050; J7060